=== PATIENT | male | born 1980 | race Two or more races ===

== ENCOUNTER 2025-05-08 13:40 | Inpatient (IN) | payer MEDICAID, SELFPAY ==
[2025-05-08] VITALS (14 sets, daily range): BP systolic 112–150; BP diastolic 81–96; PULSE 79–104; RESP 16–20; TEMP 36.3–37.2; O2SAT 95–100; BMI 28.1; BMI 35.5
--- NOTE | 2025-05-08 13:54 | PC.NURSE ---
PT BROUGHT IN BY AMBULANCE FOR C/O GENERALIZED WEAKNESS FOR 1 WEEK AND BLOODY STOLLS FOR 3 DAYS. STATES HISTORY OF LIVER PROBLEMS AND STILL DRINKING ALCOHOL BUT NOT TODAY.
--- NOTE | 2025-05-08 13:58 | EKG_ITS ---
[facility] Test Date: 2025-05-08 Pat Name: JOSE COON Department: Room: - Gender: Male Heel Pricker: : 1980 Requested By: ED Temporary Provider Order Number: [id number] Reading MD: ED Temporary Provider Measurements Intervals [place] Rate: 77 P: 42 OK: 152 QRS: 41 QRSD: 94 T: 85 QT: 428 QTc: 485 Interpretive Statements SINUS RHYTHM WITH MARKED SINUS ARRHYTHMIA LOW QRS VOLTAGE [QRS DEFLECTION < 0.5/1.0 mV IN LIMB/CHEST LEADS] Compared to ECG 03/25/2024 19:12:36 Low QRS voltage now present Sinus tachycardia no longer present /store/S0/[id number].pdf
--- NOTE | 2025-05-08 14:02 | PC.NURSE ---
DR. HOLDER INFORMED ABOUT LOW BLOOD SUGAR AND OKAYED ORDER FOR D50
[2025-05-08] MEDS: DEXTROSE 50%-WATER INJ 50 ML SYRINGE IVP (14:05)
--- NOTE | 2025-05-08 14:20 | PD.EDADULT ---
ED General RME/HPI General Chief complaint: Weakness Stated complaint: FEELING ILL Time Seen by Provider: 05/08/25 14:21 Arrival date/time: 05/08/25 13:40 Limitations: no limitations RME / HPI RME / HPI narrative: DR. PRESCOTT MAIN ED EVALUATION: 45 year old male with past medical history significant for liver cirrhosis from alcoholism, hypertension, kidney disease from liver disease presents to the Emergency Department [facility] with complaints generalized weakness, abdominal distention, skin rash and skin lesions from scratching. No diabetes history. Related Data Previous Rx's ?Medication ?Instructions ?Recorded pantoprazole 40 mg tablet,delayed 40 mg PO BID GI bleed 30 days #60 03/28/24 release tabs amoxicillin 875 mg-potassium 1 tab PO BID #14 tabs 06/04/24 clavulanate 125 mg tablet apixaban 5 mg tablet 5 mg PO BID #60 tabs 06/04/24 Allergies Allergy/AdvReac Type Severity Reaction Status Date / Time No Known Allergies Allergy Verified 05/04/24 17:15 Review of Systems Review of Systems Systems Reviewed: All systems reviewed, normal except as documented Past Medical History Past Medical History CARDIAC: Positive Hypercholesterolemia, Congestive Heart Failure and Hypertension RESPIRATORY: Positive Chronic Obstructive Pulmonary Disease (COPD), Asthma and Tobacco Use GASTROINTESTINAL: Positive Gastrointestinal Disorders, Cirrhosis, Gastrointestinal Bleed and Obesity ENDOCRINE: Positive Endocrine Disorders and Diabetes Mellitus Type 2 HEMATOLOGIC: Positive Anemia PSYCHO/SOCIAL: Positive Psychiatric Problems, Schizophrenia, Recreational Drug Use, Bipolar Disorder and Depression OTHER HISTORY: Positive Blood Transfusions Family History FAMILY HISTORY: Positive Family Psychiatric Problems, Family Cardiac Disorders and Family Cancer Social History SMOKING STATUS: Current some day smoker SECOND HAND EXPOSURE: Yes SUBSTANCE USE: does not use ALCOHOL: Never ED Exam General Limitations: Present no limitations General appearance: Present alert Head Head exam: Present atraumatic, normocephalic and normal inspection Eye Eye exam: Present normal appearance, PERRL and EOMI ENT ENT exam: Present normal exam, normal oropharynx and mucous membranes moist Neck Neck exam: Present normal inspection, full ROM and trachea midline Chest Chest inspection: Present normal inspection and symmetric chest wall rise Respiratory Respiratory exam: Present other (diminished breath sounds) Cardiovascular Cardiovascular exam: Present regular rate, normal rhythm and normal heart sounds Abdominal Exam Abdominal exam: Present normal bowel sounds and other (ascites) Extremities Exam Extremities exam: Present normal inspection and full ROM Back Exam Back exam: Present normal inspection and full ROM Neurological Exam Neurological exam: Present alert, oriented X3 and CN II-XII intact Psychiatric Psychiatric exam: Present normal affect and normal mood Skin Skin exam: Present warm, dry and rash (skin rash and skin lesions from scratching) Course Quality Measures none Orders Category Date Time Status Bedside Blood Glucose NOW Care 05/08/25 14:04 Completed Ball[employer] Expert Forensic Q4H START 00 Care 05/08/25 14:07 Completed EKG (ED ONLY) *Do not use* NOW Care 05/08/25 13:58 Completed Insert IV NOW Care 05/08/25 14:[address] abdomen pelvis wo con Stat Exams 05/08/25 14:23 Completed CXR [XR chest 1V] Stat Exams 05/08/25 14:21 Completed EKG (ED Only) Stat Exams 05/08/25 13:58 Draft Alcohol, Blood Medical Stat Lab 05/08/25 14:20 Completed Alcohol, Urine Stat Lab 05/08/25 14:10 Ordered Antibody Identification Stat Lab 05/08/25 14:20 Results CBC Stat Lab 05/08/25 14:20 Completed CMP [Comprehensive Metabolic Panel] Stat Lab 05/08/25 14:20 Completed Drug Screen,Urine Stat Lab 05/08/25 14:10 Ordered Lactate (Lactic Acid) Stat Lab 05/08/25 14:08 Completed Procalcitonin Stat Lab 05/08/25 14:20 Completed Type and Screen Stat Lab 05/08/25 14:20 Results Urinalysis Stat Lab 05/08/25 14:09 Ordered Azithromycin Inj [Zithromax Inj] 500 mg Med 05/08/25 16:14 Active Sodium Chloride 0.9% 250 ml [Ns] 250 ml IV X1 Dextrose 50% Syr [D50w Syringe Abboject] Med 05/08/25 13:56 Discontinued 50 ml .ROUTE .STK-MED ONE Dextrose 50% Syr [D50w Syringe Abboject] Med 05/08/25 14:02 Discontinued 50 ml IVP X1 ONE cefTRIAXone/D5w 1gm IV premix [Rocephin/D5w 1gm IV Med 05/08/25 16:14 Active premix] 1 gm in 50 ml IV X1 Vital Signs Vital signs: Vital Signs Temperature 98.3 F 05/08/25 13:54 Pulse Rate 85 05/08/25 13:54 Respiratory Rate 16 05/08/25 13:54 Blood Pressure 141/83 H 05/08/25 13:54 Pulse Oximetry (%) 97 05/08/25 13:54 Oxygen Delivery Method Room Air 05/08/25 13:54 Discharge Plan Plan Patient Disposition: Admit Acute Care w/in Hospital Prescriptions/Referrals Prescriptions/Med Rec: No Action pantoprazole 40 mg tablet,delayed release (DR/EC) 40 mg PO BID 30 Days Qty: 60 2RF apixaban 5 mg tablet 5 mg PO BID Qty: 60 0RF amoxicillin-pot clavulanate 875-125 mg tablet 1 tab PO BID Qty: 14 0RF Referrals: Cj Lopez MD [Primary Care Provider] - In 1 week Problem List Clinical Impression: CKD (chronic kidney disease), ANGIE (acute kidney injury), Cirrhosis, Ascites, Right lower lobe pneumonia Patient/Caregiver Discharge Instructions Print Language: Korean Stand Alone Forms: Henrietta Award Info., Patient Portal Info Letter MDM Narrative [facility] hospital course: I, Shawnee Schmitt, am scribing for and in the presence of Dr. Prescott. Differential diagnosis: Likely ascitis, pleural effusion, and fluid overload. Plan to treat pleuritis. Needs abdominal paracentesis. Will start on diuretics. Consider for admission. Patient has CKD, ANGIE, cirrhosis, ascites, and right lower lobe pneumonia. Will treat with Rocephin and Zithromax. Patient will be admitted. Clinical Information Provided by patient and EMS Medical Records [facility] Meds/Rx Considered, not Ordered None Labs/Rad/Tests considered, not Ordered None Chronic Illness/Social Conditions Add or document further as needed: Liver cirrhosis from alcoholism, hypertension, kidney disease from liver disease. No diabetes history. EKG EKG Interpretation narrative: EKG#1: EKG at 1359 hours. Interpreted by me: sinus rhythm, rate 77, low voltage, no axis deviation, no ischemia, normal intervals Lab Interpretation Labs: see narrative above Imaging Radiology reports / interpretation(s): Procedure(s): XR chest 1V Accession Number(s): [id number] cc: Neftali Cassidy MD; Cj Lopez MD; Pola Benitez MD~ Examination: AP chest single view Technique one AP portable semiupright chest single view Date and time: May 08, 2025 1437 hours INDICATIONS: Shortness of breath today. FINDINGS: Mild to moderate vascular congestion Suspicious for early pneumonia in the right upper lobe Prominent osteopenia Normal heart size IMPRESSION: Suspicious for early pneumonia in the right upper lobe, follow-up imaging is needed to document clearing and exclude underlying pulmonary nodule Dictated By: Pola Benitez MD Procedure(s): CT abdomen pelvis wo [facility] Accession Number(s): [id number] cc: Neftali Cassidy MD; Cj Lopez MD; Pola Benitez MD~ Examination: CT abdomen and pelvis without contrast. Coronal 3-D reconstructions. Sagittal 2-D reconstructions. Date and time of exam:May 08, 2025 1457 hours Comparison March 22, 2024 INDICATIONS: Generalized abdominal pain today with nausea and vomiting CTDI: vol (mGy): 12.8 DLP: (mGycm): 895 Technique: Axial images of the abdomen have been obtained, 3 mm slice thickness Intravenous contrast material has not been administered. Low dose protocols were performed. One or more of the following dose reduction techniques were used; automated exposure control, adjustment of the mA and/or KV according to patient size, use of iterative reconstruction technique. Findings: 8 mm soft nodule in the right lower lobe image 4, consider mild pneumonia Cirrhosis, liver nodular in contour with significant ascites No gallstones Spleen is not enlarged Image 49 suspicious for esophageal varices No pancreatic or adrenal mass No bowel obstruction Atrophic kidneys with poorly defined soft tissue areas of calcification in both kidneys, no hydronephrosis or ureteral calculi Anasarca Air in the urinary bladder No prostatomegaly Fat-containing right inguinal hernia IMPRESSION: Suspicious for early pneumonia right base Cirrhosis Significant ascites Anasarca Suspicious for esophageal varices Atrophic kidneys with soft areas of calcification, no hydronephrosis or ureteral calculi Dictated By: Pola Benitez MD Medication Administration(s) Medication Administration History Ceftriaxone Sodium/Dextrose (Rocephin/D5w 1gm Iv Premix) 1 gm in 50 mls @ 100 mls/hr IV X1 ONE Stop: 05/08/25 16:43 Azithromycin 500 mg/ Sodium (Chloride) 250 mls @ 250 mls/hr IV X1 ONE Stop: 05/08/25 17:13 Discontinued Medications Dextrose (Dextrose 50%-Water Inj 50 Ml Syringe) 50 ml IVP X1 ONE Stop: 05/08/25 14:03 Last Admin: 05/08/25 14:05 Dose: 50 ml Documented By: ANANTH Dextrose (Dextrose 50%-Water Inj 50 Ml Syringe) Confirm Administered Dose 50 ml .ROUTE .STK-MED ONE Stop: 05/08/25 13:57 Last Admin: 05/08/25 14:05 Dose: Not Given Documented By: ANANTH Non-Admin Reason: Duplicate Medication on eMAR Consultations/Discussions re: Management Consult #1: Date/time: 05/08/25 4:28 pm Physician, specialty, service, details: Discussed test HPI, PMHx, lab, radiology results and/or management with resident working with the hospitalist Dr. Krause. Will admit for further evaluation and management. Accepts patient for admission. Diagnosis Differential diagnosis: ascitis, pleural effusion, and fluid overload Most likely dx, and/or detailed dx discussion: CKD, ANGIE, cirrhosis, ascites, and right lower lobe pneumonia Dispositon Disposition: Admit
--- NOTE | 2025-05-08 14:23 | XR_ITS ---
Examination: CT abdomen and pelvis without contrast. Coronal 3-D reconstructions. Sagittal 2-D reconstructions. Date and time of exam:May 08, 2025 1457 hours Comparison March 22, 2024 INDICATIONS: Generalized abdominal pain today with nausea and vomiting CTDI: vol (mGy): 12.8 DLP: (mGycm): 895 Technique: Axial images of the abdomen have been obtained, 3 mm slice thickness Intravenous contrast material has not been administered. Low dose protocols were performed. One or more of the following dose reduction techniques were used; automated exposure control, adjustment of the mA and/or KV according to patient size, use of iterative reconstruction technique. Findings: 8 mm soft nodule in the right lower lobe image 4, consider mild pneumonia Cirrhosis, liver nodular in contour with significant ascites No gallstones Spleen is not enlarged Image 49 suspicious for esophageal varices No pancreatic or adrenal mass No bowel obstruction Atrophic kidneys with poorly defined soft tissue areas of calcification in both kidneys, no hydronephrosis or ureteral calculi Anasarca Air in the urinary bladder No prostatomegaly Fat-containing right inguinal hernia IMPRESSION: Suspicious for early pneumonia right base Cirrhosis Significant ascites Anasarca Suspicious for esophageal varices Atrophic kidneys with soft areas of calcification, no hydronephrosis or ureteral calculi
[2025-05-08 14:44] LABS: Lactate (Lactic Acid) 1.2 mMol/L (0.4-2.0)
[2025-05-08 14:47] LABS: Basophils # (Auto) 0.0 Thou/mm3 (0.0-0.2); Basophils % (Auto) 1 % (0-2.5); Eosinophils # (Auto) 0.2 Thou/mm3 (0.0-0.5); Eosinophils % (Auto) 3 % (0-10); Hematocrit 22.3 % (41.0-53.0); Immature Granulocytes Auto 0.02 Thou/mm3 (0.00-0.00); Lymphocytes # (Auto) 1.9 Thou/mm3 (1.0-4.8); Lymphocytes % (Auto) 22 % (10-50); Mean Corpuscular HGB Conc 34.1 g/dl (31.0-37.0); Mean Corpuscular Hemoglobin 32.3 pg (25.0-35.0); Mean Corpuscular Volume 95 fL (80-100); Monocytes # (Auto) 0.8 Thou/mm3 (0.0-0.8); Monocytes % (Auto) 10 % (0-12); Neutrophils # (Auto) 5.6 Thou/mm3 (1.8-7.7); Neutrophils % (Auto) 65 % (37-80); Nucleated Red Blood Cell # 0.00 Thou/mm3 (0.00-0.00); Nucleated Red Blood Cell % 0 /100 WBC (0); Platelet Count 172 Thou/mm3 (140-440); RDW Standard Deviation 53.1 fL (35.1-43.9); Red Blood Count 2.35 Miln/mm3 (4.50-5.90); White Blood Count 8.5 Thou/mm3 (3.8-10.6)
[2025-05-08 14:56] LABS: Hemoglobin 7.6 g/dL (13.5-16.0)
--- NOTE | 2025-05-08 15:12 | PC.NURSE ---
pt informed about need for urine and states unable to void. GIVEN URINAL
[2025-05-08 15:16] LABS: Alanine Aminotransferase < 7 U/L (10-49); Albumin, Serum 2.5 gm/dL (3.5-5.0); Albumin/Globulin Ratio 0.7 (1.2-2.2); Alcohol, Blood Medical < 3.0 mg/dL (0-10.0); Alkaline Phosphatase 83 U/L (46-116); Aspartate Amino Transferase 20 U/L (0-34); BUN/Creatinine Ratio 9 Ratio (12-20); Bilirubin,Total 0.5 mg/dL (0.3-1.2); Blood Urea Nitrogen 36 mg/dL (9-23); Chloride 109 mMol/L (98-107); Creatinine (Component) 4.1 mg/dL (0.6-1.3); Estimated Creatinine Clearance 23.8 mL/min (>60); Globulin 3.4 gm/dL (2.3-3.5); Glucose 55 mg/dL (74-106); Osmolality,Calculated 280 (275-295); Potassium 3.3 mMol/L (3.4-5.1); Procalcitonin 0.38 ng/ml (0.0-0.49); Sodium 137 mMol/L (136-145); Total Protein 5.9 gm/dL (5.7-8.2); eGFR 18 See Note
[2025-05-08 15:31] LABS: Anion Gap 13 (7-16); Calcium 7.1 mg/dL (8.3-10.6); Calcium (Corrected) 8.3 mg/dL (8.5-10.1); Carbon Dioxide 15.1 mMol/L (20.0-31.0)
--- NOTE | 2025-05-08 17:14 | XR_ITS ---
Examination: Retroperitoneal ultrasound, complete Technique: Multiple high resolution grayscale images of the retroperitoneum obtained, including kidneys and bladder. Exam date and time:May 08, 2025, 181 hours INDICATIONS: Hepatorenal disease, diagnosis cirrhosis, diagnosis acute renal insufficiency and laboratory examination today FINDINGS: Right kidney 8.7 cm cortex 1.3 cm Left kidney 9.6 cm renal cortex 1.1 cm Moderate renal parenchymal scar formation Moderate ascites Contracted urinary bladder IMPRESSION: Small kidneys with bilateral renal cortical thinning Moderate bilateral renal parenchymal scar formation
[2025-05-08 17:31] LABS: Parathyroid Hormone Intact 130.0 pg/ml (18.5-88.0); Phosphorous 6.1 mg/dL (2.4-5.1); Uric Acid 11.4 mg/dL (3.7-9.2)
[2025-05-08 17:35] LABS: Vitamin D 25 Hydroxy Total 19.7 ng/mL (7.3-40.2)
[2025-05-08] MEDS: cefTRIAXone/D5w 1gm IV premix 1 GM/50 ML BAG IV (17:43)
[2025-05-08] MEDS: Sodium Bicarb Inj 8.4% SYR 50 ML SYRINGE IV (18:06)
[2025-05-08] MEDS: AZITHROMYCIN INJ 500 MG in SODIUM CHLORIDE 0.9% 250 ML 250 ML 250 MG IV (18:08)
--- NOTE | 2025-05-08 18:26 | PC.NURSE ---
CALLED DR. Olvin VACA ABOUT PT'S BLOOD SUGARS AND CONCERN THAT OCTREOTIDE WILL CAUSE BLOOD SUGAR TO DROP FURTHER AND ORDER TO HOLD MED OBTAINED NOW
--- NOTE | 2025-05-08 18:28 | PC.NURSE ---
CALL RECEIVED FROM HOSPITALIST DR. VACA AND WANTS OCTREOTIDE STARTED
[2025-05-08] MEDS: OCTREOTIDE ACET INJ 1,000 MCG in SODIUM CHLORIDE 0.9% 100 ML 5.1 MCG IV (18:29)
--- NOTE | 2025-05-08 18:36 | PD.RESHP ---
Documentation for date of: 05/08/25 HPI History of Present Illness Chief complaint: not feeling well History of present illness: 44-year-old male with active alcohol use disorder with subsequent end-stage liver disease, type 2 diabetes mellitus, hypertension presenting to ED 05/08/2025 due to generalized complaint of not feeling well. Endorses that he has been having multiple episodes of nausea and vomiting and noticeable blood in vomit as well. Continues to have active alcohol use history endorses drinking 1 quart of beer per day. Has been drinking for the past 20 years. While in the ED, patient had 1 episode of hematemesis. Noticeable worsening ascites and abdominal distention, has never been tapped before. Also endorses decreased urine output, SOB, last drink 2 days ago, new onset rash that started some days ago, denies any withdrawal seizures in the past. In ED, BP 141/83, with rest of vital stable. Hemoglobin 7.6, MCV 95, platelets 172, sodium 137, potassium 3.3, bicarb 15, BUN 36, creatinine 4.1, glucose 55, phosphate 6.1, elevated PTH 130. Normal ethyl alcohol level. Early signs of pneumonia on chest x-ray, CT abdomen pelvis Cirrhosis with significant ascites, possible esophageal varices, atrophic kidneys. He was given dextrose 50, 1 g ceftriaxone, sodium bicarb 50 while in the ED. Nephrology Dr Duncan consulted for ANGIE and GI Dr. Figueroa consulted for GI bleed. PMH: As noted above PSH: Denies Family Hx: History hypertension in mother Social: Unemployed, drinks 1 quart of beer a day for the past 20 years, smokes 1 pack/day for past couple years, denies illicit drug use. Meds: Denies taking any medications Allergies: NKDA Review of Systems Review of Systems Systems Reviewed: All systems reviewed, normal except as documented Exam Vital Signs Temp Pulse Resp BP Pulse Ox O2 Del Method 98.3 F 87 19 139/96 H 100 Room Air 05/08/25 13:54 05/08/25 18:00 05/08/25 18:00 05/08/25 18:00 05/08/25 18:00 05/08/25 18:00 Narrative Exam General: Young male, distressed, distended abdomen, vomitus on byers, eyes covered by hat HEENT: NCAT, No JVD noted. Mucosa dry. Pupils are equal and reactive to light bilaterally, no scleral icterus Cardiovascular: Normal S1 and S2. Regular rate and rhythm. Respiratory: Lungs are clear to auscultation bilaterally. No wheezing or crackles heard. Abdomen: Hard, distended, positive fluid wave test Skin: no spider angioma, appears like pin point rashes through out body. Possible bug bites Musculoskeletal: No gross injuries. Able to move all 4 extremities. +1 ptiting edema Neuro: Alert and oriented x3. No focal neuro deficits. Psych: apathetic Results: Labs 05/09/25 06:20 05/08/25 14:20 Labs: Short CBC 05/08/25 Range/Units 14:20 WBC 8.5 (3.8-10.6) Thou/mm3 Hgb 7.6 L (13.5-16.0) g/dL Hct 22.3 L (41.0-53.0) % Plt Count 172 (140-440) Thou/mm3 BMP 05/08/25 14:20 Sodium 137 Potassium 3.3 L Chloride 109 H Carbon Dioxide 15.1 L BUN 36 H Creatinine 4.1 H* Glucose 55 L Calcium 7.1 L Liver Function 05/08/25 Range/Units 14:20 Total Bilirubin 0.5 (0.3-1.2) mg/dL AST 20 (0-34) U/L ALT < 7 L (10-49) U/L Alkaline Phosphatase 83 (46-116) U/L Albumin 2.5 L (3.5-5.0) gm/dL Quality Measures Quality Measures none Medications Home Medications and Allergies Home Medications ?Medication ?Instructions ?Recorded ?Confirmed ?Type amlodipine 10 mg tablet 10 mg PO 1XD 05/09/25 05/09/25 History ferrous sulfate 325 mg (65 mg 325 mg PO 1XD 05/09/25 05/09/25 History iron) tablet (FeroSul) folic acid 1 mg tablet 1 mg PO 1XD 05/09/25 05/09/25 History levothyroxine 100 mcg tablet 100 mcg PO 1XD 05/09/25 05/09/25 History losartan 100 mg tablet 100 mg PO 1XD 05/09/25 05/09/25 History quetiapine 100 mg tablet 100 mg PO HS 05/09/25 05/09/25 History Allergies Allergy/AdvReac Type Severity Reaction Status Date / Time No Known Allergies Allergy Verified 05/04/24 17:15 Visit Medications Acetaminophen (Acetaminophen 325 Mg Tablet) 650 mg PO Q6H PRN PRN Reason: Fever >100.3 or pain 1-3 Stop: 06/07/25 17:36 Bumetanide (Bumetanide Inj 0.25 Mg/Ml Vial 4 Ml) 2 mg IVP BID [facility] Stop: 06/07/25 20:59 Octreotide Acetate 1,000 mcg/ (Sodium Chloride) 102 mls @ 5.1 mls/hr IV .Q20H ANNE; Protocol Stop: 05/13/25 17:22 Last Admin: 05/08/25 18:29 Dose: 50 mcg/hr, 5.1 mls/hr Ceftriaxone Sodium/Dextrose (Rocephin/D5w 1gm Iv Premix) 1 gm in 50 mls @ 100 mls/hr IV QDAY ANNE Stop: 05/15/25 17:24 Last Infusion: 05/08/25 18:08 Dose: Infused Albumin Human (Albuminar-25 Ivpb) 25 gm in 100 mls @ 100 mls/hr IV BID ANNE Stop: 05/11/25 20:59 Lactulose (Lactulose Syrup 20 Gm/30 Ml Udc) 10 gm PO QDAY PRN; Protocol PRN Reason: constipation Stop: 06/08/25 08:59 Ondansetron HCl (Ondansetron Inj 2 Mg/Ml Inj 2 Ml) 4 mg IVP Q6H PRN; Protocol PRN Reason: NAUSEA OR VOMITING Stop: 06/07/25 17:36 Ondansetron HCl (Ondansetron Inj 2 Mg/Ml Inj 2 Ml) 4 mg IVP Q6H PRN; Protocol PRN Reason: NAUSEA OR VOMITING Stop: 06/07/25 18:35 Pantoprazole Sodium (Pantoprazole Inj 40 Mg Vial) 40 mg IVP BID [facility] Stop: 06/07/25 20:59 Discontinued Medications Dextrose (Dextrose 50%-Water Inj 50 Ml Syringe) 50 ml IVP X1 ONE Stop: 05/08/25 14:03 Last Admin: 05/08/25 14:05 Dose: 50 ml Ceftriaxone Sodium/Dextrose (Rocephin/D5w 1gm Iv Premix) 1 gm in 50 mls @ 100 mls/hr IV X1 ONE Stop: 05/08/25 16:43 Last Admin: 05/08/25 17:57 Dose: Not Given Azithromycin 500 mg/ Sodium (Chloride) 250 mls @ 250 mls/hr IV X1 ONE Stop: 05/08/25 17:13 Last Admin: 05/08/25 18:08 Dose: 250 mls/hr Potassium Chloride (Potassium Chloride 20 Meq Tabcr) 40 meq PO X1 ONE Stop: 05/08/25 18:04 Sodium Bicarbonate (Sodium Bicarb Inj 8.4% Syr 50 Ml Syringe) 50 ml IV X1 ONE Stop: 05/08/25 17:32 Last Admin: 05/08/25 18:06 Dose: 50 ml Tuberculin PPD (Tuberculin Ppd Inj 5 Unit/0.1 Ml Dose) 5 unit ID X1 ONE Stop: 05/08/25 17:38 Assessment & Plan Plan 44-year-old male with active alcohol use disorder with subsequent end-stage liver disease, type 2 diabetes mellitus, hypertension presenting to ED 05/08/2025 due to generalized complaint of not feeling well. Continues to have active alcohol use history endorses drinking 1 quart of beer per day. Nephrology Dr Duncan consulted for ANGIE and GI Dr. Figueroa consulted for GI bleed. #Decompensated liver cirrhosis #Upper GI bleed Has history of liver cirrhosis, presenting with apparent ascites, no coagulopathy, bilirubin normal, AST/ALT normal, ammonia normal. Patient alert and oriented x 3. Endorses few episodes of hematemesis, hemoglobin 7.6 on admission and MCV 95. Endorses alcohol intake of 1 quart of beer per day for the past 20 years. Denies getting abdominal tap for ascites in the past. CT abdomen pelvis Cirrhosis with significant ascites, possible esophageal varices, atrophic kidneys. ?Consulted GI Dr. Figueroa, patient recommendations ?Started octreotide drip for 5 days (05/08- ?IV ceftriaxone 1 g daily (05/08- ?IV pantoprazole 40 mg BID -transfuse 1 unit PRBC if hemoglobin less than 7 ?Albumin 25 g BID x3 days (05/08- -IV Zofran ? Daily coag panel ? Clear liquid diet ?Hepatitis panel pending -daily CBC #ANGIE Prerenal versus hepatorenal. BUN 36, creatinine 4.1 (baseline appears to be around 2), GFR 18, ratio 9. Systemic vasodilation and causing prerenal ANGIE may also be in the setting of liver cirrhosis. If prerenal, anticipate improvement with volume expansion. However at this time we will diurese due to his severe ascites. Uric acid elevated 11.4, phosphate elevated 6.1 He has been endorsing decreased urine output -Consulted nephrology Dr Duncan, appreciate recommendations ?Urine electrolytes pending ? Start IV Bumex 2 mg BID ? Monitor urine output ? Renal ultrasound pending #Electrolyte abnormalities Potassium 3.3, bicarb 15 on admission ? Replete as needed ? Daily labs Health maintenance: Dispo: medsurg, GI bleed, ANGIE FEN: clear liquid DVT prophylaxis: SCDs CODE STATUS: Full code The patient's management plan was discussed with my attending physician Dr. Krause. Lexy Weldon, PGY-1 Attending Provider Attestation/Addendum I have examined the patient, reviewed labs and imaging findings, discussed the case with the resident(s), and reviewed entered orders. I agree with the plan of care as outlined in this note, with these additional summaries/recommendations: After examination of the patient and review of the clinical data, I feel that this patient needs admission to the hospital for further treatment and evaluation. Patient is a 45-year-old male with a medical history of alcohol use disorder, liver cirrhosis, primary hypertension, diabetes mellitus type 2, and psychiatric disorder presents to [facility] emergency department on 05/08/2025 with chief complaints of generalized weakness and blood in stool. Patient seen at bedside. He reports he has cirrhosis from alcohol use. He currently does not follow with a liver specialist but does occasionally follow-up with his primary care provider. Patient diagnosed with decompensated cirrhosis and GI bleed. Consult gastroenterology, recommendations appreciated. N.p.o., IV Protonix, octreotide gtt., and IV Rocephin. Hold all chemical anticoagulation. Avoid excessive Tylenol use and limit hepatotoxic agents. Low-salt diet. Counseled patient on alcohol sensation. Patient also noted to have severe ANGIE on CKD. Likely etiology prerenal azotemia versus hepatorenal syndrome. Consult nephrology, recommendations appreciated. Patient does not appear to have acute indication for dialysis at this time. Place Winters catheter and we will order [address] scan did reveal atrophic kidneys bilaterally. Patient has minimal electrolyte abnormalities and we will replace. Patient updated he will be admitted to the hospital and in agreement. All questions answered to satisfaction. Please see residents note for additional details and management. Dr. Nelida MD
[2025-05-08] MEDS: ONDANSETRON INJ 2 MG/ML INJ 2 ML 4 MG IVP (18:40)
[2025-05-08 18:44] LABS: Ammonia 32 uMol/L (11-32)
[2025-05-08 18:53] LABS: COVID-19 Antigen (In-House) Negative (Negative)
[2025-05-08 18:58] LABS: Base Excess -13 (-3-3); HCO3 13 mEq/L (20-26); Inspired Oxygen, FIO2 21 %; O2 Saturation 98 % (91-98); PCO2 29 mmHg (32.0-48.0); PO2 91 mmHg (83-108); pH, Arterial 7.27 (7.35-7.45)
--- NOTE | 2025-05-08 19:00 | PD.RESCONSUL ---
HPI Data of Consult Consult date: 05/08/25 Requesting Physician: Mark Krause MD Admitting Provider: Mark Krause MD Attending Provider: Mark Krause MD Primary Care Provider: Cj Lopez MD Consult Narrative Reason for consult: Acute renal failure, cirrhosis, anasarca History of present illness: Mr. 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 Sharath Payne), Prediabetes, history of pulmonary embolism-on Eliquis, hypertension, history of variceal bleed, history of psychiatric disorders, who presented to the emergency room from home complaining of generalized weakness, significant abdominal distention, skin rash. Patient was evaluated in the emergency room, he was a poor historian, is noncompliant with medications and unaware of most of his medical history. Limited HPI. Patient reports having nausea and vomiting, noted bilious/green vomiting with food contents in the vomiting bag, endorsed melena. Patient endorses using alcohol, states he lives at the home, has scratch campbell and rash all over his body, states he has bedbugs at home. Noted to have abdominal distention, pedal edema, complaining of shortness of breath. Patient is visibly uncomfortable though saturating 100% on room air, but feels he cannot get enough air. Nephrology was consulted for management of acute on chronic CKD and anasarca. In the emergency room initial labs show CBC pertinent for anemia hemoglobin 7.6, platelets 172 WBC 8.5, sodium 137, K 3.3, CL 109, CO2 15.1, BUN 36 creatinine 4.1, EGFR 18, glucose 55, lactic acid 1.2, uric acid 11.4, calcium 8.3 phosphorus 6.1, PTH 130. ABG showed pH 7.27 PCO2 29 PO2 91. Chest x-ray suspicious for early pneumonia in right upper lobe. Abdominal pelvis CT shows pneumonia right base, cirrhosis, significant ascites, anasarca, suspicion for esophageal varices, atrophic kidneys, renal ultrasound shows right kidney 8.7 cm, left kidney 9.6 cm, moderate renal failure, scar formation, moderate ascites and contracted urinary bladder. EKG showed sinus rhythm with sinus arrhythmia low voltage QRS complexes. No acute ischemic changes noted. In the emergency room patient was given dextrose IV pushes for hypoglycemia, was given ceftriaxone and azithromycin, 1 ampoule of sodium bicarb and started on octreotide drip and ondansetron. cc:: cc: Mark Krause MD Review of Systems Review of Systems Systems Reviewed: All systems reviewed, normal except as documented Past Medical History Past Medical History NEUROLOGIC: Negative Neurological Disorders or Seizures CARDIAC: Positive Hypercholesterolemia, Congestive Heart Failure and Hypertension; Negative Cardiac Disorders, Angina, Atherosclerotic Heart Disease or Aneurysm RESPIRATORY: Positive Chronic Obstructive Pulmonary Disease (COPD), Asthma and Tobacco Use GASTROINTESTINAL: Positive Gastrointestinal Disorders, Cirrhosis, Gastrointestinal Bleed and Obesity GENITOURINARY: Negative Genitourinary Disorders or Renal Disease MUSCULOSKELETAL: Negative Musculoskeletal Disorders ENDOCRINE: Positive Endocrine Disorders and Diabetes Mellitus Type 2; Negative Diabetes Mellitus Type 1 HEMATOLOGIC: Positive Anemia; Negative Sickle Cell Disease PSYCHO/SOCIAL: Positive Psychiatric Problems, Schizophrenia, Recreational Drug Use, Bipolar Disorder and Depression OTHER HISTORY: Positive Blood Transfusions; Negative Autoimmune Disease, Blood Transfusion Reaction, Anesthesia Reactions or Cancer Family History FAMILY HISTORY: Positive Family Psychiatric Problems, Family Cardiac Disorders and Family Cancer; Negative Family Respiratory Disorders, Family Gastrointestinal Problems, Family Surgery or Family Anesthesia Reaction Social History SMOKING STATUS: Current some day smoker SECOND HAND EXPOSURE: Yes SUBSTANCE USE: does not use Exam Vital Signs Temp Pulse Resp BP Pulse Ox O2 Del Method 98.3 F 87 19 139/96 H 100 Room Air 05/08/25 13:54 05/08/25 18:00 05/08/25 18:00 05/08/25 18:00 05/08/25 18:00 05/08/25 18:00 Narrative Exam Currently seen in the emergency department General: Young male, distressed, distended abdomen, vomitus on byers, teary eyed. HEENT: NCAT, No JVD noted. Mucosa dry. Pupils are equal and reactive to light bilaterally, no scleral icterus Cardiovascular: Normal S1 and S2. Regular rate and rhythm. Respiratory: Lungs are clear to auscultation bilaterally. No wheezing or crackles heard. Abdomen: Hard, distended, positive fluid wave test Skin: no spider angioma , scratch campbell all over his body with excoriations. Musculoskeletal: No gross injuries. Able to move all 4 extremities. +2-3 pitting edema in the lower extremities extending all the way up Neuro: Alert and oriented x3. No focal neuro deficits. Psych: apathetic Results Labs 05/08/25 18:19 05/08/25 14:20 Labs: Short CBC 05/08/25 Range/Units 14:20 WBC 8.5 (3.8-10.6) Thou/mm3 Hgb 7.6 L (13.5-16.0) g/dL Hct 22.3 L (41.0-53.0) % Plt Count 172 (140-440) Thou/mm3 BMP 05/08/25 14:20 Sodium 137 Potassium 3.3 L Chloride 109 H Carbon Dioxide 15.1 L BUN 36 H Creatinine 4.1 H* Glucose 55 L Calcium 7.1 L Liver Function 05/08/25 Range/Units 14:20 Total Bilirubin 0.5 (0.3-1.2) mg/dL AST 20 (0-34) U/L ALT < 7 L (10-49) U/L Alkaline Phosphatase 83 (46-116) U/L Albumin 2.5 L (3.5-5.0) gm/dL Quality Measures Quality Measures none Medications Home Medications and Allergies Home Medications ?Medication ?Instructions ?Recorded ?Confirmed ?Type amlodipine 10 mg tablet 10 mg PO 1XD 05/09/25 05/09/25 History ferrous sulfate 325 mg (65 mg 325 mg PO 1XD 05/09/25 05/09/25 History iron) tablet (FeroSul) folic acid 1 mg tablet 1 mg PO 1XD 05/09/25 05/09/25 History levothyroxine 100 mcg tablet 100 mcg PO 1XD 05/09/25 05/09/25 History losartan 100 mg tablet 100 mg PO 1XD 05/09/25 05/09/25 History quetiapine 100 mg tablet 100 mg PO HS 05/09/25 05/09/25 History Allergies Allergy/AdvReac Type Severity Reaction Status Date / Time No Known Allergies Allergy Verified 05/04/24 17:15 Visit Medications Acetaminophen (Acetaminophen 325 Mg Tablet) 650 mg PO Q6H PRN PRN Reason: Fever >100.3 or pain 1-3 Stop: 06/07/25 17:36 Bumetanide (Bumetanide Inj 0.25 Mg/Ml Vial 4 Ml) 2 mg IVP BID ANNE Stop: 06/07/25 20:59 Octreotide Acetate 1,000 mcg/ (Sodium Chloride) 102 mls @ 5.1 mls/hr IV .Q20H ANNE; Protocol Stop: 05/13/25 17:22 Last Admin: 05/08/25 18:29 Dose: 50 mcg/hr, 5.1 mls/hr Ceftriaxone Sodium/Dextrose (Rocephin/D5w 1gm Iv Premix) 1 gm in 50 mls @ 100 mls/hr IV QDAY ANNE Stop: 05/15/25 17:24 Last Infusion: 05/08/25 18:08 Dose: Infused Albumin Human (Albuminar-25 Ivpb) 25 gm in 100 mls @ 100 mls/hr IV BID ANNE Stop: 05/11/25 20:59 Lactulose (Lactulose Syrup 20 Gm/30 Ml Udc) 10 gm PO QDAY PRN; Protocol PRN Reason: constipation Stop: 06/08/25 08:59 Ondansetron HCl (Ondansetron Inj 2 Mg/Ml Inj 2 Ml) 4 mg IVP Q6H PRN; Protocol PRN Reason: NAUSEA OR VOMITING Stop: 06/07/25 18:35 Last Admin: 05/08/25 18:40 Dose: 4 mg Pantoprazole Sodium (Pantoprazole Inj 40 Mg Vial) 40 mg IVP BID ANNE Stop: 06/07/25 20:59 Discontinued Medications Dextrose (Dextrose 50%-Water Inj 50 Ml Syringe) 50 ml IVP X1 ONE Stop: 05/08/25 14:03 Last Admin: 05/08/25 14:05 Dose: 50 ml Ceftriaxone Sodium/Dextrose (Rocephin/D5w 1gm Iv Premix) 1 gm in 50 mls @ 100 mls/hr IV X1 ONE Stop: 05/08/25 16:43 Last Admin: 05/08/25 17:57 Dose: Not Given Azithromycin 500 mg/ Sodium (Chloride) 250 mls @ 250 mls/hr IV X1 ONE Stop: 05/08/25 17:13 Last Admin: 05/08/25 18:08 Dose: 250 mls/hr Potassium Chloride (Potassium Chloride 20 Meq Tabcr) 40 meq PO X1 ONE Stop: 05/08/25 18:04 Sodium Bicarbonate (Sodium Bicarb Inj 8.4% Syr 50 Ml Syringe) 50 ml IV X1 ONE Stop: 05/08/25 17:32 Last Admin: 05/08/25 18:06 Dose: 50 ml Tuberculin PPD (Tuberculin Ppd Inj 5 Unit/0.1 Ml Dose) 5 unit ID X1 ONE Stop: 05/08/25 17:38 Assessment & Plan Problem List (1) ANGIE (acute kidney injury): Status: Acute Assessment and plan: Acute kidney injury in the setting of cirrhosis and anasarca. Concern for underlying hepatorenal syndrome type II. Based on labs in 2023, patient seems to have CKD stage III/IV, patient was lost to follow-up since. Did not follow-up with construction accountant or primary care. Seen by Dr. Duncan in October. Currently patient has anasarca, will hold off on giving IV fluids, will add IV albumin to rule out hepatorenal syndrome as well as providing volume expansion intravascularly. ? IV albumin 25 g twice daily for 3 days. ? IV Bumex 2 mg twice daily ? Continue to trend renal function, if no response to albumin and diuretic challenge, can consider hemodialysis. Patient was offered hemodialysis, states he will need some time to consider, was concerned about coming to outpatient dialysis center multiple times a week. ? Ordered viral hepatitis panel and PPD ? Strict intake and output monitoring ? Renal ultrasound ordered (2) Ascites: Status: Acute Assessment and plan: IV diuresis with Bumex 2 mg IV twice daily for volume overload. Offered patient hemodialysis with ultrafiltration for anasarca, but he was hesitant to go ahead with dialysis at this moment. Will reassess patient's condition tomorrow and evaluate response to diuretics. (3) Cirrhosis: Status: Acute Assessment and plan: Decompensated cirrhosis with anasarca, ascites and varices. Patient was started on IV octreotide due to concern for GI bleed. Cirrhosis also likely contributing to renal impairment, possible hepatorenal syndrome type II. ? Continue IV octreotide ? Management per primary team (4) GI bleed: Status: Acute Assessment and plan: On IV octreotide and Protonix. Management per primary team (5) Symptomatic anemia: Status: Acute Assessment and plan: Acute anemia, patient has pallor on physical exam, on IV octreotide, transfuse if hemoglobin less than 7. ?Management per primary team Plan Plan of care discussed with attending Dr. Perla Polk pgy 2 Attending Provider Attestation/Addendum Patient seen and examined with resident physician Dr. Polk. Note reviewed, agree with findings and recommendations with the few changes made. Well-known to me from my CKD clinic however lost for follow-up. Patient with significant anasarca. Currently seen in the emergency department. Suspect underlying CKD stage III/IV from a hepatorenal syndrome Agree with diuretics-for anasarca. Did discuss with patient regarding dialysis-he seems to be skeptical to come 3 times weekly. Never seen a transplant specialist-although not a candidate at this point due to active alcohol intake. Thank you Mark for allowing me to participate in the care of Mr. Prado
[2025-05-08 19:01] LABS: Allen Test Performed/OK; Puncture Site Left Radial
[2025-05-08 19:22] LABS: Hematocrit 18.4 % (41.0-53.0); Hemoglobin 6.4 g/dL (13.5-16.0)
[2025-05-08] MEDS: DEXTROSE 50%-WATER INJ 50 ML SYRINGE 25 ML IV (19:37)
[2025-05-08 20:15] LABS: Hepatitis A Antibody IgM Non Reactive (Non React); Hepatitis B Core Antibody IgM Non Reactive (Non React); Hepatitis B Surface Antigen Non Reactive (Non React); Hepatitis C Antibody Non Reactive (Non React)
[2025-05-08] MEDS: BUMETANIDE INJ 0.25 MG/ML VIAL 4 ML 2 MG IVP (21:04)
--- NOTE | 2025-05-08 21:48 | PD.IMCONS ---
HPI Data of Consult Requesting Physician: Mark Krause MD Primary Care Provider: Cj Lopez MD Consult Narrative Reason for consult: Hematemesis H&H 6.4/18.4 History of present illness: 45 years old male with a known history of end-stage liver disease due to continued use of alcohol at least 1 quart of beer a day presented the hospital with weakness which was generalized worsening ascites and episodes of nausea vomiting with hematemesis Which she had at home he also had 1 episode of hematemesis in the hospital in the emergency room Presenting hemoglobin hematocrit 7.6 and 22.3 which is gone down to 6.4 and 18.4 with a platelet count of 172,000 INR is 1.0 BUN/creatinine 36 and 4.1 which is acute And CT scan of the abdomen pelvis without contrast shows cirrhosis of the liver ascites pneumonia right base and possible esophageal varices cc:: cc: Mark Krause MD Review of Systems Review of Systems Systems Reviewed: All systems reviewed, normal except as documented Past Medical History Surgical History OTHER SURGICAL HX: As in the history of present illness Meds Home Medications and Allergies Allergies Allergy/AdvReac Type Severity Reaction Status Date / Time No Known Allergies Allergy Verified 05/04/24 17:15 Exam Vital Signs Temp Pulse Resp BP Pulse Ox O2 Del Method 97.3 F 96 19 123/88 H 100 Room Air 05/08/25 21:47 05/08/25 21:47 05/08/25 21:47 05/08/25 21:47 05/08/25 21:47 05/08/25 19:14 Constitutional Comments: Chronically ill-appearing Routine Respiratory Exam Comments: Normal to auscultation Routine Abdominal Exam Comments: Positive for ascites Results Labs 05/08/25 18:19 05/08/25 14:20 Labs: Short CBC 05/08/25 05/08/25 Range/Units 14:20 18:19 WBC 8.5 (3.8-10.6) Thou/mm3 Hgb 7.6 L 6.4 L* (13.5-16.0) g/dL Hct 22.3 L 18.4 L* (41.0-53.0) % Plt Count 172 (140-440) Thou/mm3 BMP 05/08/25 14:20 Sodium 137 Potassium 3.3 L Chloride 109 H Carbon Dioxide 15.1 L BUN 36 H Creatinine 4.1 H* Glucose 55 L Calcium 7.1 L Liver Function 05/08/25 Range/Units 14:20 Total Bilirubin 0.5 (0.3-1.2) mg/dL AST 20 (0-34) U/L ALT < 7 L (10-49) U/L Alkaline Phosphatase 83 (46-116) U/L Albumin 2.5 L (3.5-5.0) gm/dL ABG Interpretation ABG results: 05/08/25 18:50 ABG pH 7.27 L ABG pCO2 29 L ABG pO2 91 ABG HCO3 13 L ABG O2 Saturation 98 ABG Base Excess -13 L Assessment and Plan Additional Assessment & Plan Additional Plan: # Hematemesis in setting of cirrhotic liver disease due to alcohol Plan Octreotide infusion at 50 mcg/h after 50 mcg IV push loading dose IV Protonix serial CBC Consent obtained for fiberoptic esophagogastroduodenoscopy with possible therapeutic intervention under intravenous moderate sedation Patient should receive at least 2 units of PRBC N.p.o. Other medical problems include End-stage liver disease secondary to alcohol ANGIE Chronic alcoholic dependency Advanced portal hypertension Thank you very much for the opportunity to participate in the care of this patient
[2025-05-08 22:27] LABS: COVID-19 Antigen (In-House) Negative (Negative)
--- NOTE | 2025-05-08 22:55 | PC.LAC ---
PER ORDER OF SALAS CATH, THIS RN WAS UNSUCCESSFUL TO ENTER SALAS CATH. THIS RN ASKED FOR HELP FROM ANOTHER RN ROLANDO, WHO WAS ALSO UNSUCCESSFUL IN ENTERING CATH. THIS RN ASKES ANOTHER RN ENRIQUE, BUT STILL NO SUCCESS. RN CALLED PROVIDERS TO EXPLAIN SITAUTION. PROVIDERS REQUESTED A BLADDER SCAN. BLADDER SCAN DEMOSTARTED 999ML. THIS RN ASSESSED PT FOR ANY PAIN AND TENDERNESS. PT DENIES PAIN AND STATES ITS MY BELLY THAT IS UNCOMFORTABLE NOT MY BLADDER . THIS RN CONTACTED PROVIDERS OF BLADDER SCAN AMOUNT AND ASSESSMENT. PROVIDERS REQUESTED A BARDEX SALAS CATH TO BE INSTERED. PROVIDERS ATTEMPTED TO INSERT BARDEX CATH BUT UNSUCCESSFUL. RN REASSESSED PTS BLADDER. PT STATES THAT HE CAN GO RESTROOM BUT NOT A LOT . PT REFUSED ANY OTHER INTERVENTIONS OF REMOVE URINE. PT STATES I CAN PEE BY MYSELF
--- NOTE | 2025-05-08 23:40 | PC.NURSE ---
Addendum entered by Lillie Siddiqui RN 05/08/25 23:48: CORRECTION 367ML Original Note: BLADDER SCAN WAS REDONE. BLADDER SCAN DEMONSTRATES 376ML
--- NOTE | 2025-05-08 23:40 | PC.NURSE ---
BLADDER SCAN WAS REDONE. BLADDER SCAN DEMONSTRATES 376ML
--- NOTE | 2025-05-08 23:41 | PC.NURSE ---
Addendum entered by Lillie Siddiqui RN 05/08/25 23:48: THIS OCCURED AROUND 2100 Original Note: PER ORDER OF SALAS CATH, THIS RN WAS UNSUCCESSFUL TO ENTER SALAS CATH. THIS RN ASKED FOR HELP FROM ANOTHER RN ROLANDO, WHO WAS ALSO UNSUCCESSFUL IN ENTERING CATH. THIS RN ASKES ANOTHER RN ENRIQUE, BUT STILL NO SUCCESS. RN CALLED PROVIDERS TO EXPLAIN SITAUTION. PROVIDERS REQUESTED A BLADDER SCAN. BLADDER SCAN DEMOSTARTED 999ML. THIS RN ASSESSED PT FOR ANY PAIN AND TENDERNESS. PT DENIES PAIN AND STATES ITS MY BELLY THAT IS UNCOMFORTABLE NOT MY BLADDER . THIS RN CONTACTED PROVIDERS OF BLADDER SCAN AMOUNT AND ASSESSMENT. PROVIDERS REQUESTED A BARDEX SALAS CATH TO BE INSTERED. PROVIDERS ATTEMPTED TO INSERT BARDEX CATH BUT UNSUCCESSFUL. RN REASSESSED PTS BLADDER. PT STATES THAT HE CAN GO RESTROOM BUT NOT A LOT . PT REFUSED ANY OTHER INTERVENTIONS OF REMOVE URINE. PT STATES I CAN PEE BY MYSELF
[2025-05-09] VITALS (23 sets, daily range): BP systolic 107–150; BP diastolic 74–103; PULSE 61–104; RESP 14–98; TEMP 36.1–36.8; O2SAT 95–100; BMI 32.7
--- NOTE | 2025-05-09 | XR_ITS ---
Ultrasound-guided needle placement right internal jugular vein Permanent tunneled dialysis catheter insertion, percutaneous Fluoroscopy AP chest, portable, single view. Date and time of procedure: hours INDICATIONS: Renal failure, need for stat and long-term dialysis Informed consent provided Technique: A timeout was completed verifying correct patient, procedure, site, positioning, and special equipment if applicable. The patient was placed in a dependent position appropriate for dialysis catheter placement based on the vein to be cannulated. The patient'sright neck was prepped and draped in sterile fashion. Maximum Sterile Barrier Technique used including cap, mask, sterile gown, sterile gloves, and sterile full body drape. If ultrasound technique used: sterile gel and sterile probe covers. Hand Hygiene performed using proper scrub, soap and water, or alcohol-based hand rub. 1% lidocaine was used to anesthetize the surrounding skin area The [employer] portable ultrasound apparatus to confirm patency of the right internal jugular vein Utilizing ultrasonographic guidance successful 21-gauge needle puncture into the right internal jugular vein Ultrasound images were recorded and stored. Vessel micropuncture was performed with 21-gauge needle. 0.18 wire guide is introduced into the vein. 0.18 wire is introduced into the vena cava under fluoroscopy. Subcutaneous tunnel formed in the upper chest. Permanent tunneled dialysis catheter placed in the subcutaneous tunnel. Dilators were introduced over the J-wire guide. Tunneled dialysis catheter is introduced through a dilator with venous sheath into the superior vena cava under fluoroscopic guidance. The catheter is sutured in place to the skin and a sterile dressing applied. Perfusion to the extremity distal to the point of catheter insertion is checked and found to be adequate Attending radiologist was present for the entire procedure Estimated blood loss2 cc. The patient tolerated the procedure well and there were no complications Impression: Successful ultrasound-guided needle placement right internal jugular vein Successful permanent tunneled dialysis catheter insertion, percutaneous Fluoroscopy 0.1 minute radiation dose 1.12 milligray 1 spot fluoroscopic chest film. AP chest performed at completion procedure demonstrates satisfactory position dialysis catheter. May use dialysis catheter.
[2025-05-09] MEDS: ALBUMIN HUMAN 25% IVPB 25 GM/100 ML BTL IV ×3 (00:41→20:45)
[2025-05-09] MEDS: THIAMINE 100 MG TABLET PO ×2 (01:55→20:44)
[2025-05-09] MEDS: FOLIC ACID 1 MG TABLET PO ×2 (01:55→20:44)
--- NOTE | 2025-05-09 02:08 | PC.NURSE ---
unable to collect urine specimen at this time. ED attempted [address] hawkins catheter and was unsuccessful. Pt refusing to urinate in urinal/cup and only urinating in the brief. Educated pt about imporance of obtaining urine sample and states he will use urinal next time. Also unable to complete TB test placement as pharmacy is closed and must bring syringe.
--- NOTE | 2025-05-09 05:32 | PC.NURSE ---
lab made several attempts to obtain blood sample for morning labs with no success, pt began getting upset and aggressive with lab. Lab states they will send another phlebotomest to attempt the blood draw.
[2025-05-09 05:57] LABS: Collection Type, Urine Clean Catch
[2025-05-09 06:17] LABS: Bacteria,Urine 1+; Bilirubin,Urine Negative (Negative); Blood,Urine 3+ (Negative); Clarity,Urine Turbid (Clear/Hazy); Color,Urine Lt-Yellow (Lt Yel-Yel); Glucose, Urine Negative (Negative); Hyaline Casts,Urine 1 /hpf (0-1); Ketones,Urine Negative (Negative); Leukocyte Esterase,Urine Positive (Negative); Nitrite,Urine Negative (Negative); PH,Urine 6.5 (5.0-7.0); Protein,Urine Trace (Neg - Trace); RBC,Urine 27 /hpf (0-3); Specific Gravity,Urine 1.011 (1.001-1.035); Squamous Epithelial Cell,Urine 5 /hpf (0-5); Urobilinogen,Urine Negative mg/dL (0.0-1.0); WBC,Urine 59 /hpf (0-5)
[2025-05-09 06:28] LABS: Alcohol, Urine Negative (Negative); Amphetamine/Methamp Scrn,U Negative (Negative); Barbiturate Screen,Urine Negative (Negative); Benzodiazepines Screen,Urine Negative (Negative); Benzoylecgonine Screen, Ur Negative (Negative); Fentanyl Screen,Urine Negative (Negative); Opiate Screen,Urine Negative (Negative); THC Screen,Urine Negative (Negative)
[2025-05-09 06:37] LABS: Chloride,Urine Random 52.4 mMol/L (55.0-125.0); Potassium,Urine Random 28 mMol/L (12-62); Protein Total, Random Urine 50 mg/dL (1-14); Sodium,Urine Random 32.3 mMol/L (20.0-110.0)
[2025-05-09 07:14] LABS: Basophils # (Auto) 0.0 Thou/mm3 (0.0-0.2); Basophils % (Auto) 0 % (0-2.5); Eosinophils # (Auto) 0.1 Thou/mm3 (0.0-0.5); Eosinophils % (Auto) 2 % (0-10); Hematocrit 22.9 % (41.0-53.0); Immature Granulocytes Auto 0.03 Thou/mm3 (0.00-0.00); Lymphocytes # (Auto) 1.0 Thou/mm3 (1.0-4.8); Lymphocytes % (Auto) 14 % (10-50); Mean Corpuscular HGB Conc 33.6 g/dl (31.0-37.0); Mean Corpuscular Hemoglobin 31.6 pg (25.0-35.0); Mean Corpuscular Volume 94 fL (80-100); Monocytes # (Auto) 0.1 Thou/mm3 (0.0-0.8); Monocytes % (Auto) 2 % (0-12); Neutrophils # (Auto) 5.5 Thou/mm3 (1.8-7.7); Neutrophils % (Auto) 82 % (37-80); Nucleated Red Blood Cell # 0.00 Thou/mm3 (0.00-0.00); Nucleated Red Blood Cell % 0 /100 WBC (0); Platelet Count 133 Thou/mm3 (140-440); RDW Standard Deviation 51.5 fL (35.1-43.9); Red Blood Count 2.44 Miln/mm3 (4.50-5.90); White Blood Count 6.8 Thou/mm3 (3.8-10.6)
[2025-05-09 07:23] LABS: Hemoglobin 7.7 g/dL (13.5-16.0)
[2025-05-09 07:30] LABS: INR 1.2 (0.9-1.3); Partial Thromboplastin Time 31.7 Seconds (22.0-36.0); Prothrombin Time 13.3 Seconds (9.0-12.2)
[2025-05-09 07:46] LABS: Albumin, Serum 2.5 gm/dL (3.5-5.0); Albumin/Globulin Ratio 0.8 (1.2-2.2); Alkaline Phosphatase 71 U/L (46-116); Anion Gap 15 (7-16); Aspartate Amino Transferase 16 U/L (0-34); BUN/Creatinine Ratio 8 Ratio (12-20); Blood Urea Nitrogen 33 mg/dL (9-23); Calcium (Corrected) 7.7 mg/dL (8.5-10.1); Cardiac Risk Estimate 3.0 RATIO (4.0-6.7); Chloride 109 mMol/L (98-107); Cholesterol 70 mg/dL (132-200); Creatinine (Component) 4.0 mg/dL (0.6-1.3); Estimated Creatinine Clearance 26.1 mL/min (>60); Globulin 3.0 gm/dL (2.3-3.5); Glucose 101 mg/dL (74-106); HDL Cholesterol 23 mg/dL (40-60); LDL Cholesterol,Calculated 31 mg/dL (0-130); Osmolality,Calculated 282 (275-295); Phosphorous 5.8 mg/dL (2.4-5.1); Potassium 3.7 mMol/L (3.4-5.1); Sodium 138 mMol/L (136-145); Total Protein 5.5 gm/dL (5.7-8.2); Triglycerides 80 mg/dL (30-150); eGFR 18 See Note
[2025-05-09 07:53] LABS: Alanine Aminotransferase < 7 U/L (10-49); Bilirubin,Total 1.3 mg/dL (0.3-1.2)
[2025-05-09 07:55] LABS: Calcium 6.5 mg/dL (8.3-10.6); Carbon Dioxide 13.6 mMol/L (20.0-31.0); Magnesium 0.9 mg/dL (1.6-2.6)
--- NOTE | 2025-05-09 07:58 | PC.NURSE ---
DR. SCHMITT AT BEDSIDE AWARE OF PTS CRITICAL LABS, PT WAS UPDATED OF POC. PT ALERT AND ORIENTED X3.
[2025-05-09] MEDS: Sodium Bicarb Inj 8.4% SYR 50 ML SYRINGE IV (08:22)
[2025-05-09] MEDS: Magnesium Sulfate 4 GM Ivpb 4 GM/50 ML BAG IV (08:30)
[2025-05-09] MEDS: BUMETANIDE INJ 0.25 MG/ML VIAL 4 ML 2 MG IVP ×2 (08:33→20:47)
--- NOTE | 2025-05-09 08:35 | PD.RESPRO ---
Documentation for date of: 05/09/25 Subjective Subjective Interval history: Mr. 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 Sharath Payne), Prediabetes, history of pulmonary embolism-on Eliquis, hypertension, history of variceal bleed, history of psychiatric disorders, who presented to the emergency room from home complaining of generalized weakness, significant abdominal distention, skin rash. Patient was evaluated in the emergency room, he was a poor historian, is noncompliant with medications and unaware of most of his medical history. Limited HPI. Patient reports having nausea and vomiting, noted bilious/green vomiting with food contents in the vomiting bag, endorsed melena. Patient endorses using alcohol, states he lives at the home, has scratch campbell and rash all over his body, states he has bedbugs at home. Noted to have abdominal distention, pedal edema, complaining of shortness of breath. Patient is visibly uncomfortable though saturating 100% on room air, but feels he cannot get enough air. Nephrology was consulted for management of acute on chronic CKD and anasarca. In the emergency room initial labs show CBC pertinent for anemia hemoglobin 7.6, platelets 172 WBC 8.5, sodium 137, K 3.3, CL 109, CO2 15.1, BUN 36 creatinine 4.1, EGFR 18, glucose 55, lactic acid 1.2, uric acid 11.4, calcium 8.3 phosphorus 6.1, PTH 130. ABG showed pH 7.27 PCO2 29 PO2 91. Chest x-ray suspicious for early pneumonia in right upper lobe. Abdominal pelvis CT shows pneumonia right base, cirrhosis, significant ascites, anasarca, suspicion for esophageal varices, atrophic kidneys, renal ultrasound shows right kidney 8.7 cm, left kidney 9.6 cm, moderate renal failure, scar formation, moderate ascites and contracted urinary bladder. EKG showed sinus rhythm with sinus arrhythmia low voltage QRS complexes. No acute ischemic changes noted. In the emergency room patient was given dextrose IV pushes for hypoglycemia, was given ceftriaxone and azithromycin, 1 ampoule of sodium bicarb and started on octreotide drip and ondansetron. 05/09/2025: Patient evaluated bedside, isolation precautions in place for scabies/bedbugs, patient only made urine 350 mL overnight despite IV Bumex and albumin. Spoke to primary team, patient does have phimosis, and were unable to get a Winters's catheter in place due to stricture. Unable to get a reliable reading on bladder scan due to concomitant ascites. Will consult urologist Dr. Bone to help with urine tract obstruction. Based off of patient's chemistry panel severely acidotic, worsening renal function and oliguria. Spoke to patient regarding need for hemodialysis, he agreed. Will order dialysis cath by IR, and hemodialysis with 2 L UF. Patient is also scheduled for an EGD later today. Also noted crusting on his eyelids, patient had pus discharge yesterday, added ofloxacin for conjunctivitis. Sodium 138 potassium 3.7 BUN 33 creatinine 4.0, bicarb 13.6, calcium 7.7, magnesium 0.9. Exam Vital Signs Temp Pulse Resp BP Pulse Ox O2 Del Method 98.1 F 97 18 123/78 97 Room Air 05/09/25 04:00 05/09/25 08:33 05/09/25 04:00 05/09/25 08:33 05/09/25 04:00 05/09/25 04:00 Narrative Exam Currently seen in the emergency department General: Young male, distressed, distended abdomen, vomitus on byers, teary eyed. HEENT: NCAT, No JVD noted. Mucosa dry. Pupils are equal and reactive to light bilaterally, no scleral icterus Cardiovascular: Normal S1 and S2. Regular rate and rhythm. Respiratory: Lungs are clear to auscultation bilaterally. No wheezing or crackles heard. Abdomen: Hard, distended, positive fluid wave test Skin: no spider angioma , scratch campbell all over his body with excoriations. Musculoskeletal: No gross injuries. Able to move all 4 extremities. +2-3 pitting edema in the lower extremities extending all the way up Neuro: Alert and oriented x3. No focal neuro deficits. Psych: apathetic Objective Labs 05/09/25 06:20 05/09/25 16:45 Labs: Laboratory Results - last 24 hr 05/08/25 05/08/25 05/08/25 14:08 14:20 17:40 WBC 8.5 RBC 2.35 L Hgb 7.6 L Hct 22.3 L MCV 95 MCH 32.3 MCHC 34.1 RDW Std Deviation 53.1 H Plt Count 172 Neut % (Auto) 65 Lymph % (Auto) 22 [place] % (Auto) 10 Eos % (Auto) 3 Baso % (Auto) 1 Neut # (Auto) 5.6 Lymph # (Auto) 1.9 [place] # (Auto) 0.8 Eos # (Auto) 0.2 Baso # (Auto) 0.0 Immature Gran # (Auto) 0.02 H Absolute Nucleated RBC 0.00 Immature Gran % 0 Nucleated RBC % 0 PT INR APTT Puncture Site ABG pH ABG pCO2 ABG pO2 ABG HCO3 ABG O2 Saturation ABG Base Excess FiO2 Sodium 137 Potassium 3.3 L Chloride 109 H Carbon Dioxide 15.1 L Anion Gap 13 BUN 36 H Creatinine 4.1 H* Estim Creat Clear Calc 23.8 L eGFR 18 L BUN/Creatinine Ratio 9 L Glucose 55 L Calculated Osmolality 280 Lactic Acid 1.2 Uric Acid 11.4 H Calcium 7.1 L Corrected Calcium 8.3 L Phosphorus 6.1 H Magnesium Total Bilirubin 0.5 AST 20 ALT < 7 L Alkaline Phosphatase 83 Ammonia Total Protein 5.9 Albumin 2.5 L Globulin 3.4 Albumin/Globulin Ratio 0.7 L Triglycerides Cholesterol LDL Cholesterol, Calc HDL Cholesterol Cholesterol/HDL Ratio 25-OH Vitamin D Total 19.7 Procalcitonin 0.38 PTH Intact 130.0 H Ur Collection Type Urine Color Urine Clarity Urine pH Ur Specific [place] Urine Protein Urine Glucose (UA) Urine Ketones Urine Blood Urine Nitrite Urine Bilirubin Urine Urobilinogen (Auto) Ur Leukocyte Esterase Urine RBC Urine WBC Ur Squamous Epith Cells Urine Bacteria Hyaline Casts U Random Total Protein Ur Random Sodium Ur Random Potassium Ur Random Chloride Urine Opiates Screen Urine Fentanyl Screen Ur Barbiturates Screen U Amphetamin/Meth Scrn U Benzodiazepines Scrn U Cocaine Metab Screen U Marijuana (THC) Screen Urine Alcohol Ethyl Alcohol < 3.0 Hepatitis A IgM Ab Non Reactive Hep Bs Antigen Non Reactive Hep B Core IgM Ab Non Reactive Hepatitis C Antibody Non Reactive SARS-CoV-2 Ag (Rapid) Negative Blood Type O Negative Antibody Screen NEGATIVE Antibody Identification Cancelled Crossmatch See Detail Blood Bank Wristband ID Yes 05/08/25 05/08/25 05/08/25 18:19 18:50 21:49 WBC RBC Hgb 6.4 L* Hct 18.4 L* MCV MCH MCHC RDW Std Deviation Plt Count Neut % (Auto) Lymph % (Auto) [place] % (Auto) Eos % (Auto) Baso % (Auto) Neut # (Auto) Lymph # (Auto) [place] # (Auto) Eos # (Auto) Baso # (Auto) Immature Gran # (Auto) Absolute Nucleated RBC Immature Gran % Nucleated RBC % PT INR APTT Puncture Site Left Radial ABG pH 7.27 L ABG pCO2 29 L ABG pO2 91 ABG HCO3 13 L ABG O2 Saturation 98 ABG Base Excess -13 L FiO2 21 Sodium Potassium Chloride Carbon Dioxide Anion Gap BUN Creatinine Estim Creat Clear Calc eGFR BUN/Creatinine Ratio Glucose Calculated Osmolality Lactic Acid Uric Acid Calcium Corrected Calcium Phosphorus Magnesium Total Bilirubin AST ALT Alkaline Phosphatase Ammonia 32 Total Protein Albumin Globulin Albumin/Globulin Ratio Triglycerides Cholesterol LDL Cholesterol, Calc HDL Cholesterol Cholesterol/HDL Ratio 25-OH Vitamin D Total Procalcitonin PTH Intact Ur Collection Type Urine Color Urine Clarity Urine pH Ur Specific [place] Urine Protein Urine Glucose (UA) Urine Ketones Urine Blood Urine Nitrite Urine Bilirubin Urine Urobilinogen (Auto) Ur Leukocyte Esterase Urine RBC Urine WBC Ur Squamous Epith Cells Urine Bacteria Hyaline Casts U Random Total Protein Ur Random Sodium Ur Random Potassium Ur Random Chloride Urine Opiates Screen Urine Fentanyl Screen Ur Barbiturates Screen U Amphetamin/Meth Scrn U Benzodiazepines Scrn U Cocaine Metab Screen U Marijuana (THC) Screen Urine Alcohol Ethyl Alcohol Hepatitis A IgM Ab Hep Bs Antigen Hep B Core IgM Ab Hepatitis C Antibody SARS-CoV-2 Ag (Rapid) Negative Blood Type Antibody Screen Antibody Identification Crossmatch Blood Bank Wristband ID 05/09/25 05/09/25 04:40 06:20 WBC 6.8 RBC 2.44 L Hgb 7.7 L D Hct 22.9 L MCV 94 MCH 31.6 MCHC 33.6 RDW Std Deviation 51.5 H Plt Count 133 L D Neut % (Auto) 82 H Lymph % (Auto) 14 [place] % (Auto) 2 Eos % (Auto) 2 Baso % (Auto) 0 Neut # (Auto) 5.5 Lymph # (Auto) 1.0 [place] # (Auto) 0.1 Eos # (Auto) 0.1 Baso # (Auto) 0.0 Immature Gran # (Auto) 0.03 H Absolute Nucleated RBC 0.00 Immature Gran % 0 Nucleated RBC % 0 PT 13.3 H INR 1.2 APTT 31.7 Puncture Site ABG pH ABG pCO2 ABG pO2 ABG HCO3 ABG O2 Saturation ABG Base Excess FiO2 Sodium 138 Potassium 3.7 Chloride 109 H Carbon Dioxide 13.6 L* Anion Gap 15 BUN 33 H Creatinine 4.0 H Estim Creat Clear Calc 26.1 L eGFR 18 L BUN/Creatinine Ratio 8 L Glucose 101 D Calculated Osmolality 282 Lactic Acid Uric Acid Calcium 6.5 L* Corrected Calcium 7.7 L Phosphorus 5.8 H Magnesium 0.9 L* Total Bilirubin 1.3 H D AST 16 ALT < 7 L Alkaline Phosphatase 71 Ammonia Total Protein 5.5 L Albumin 2.5 L Globulin 3.0 Albumin/Globulin Ratio 0.8 L Triglycerides 80 Cholesterol 70 L LDL Cholesterol, Calc 31 HDL Cholesterol 23 L Cholesterol/HDL Ratio 3.0 L 25-OH Vitamin D Total Procalcitonin PTH Intact Ur Collection Type Clean Catch Urine Color Lt-Yellow Urine Clarity Turbid A Urine pH 6.5 Ur Specific [place] 1.011 Urine Protein Trace Urine Glucose (UA) Negative Urine Ketones Negative Urine Blood 3+ A Urine Nitrite Negative Urine Bilirubin Negative Urine Urobilinogen (Auto) Negative Ur Leukocyte Esterase Positive Urine RBC 27 H Urine WBC 59 H Ur Squamous Epith Cells 5 Urine Bacteria 1+ A Hyaline Casts 1 U Random Total Protein 50 H Ur Random Sodium 32.3 Ur Random Potassium 28 Ur Random Chloride 52.4 L Urine Opiates Screen Negative Urine Fentanyl Screen Negative Ur Barbiturates Screen Negative U Amphetamin/Meth Scrn Negative U Benzodiazepines Scrn Negative U Cocaine Metab Screen Negative U Marijuana (THC) Screen Negative Urine Alcohol Negative Ethyl Alcohol Hepatitis A IgM Ab Hep Bs Antigen Hep B Core IgM Ab Hepatitis C Antibody SARS-CoV-2 Ag (Rapid) Blood Type Antibody Screen Antibody Identification Crossmatch Blood Bank Wristband ID ABG Interpretation ABG results: 05/08/25 18:50 ABG pH 7.27 L ABG pCO2 29 L ABG pO2 91 ABG HCO3 13 L ABG O2 Saturation 98 ABG Base Excess -13 L Quality Measures Quality Measures none Assessment & Plan Assessment Current Active Medications: Generic Name Dose Route Start Last Admin Trade Name Freq PRN Reason Stop Dose Admin Acetaminophen 650 mg 05/08/25 17:37 Acetaminophen 325 Mg Tablet PO 06/07/25 17:36 Q6H PRN Fever >100.3 or pain 1-3 Bumetanide 2 mg 05/08/25 21:00 05/09/25 08:33 Bumetanide Inj 0.25 Mg/Ml Vial 4 Ml IVP 06/07/25 20:59 2 mg BID ANNE Administration Clobetasol Propionate 0 gm 05/09/25 09:00 Clobetasol Propionate Cr 15 Gm Tube TOP 05/16/25 08:59 BID ANNE Dextrose 25 ml 05/08/25 19:30 05/08/25 19:37 Dextrose 50%-Water Inj 50 Ml Syringe IV 06/07/25 19:29 25 ml Q15MIN PRN Administration BG 50-70 responsive npo pt Dextrose 50 ml 05/08/25 19:30 Dextrose 50%-Water Inj 50 Ml Syringe IV 06/07/25 19:29 Q15MIN PRN BG <50 OR BG <70 & pt unresponsive Folic Acid 1 mg 05/09/25 01:00 05/09/25 01:55 Folic Acid 1 Mg Tablet PO 05/14/25 00:59 1 mg BID ANNE Administration Glucagon 1 mg 05/08/25 19:30 Glucagon Inj 1 Mg Vial IM Q15MIN PRN BG <70, and no IV access Octreotide Acetate 1,000 mcg/ 102 mls @ 5.1 mls/hr 05/08/25 17:22 05/08/25 20:54 Sodium Chloride IV 05/13/25 17:22 50 mcg/hr .Q20H ANNE 5.1 mls/hr Infusion Protocol 50 MCG/HR Ceftriaxone Sodium/Dextrose 1 gm in 50 mls @ 100 mls/hr 05/08/25 17:25 05/08/25 18:08 Rocephin/D5w 1gm Iv Premix IV 05/15/25 17:24 Infused QDAY ANNE Infusion Albumin Human 25 gm in 100 mls @ 100 mls/hr 05/08/25 21:00 05/09/25 00:41 Albuminar-25 Ivpb IV 05/11/25 20:59 100 mls/hr BID ANNE Administration Magnesium Sulfate 4 gm in 50 mls @ 12.5 mls/hr 05/09/25 07:58 05/09/25 08:30 Magnesium Sulfate Ivpb IV 05/09/25 11:57 12.5 mls/hr X1 ONE Administration Lactulose 10 gm 05/08/25 17:37 Lactulose Syrup 20 Gm/30 Ml Udc PO 06/08/25 08:59 QDAY PRN constipation Protocol Lorazepam 0.5 mg 05/09/25 00:58 Lorazepam 0.5 Mg Tablet PO 05/14/25 00:57 Q4HR PRN CIWA Score 2-6 Lorazepam 0.5 mg 05/09/25 00:58 Lorazepam 2 Mg/Ml Vial IV 05/14/25 00:57 Q2HR PRN CIWA SCORE 7-13 Lorazepam 1 mg 05/09/25 00:58 Lorazepam 2 Mg/Ml Vial IV 05/14/25 00:57 Q2HR PRN CIWA SCORE 14-19 Lorazepam 2 mg 05/09/25 00:58 Lorazepam 2 Mg/Ml Vial IV 05/14/25 00:57 Q2HR PRN CIWA SCORE 20-25 Mupirocin 0 gm 05/09/25 07:15 Mupirocin Oint 2% 15 Gm Tube TOP 05/16/25 07:14 TID ANNE Ofloxacin 2 drop 05/09/25 08:00 Ofloxacin Op Farheen 0.3% 5 Ml Btl BOTH EYES 06/08/25 07:59 QID ANNE Ondansetron HCl 4 mg 05/08/25 18:36 05/08/25 18:40 Ondansetron Inj 2 Mg/Ml Inj 2 Ml IVP 06/07/25 18:35 4 mg Q6H PRN Administration NAUSEA OR VOMITING Protocol Pantoprazole Sodium 40 mg 05/08/25 21:00 05/09/25 08:34 Pantoprazole Inj 40 Mg Vial IVP 06/07/25 20:59 40 mg BID ANNE Administration Permethrin 0 gm 05/09/25 08:30 Permethrin Cr 5% 60 Gm Tube TOP 06/08/25 08:29 UD ANNE Thiamine HCl 100 mg 05/09/25 01:00 05/09/25 01:55 Thiamine 100 Mg Tablet PO 05/14/25 00:59 100 mg BID ANNE Administration Plan (1) ANGIE (acute kidney injury): Status: Acute Assessment and plan: Acute kidney injury in the setting of cirrhosis and anasarca. Concern for underlying hepatorenal syndrome type II. Based on labs in 2023, patient seems to have CKD stage III/IV, patient was lost to follow-up since. Did not follow-up with tank erector or primary care. Seen by Dr. Duncan in October. Currently patient has anasarca, will hold off on giving IV fluids, will add IV albumin to rule out hepatorenal syndrome as well as providing volume expansion intravascularly. ? IV albumin 25 g twice daily for 3 days. ? IV Bumex 2 mg twice daily ? Ordered viral hepatitis panel and PPD ? Strict intake and output monitoring ? Renal ultrasound showed bilateral shrunken kidneys ? Spoke to patient regarding progressively worsening renal function and minimal urine output, agreed to hemodialysis, will order hemodialysis catheter by IR and initiate hemodialysis. (2) Ascites: Status: Acute Assessment and plan: IV diuresis with Bumex 2 mg IV twice daily for volume overload. Offered patient hemodialysis with ultrafiltration for anasarca, but he was hesitant to go ahead with dialysis at this moment.?Patient has persistent anasarca, poor response to IV Bumex and albumin. Will order hemodialysis with 2 L UF (3) Cirrhosis: Status: Acute Assessment and plan: Decompensated cirrhosis with anasarca, ascites and varices. Patient was started on IV octreotide due to concern for GI bleed. Cirrhosis also likely contributing to renal impairment, possible hepatorenal syndrome type II. Patient remains a poor candidate for transplant due to active alcohol drinking. ? Continue IV octreotide ? Management per primary team (4) GI bleed: Status: Acute Assessment and plan: On IV octreotide and Protonix. Management per primary team (5) Symptomatic anemia: Status: Acute Assessment and plan: Acute anemia, patient has pallor on physical exam, on IV octreotide, transfuse if hemoglobin less than 7. ?Management per primary team Plan of care discussed with attending Dr. Perla Polk pgy 2 Attending Provider Attestation/Addendum Patient seen and examined with resident physician Dr. Polk. Note reviewed, agree with findings and recommendations with the few changes made. Well-known to me from my CKD clinic however lost for follow-up. Patient with significant anasarca. Currently seen in medical floor. Suspect underlying CKD stage III/IV from a hepatorenal syndrome patient was started on diuretics-for anasarca. However he continues to have significant anasarca with minimal urinary output. Unable to pass Winters. Discussed with Dr. Penaloza-will come and see the patient for Winters catheter insertion. Patient has severe phimosis. Due to anasarca, electrolyte imbalance decided to proceed with a renal replacement therapy. Patient agreed for dialysis. Dialysis catheter will be placed by Dr. Clements. Hemodialysis for 2 hours, 3K, ultrafiltration 1-2 L, Epogen 6000, no heparin ordered. Plan of care discussed with the dialysis nurse. Never seen a transplant specialist-although not a candidate at this point due to active alcohol intake. Spoke to primary team.
[2025-05-09] MEDS: OFLOXACIN OP SOL 0.3% 5 ML BTL 2 DROP BOTH EYES ×3 (08:48→21:05)
--- NOTE | 2025-05-09 09:45 | PC.SS ---
Patient Malcom Prado is a 45Year old male admitted for Liver Cirrhosis,ANGIE. SS met with patient at bedside to discuss discharge plan. Patient reports he lives at home with his mother, Radha Prado who he reports is his surrogate decision maker, [phone]. Patient reports prior to admission he did not utilize any source of DME to assist with ambulation, patient is able to complete all ADL's independently. Choice of pharmacy is [facility]. At time of discharge patient would like to return back home. Mother will provide transportation. Discharge plan: Home Next of kin: Mother, Radha Prado PCP: Cj Lopez
[2025-05-09] MEDS: cefTRIAXone/D5w 1gm IV premix 1 GM/50 ML BAG IV (10:26)
--- NOTE | 2025-05-09 10:35 | PC.NURSE ---
DR. TRUONG VERBAL ORDER FOR BLADDER ULTRASOUND, RESULTS GIVEN AT THIS TIME 597ML. NO NEW ORDERS. PT ALERT AND ORIENTED X3 NO COMPLAINS.
[2025-05-09] MEDS: PERMETHRIN CR 5% 60 GM TUBE TOP (11:07)
[2025-05-09] MEDS: CLOBETASOL PROPIONATE CR 15 GM TUBE TOP ×2 (11:07→21:08)
[2025-05-09] MEDS: TUBERCULIN PPD INJ 5 UNIT/0.1 ML DOSE ID (11:43)
[2025-05-09] MEDS: HYDROmorphone INJ 2 MG/ML VIAL 0.25 MG IVP (11:57)
[2025-05-09] MEDS: CALCIUM GLUC/NS 1000MG IVPB 1,000 MG/50 ML BAG 50 MG IV (12:03)
--- NOTE | 2025-05-09 12:59 | PC.NURSE ---
PATIENT TRANSFER VIA GURNEY TO [facility], ACCOMPANIED BY NINI STEPHENSON. PT ALERT AND ORIENTED X3.
[2025-05-09] MEDS: fentaNYL CIT INJ 50 mCg/ML AMP 2ML 75 MCG IVP (14:04)
[2025-05-09] MEDS: HEPARIN SOD LOCK SYR 100 UNIT/ML 500 UNIT STFIELD (14:06)
[2025-05-09] MEDS: LIDOCAINE INJ PF 1% 30 ML VIAL 12 ML INFL (14:06)
[2025-05-09] MEDS: HEPARIN SOD INJ 1000 UNIT/ML VIAL 3500 UNIT INDWELLCAT (14:32)
[2025-05-09] MEDS: MUPIROCIN OINT 2% 15 GM TUBE TOP ×2 (14:50→23:23)
--- NOTE | 2025-05-09 14:53 | PC.NURSE ---
PT CAME BACK FROM [facility], ALERT AND ORIENTED X3, CATH SITE IS CLEAN DRY AND INTACT. SANDOSTATIN NOT AVAILABLE, PHARMACY MADE AWARE WILL BRING UP.
--- NOTE | 2025-05-09 15:03 | PC.NURSE ---
PER DOCTOR UTO HOLD BLOOD TRANSFUSION NOW HGB 7.7, POST H & H TO BE DRAW AFTER BLOOD TRANSFUSION, IF TRANSFUSION IS NEEDED TOMORROW.
[2025-05-09] MEDS: OCTREOTIDE ACET INJ 1,000 MCG in SODIUM CHLORIDE 0.9% 100 ML 5.1 MCG IV (15:09)
--- NOTE | 2025-05-09 15:14 | ESPR_ITS ---
Documentation for date of: 05/09/25 Subjective Subjective Interval history: Patient examined at bedside, overnight there was difficulty in placing a Hawkins. Tried multiple times unsuccessful. They team consulted urology Dr. Bone who was able to place the catheter. During catheter insertion, there was apparent phimosis with difficulty in initially locating the meatus. Evidence of kidney failure with metabolic acidosis, hyperphosphatemia, hypocalcemia, elevated creatinine at 4.0, minimal urine output, parenchymal scar formation of the atrophic kidneys on renal ultrasound. Nephrology on board and starting patient for emergent hemodialysis session. Patient has agreed and family was updated at bedside. Hb 7.7 improved after 1 unit prbc. Pending EGD Continue IV albumin, Bumex, octrotide, ceftriaxone, and pantoprazole in setting of liver cirrhosis, GI bleed, and UTI. Ascites appears to be improving. CIWA 4 this mornning due to nausea/vomiting. Exam Vital Signs Temp Pulse Resp BP Pulse Ox O2 Del Method O2 Flow Rate 97.8 F 94 16 119/76 99 Nasal Cannula 3 05/09/25 13:06 05/09/25 14:20 05/09/25 14:20 05/09/25 14:20 05/09/25 14:20 05/09/25 14:20 05/09/25 14:20 Narrative Exam General: Young male, distressed, distended abdomen, one episode of vomiting at bedside, teary eyed. HEENT: NCAT, No JVD noted. Mucosa dry. Pupils are equal and reactive to light bilaterally, no scleral icterus Cardiovascular: Normal S1 and S2. Regular rate and rhythm. Respiratory: Lungs are clear to auscultation bilaterally. No wheezing or crackles heard. Abdomen: distension improved from yesterday, non tender, normal bowel sounds : phimosis, no dishcarge, hawkins cath Skin: no spider angioma , scratch campbell all over his body with excoriations. Musculoskeletal: No gross injuries. Able to move all 4 extremities. +2-3 pitting edema in the lower extremities extending all the way up Neuro: Alert and oriented x3. No focal neuro deficits. Psych: apathetic Objective Labs 05/10/25 05:17 05/10/25 05:17 Labs: Laboratory Results - last 24 hr 06/25/25 06/25/25 06/25/25 14:20 17:40 18:19 WBC RBC Hgb 6.4 L* Hct 18.4 L* MCV MCH MCHC RDW Std Deviation Plt Count Neut % (Auto) Lymph % (Auto) [place] % (Auto) Eos % (Auto) Baso % (Auto) Neut # (Auto) Lymph # (Auto) [place] # (Auto) Eos # (Auto) Baso # (Auto) Immature Gran # (Auto) Absolute Nucleated RBC Immature Gran % Nucleated RBC % PT INR APTT Puncture Site ABG pH ABG pCO2 ABG pO2 ABG HCO3 ABG O2 Saturation ABG Base Excess FiO2 Sodium 137 Potassium 3.3 L Chloride 109 H Carbon Dioxide 15.1 L Anion Gap 13 BUN 36 H Creatinine 4.1 H* Estim Creat Clear Calc 23.8 L eGFR 18 L BUN/Creatinine Ratio 9 L Glucose 55 L Calculated Osmolality 280 Uric Acid 11.4 H Calcium 7.1 L Corrected Calcium 8.3 L Phosphorus 6.1 H Magnesium Total Bilirubin 0.5 AST 20 ALT < 7 L Alkaline Phosphatase 83 Ammonia 32 Total Protein 5.9 Albumin 2.5 L Globulin 3.4 Albumin/Globulin Ratio 0.7 L Triglycerides Cholesterol LDL Cholesterol, Calc HDL Cholesterol Cholesterol/HDL Ratio 25-OH Vitamin D Total 19.7 Procalcitonin 0.38 PTH Intact 130.0 H Ur Collection Type Urine Color Urine Clarity Urine pH Ur Specific [place] Urine Protein Urine Glucose (UA) Urine Ketones Urine Blood Urine Nitrite Urine Bilirubin Urine Urobilinogen (Auto) Ur Leukocyte Esterase Urine RBC Urine WBC Ur Squamous Epith Cells Urine Bacteria Hyaline Casts U Random Total Protein Ur Random Sodium Ur Random Potassium Ur Random Chloride Urine Opiates Screen Urine Fentanyl Screen Ur Barbiturates Screen U Amphetamin/Meth Scrn U Benzodiazepines Scrn U Cocaine Metab Screen U Marijuana (THC) Screen Urine Alcohol Ethyl Alcohol < 3.0 Hepatitis A IgM Ab Non Reactive Hep Bs Antigen Non Reactive Hep B Core IgM Ab Non Reactive Hepatitis C Antibody Non Reactive SARS-CoV-2 Ag (Rapid) Negative Blood Type O Negative Antibody Screen POSITIVE Antibody Identification Anti-D Crossmatch See Detail Blood Bank Wristband ID Yes 05/08/25 05/08/25 05/09/25 18:50 21:49 04:40 WBC RBC Hgb Hct MCV MCH MCHC RDW Std Deviation Plt Count Neut % (Auto) Lymph % (Auto) Austin % (Auto) Eos % (Auto) Baso % (Auto) Neut # (Auto) Lymph # (Auto) [place] # (Auto) Eos # (Auto) Baso # (Auto) Immature Gran # (Auto) Absolute Nucleated RBC Immature Gran % Nucleated RBC % PT INR APTT Puncture Site Left Radial ABG pH 7.27 L ABG pCO2 29 L ABG pO2 91 ABG HCO3 13 L ABG O2 Saturation 98 ABG Base Excess -13 L FiO2 21 Sodium Potassium Chloride Carbon Dioxide Anion Gap BUN Creatinine Estim Creat Clear Calc eGFR BUN/Creatinine Ratio Glucose Calculated Osmolality Uric Acid Calcium Corrected Calcium Phosphorus Magnesium Total Bilirubin AST ALT Alkaline Phosphatase Ammonia Total Protein Albumin Globulin Albumin/Globulin Ratio Triglycerides Cholesterol LDL Cholesterol, Calc HDL Cholesterol Cholesterol/HDL Ratio 25-OH Vitamin D Total Procalcitonin PTH Intact Ur Collection Type Clean Catch Urine Color Lt-Yellow Urine Clarity Turbid A Urine pH 6.5 Ur Specific [place] 1.011 Urine Protein Trace Urine Glucose (UA) Negative Urine Ketones Negative Urine Blood 3+ A Urine Nitrite Negative Urine Bilirubin Negative Urine Urobilinogen (Auto) Negative Ur Leukocyte Esterase Positive Urine RBC 27 H Urine WBC 59 H Ur Squamous Epith Cells 5 Urine Bacteria 1+ A Hyaline Casts 1 U Random Total Protein 50 H Ur Random Sodium 32.3 Ur Random Potassium 28 Ur Random Chloride 52.4 L Urine Opiates Screen Negative Urine Fentanyl Screen Negative Ur Barbiturates Screen Negative U Amphetamin/Meth Scrn Negative U Benzodiazepines Scrn Negative U Cocaine Metab Screen Negative U Marijuana (THC) Screen Negative Urine Alcohol Negative Ethyl Alcohol Hepatitis A IgM Ab Hep Bs Antigen Hep B Core IgM Ab Hepatitis C Antibody SARS-CoV-2 Ag (Rapid) Negative Blood Type Antibody Screen Antibody Identification Crossmatch Blood Bank Wristband ID 05/09/25 06:20 WBC 6.8 RBC 2.44 L Hgb 7.7 L D Hct 22.9 L MCV 94 MCH 31.6 MCHC 33.6 RDW Std Deviation 51.5 H Plt Count 133 L D Neut % (Auto) 82 H Lymph % (Auto) 14 [place] % (Auto) 2 Eos % (Auto) 2 Baso % (Auto) 0 Neut # (Auto) 5.5 Lymph # (Auto) 1.0 [place] # (Auto) 0.1 Eos # (Auto) 0.1 Baso # (Auto) 0.0 Immature Gran # (Auto) 0.03 H Absolute Nucleated RBC 0.00 Immature Gran % 0 Nucleated RBC % 0 PT 13.3 H INR 1.2 APTT 31.7 Puncture Site ABG pH ABG pCO2 ABG pO2 ABG HCO3 ABG O2 Saturation ABG Base Excess FiO2 Sodium 138 Potassium 3.7 Chloride 109 H Carbon Dioxide 13.6 L* Anion Gap 15 BUN 33 H Creatinine 4.0 H Estim Creat Clear Calc 26.1 L eGFR 18 L BUN/Creatinine Ratio 8 L Glucose 101 D Calculated Osmolality 282 Uric Acid Calcium 6.5 L* Corrected Calcium 7.7 L Phosphorus 5.8 H Magnesium 0.9 L* Total Bilirubin 1.3 H D AST 16 ALT < 7 L Alkaline Phosphatase 71 Ammonia Total Protein 5.5 L Albumin 2.5 L Globulin 3.0 Albumin/Globulin Ratio 0.8 L Triglycerides 80 Cholesterol 70 L LDL Cholesterol, Calc 31 HDL Cholesterol 23 L Cholesterol/HDL Ratio 3.0 L 25-OH Vitamin D Total Procalcitonin PTH Intact Ur Collection Type Urine Color Urine Clarity Urine pH Ur Specific [place] Urine Protein Urine Glucose (UA) Urine Ketones Urine Blood Urine Nitrite Urine Bilirubin Urine Urobilinogen (Auto) Ur Leukocyte Esterase Urine RBC Urine WBC Ur Squamous Epith Cells Urine Bacteria Hyaline Casts U Random Total Protein Ur Random Sodium Ur Random Potassium Ur Random Chloride Urine Opiates Screen Urine Fentanyl Screen Ur Barbiturates Screen U Amphetamin/Meth Scrn U Benzodiazepines Scrn U Cocaine Metab Screen U Marijuana (THC) Screen Urine Alcohol Ethyl Alcohol Hepatitis A IgM Ab Hep Bs Antigen Hep B Core IgM Ab Hepatitis C Antibody SARS-CoV-2 Ag (Rapid) Blood Type Antibody Screen Antibody Identification Crossmatch Blood Bank Wristband ID ABG Interpretation ABG results: 05/08/25 18:50 ABG pH 7.27 L ABG pCO2 29 L ABG pO2 91 ABG HCO3 13 L ABG O2 Saturation 98 ABG Base Excess -13 L Quality Measures Quality Measures none Assessment & Plan Assessment Current Active Medications: Generic Name Dose Route Start Last Admin Trade Name Freq PRN Reason Stop Dose Admin Acetaminophen 650 mg 05/08/25 17:37 Acetaminophen 325 Mg Tablet PO 06/07/25 17:36 Q6H PRN Fever >100.3 or pain 1-3 Bumetanide 2 mg 05/08/25 21:00 05/09/25 08:33 Bumetanide Inj 0.25 Mg/Ml Vial 4 Ml IVP 06/07/25 20:59 2 mg BID ANNE Administration Clobetasol Propionate 0 gm 05/09/25 09:00 05/09/25 11:07 Clobetasol Propionate Cr 15 Gm Tube TOP 05/16/25 08:59 1 gram BID ANNE Administration Dextrose 25 ml 05/08/25 19:30 05/08/25 19:37 Dextrose 50%-Water Inj 50 Ml Syringe IV 06/07/25 19:29 25 ml Q15MIN PRN Administration BG 50-70 responsive npo pt Dextrose 50 ml 05/08/25 19:30 Dextrose 50%-Water Inj 50 Ml Syringe IV 06/07/25 19:29 Q15MIN PRN BG <50 OR BG <70 & pt unresponsive Folic Acid 1 mg 05/09/25 01:00 05/09/25 08:53 Folic Acid 1 Mg Tablet PO 05/14/25 00:59 Not Given BID ANNE Glucagon 1 mg 05/08/25 19:30 Glucagon Inj 1 Mg Vial IM Q15MIN PRN BG <70, and no IV access Ceftriaxone Sodium/Dextrose 1 gm in 50 mls @ 100 mls/hr 05/08/25 17:25 05/09/25 10:26 Rocephin/D5w 1gm Iv Premix IV 05/15/25 17:24 100 mls/hr QDAY ANNE Administration Albumin Human 25 gm in 100 mls @ 100 mls/hr 05/08/25 21:00 05/09/25 10:26 Albuminar-25 Ivpb IV 05/11/25 20:59 100 mls/hr BID ANNE Administration Octreotide Acetate 1,000 mcg/ 102 mls @ 5.1 mls/hr 05/09/25 15:00 05/09/25 15:09 Sodium Chloride IV 05/13/25 17:22 50 mcg/hr .Q20H ANNE 5.1 mls/hr Administration Protocol 50 MCG/HR Lactulose 10 gm 05/08/25 17:37 Lactulose Syrup 20 Gm/30 Ml Udc PO 06/08/25 08:59 QDAY PRN constipation Protocol Lorazepam 0.5 mg 05/09/25 00:58 Lorazepam 0.5 Mg Tablet PO 05/14/25 00:57 Q4HR PRN CIWA Score 2-6 Lorazepam 0.5 mg 05/09/25 00:58 Lorazepam 2 Mg/Ml Vial IV 05/14/25 00:57 Q2HR PRN CIWA SCORE 7-13 Lorazepam 1 mg 05/09/25 00:58 Lorazepam 2 Mg/Ml Vial IV 05/14/25 00:57 Q2HR PRN CIWA SCORE 14-19 Mupirocin 0 gm 05/09/25 07:15 05/09/25 14:50 Mupirocin Oint 2% 15 Gm Tube TOP 05/16/25 07:14 1 gram TID ANNE Administration Ofloxacin 2 drop 05/09/25 08:00 05/09/25 13:01 Ofloxacin Op Farheen 0.3% 5 Ml Btl BOTH EYES 06/08/25 07:59 Not Given QID ANNE Ondansetron HCl 4 mg 05/08/25 18:36 05/08/25 18:40 Ondansetron Inj 2 Mg/Ml Inj 2 Ml IVP 06/07/25 18:35 4 mg Q6H PRN Administration NAUSEA OR VOMITING Protocol Pantoprazole Sodium 40 mg 05/08/25 21:00 05/09/25 08:34 Pantoprazole Inj 40 Mg Vial IVP 06/07/25 20:59 40 mg BID ANNE Administration Permethrin 0 gm 05/09/25 08:30 05/09/25 11:07 Permethrin Cr 5% 60 Gm Tube TOP 06/08/25 08:29 1 % UD ANNE Administration Thiamine HCl 100 mg 05/09/25 01:00 05/09/25 08:53 Thiamine 100 Mg Tablet PO 05/14/25 00:59 Not Given BID ANNE Plan 44-year-old male with active alcohol use disorder with subsequent end-stage liver disease, type 2 diabetes mellitus, hypertension presenting to ED 05/08/2025 due to generalized complaint of not feeling well. Continues to have active alcohol use history endorses drinking 1 quart of beer per day. Nephrology Dr Duncan consulted for ANGIE and GI Dr. Figueroa consulted for GI bleed. #Decompensated liver cirrhosis #Upper GI bleed #Normocytic anemia Has history of liver cirrhosis, presenting with apparent ascites, no coagulopathy, bilirubin normal, AST/ALT normal, ammonia normal. Patient alert and oriented x 3. Endorses few episodes of hematemesis, hemoglobin 7.6 on admission and MCV 95. Endorses alcohol intake of 1 quart of beer per day for the past 20 years. Denies getting abdominal tap for ascites in the past. CT abdomen pelvis Cirrhosis with significant ascites, possible esophageal varices, atrophic kidneys. MELD 24 (15% of mortality in next 90 days) MADDREY score 12--no indication for steroids Child alejandro class B--indicating transplant Heptatitis panel negative ?Consulted GI Dr. Figueroa, patient recommendations--EGD pending ?Started octreotide drip for 5 days (05/08- ?IV ceftriaxone 1 g daily (05/08- ?IV pantoprazole 40 mg BID -transfuse 1 unit PRBC if hemoglobin less than 7 ?Albumin 25 g BID x3 days (05/08- -IV Zofran ? Daily coag panel -daily CBC #ANGIE on CKD stage IV Prerenal versus hepatorenal. BUN 36, creatinine 4.1 (baseline appears to be around 2), GFR 18, ratio 9. Systemic vasodilation and causing prerenal ANGIE may also be in the setting of liver cirrhosis. If prerenal, anticipate improvement with volume expansion. However at this time we will diurese due to his severe ascites. Uric acid elevated 11.4, phosphate elevated 6.1 He has been endorsing decreased urine output Per nephrology: Based on labs in 2023, patient seems to have CKD stage III/IV, patient was lost to follow-up since. Renal ultrasound showed scar formation, atrophic kidneys -Consulted nephrology Dr Duncan, appreciate recommendations--going to temporary dialysis catheter. Patient will need urgent hemodialysis inpatient. ? IV Bumex 2 mg BID -avoid nephrotoxic agents -renally dose meds -daily CMP #Electrolyte abnormalities Potassium 3.3, bicarb 15 on admission ? Replete as needed ? Daily labs #Phimosis -topical cream with steroid Health maintenance: Dispo: medsurg, GI bleed, ANGIE needing HD FEN: NPO DVT prophylaxis: SCDs CODE STATUS: Full code The patient's management plan was discussed with my attending physician Dr. Krause. Lexy Weldon, PGY-1 Attending Provider Attestation/Addendum I have examined the patient, reviewed labs and imaging findings, discussed the case with the resident(s), and reviewed entered orders. I agree with the plan of care as outlined in this note, with these additional summaries/recommendations: After examination of the patient and review of the clinical data, I feel that this patient needs admission to the hospital for further treatment and evaluation. Patient is a 45-year-old male with a medical history of alcohol use disorder, liver cirrhosis, primary hypertension, diabetes mellitus type 2, and psychiatric disorder presents to [facility] emergency department on 05/08/2025 with chief complaints of generalized weakness and blood in stool. Patient seen at bedside. No acute overnight events. Continue IV Protonix, octreotide gtt., and IV Rocephin for upper GI bleed most likely secondary to esophageal varices. Continue to hold chemical anticoagulation. Patient received 1 unit PRBCs yesterday for hemoglobin 6.4 and hemoglobin 7.7 today. Gastroenterology following with plans for endoscopic intervention today. Patient has cirrhosis from alcohol use and diagnosed with decompensated cirrhosis. He denies receiving a liver biopsy in the past or following a liver specialist. He reports he continues to drink. Avoid excessive Tylenol use and limit hepatotoxic agents. Low-salt diet and diuresis. Counseled on alcohol cessation. Patient also found to have severe ANGIE on CKD. Etiology likely multifactorial with biggest contributor being hepatorenal syndrome. Patient has had minimal urinary output and worsening metabolic acidosis. Nephrology consulted and patient started on bicarb. We will proceed with temporary dialysis catheter and patient will go for hemodialysis. Patient and patient's mom in agreement. Unclear if dialysis will be permanent or temporary at this time. Hawkins catheter was unable to be placed and urology consulted for Hawkins catheter placement. Patient also noted to have multiple severe electrolyte abnormalities including hypocalcemia and hypomagnesia. Replacement given and repeat level in AM. Urinalysis indicative of UTI although unclear if patient is having urinary symptoms. Continue IV Rocephin and follow-up urine culture. Continue CIWA for alcohol withdrawal. No evidence of hallucinations or DTs at this time. Continue isolation precautions for likely bedbugs versus scabies. Continue permethrin. Patient was started on bacterial eyedrops for possible contact bacterial conjunctivitis. Patient updated on the plan and in agreement. All questions answered to satisfaction. Please see residents note for additional details and management. Dr. Nelida MD
--- NOTE | 2025-05-09 17:17 | ESCONSULT_ITS ---
RE: JOSE COON : 1980 DATE OF CONSULTATION: 05/08/2025 CHIEF COMPLAINT: Patient is seen chart is reviewed from emergency room Urology consultation is regarding 1. Urinary retention. 2. Attempt was made to insert Winters catheter x4 in the emergency room and it was not successful. 3. Severe phimosis COMORBID CONDITIONS: 1. End-stage renal disease. 2. Diabetes mellitus. 3. Hypertension. 4. Acute kidney disease. HISTORY OF PRESENT ILLNESS: This is a 45-year-old gentleman. He has actively alcohol use disorder with subsequent end-stage renal disease, diabetes mellitus type 2, hypertension, came to the emergency room on 05/08/2025. His main complaint was not feeling well. The patient has a history of nausea and vomiting and noticeable blood in the vomitus. The patient continues to have active alcohol use history and endorse drinking one quart of a beer per day. This he has been drinking for 20 years. In the emergency room, his blood pressure was 141/83 and the rest of the vital signs were stable. He was in urinary retention. Attempt was made to insert Winters catheter x4. They were unsuccessful. In the emergency room, hemoglobin is 7.6, MCH is 95, platelets 172, serum sodium is 137, potassium is 3.3, bicarb 15, BUN is 36, creatinine is 4 .1. He had CAT scan of the abdomen and pelvis done. Revealed bilateral atrophic kidneys this revealed early changes of pneumonia on x-ray chest and significant ascites, possible esophageal varices and atrophic kidney. PAST MEDICAL HISTORY: As above. PAST SURGICAL HISTORY: Denied. FAMILY HISTORY: History of hypertension in mother. SOCIAL HISTORY: Unemployed. Drinks one quart of beer a day for the last 20 years, smokes one pack of cigarettes daily. REVIEW OF SYSTEMS: All systems reviewed and normal except as documented. NARRATIVE EXAMINATION: General: On examination, this is a 45-year-old gentleman. He is not in acute distress. HEENT: Normocephalic and atraumatic. Eyes: No anemia or jaundice. Extremities: Reveal no edema, cyanosis or clubbing. Vital Signs: Stable. They are in HPI in EMR. Chest: Symmetrical. Heart: Regular rate and rhythm. Abdomen: Obese. He has ascites. Genitalia: He has a severe phimosis. Testicles are without any mass Under sterile condition, I passed a #16 coude catheter and there was good drainage of the urine draining from the bladder. About 500 cc it was attached to a leg bag. PLAN: The patient is going to need either dorsal slit or circumcision when patient is cleared by the cable ferryboat operator and mechanical facilities technician I will see him in my office for followup visit. DT: 13:36:11 TT: 17:15:00 Ref: [id number] - TID: [id number] [facility]
[2025-05-09 17:29] LABS: Alanine Aminotransferase < 7 U/L (10-49); Albumin, Serum 2.5 gm/dL (3.5-5.0); Albumin/Globulin Ratio 0.9 (1.2-2.2); Alkaline Phosphatase 61 U/L (46-116); Anion Gap 13 (7-16); Aspartate Amino Transferase 13 U/L (0-34); BUN/Creatinine Ratio 8 Ratio (12-20); Bilirubin,Total 0.5 mg/dL (0.3-1.2); Blood Urea Nitrogen 33 mg/dL (9-23); Calcium (Corrected) 7.9 mg/dL (8.5-10.1); Carbon Dioxide 15.9 mMol/L (20.0-31.0); Chloride 110 mMol/L (98-107); Creatinine (Component) 4.1 mg/dL (0.6-1.3); Estimated Creatinine Clearance 25.5 mL/min (>60); Globulin 2.8 gm/dL (2.3-3.5); Glucose 93 mg/dL (74-106); Magnesium 1.2 mg/dL (1.6-2.6); Osmolality,Calculated 284 (275-295); Potassium 3.6 mMol/L (3.4-5.1); Sodium 139 mMol/L (136-145); Total Protein 5.3 gm/dL (5.7-8.2); eGFR 18 See Note
[2025-05-09 17:33] LABS: Calcium 6.7 mg/dL (8.3-10.6)
--- NOTE | 2025-05-09 17:43 | PC.NURSE ---
DR. DANIEL MADE AWARE OF LOW CALCIUM 6.7, NO NEW ORDERS CONTINUE TO MONITOR FOR PVC AND REACH OUT TO MD.
--- NOTE | 2025-05-09 17:50 | PC.NURSE ---
DR. JULIANA CORBETT AT BEDSIDE WAS MADE AWARE PTS BLOOD SUGAR WAS 86, MD CROWE TO GIVE PT DEXTROSE 50% SYR 25ML IV PER JAN ORDER, ORDER READ BACK AND CARRIED OUT.
[2025-05-09] MEDS: DEXTROSE 50%-WATER INJ 50 ML SYRINGE IVP (18:20)
--- NOTE | 2025-05-09 18:53 | PC.NURSE ---
to jah per piedad, accompanied by endo staff x3. Mother at bedside.
--- NOTE | 2025-05-09 18:53 | PC.NURSE ---
PATIENT TRANSFER VIA GURNEY WITH SURGICAL TEAM TO ENDO. PT IS ALERT AND ORIENTED X3.
--- NOTE | 2025-05-09 19:17 | PC.NURSE ---
DR. SCHMITT UPDATED, PT IN ENDO, PER DOCTOR PT WILL GET FIRST DIALYSIS TOMORROW.
[2025-05-09] MEDS: NYSTATIN SUSP 5 ML UDC PO (22:07)
[2025-05-10] VITALS (19 sets, daily range): BP systolic 106–139; BP diastolic 56–98; PULSE 78–110; RESP 15–100; TEMP 36.2–36.6; O2SAT 95–100
[2025-05-10] MEDS: NYSTATIN SUSP 5 ML UDC PO ×3 (05:20→21:31)
[2025-05-10] MEDS: OFLOXACIN OP SOL 0.3% 5 ML BTL 2 DROP BOTH EYES ×3 (05:20→21:31)
[2025-05-10] MEDS: MUPIROCIN OINT 2% 15 GM TUBE TOP ×3 (05:20→21:33)
[2025-05-10 05:53] LABS: Basophils # (Auto) 0.0 Thou/mm3 (0.0-0.2); Basophils % (Auto) 1 % (0-2.5); Eosinophils # (Auto) 0.3 Thou/mm3 (0.0-0.5); Eosinophils % (Auto) 4 % (0-10); Hematocrit 22.5 % (41.0-53.0); Immature Granulocytes Auto 0.02 Thou/mm3 (0.00-0.00); Lymphocytes # (Auto) 1.2 Thou/mm3 (1.0-4.8); Lymphocytes % (Auto) 20 % (10-50); Mean Corpuscular HGB Conc 33.8 g/dl (31.0-37.0); Mean Corpuscular Hemoglobin 31.5 pg (25.0-35.0); Mean Corpuscular Volume 93 fL (80-100); Monocytes # (Auto) 0.8 Thou/mm3 (0.0-0.8); Monocytes % (Auto) 14 % (0-12); Neutrophils # (Auto) 3.8 Thou/mm3 (1.8-7.7); Neutrophils % (Auto) 61 % (37-80); Nucleated Red Blood Cell # 0.00 Thou/mm3 (0.00-0.00); Nucleated Red Blood Cell % 0 /100 WBC (0); Platelet Count 119 Thou/mm3 (140-440); RDW Standard Deviation 51.5 fL (35.1-43.9); Red Blood Count 2.41 Miln/mm3 (4.50-5.90); White Blood Count 6.2 Thou/mm3 (3.8-10.6)
[2025-05-10 05:58] LABS: Hemoglobin 7.6 g/dL (13.5-16.0)
[2025-05-10 06:03] LABS: INR 1.4 (0.9-1.3); Partial Thromboplastin Time 44.3 Seconds (22.0-36.0); Prothrombin Time 14.9 Seconds (9.0-12.2)
[2025-05-10 06:13] LABS: Alanine Aminotransferase < 7 U/L (10-49); Albumin, Serum 2.8 gm/dL (3.5-5.0); Albumin/Globulin Ratio 1.2 (1.2-2.2); Alkaline Phosphatase 54 U/L (46-116); Anion Gap 16 (7-16); Aspartate Amino Transferase 12 U/L (0-34); BUN/Creatinine Ratio 8 Ratio (12-20); Bilirubin,Total 0.5 mg/dL (0.3-1.2); Blood Urea Nitrogen 33 mg/dL (9-23); Calcium 7.4 mg/dL (8.3-10.6); Calcium (Corrected) 8.4 mg/dL (8.5-10.1); Carbon Dioxide 15.1 mMol/L (20.0-31.0); Chloride 107 mMol/L (98-107); Creatinine (Component) 4.2 mg/dL (0.6-1.3); Estimated Creatinine Clearance 24.9 mL/min (>60); Globulin 2.3 gm/dL (2.3-3.5); Glucose 112 mg/dL (74-106); Osmolality,Calculated 283 (275-295); Potassium 3.6 mMol/L (3.4-5.1); Sodium 138 mMol/L (136-145); Total Protein 5.1 gm/dL (5.7-8.2); eGFR 17 See Note
--- NOTE | 2025-05-10 07:51 | PD.RESPRO ---
Documentation for date of: 05/10/25 Subjective Subjective Interval history: Mr. 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 Sharath Payne), Prediabetes, history of pulmonary embolism-on Eliquis, hypertension, history of variceal bleed, history of psychiatric disorders, who presented to the emergency room from home complaining of generalized weakness, significant abdominal distention, skin rash. Patient was evaluated in the emergency room, he was a poor historian, is noncompliant with medications and unaware of most of his medical history. Limited HPI. Patient reports having nausea and vomiting, noted bilious/green vomiting with food contents in the vomiting bag, endorsed melena. Patient endorses using alcohol, states he lives at the home, has scratch campbell and rash all over his body, states he has bedbugs at home. Noted to have abdominal distention, pedal edema, complaining of shortness of breath. Patient is visibly uncomfortable though saturating 100% on room air, but feels he cannot get enough air. Nephrology was consulted for management of acute on chronic CKD and anasarca. In the emergency room initial labs show CBC pertinent for anemia hemoglobin 7.6, platelets 172 WBC 8.5, sodium 137, K 3.3, CL 109, CO2 15.1, BUN 36 creatinine 4.1, EGFR 18, glucose 55, lactic acid 1.2, uric acid 11.4, calcium 8.3 phosphorus 6.1, PTH 130. ABG showed pH 7.27 PCO2 29 PO2 91. Chest x-ray suspicious for early pneumonia in right upper lobe. Abdominal pelvis CT shows pneumonia right base, cirrhosis, significant ascites, anasarca, suspicion for esophageal varices, atrophic kidneys, renal ultrasound shows right kidney 8.7 cm, left kidney 9.6 cm, moderate renal failure, scar formation, moderate ascites and contracted urinary bladder. EKG showed sinus rhythm with sinus arrhythmia low voltage QRS complexes. No acute ischemic changes noted. In the emergency room patient was given dextrose IV pushes for hypoglycemia, was given ceftriaxone and azithromycin, 1 ampoule of sodium bicarb and started on octreotide drip and ondansetron. 05/09/2025: Patient evaluated bedside, isolation precautions in place for scabies/bedbugs, patient only made urine 350 mL overnight despite IV Bumex and albumin. Spoke to primary team, patient does have phimosis, and were unable to get a Winters's catheter in place due to stricture. Unable to get a reliable reading on bladder scan due to concomitant ascites. Will consult urologist Dr. Bone to help with urine tract obstruction. Based off of patient's chemistry panel severely acidotic, worsening renal function and oliguria. Spoke to patient regarding need for hemodialysis, he agreed. Will order dialysis cath by IR, and hemodialysis with 2 L UF. Patient is also scheduled for an EGD later today. Also noted crusting on his eyelids, patient had pus discharge yesterday, added ofloxacin for conjunctivitis. Sodium 138 potassium 3.7 BUN 33 creatinine 4.0, bicarb 13.6, calcium 7.7, magnesium 0.9. 05/10/2025, patient evaluated at bedside, coud? catheter was passed yesterday by urology, urine output 1350 mL, but no improvement in BUN or creatinine noted. Continues to have anasarca, patient will require hemodialysis and ultrafiltration. Dialysis cath was placed yesterday, for session of hemodialysis today, will repeat hemodialysis tomorrow. Next hemodialysis on Tuesday. Labs show sodium 138 potassium 3.6 chloride 107 bicarb 15.1 BUN 33 creatinine 4.2 glucose 283. Exam Vital Signs Temp Pulse Resp BP Pulse Ox O2 Del Method O2 Flow Rate 97.1 F 80 17 132/95 H 100 Nasal Cannula 3 05/10/25 04:00 05/10/25 04:00 05/10/25 04:00 05/10/25 04:00 05/10/25 04:00 05/10/25 04:00 05/10/25 04:00 Narrative Exam General: Unkempt young male, distended abdomen, HEENT: NCAT, No JVD noted. Mucosa dry. Pupils are equal and reactive to light bilaterally, no scleral icterus,noted crustacean and discharge on both eyes Cardiovascular: Normal S1 and S2. Regular rate and rhythm. Respiratory: Lungs are clear to auscultation bilaterally. No wheezing or crackles heard. Abdomen: Hard, distended, positive fluid wave test Skin: no spider angioma , scratch campbell all over his body with excoriations. Musculoskeletal: No gross injuries. Able to move all 4 extremities. +2-3 pitting edema in the lower extremities extending all the way up Neuro: Alert and oriented x3. No focal neuro deficits. Psych: apathetic Objective Labs 05/19/25 04:57 05/19/25 04:57 Labs: Laboratory Results - last 24 hr 05/08/25 05/09/25 05/09/25 14:20 06:20 16:45 WBC RBC Hgb Hct MCV MCH MCHC RDW Std Deviation Plt Count Neut % (Auto) Lymph % (Auto) Brown % (Auto) Eos % (Auto) Baso % (Auto) Neut # (Auto) Lymph # (Auto) Brown # (Auto) Eos # (Auto) Baso # (Auto) Immature Gran # (Auto) Absolute Nucleated RBC Immature Gran % Nucleated RBC % PT INR APTT Sodium 138 139 Potassium 3.7 3.6 Chloride 109 H 110 H Carbon Dioxide 13.6 L* 15.9 L Anion Gap 15 13 BUN 33 H 33 H Creatinine 4.0 H 4.1 H* Estim Creat Clear Calc 26.1 L 25.5 L eGFR 18 L 18 L BUN/Creatinine Ratio 8 L 8 L Glucose 101 D 93 Calculated Osmolality 282 284 Calcium 6.5 L* 6.7 L* Corrected Calcium 7.7 L 7.9 L Phosphorus 5.8 H Magnesium 0.9 L* 1.2 L Total Bilirubin 1.3 H D 0.5 D AST 16 13 ALT < 7 L < 7 L Alkaline Phosphatase 71 61 Total Protein 5.5 L 5.3 L Albumin 2.5 L 2.5 L Globulin 3.0 2.8 Albumin/Globulin Ratio 0.8 L 0.9 L Triglycerides 80 Cholesterol 70 L LDL Cholesterol, Calc 31 HDL Cholesterol 23 L Cholesterol/HDL Ratio 3.0 L Blood Type O Negative Antibody Screen POSITIVE Antibody Identification Anti-D Crossmatch See Detail Blood Bank Wristband ID Yes 05/10/25 05:17 WBC 6.2 RBC 2.41 L Hgb 7.6 L Hct 22.5 L MCV 93 MCH 31.5 MCHC 33.8 RDW Std Deviation 51.5 H Plt Count 119 L Neut % (Auto) 61 Lymph % (Auto) 20 Brown % (Auto) 14 H Eos % (Auto) 4 Baso % (Auto) 1 Neut # (Auto) 3.8 Lymph # (Auto) 1.2 Brown # (Auto) 0.8 Eos # (Auto) 0.3 Baso # (Auto) 0.0 Immature Gran # (Auto) 0.02 H Absolute Nucleated RBC 0.00 Immature Gran % 0 Nucleated RBC % 0 PT 14.9 H INR 1.4 H APTT 44.3 H D Sodium 138 Potassium 3.6 Chloride 107 Carbon Dioxide 15.1 L Anion Gap 16 BUN 33 H Creatinine 4.2 H* Estim Creat Clear Calc 24.9 L eGFR 17 L BUN/Creatinine Ratio 8 L Glucose 112 H Calculated Osmolality 283 Calcium 7.4 L Corrected Calcium 8.4 L Phosphorus Magnesium Total Bilirubin 0.5 AST 12 ALT < 7 L Alkaline Phosphatase 54 Total Protein 5.1 L Albumin 2.8 L Globulin 2.3 Albumin/Globulin Ratio 1.2 Triglycerides Cholesterol LDL Cholesterol, Calc HDL Cholesterol Cholesterol/HDL Ratio Blood Type Antibody Screen Antibody Identification Crossmatch Blood Bank Wristband ID ABG Interpretation ABG results: 05/08/25 18:50 ABG pH 7.27 L ABG pCO2 29 L ABG pO2 91 ABG HCO3 13 L ABG O2 Saturation 98 ABG Base Excess -13 L Quality Measures Quality Measures none Assessment & Plan Assessment Current Active Medications: Generic Name Dose Route Start Last Admin Trade Name Freq PRN Reason Stop Dose Admin Acetaminophen 650 mg 05/08/25 17:37 Acetaminophen 325 Mg Tablet PO 06/07/25 17:36 Q6H PRN Fever >100.3 or pain 1-3 Bumetanide 2 mg 05/08/25 21:00 05/09/25 20:47 Bumetanide Inj 0.25 Mg/Ml Vial 4 Ml IVP 06/07/25 20:59 2 mg BID ANNE Administration Citric Acid/Sodium Citrate 30 ml 05/10/25 09:00 Citric Acid/Sodium Citr 15 Ml Udc (Bicitra) PO 06/09/25 08:59 BID ANNE Clobetasol Propionate 0 gm 05/09/25 09:00 05/09/25 21:08 Clobetasol Propionate Cr 15 Gm Tube TOP 05/16/25 08:59 1 gram BID ANNE Administration Dextrose 25 ml 05/08/25 19:30 05/08/25 19:37 Dextrose 50%-Water Inj 50 Ml Syringe IV 06/07/25 19:29 25 ml Q15MIN PRN Administration BG 50-70 responsive npo pt Dextrose 50 ml 05/08/25 19:30 Dextrose 50%-Water Inj 50 Ml Syringe IV 06/07/25 19:29 Q15MIN PRN BG <50 OR BG <70 & pt unresponsive Epoetin Melchor 10,000 unit 05/10/25 09:30 Epoetin Melchor-Epbx Inj 10,000 Unit/Ml Vial (Esrd) SC 05/10/25 09:31 X1 ONE Fluconazole 200 mg 05/10/25 09:00 Fluconazole 100 Mg Tablet PO 05/17/25 08:59 QDAY ANNE Folic Acid 1 mg 05/09/25 01:00 05/09/25 20:44 Folic Acid 1 Mg Tablet PO 05/14/25 00:59 1 mg BID ANNE Administration Glucagon 1 mg 05/08/25 19:30 Glucagon Inj 1 Mg Vial IM Q15MIN PRN BG <70, and no IV access Ceftriaxone Sodium/Dextrose 1 gm in 50 mls @ 100 mls/hr 05/08/25 17:25 05/09/25 10:26 Rocephin/D5w 1gm Iv Premix IV 05/15/25 17:24 100 mls/hr QDAY ANNE Administration Albumin Human 25 gm in 100 mls @ 100 mls/hr 05/08/25 21:00 05/09/25 20:45 Albuminar-25 Ivpb IV 05/11/25 20:59 100 mls/hr BID ANNE Administration Lactulose 10 gm 05/08/25 17:37 Lactulose Syrup 20 Gm/30 Ml Udc PO 06/08/25 08:59 QDAY PRN constipation Protocol Lorazepam 0.5 mg 05/09/25 00:58 Lorazepam 0.5 Mg Tablet PO 05/14/25 00:57 Q4HR PRN CIWA Score 2-6 Lorazepam 0.5 mg 05/09/25 00:58 Lorazepam 2 Mg/Ml Vial IV 05/14/25 00:57 Q2HR PRN CIWA SCORE 7-13 Lorazepam 1 mg 05/09/25 00:58 Lorazepam 2 Mg/Ml Vial IV 05/14/25 00:57 Q2HR PRN CIWA SCORE 14-19 Mupirocin 0 gm 05/09/25 07:15 05/10/25 05:20 Mupirocin Oint 2% 15 Gm Tube TOP 05/16/25 07:14 1 gram TID ANNE Administration Nystatin 5 ml 06/26/25 22:00 05/10/25 05:20 Nystatin Susp 5 Ml Udc PO 05/16/25 21:59 5 ml TID ANNE Administration Ofloxacin 2 drop 05/09/25 08:00 05/10/25 05:20 Ofloxacin Op Farheen 0.3% 5 Ml Btl BOTH EYES 06/08/25 07:59 2 drop QID ANNE Administration Ondansetron HCl 4 mg 05/08/25 18:36 05/08/25 18:40 Ondansetron Inj 2 Mg/Ml Inj 2 Ml IVP 06/07/25 18:35 4 mg Q6H PRN Administration NAUSEA OR VOMITING Protocol Pantoprazole Sodium 40 mg 05/08/25 21:00 05/09/25 20:46 Pantoprazole Inj 40 Mg Vial IVP 06/07/25 20:59 40 mg BID ANNE Administration Permethrin 0 gm 05/09/25 08:30 05/09/25 11:07 Permethrin Cr 5% 60 Gm Tube TOP 06/08/25 08:29 1 % UD ANNE Administration Thiamine HCl 100 mg 05/09/25 01:00 05/09/25 20:44 Thiamine 100 Mg Tablet PO 05/14/25 00:59 100 mg BID ANNE Administration Plan (1) ANGIE (acute kidney injury): Status: Acute Assessment and plan: Acute kidney injury in the setting of cirrhosis and anasarca. Concern for underlying hepatorenal syndrome type II. Based on labs in 2023, patient seems to have CKD stage III/IV, patient was lost to follow-up since. Did not follow-up with institutional research coordinator or primary care. Seen by Dr. Duncan in October. Currently patient has anasarca, will hold off on giving IV fluids, will add IV albumin to rule out hepatorenal syndrome as well as providing volume expansion intravascularly. ? IV albumin 25 g twice daily for 3 days. ? IV Bumex 2 mg twice daily ? Ordered viral hepatitis panel and PPD ? Strict intake and output monitoring ? Renal ultrasound showed bilateral shrunken kidneys ? Spoke to patient regarding progressively worsening renal function and minimal urine output, agreed to hemodialysis, will order hemodialysis catheter by IR and initiate hemodialysis. ? No response to IV Bumex or albumin, urine output did improve following coud? catheter, likely retained urine due to obstruction, ? Initiate hemodialysis today, see dialysis orders sheet for details. Will repeat hemodialysis tomorrow and neck session on Tuesday. ? Covering institutional research coordinator Dr. Hogan will be following the patient. (2) Ascites: Status: Acute Assessment and plan: IV diuresis with Bumex 2 mg IV twice daily for volume overload. Offered patient hemodialysis with ultrafiltration for anasarca, but he was hesitant to go ahead with dialysis at this moment.?Patient has persistent anasarca, poor response to IV Bumex and albumin. Will order hemodialysis with 2 L UF (3) Cirrhosis: Status: Acute Assessment and plan: Decompensated cirrhosis with anasarca, ascites and varices. Patient was started on IV octreotide due to concern for GI bleed. Cirrhosis also likely contributing to renal impairment, possible hepatorenal syndrome type II. Patient remains a poor candidate for transplant due to active alcohol drinking. ? Management per primary team (4) GI bleed: Status: Acute Assessment and plan: Management per primary team and gastroenterology (5) Symptomatic anemia: Status: Acute Assessment and plan: Acute anemia, patient has pallor on physical exam, on IV octreotide, transfuse if hemoglobin less than 7. ?Management per primary team Plan of care discussed with attending Dr. Perla Polk pgy 2 Attending Provider Attestation/Addendum Patient seen and examined with resident physician Dr. Polk. Note reviewed, agree with findings and recommendations with the few changes made. Well-known to me from my CKD clinic however lost for follow-up. Patient with significant anasarca. Currently seen in medical floor. Suspect underlying CKD stage III/IV from a hepatorenal syndrome patient was started on diuretics-for anasarca. However he continues to have significant anasarca with minimal urinary output. Unable to pass Winters. Discussed with Dr. Penaloza-will come and see the patient for Winters catheter insertion. Patient has severe phimosis. Due to anasarca, electrolyte imbalance decided to proceed with a renal replacement therapy. Patient agreed for dialysis. Dialysis catheter placed by Dr. Clements. Hemodialysis for 2.5 hours, 3K, ultrafiltration 1-2 L, Epogen 6000, no heparin ordered. Plan of care discussed with the dialysis nurse. Never seen a transplant specialist-although not a candidate at this point due to active alcohol intake. Spoke to primary team. Patient might need a temporary dialysis arrangements to be done. Dr. Hogan will be covering for me.
--- NOTE | 2025-05-10 08:09 | PC.NURSE ---
DIALYSIS WILL BE DONE IN PTS ROOM, PT IS ALERT AND ORIENTED X3.
--- NOTE | 2025-05-10 08:22 | PC.SS ---
Addendum entered by Justyna Flower 05/10/25 09:37: SS follow up note; SS was contacted by Vicky from [facility], she informed SS that she will submit auth to Insurance. SS will stand by for further needs. Addendum entered by Justyna Flower 05/10/25 08:32: SS follow up note; SS faxed clinicals to [facility] and spoke to Kala, she informed SS she would let Vicky know that SS faxed Clinicals. Original Note: SS follow up note; SS was informed by Dr. Zamora that patient was going to be a new Dialysis patient and Dr. Cancino will be following patient at [facility].
--- NOTE | 2025-05-10 09:19 | ESPR_ITS ---
Documentation for date of: 05/10/25 Subjective Subjective Interval history: Patient was seen and examined at bedside. No acute overnight events. Patient had 1300 of urine output over 24 hours, still on Bumex 1 mg twice daily, yesterday patient had EGD which did not reveal any varices, negative for bleeding, also revealed esophageal candidiasis, per GI patient started on Diflucan 200 daily along with nystatin swish and swallow, nephrology close monitoring the patient, plan is to have a hemodialysis today, tomorrow and most likely on Tuesday. For now we will continue close monitor, replace electrolytes as needed. Exam Vital Signs Temp Pulse Resp BP Pulse Ox O2 Del Method O2 Flow Rate 97.5 F 96 16 136/76 H 95 Nasal Cannula 3 05/10/25 08:49 05/10/25 08:49 05/10/25 08:00 05/10/25 08:49 05/10/25 08:00 05/10/25 04:00 05/10/25 04:00 Narrative Exam GENERAL: no acute distress, AAO x3, apatetic , closing eyes with a hat on physical exam HEENT: Head AT/ NC. Mucous membranes moist. mild discharge noted on BL eyes, not purulent NECK: Supple, no lymphadenopathy, no carotid bruits. CARDIOVASCULAR: RRR. Normal S1/S2, No m/r/g. 2+ pitting edema in bilateral lower extremities RESPIRATORY: CTAB. No wheezing, rhonchi, crackles. GASTROINTESTINAL: Abdomen distended, not tender, positive fluid shift NEUROLOGICAL: CN II-XII grossly intact. No focal deficits. Sensation intact, symmetric. PSYCHIATRIC: Awake and alert, not agitated, normal mood and affect. INTEGUMENTARY: Scratch campbell on upper body Objective Labs 05/11/25 06:24 05/10/25 13:30 Labs: Laboratory Results - last 24 hr 05/08/25 05/09/25 05/10/25 14:20 16:45 05:17 WBC 6.2 RBC 2.41 L Hgb 7.6 L Hct 22.5 L MCV 93 MCH 31.5 MCHC 33.8 RDW Std Deviation 51.5 H Plt Count 119 L Neut % (Auto) 61 Lymph % (Auto) 20 [place] % (Auto) 14 H Eos % (Auto) 4 Baso % (Auto) 1 Neut # (Auto) 3.8 Lymph # (Auto) 1.2 [place] # (Auto) 0.8 Eos # (Auto) 0.3 Baso # (Auto) 0.0 Immature Gran # (Auto) 0.02 H Absolute Nucleated RBC 0.00 Immature Gran % 0 Nucleated RBC % 0 PT 14.9 H INR 1.4 H APTT 44.3 H D Sodium 139 138 Potassium 3.6 3.6 Chloride 110 H 107 Carbon Dioxide 15.9 L 15.1 L Anion Gap 13 16 BUN 33 H 33 H Creatinine 4.1 H* 4.2 H* Estim Creat Clear Calc 25.5 L 24.9 L eGFR 18 L 17 L BUN/Creatinine Ratio 8 L 8 L Glucose 93 112 H Calculated Osmolality 284 283 Calcium 6.7 L* 7.4 L Corrected Calcium 7.9 L 8.4 L Magnesium 1.2 L Total Bilirubin 0.5 D 0.5 AST 13 12 ALT < 7 L < 7 L Alkaline Phosphatase 61 54 Total Protein 5.3 L 5.1 L Albumin 2.5 L 2.8 L Globulin 2.8 2.3 Albumin/Globulin Ratio 0.9 L 1.2 Blood Type O Negative Antibody Screen POSITIVE Antibody Identification Anti-D Crossmatch See Detail Blood Bank Wristband ID Yes ABG Interpretation ABG results: 05/08/25 18:50 ABG pH 7.27 L ABG pCO2 29 L ABG pO2 91 ABG HCO3 13 L ABG O2 Saturation 98 ABG Base Excess -13 L Quality Measures Quality Measures none Assessment & Plan Assessment Current Active Medications: Generic Name Dose Route Start Last Admin Trade Name Freq PRN Reason Stop Dose Admin Acetaminophen 650 mg 05/08/25 17:37 Acetaminophen 325 Mg Tablet PO 06/07/25 17:36 Q6H PRN Fever >100.3 or pain 1-3 Bumetanide 2 mg 05/08/25 21:00 05/09/25 20:47 Bumetanide Inj 0.25 Mg/Ml Vial 4 Ml IVP 06/07/25 20:59 2 mg BID ANNE Administration Citric Acid/Sodium Citrate 30 ml 05/10/25 09:00 Citric Acid/Sodium Citr 15 Ml Udc (Bicitra) PO 06/09/25 08:59 BID ANNE Clobetasol Propionate 0 gm 05/09/25 09:00 05/09/25 21:08 Clobetasol Propionate Cr 15 Gm Tube TOP 05/16/25 08:59 1 gram BID ANNE Administration Dextrose 25 ml 05/08/25 19:30 05/08/25 19:37 Dextrose 50%-Water Inj 50 Ml Syringe IV 06/07/25 19:29 25 ml Q15MIN PRN Administration BG 50-70 responsive npo pt Dextrose 50 ml 05/08/25 19:30 Dextrose 50%-Water Inj 50 Ml Syringe IV 06/07/25 19:29 Q15MIN PRN BG <50 OR BG <70 & pt unresponsive Epoetin Melchor 10,000 unit 05/10/25 09:30 Epoetin Melchor-Epbx Inj 10,000 Unit/Ml Vial (Esrd) SC 05/10/25 09:31 X1 ONE Fluconazole 200 mg 05/10/25 09:00 Fluconazole 100 Mg Tablet PO 05/17/25 08:59 QDAY ANNE Folic Acid 1 mg 05/09/25 01:00 05/09/25 20:44 Folic Acid 1 Mg Tablet PO 05/14/25 00:59 1 mg BID ANNE Administration Glucagon 1 mg 05/08/25 19:30 Glucagon Inj 1 Mg Vial IM Q15MIN PRN BG <70, and no IV access Ceftriaxone Sodium/Dextrose 1 gm in 50 mls @ 100 mls/hr 05/08/25 17:25 05/09/25 10:26 Rocephin/D5w 1gm Iv Premix IV 05/15/25 17:24 100 mls/hr QDAY ANNE Administration Albumin Human 25 gm in 100 mls @ 100 mls/hr 05/08/25 21:00 05/09/25 20:45 Albuminar-25 Ivpb IV 05/11/25 20:59 100 mls/hr BID ANNE Administration Magnesium Sulfate 2 gm in 50 mls @ 25 mls/hr 05/10/25 08:12 Magnesium Sulfate Ivpb IV 05/10/25 10:11 X1 ONE Lactulose 10 gm 05/08/25 17:37 Lactulose Syrup 20 Gm/30 Ml Udc PO 06/08/25 08:59 QDAY PRN constipation Protocol Lorazepam 0.5 mg 05/09/25 00:58 Lorazepam 0.5 Mg Tablet PO 05/14/25 00:57 Q4HR PRN CIWA Score 2-6 Lorazepam 0.5 mg 05/09/25 00:58 Lorazepam 2 Mg/Ml Vial IV 05/14/25 00:57 Q2HR PRN CIWA SCORE 7-13 Lorazepam 1 mg 05/09/25 00:58 Lorazepam 2 Mg/Ml Vial IV 05/14/25 00:57 Q2HR PRN CIWA SCORE 14-19 Mupirocin 0 gm 05/09/25 07:15 05/10/25 05:20 Mupirocin Oint 2% 15 Gm Tube TOP 05/16/25 07:14 1 gram TID ANNE Administration Nystatin 5 ml 05/09/25 22:00 05/10/25 05:20 Nystatin Susp 5 Ml Udc PO 05/16/25 21:59 5 ml TID ANNE Administration Ofloxacin 2 drop 05/09/25 08:00 05/10/25 05:20 Ofloxacin Op Farheen 0.3% 5 Ml Btl BOTH EYES 06/08/25 07:59 2 drop QID ANNE Administration Ondansetron HCl 4 mg 05/08/25 18:36 05/08/25 18:40 Ondansetron Inj 2 Mg/Ml Inj 2 Ml IVP 06/07/25 18:35 4 mg Q6H PRN Administration NAUSEA OR VOMITING Protocol Pantoprazole Sodium 40 mg 05/08/25 21:00 05/09/25 20:46 Pantoprazole Inj 40 Mg Vial IVP 06/07/25 20:59 40 mg BID ANNE Administration Permethrin 0 gm 05/09/25 08:30 05/09/25 11:07 Permethrin Cr 5% 60 Gm Tube TOP 06/08/25 08:29 1 % UD ANNE Administration Thiamine HCl 100 mg 05/09/25 01:00 05/09/25 20:44 Thiamine 100 Mg Tablet PO 05/14/25 00:59 100 mg BID ANNE Administration Plan 44-year-old male with active alcohol use disorder with subsequent end-stage liver disease, type 2 diabetes mellitus, hypertension presenting to ED 05/08/2025 due to generalized complaint of not feeling well. Continues to have active alcohol use history endorses drinking 1 quart of beer per day. Nephrology Dr Duncan consulted for ANGIE and GI Dr. Figueroa consulted for GI bleed. #ANGIE on CKD vs Hepatorenal Syndrome (HRS): #CKD Labs:BUN 36, creatinine 4.1 (elevated from baseline), GFR 18, and a ratio of 9 suggest acute kidney injury, with the possibility of hepatorenal syndrome given the context of cirrhosis. Systemic Vasodilation: The underlying cirrhosis and ascites likely lead to splanchnic vasodilation, causing prerenal ANGIE. Renal Ultrasound: Shows scarring and atrophic kidneys, indicating long-standing kidney damage. -Nephrology Consultation: Nephrology is involved and recommended temporary dialysis catheter placement for hemodialysis due to worsening kidney function. -Dialysis today, tomorrow and plan to do on Tuesday -Close monitor renal panel -Replace electrolytes as needed -Will monitor for renal function, monitor urine output -Renally dose medication -Avoid nephrotoxic agents #Decompensated Liver Cirrhosis: #Ascitis Patient has a history of cirrhosis with significant ascites, no coagulopathy, normal bilirubin, normal AST/ALT, and normal ammonia levels. This is consistent with cirrhosis in a relatively stable phase, but with acute decompensation. Chronic alcohol intake (1 quart of beer/day for 20 years) is likely a contributing factor to the cirrhosis. abdomen pelvis Cirrhosis with significant ascites, possible esophageal varices, atrophic kidneys. MELD 24 (15% of mortality in next 90 days) MADDREY score 12--no indication for steroids Child alejandro class B--indicating transplant Heptatitis panel negative -Continue IV Bumex 2 mg twice daily -Continue IV albumin -Overall patient had 1300 mL urine output being on Bumex 1 mg twice daily, will continue close monitor responsiveness to diuretics, most likely patient leaning towards hepatorenal syndrome -Continue close monitor liver function #Ary esophagitis Found on EGD - Started Diflucan p.o. - Nystatin swish and swallow - Will follow-up with GI commendations #Upper GI bleed ruled out #Normocytic anemia most likely secondary due to chronic kidney disease EGD was done yesterday, negative for esophageal varices or any bleeding DC octreotide, will monitore the if patient remains afebrile, no lukocytosis will DC ABX - Will continue close monitor any signs of bleeding - Transfuse if hemoglobin less than 7 #Electrolyte abnormalities ? Replete as needed ? Daily labs #Phimosis -topical cream with steroid Disposition: Med telemetry DVT prophylaxis: SCDs GI prophylaxis: PPI Diet: 2g low sodium Lines: PIV CODE STATUS:Full code Patient care was discussed with attending physician Dr. Nelida Delcid MD PGY-2 I have carefully reviewed this document. Due to imperfections in the voice software, there could be grammatical errors including phonetic/typographic errors. This in no way compromises the medical care the patient is receiving Attending Provider Attestation/Addendum I have examined the patient, reviewed labs and imaging findings, discussed the case with the resident(s), and reviewed entered orders. I agree with the plan of care as outlined in this note, with these additional summaries/recommendations: Patient is a 45-year-old male with a medical history of alcohol use disorder, liver cirrhosis, primary hypertension, diabetes mellitus type 2, and psychiatric disorder presents to [facility] emergency department on 05/08/2025 with chief complaints of generalized weakness and blood in stool. Patient seen at bedside. No acute overnight events. Patient is s/p EGD yesterday which revealed Ary esophagitis, ulceration at distal esophagus, and hypertensive portal gastropathy with moderate gastritis and no evidence of esophageal varices. Discontinue octreotide drip. Continue Protonix. Start Diflucan and nystatin swish and swallow. Hemoglobin improved to 7.9 from 7.6 yesterday. Status post 1 unit PRBCs. Continue to hold chemical anticoagulation. Patient has cirrhosis from alcohol use and diagnosed with decompensated cirrhosis. He denies receiving a liver biopsy in the past or following a liver specialist. He reports he continues to drink. Avoid excessive Tylenol use and limit hepatotoxic agents. Low-salt diet and diuresis. Patient also found to have severe ANGIE on CKD. Etiology likely multifactorial with biggest contributor being hepatorenal syndrome. Patient had approximately 1300 cc urine output in the last 24 hours but despite this renal function actually worsened. Nephrology consulted and patient started on bicarb. We will proceed with temporary dialysis catheter and patient will go for hemodialysis today. Unclear if dialysis will be permanent or temporary at this time. Winters catheter was unable to be placed and urology consulted for Winters catheter placement. Winters catheter successfully placed and patient will need to follow- up with urology outpatient for circumcision or slit. Patient also noted to have multiple severe electrolyte abnormalities including hypocalcemia and hypomagnesia. Replacement given and repeat level in AM. Urinalysis indicative of UTI although unclear if patient is having urinary symptoms. Continue IV Rocephin and follow-up urine culture. Continue CIWA for alcohol withdrawal. No evidence of hallucinations or DTs at this time. Continue isolation precautions for likely bedbugs versus scabies. Continue permethrin. Patient was started on bacterial eyedrops for possible contact bacterial conjunctivitis. Patient updated on the plan and in agreement. All questions answered to satisfaction. Please see residents note for additional details and management. Dr. Nelida MD
[2025-05-10 09:39] LABS: Magnesium 1.2 mg/dL (1.6-2.6)
[2025-05-10] MEDS: ALBUMIN HUMAN 25% IVPB 25 GM/100 ML BTL IV ×2 (09:50→21:30)
--- NOTE | 2025-05-10 09:56 | PC.NURSE ---
POC DISCUSSED WITH DR. CORBETT, DR SCHMITT WILL REPLETE ALL ELECTROLYTES WHILE IN DIALYSIS.
--- NOTE | 2025-05-10 10:04 | PC.NURSE ---
Given Albumin 100 ml 25%, 25g @0950
--- NOTE | 2025-05-10 10:34 | CHAP ---
Patient was visited by the Spiritual Care Volunteer. Patient was sleeping so silent prayer was offered. (Volunteer was in the hospital from 09:30-10:34).
[2025-05-10] MEDS: BUMETANIDE INJ 0.25 MG/ML VIAL 4 ML 2 MG IVP ×2 (13:05→22:38)
[2025-05-10] MEDS: FLUCONAZOLE 100 MG TABLET 200 MG PO (13:06)
[2025-05-10] MEDS: cefTRIAXone/D5w 1gm IV premix 1 GM/50 ML BAG IV (13:06)
[2025-05-10] MEDS: EPOETIN ALFA-EPBX INJ 10,000 UNIT/ML VIAL (ESRD) 10000 UNIT SC (13:06)
[2025-05-10 14:05] LABS: Albumin, Serum 3.0 gm/dL (3.5-5.0); Anion Gap 11 (7-16); BUN/Creatinine Ratio 7 Ratio (12-20); Blood Urea Nitrogen 22 mg/dL (9-23); Calcium 7.9 mg/dL (8.3-10.6); Calcium (Corrected) 8.7 mg/dL (8.5-10.1); Carbon Dioxide 20.4 mMol/L (20.0-31.0); Chloride 107 mMol/L (98-107); Creatinine (Component) 3.2 mg/dL (0.6-1.3); Estimated Creatinine Clearance 32.7 mL/min (>60); Glucose 133 mg/dL (74-106); Osmolality,Calculated 280 (275-295); Phosphorous 4.4 mg/dL (2.4-5.1); Potassium 3.7 mMol/L (3.4-5.1); Sodium 138 mMol/L (136-145); eGFR 24 See Note
[2025-05-10 15:36] LABS: Basophils # (Auto) 0.0 Thou/mm3 (0.0-0.2); Basophils % (Auto) 0 % (0-2.5); Eosinophils # (Auto) 0.2 Thou/mm3 (0.0-0.5); Eosinophils % (Auto) 3 % (0-10); Hematocrit 22.4 % (41.0-53.0); Immature Granulocytes Auto 0.02 Thou/mm3 (0.00-0.00); Lymphocytes # (Auto) 1.3 Thou/mm3 (1.0-4.8); Lymphocytes % (Auto) 16 % (10-50); Mean Corpuscular HGB Conc 35.3 g/dl (31.0-37.0); Mean Corpuscular Hemoglobin 31.5 pg (25.0-35.0); Mean Corpuscular Volume 89 fL (80-100); Monocytes # (Auto) 1.0 Thou/mm3 (0.0-0.8); Monocytes % (Auto) 13 % (0-12); Neutrophils # (Auto) 5.3 Thou/mm3 (1.8-7.7); Neutrophils % (Auto) 67 % (37-80); Nucleated Red Blood Cell # 0.00 Thou/mm3 (0.00-0.00); Nucleated Red Blood Cell % 0 /100 WBC (0); Platelet Count 111 Thou/mm3 (140-440); RDW Standard Deviation 47.5 fL (35.1-43.9); Red Blood Count 2.51 Miln/mm3 (4.50-5.90); White Blood Count 7.9 Thou/mm3 (3.8-10.6)
[2025-05-10 15:37] LABS: Hemoglobin 7.9 g/dL (13.5-16.0)
[2025-05-10] MEDS: Magnesium Sulfate 2 GM Ivpb 2 GM/50 ML BAG IV (16:02)
[2025-05-10] MEDS: ONDANSETRON INJ 2 MG/ML INJ 2 ML 4 MG IVP (16:03)
[2025-05-10] MEDS: LACTULOSE SYRUP 20 GM/30 ML UDC 10 GM PO (16:03)
--- NOTE | 2025-05-10 16:16 | PC.NURSE ---
DR. JULIANA CORBETT MADE AWARE PT HAD X1 EPISODE OF EMESIS GREEN OF 200CC WITH HICCUPS. ORDERS RECEIVED, READ BACK AND CARRIED OUT PER JAN.
--- NOTE | 2025-05-10 18:42 | ESPR_ITS ---
Documentation for date of: 05/10/25 Subjective Subjective Interval history: Hemoglobin hematocrit 7.9 and 22.4 Upper endoscopy showed 1+ varices GE junction ulceration and gastritis Exam Vital Signs Temp Pulse Resp BP Pulse Ox O2 Del Method O2 Flow Rate 97.5 F 93 15 123/78 97 Nasal Cannula 3 05/10/25 16:00 05/10/25 16:00 05/10/25 16:00 05/10/25 16:00 05/10/25 16:00 05/10/25 04:00 05/10/25 04:00 Objective Labs 05/10/25 15:21 05/10/25 13:30 Labs: Laboratory Results - last 24 hr 05/10/25 05/10/25 05/10/25 05:17 13:30 15:21 WBC 6.2 7.9 RBC 2.41 L 2.51 L Hgb 7.6 L 7.9 L Hct 22.5 L 22.4 L MCV 93 89 MCH 31.5 31.5 MCHC 33.8 35.3 RDW Std Deviation 51.5 H 47.5 H Plt Count 119 L 111 L Neut % (Auto) 61 67 Lymph % (Auto) 20 16 [place] % (Auto) 14 H 13 H Eos % (Auto) 4 3 Baso % (Auto) 1 0 Neut # (Auto) 3.8 5.3 Lymph # (Auto) 1.2 1.3 [place] # (Auto) 0.8 1.0 H Eos # (Auto) 0.3 0.2 Baso # (Auto) 0.0 0.0 Immature Gran # (Auto) 0.02 H 0.02 H Absolute Nucleated RBC 0.00 0.00 Immature Gran % 0 0 Nucleated RBC % 0 0 PT 14.9 H INR 1.4 H APTT 44.3 H D Sodium 138 138 Potassium 3.6 3.7 Chloride 107 107 Carbon Dioxide 15.1 L 20.4 Anion Gap 16 11 BUN 33 H 22 Creatinine 4.2 H* 3.2 H D Estim Creat Clear Calc 24.9 L 32.7 L eGFR 17 L 24 L BUN/Creatinine Ratio 8 L 7 L Glucose 112 H 133 H Calculated Osmolality 283 280 Calcium 7.4 L 7.9 L Corrected Calcium 8.4 L 8.7 Phosphorus 4.4 Magnesium 1.2 L Total Bilirubin 0.5 AST 12 ALT < 7 L Alkaline Phosphatase 54 Total Protein 5.1 L Albumin 2.8 L 3.0 L Globulin 2.3 Albumin/Globulin Ratio 1.2 Impressions Impression: GE junction ulceration Gastritis 1+ esophageal varices Continue to follow CBC ABG Interpretation ABG results: 05/08/25 18:50 ABG pH 7.27 L ABG pCO2 29 L ABG pO2 91 ABG HCO3 13 L ABG O2 Saturation 98 ABG Base Excess -13 L Assessment & Plan A&P Narrative # Hematemesis in setting of cirrhotic liver disease due to alcohol Plan Octreotide infusion at 50 mcg/h after 50 mcg IV push loading dose IV Protonix serial CBC Consent obtained for fiberoptic esophagogastroduodenoscopy with possible therapeutic intervention under intravenous moderate sedation Patient should receive at least 2 units of PRBC N.p.o. Other medical problems include End-stage liver disease secondary to alcohol ANGIE Chronic alcoholic dependency Advanced portal hypertension Thank you very much for the opportunity to participate in the care of this patient Time Spent With Patient Time: Total time spent is greater than 50% in coordination of care (as documented) at patient's floor/unit and/or counseling patient:
[2025-05-10] MEDS: CITRIC ACID/SODIUM CITR 15 ML UDC (BICITRA) 30 ML PO (21:30)
[2025-05-10] MEDS: FOLIC ACID 1 MG TABLET PO (21:31)
[2025-05-10] MEDS: THIAMINE 100 MG TABLET PO (21:31)
[2025-05-10] MEDS: CLOBETASOL PROPIONATE CR 15 GM TUBE TOP (21:32)
[2025-05-10] MEDS: GLYCERIN, ADULT 1 EA SUPP 1 EACH PR (21:32)
[2025-05-10] MEDS: POLYETHYLENE GLYCOL 17 GM PACKET PO (21:33)
[2025-05-11] VITALS (28 sets, daily range): BP systolic 82–143; BP diastolic 65–100; PULSE 52–123; RESP 18–99; TEMP 36–36.8; O2SAT 95–100; BMI 32.8
[2025-05-11] MEDS: NYSTATIN SUSP 5 ML UDC PO ×3 (05:36→22:01)
[2025-05-11] MEDS: MUPIROCIN OINT 2% 15 GM TUBE TOP ×3 (05:37→22:02)
[2025-05-11] MEDS: OFLOXACIN OP SOL 0.3% 5 ML BTL 2 DROP BOTH EYES ×4 (05:37→22:00)
[2025-05-11 06:53] LABS: Basophils # (Auto) 0.0 Thou/mm3 (0.0-0.2); Basophils % (Auto) 1 % (0-2.5); Eosinophils # (Auto) 0.4 Thou/mm3 (0.0-0.5); Eosinophils % (Auto) 5 % (0-10); Hematocrit 23.1 % (41.0-53.0); Hemoglobin 8.1 g/dL (13.5-16.0); Immature Granulocytes Auto 0.03 Thou/mm3 (0.00-0.00); Lymphocytes # (Auto) 1.5 Thou/mm3 (1.0-4.8); Lymphocytes % (Auto) 19 % (10-50); Mean Corpuscular HGB Conc 35.1 g/dl (31.0-37.0); Mean Corpuscular Hemoglobin 31.9 pg (25.0-35.0); Mean Corpuscular Volume 91 fL (80-100); Monocytes # (Auto) 1.2 Thou/mm3 (0.0-0.8); Monocytes % (Auto) 15 % (0-12); Neutrophils # (Auto) 5.0 Thou/mm3 (1.8-7.7); Neutrophils % (Auto) 61 % (37-80); Nucleated Red Blood Cell # 0.00 Thou/mm3 (0.00-0.00); Nucleated Red Blood Cell % 0 /100 WBC (0); Platelet Count 100 Thou/mm3 (140-440); RDW Standard Deviation 48.7 fL (35.1-43.9); Red Blood Count 2.54 Miln/mm3 (4.50-5.90); White Blood Count 8.2 Thou/mm3 (3.8-10.6)
[2025-05-11 07:38] LABS: INR 1.4 (0.9-1.3); Partial Thromboplastin Time 42.7 Seconds (22.0-36.0); Prothrombin Time 14.7 Seconds (9.0-12.2)
[2025-05-11 07:58] LABS: Alanine Aminotransferase < 7 U/L (10-49); Albumin, Serum 2.8 gm/dL (3.5-5.0); Albumin/Globulin Ratio 1.3 (1.2-2.2); Alkaline Phosphatase 47 U/L (46-116); Anion Gap 13 (7-16); Aspartate Amino Transferase < 10 U/L (0-34); BUN/Creatinine Ratio 6 Ratio (12-20); Bilirubin,Total 0.5 mg/dL (0.3-1.2); Blood Urea Nitrogen 23 mg/dL (9-23); Calcium 8.0 mg/dL (8.3-10.6); Calcium (Corrected) 9.0 mg/dL (8.5-10.1); Carbon Dioxide 19.5 mMol/L (20.0-31.0); Chloride 104 mMol/L (98-107); Creatinine (Component) 3.6 mg/dL (0.6-1.3); Estimated Creatinine Clearance 29.1 mL/min (>60); Globulin 2.1 gm/dL (2.3-3.5); Glucose 127 mg/dL (74-106); Magnesium 1.3 mg/dL (1.6-2.6); Osmolality,Calculated 277 (275-295); Phosphorous 5.0 mg/dL (2.4-5.1); Potassium 3.2 mMol/L (3.4-5.1); Sodium 136 mMol/L (136-145); Total Protein 4.9 gm/dL (5.7-8.2); eGFR 21 See Note
--- NOTE | 2025-05-11 09:31 | PC.NURSE ---
Addendum entered by Joon Avila RN 05/11/25 09:43: UF GOAL LOWERED TO 2L TOLERATED, WILL CONT. TO MONITOR Original Note: BP LOW PT DENIES ALL S/S OF HYPOTENSION, UF GOAL LOWERED TO 2.5L WILL ADMIN PRN ALBUMIN 25/100ML. PT HR ELEVATED PT DENIES ALL C/O CHEST PAIN, SOB, US OR DISCOMFORT AND CONT. TO MONITOR
[2025-05-11] MEDS: ALBUMIN HUMAN 25% IVPB 25 GM/100 ML BTL IV ×2 (09:34→10:02)
--- NOTE | 2025-05-11 09:59 | PC.NURSE ---
Dr. Weldon at bedside talking with patient. Mindy, RN also bedside with dialysis going on pt. Per Dr. Weldon, hold meds until after HD to make sure they're not filtered out of the blood. Okay to give Albumin now during HD.
[2025-05-11] MEDS: HEPARIN SOD INJ 1000 UNIT/ML VIAL 10 ML 3500 UNIT INDWELLCAT (13:21)
[2025-05-11] MEDS: Magnesium Sulfate 4 GM Ivpb 4 GM/50 ML BAG IV (13:40)
--- NOTE | 2025-05-11 16:25 | ESPR_ITS ---
Documentation for date of: 05/11/25 Subjective Subjective Interval history: Hemoglobin 8.1 Exam Vital Signs Temp Pulse Resp BP Pulse Ox O2 Del Method O2 Flow Rate 97.7 F 87 18 143/70 H 95 Room Air 3 05/11/25 12:58 05/11/25 12:58 05/11/25 12:58 05/11/25 12:58 05/11/25 12:58 05/11/25 12:00 05/10/25 04:00 Objective Labs 05/11/25 06:24 05/11/25 06:24 Labs: Laboratory Results - last 24 hr 05/08/25 05/11/25 14:20 06:24 WBC 8.2 RBC 2.54 L Hgb 8.1 L Hct 23.1 L MCV 91 MCH 31.9 MCHC 35.1 RDW Std Deviation 48.7 H Plt Count 100 L Neut % (Auto) 61 Lymph % (Auto) 19 [place] % (Auto) 15 H Eos % (Auto) 5 Baso % (Auto) 1 Neut # (Auto) 5.0 Lymph # (Auto) 1.5 [place] # (Auto) 1.2 H Eos # (Auto) 0.4 Baso # (Auto) 0.0 Immature Gran # (Auto) 0.03 H Absolute Nucleated RBC 0.00 Immature Gran % 0 Nucleated RBC % 0 PT 14.7 H INR 1.4 H APTT 42.7 H Sodium 136 Potassium 3.2 L D Chloride 104 Carbon Dioxide 19.5 L Anion Gap 13 BUN 23 Creatinine 3.6 H Estim Creat Clear Calc 29.1 L eGFR 21 L BUN/Creatinine Ratio 6 L Glucose 127 H Calculated Osmolality 277 Calcium 8.0 L Corrected Calcium 9.0 Phosphorus 5.0 Magnesium 1.3 L Total Bilirubin 0.5 AST < 10 ALT < 7 L Alkaline Phosphatase 47 Total Protein 4.9 L Albumin 2.8 L Globulin 2.1 L Albumin/Globulin Ratio 1.3 Crossmatch See Detail Impressions Impression: Distal esophageal ulceration Gastritis Relatively stable hemoglobin hematocrit Continue current management ABG Interpretation ABG results: 05/08/25 18:50 ABG pH 7.27 L ABG pCO2 29 L ABG pO2 91 ABG HCO3 13 L ABG O2 Saturation 98 ABG Base Excess -13 L Assessment & Plan A&P Narrative # Hematemesis in setting of cirrhotic liver disease due to alcohol Plan Octreotide infusion at 50 mcg/h after 50 mcg IV push loading dose IV Protonix serial CBC Consent obtained for fiberoptic esophagogastroduodenoscopy with possible therapeutic intervention under intravenous moderate sedation Patient should receive at least 2 units of PRBC N.p.o. Other medical problems include End-stage liver disease secondary to alcohol ANGIE Chronic alcoholic dependency Advanced portal hypertension Thank you very much for the opportunity to participate in the care of this patient Time Spent With Patient Time: Total time spent is greater than 50% in coordination of care (as documented) at patient's floor/unit and/or counseling patient:
--- NOTE | 2025-05-11 17:09 | PD.RESPRO ---
Documentation for date of: 05/11/25 Subjective Subjective Interval history: Patient examined at bedside. No events overnight. States that he is feeling better but abdominal is still very distended. Was receiving hemodialysis at bedside. Per nephrology he will undergo 1 more inpatient session and continue outpatient dialysis. Electrolyte abnormalities noted on labs, repleted as needed. UO 820cc in past 24hr while on Bumex and albumin. Continuing Diflucan and nystatin in setting of Ary esophagitis. Urine cultures are pending. Exam Vital Signs Temp Pulse Resp BP Pulse Ox O2 Del Method O2 Flow Rate 97.0 F 88 18 108/81 98 Room Air 3 05/11/25 16:00 05/11/25 16:00 05/11/25 16:00 05/11/25 16:00 05/11/25 16:05/11/25 16:05/10/25 04:00 Narrative Exam General: Young male, distended abdomen, getting dialysis HEENT: NCAT, No JVD noted. Mucosa dry. Pupils are equal and reactive to light bilaterally, no scleral icterus Cardiovascular: Normal S1 and S2. Regular rate and rhythm. Respiratory: Lungs are clear to auscultation bilaterally. No wheezing or crackles heard. Abdomen: abdominal distension, positive fluid wave, non tender, unable to appreciate bowel sounds : phimosis, no dishcarge, hawkins cath Skin: no spider angioma , scratch campbell all over his body with excoriations. Musculoskeletal: No gross injuries. Able to move all 4 extremities. +2-3 pitting edema in the lower extremities extending all the way up Neuro: Alert and oriented x3. No focal neuro deficits. Psych: no affect Objective Labs 05/12/25 04:40 05/12/25 04:40 Labs: Laboratory Results - last 24 hr 05/08/25 05/11/25 14:20 06:24 WBC 8.2 RBC 2.54 L Hgb 8.1 L Hct 23.1 L MCV 91 MCH 31.9 MCHC 35.1 RDW Std Deviation 48.7 H Plt Count 100 L Neut % (Auto) 61 Lymph % (Auto) 19 [place] % (Auto) 15 H Eos % (Auto) 5 Baso % (Auto) 1 Neut # (Auto) 5.0 Lymph # (Auto) 1.5 [place] # (Auto) 1.2 H Eos # (Auto) 0.4 Baso # (Auto) 0.0 Immature Gran # (Auto) 0.03 H Absolute Nucleated RBC 0.00 Immature Gran % 0 Nucleated RBC % 0 PT 14.7 H INR 1.4 H APTT 42.7 H Sodium 136 Potassium 3.2 L D Chloride 104 Carbon Dioxide 19.5 L Anion Gap 13 BUN 23 Creatinine 3.6 H Estim Creat Clear Calc 29.1 L eGFR 21 L BUN/Creatinine Ratio 6 L Glucose 127 H Calculated Osmolality 277 Calcium 8.0 L Corrected Calcium 9.0 Phosphorus 5.0 Magnesium 1.3 L Total Bilirubin 0.5 AST < 10 ALT < 7 L Alkaline Phosphatase 47 Total Protein 4.9 L Albumin 2.8 L Globulin 2.1 L Albumin/Globulin Ratio 1.3 Crossmatch See Detail ABG Interpretation ABG results: 05/08/25 18:50 ABG pH 7.27 L ABG pCO2 29 L ABG pO2 91 ABG HCO3 13 L ABG O2 Saturation 98 ABG Base Excess -13 L Quality Measures Quality Measures none Assessment & Plan Assessment Current Active Medications: Generic Name Dose Route Start Last Admin Trade Name Freq PRN Reason Stop Dose Admin Acetaminophen 650 mg 05/08/25 17:37 Acetaminophen 325 Mg Tablet PO 06/07/25 17:36 Q6H PRN Fever >100.3 or pain 1-3 Bumetanide 2 mg 05/08/25 21:00 05/11/25 09:00 Bumetanide Inj 0.25 Mg/Ml Vial 4 Ml IVP 06/07/25 20:59 Not Given BID ANNE Citric Acid/Sodium Citrate 30 ml 05/10/25 09:00 05/11/25 09:00 Citric Acid/Sodium Citr 15 Ml Udc (Bicitra) PO 06/09/25 08:59 Not Given BID ANNE Clobetasol Propionate 0 gm 05/09/25 09:00 05/11/25 09:00 Clobetasol Propionate Cr 15 Gm Tube TOP 05/16/25 08:59 Not Given BID ANNE Dextrose 25 ml 05/08/25 19:30 05/08/25 19:37 Dextrose 50%-Water Inj 50 Ml Syringe IV 06/07/25 19:29 25 ml Q15MIN PRN Administration BG 50-70 responsive npo pt Dextrose 50 ml 05/08/25 19:30 Dextrose 50%-Water Inj 50 Ml Syringe IV 06/07/25 19:29 Q15MIN PRN BG <50 OR BG <70 & pt unresponsive Fluconazole 200 mg 05/10/25 09:00 05/11/25 09:00 Fluconazole 100 Mg Tablet PO 05/17/25 08:59 Not Given QDAY ANNE Folic Acid 1 mg 05/09/25 01:00 05/11/25 09:00 Folic Acid 1 Mg Tablet PO 05/14/25 00:59 Not Given BID ANNE Glucagon 1 mg 05/08/25 19:30 Glucagon Inj 1 Mg Vial IM Q15MIN PRN BG <70, and no IV access Heparin Sodium (Porcine) 3,500 unit 05/11/25 13:02 05/11/25 13:21 Heparin Sod Inj 1000 Unit/Ml Vial 10 Ml INDWELLCAT 05/25/25 13:01 3,500 unit PRN PRN Administration DIALYSIS Ceftriaxone Sodium/Dextrose 1 gm in 50 mls @ 100 mls/hr 05/08/25 17:25 05/11/25 09:00 Rocephin/D5w 1gm Iv Premix IV 05/15/25 17:24 Not Given QDAY ANNE Albumin Human 25 gm in 100 mls @ 100 mls/hr 05/08/25 21:00 05/11/25 10:02 Albuminar-25 Ivpb IV 05/11/25 20:59 100 mls/hr BID ANNE Administration Albumin Human 25 gm in 100 mls @ 100 mls/min 05/11/25 08:01 05/11/25 09:34 Albuminar-25 Ivpb IV 100 mls/min Q1H PRN Administration DIALYSIS Lactulose 10 gm 05/08/25 17:37 05/10/25 16:03 Lactulose Syrup 20 Gm/30 Ml Udc PO 06/08/25 08:59 10 gm QDAY PRN Administration constipation Protocol Lorazepam 0.5 mg 05/09/25 00:58 Lorazepam 0.5 Mg Tablet PO 05/14/25 00:57 Q4HR PRN CIWA Score 2-6 Lorazepam 0.5 mg 05/09/25 00:58 Lorazepam 2 Mg/Ml Vial IV 05/14/25 00:57 Q2HR PRN CIWA SCORE 7-13 Lorazepam 1 mg 05/09/25 00:58 Lorazepam 2 Mg/Ml Vial IV 05/14/25 00:57 Q2HR PRN CIWA SCORE 14-19 Mupirocin 0 gm 05/09/25 07:15 05/11/25 13:41 Mupirocin Oint 2% 15 Gm Tube TOP 05/16/25 07:14 1 applicatio TID ANNE Administration Nystatin 5 ml 05/09/25 22:00 05/11/25 13:40 Nystatin Susp 5 Ml Udc PO 05/16/25 21:59 5 ml TID ANNE Administration Ofloxacin 2 drop 05/09/25 08:00 05/11/25 13:41 Ofloxacin Op Farheen 0.3% 5 Ml Btl BOTH EYES 06/08/25 07:59 2 drop QID ANNE Administration Ondansetron HCl 4 mg 05/08/25 18:36 05/10/25 16:03 Ondansetron Inj 2 Mg/Ml Inj 2 Ml IVP 06/07/25 18:35 4 mg Q6H PRN Administration NAUSEA OR VOMITING Protocol Pantoprazole Sodium 40 mg 05/08/25 21:00 05/11/25 09:00 Pantoprazole Inj 40 Mg Vial IVP 06/07/25 20:59 Not Given BID ANNE Permethrin 0 gm 05/09/25 08:30 05/11/25 09:00 Permethrin Cr 5% 60 Gm Tube TOP 06/08/25 08:29 Not Given UD ANNE Thiamine HCl 100 mg 05/09/25 01:00 05/11/25 09:00 Thiamine 100 Mg Tablet PO 05/14/25 00:59 Not Given BID ANNE Plan 44-year-old male with active alcohol use disorder with subsequent end-stage liver disease, type 2 diabetes mellitus, hypertension presenting to ED 05/08/2025 due to generalized complaint of not feeling well. Continues to have active alcohol use history endorses drinking 1 quart of beer per day. Nephrology Dr Duncan consulted for ANGIE and GI Dr. Figueroa consulted for GI bleed. #Decompensated liver cirrhosis Has history of liver cirrhosis, presenting with apparent ascites, no coagulopathy, bilirubin normal, AST/ALT normal, ammonia normal. Patient alert and oriented x 3. Endorses few episodes of hematemesis, hemoglobin 7.6 on admission and MCV 95. Endorses alcohol intake of 1 quart of beer per day for the past 20 years. Denies getting abdominal tap for ascites in the past. CT abdomen pelvis Cirrhosis with significant ascites, possible esophageal varices, atrophic kidneys. MELD 24 (15% of mortality in next 90 days) MADDREY score 12--no indication for steroids Child alejandro class B--indicating transplant Heptatitis panel negative ?Consulted GI Dr. Figueroa, patient recommendations ?IV ceftriaxone 1 g daily (05/08- ?IV pantoprazole 40 mg BID ?Albumin 25 g BID x3 days (05/08- -IV Zofran ? Daily coag panel -daily CBC #Ary esophagitis EGD 05/10/25: negative for variceal bleeding, findings of Ary esophagitis ?Continue Diflucan 200 mg daily ? Nystatin swish and swallow #ANGIE on CKD stage IV Prerenal versus hepatorenal. BUN 36, creatinine 4.1 (baseline appears to be around 2), GFR 18, ratio 9. Systemic vasodilation and causing prerenal ANGIE may also be in the setting of liver cirrhosis. If prerenal, anticipate improvement with volume expansion. However at this time we will diurese due to his severe ascites. Uric acid elevated 11.4, phosphate elevated 6.1 He has been endorsing decreased urine output Per nephrology: Based on labs in 2023, patient seems to have CKD stage III/IV, patient was lost to follow-up since. Renal ultrasound showed scar formation, atrophic kidneys -Consulted nephrology Dr Duncan, appreciate recommendations--going to temporary dialysis catheter. Patient will need urgent hemodialysis inpatient. -Has completed 2/3 inpatient dialysis sessions ? Care coordination updated for arranging outpatient dialysis chair. ? IV Bumex 2 mg BID -avoid nephrotoxic agents -renally dose meds -daily CMP #Electrolyte abnormalities Potassium 3.3, bicarb 15 on admission ? Replete as needed ? Daily labs #Upper GI bleed ruled out #Normocytic anemia Most likely secondary due to chronic kidney disease. EGD negative for esophageal varices or any bleeding. DC octreotide drip. - Will continue close monitor any signs of bleeding - Transfuse if hemoglobin less than 7 #Skin rash Noticeable excoriations throughout upper extremities. Possible scabies versus bedbugs. Patient endorses pruritus. ? Start permethrin - Steroid cream -isolation precautions #Phimosis -topical cream with steroid Health maintenance: Dispo: medsurg, ANGIE needing HD FEN: renal DVT prophylaxis: SCDs CODE STATUS: Full code The patient's management plan was discussed with my attending physician Dr. Krause. Lexy Weldon, PGY-1 Attending Provider Attestation/Addendum I have examined the patient, reviewed labs and imaging findings, discussed the case with the resident(s), and reviewed entered orders. I agree with the plan of care as outlined in this note, with these additional summaries/recommendations: Patient is a 45-year-old male with a medical history of alcohol use disorder, liver cirrhosis, primary hypertension, diabetes mellitus type 2, and psychiatric disorder presents to [facility] emergency department on 05/08/2025 with chief complaints of generalized weakness and blood in stool. Patient seen at bedside. No acute overnight events. Patient reports improvement in his rash and is less itchy. He is seen receiving his second session of hemodialysis. Patient is s/p EGD yesterday which revealed Ary esophagitis, ulceration at distal esophagus, and hypertensive portal gastropathy with moderate gastritis and no evidence of esophageal varices. Continue Diflucan and nystatin swish and swallow. Hemoglobin improved to 8.1 from 7.9 yesterday. Status post 1 unit PRBCs. Continue to hold chemical anticoagulation for now. Patient has cirrhosis from alcohol use and diagnosed with decompensated cirrhosis. Avoid excessive Tylenol use and limit hepatotoxic agents. Low-salt diet and diuresis. Patient also found to have severe ANGIE on CKD. Etiology likely multifactorial with biggest contributor being hepatorenal syndrome. Nephrology consulted and patient started on bicarb. Continue hemodialysis and case management working on arranging outpatient chair time. Unclear if dialysis will be permanent or temporary at this time. Hawkins catheter was unable to be placed and urology consulted for Hawkins catheter placement. Hawkins catheter successfully placed and patient will need to follow-up with urology outpatient for circumcision or slit. Patient also noted to have multiple severe electrolyte abnormalities including hypocalcemia and hypomagnesia. Replacement given and repeat level in AM. Continue CIWA for alcohol withdrawal although no evidence of alcohol withdrawal at this time. No evidence of hallucinations or DTs. Continue isolation precautions for likely bedbugs versus scabies. Continue permethrin. Patient was started on bacterial eyedrops for possible contact bacterial conjunctivitis. Patient updated on the plan and in agreement. All questions answered to satisfaction. Please see residents note for additional details and management. Dr. Nelida MD
--- NOTE | 2025-05-11 18:22 | XR_ITS ---
Examination: AP chest single view TECHNIQUE: Portable AP sitting chest single view Date and time: May 11, 2025 at 1844 hours Comparison May 08, 2025 INDICATIONS: Bleeding from the dialysis catheter site today FINDINGS: Right internal jugular dialysis catheter tips satisfactory position Mild atelectasis in the right and left lung bases No pulmonary edema or pneumonia Impression : Right internal jugular dialysis catheter satisfactory position
[2025-05-11 19:59] LABS: Hematocrit 22.8 % (41.0-53.0)
[2025-05-11 20:09] LABS: Hemoglobin 7.9 g/dL (13.5-16.0)
[2025-05-11] MEDS: BUMETANIDE INJ 0.25 MG/ML VIAL 4 ML 2 MG IVP (21:59)
[2025-05-11] MEDS: THIAMINE 100 MG TABLET PO (22:00)
[2025-05-11] MEDS: CLOBETASOL PROPIONATE CR 15 GM TUBE TOP (22:01)
[2025-05-11] MEDS: CITRIC ACID/SODIUM CITR 15 ML UDC (BICITRA) 30 ML PO (22:01)
[2025-05-11] MEDS: FOLIC ACID 1 MG TABLET PO (22:01)
[2025-05-12] VITALS (27 sets, daily range): BP systolic 97–140; BP diastolic 52–103; PULSE 70–132; RESP 16–97; TEMP 36.2–36.9; O2SAT 96–99
[2025-05-12] MEDS: NYSTATIN SUSP 5 ML UDC PO (05:22)
[2025-05-12] MEDS: OFLOXACIN OP SOL 0.3% 5 ML BTL 2 DROP BOTH EYES ×3 (05:22→17:20)
[2025-05-12 05:58] LABS: Basophils # (Auto) 0.0 Thou/mm3 (0.0-0.2); Basophils % (Auto) 0 % (0-2.5); Eosinophils # (Auto) 0.4 Thou/mm3 (0.0-0.5); Eosinophils % (Auto) 4 % (0-10); Hematocrit 22.3 % (41.0-53.0); Immature Granulocytes Auto 0.02 Thou/mm3 (0.00-0.00); Lymphocytes # (Auto) 1.4 Thou/mm3 (1.0-4.8); Lymphocytes % (Auto) 15 % (10-50); Mean Corpuscular HGB Conc 33.6 g/dl (31.0-37.0); Mean Corpuscular Hemoglobin 31.6 pg (25.0-35.0); Mean Corpuscular Volume 94 fL (80-100); Monocytes # (Auto) 1.1 Thou/mm3 (0.0-0.8); Monocytes % (Auto) 12 % (0-12); Neutrophils # (Auto) 6.3 Thou/mm3 (1.8-7.7); Neutrophils % (Auto) 69 % (37-80); Nucleated Red Blood Cell # 0.00 Thou/mm3 (0.00-0.00); Nucleated Red Blood Cell % 0 /100 WBC (0); Platelet Count 84 Thou/mm3 (140-440); RDW Standard Deviation 51.8 fL (35.1-43.9); Red Blood Count 2.37 Miln/mm3 (4.50-5.90); White Blood Count 9.2 Thou/mm3 (3.8-10.6)
[2025-05-12 06:11] LABS: Hemoglobin 7.5 g/dL (13.5-16.0)
[2025-05-12 06:55] LABS: Alanine Aminotransferase < 7 U/L (10-49); Albumin, Serum 3.0 gm/dL (3.5-5.0); Albumin/Globulin Ratio 1.3 (1.2-2.2); Alkaline Phosphatase 45 U/L (46-116); Anion Gap 14 (7-16); Aspartate Amino Transferase < 10 U/L (0-34); BUN/Creatinine Ratio 5 Ratio (12-20); Bilirubin,Total 0.5 mg/dL (0.3-1.2); Blood Urea Nitrogen 23 mg/dL (9-23); Calcium 8.0 mg/dL (8.3-10.6); Calcium (Corrected) 8.8 mg/dL (8.5-10.1); Carbon Dioxide 17.4 mMol/L (20.0-31.0); Chloride 108 mMol/L (98-107); Creatinine (Component) 4.2 mg/dL (0.6-1.3); Estimated Creatinine Clearance 24.5 mL/min (>60); Globulin 2.3 gm/dL (2.3-3.5); Glucose 94 mg/dL (74-106); Magnesium 1.8 mg/dL (1.6-2.6); Osmolality,Calculated 281 (275-295); Phosphorous 4.7 mg/dL (2.4-5.1); Potassium 3.6 mMol/L (3.4-5.1); Sodium 139 mMol/L (136-145); Total Protein 5.3 gm/dL (5.7-8.2); eGFR 17 See Note
[2025-05-12] MEDS: CITRIC ACID/SODIUM CITR 15 ML UDC (BICITRA) 30 ML PO (08:18)
[2025-05-12] MEDS: CLOBETASOL PROPIONATE CR 15 GM TUBE TOP (08:18)
[2025-05-12] MEDS: FOLIC ACID 1 MG TABLET PO (08:18)
[2025-05-12] MEDS: THIAMINE 100 MG TABLET PO ×2 (08:18→21:33)
[2025-05-12] MEDS: cefTRIAXone/D5w 1gm IV premix 1 GM/50 ML BAG IV (08:18)
[2025-05-12] MEDS: FLUCONAZOLE 100 MG TABLET 200 MG PO (08:18)
[2025-05-12] MEDS: BUMETANIDE INJ 0.25 MG/ML VIAL 4 ML 2 MG IVP (08:19)
--- NOTE | 2025-05-12 12:28 | PC.NURSE ---
Pt refusing to turn
[2025-05-12] MEDS: BUMETANIDE INJ 0.25 MG/ML VIAL 4 ML 1 MG IVP ×2 (12:29→17:20)
--- NOTE | 2025-05-12 14:42 | PD.NEPHPROG ---
Documentation for date of: 05/12/25 Subjective Subjective Interval history: Pt is having 3rd HD in her room Exam Vital Signs Temp Pulse Resp BP Pulse Ox O2 Del Method O2 Flow Rate 97.7 F 116 H 18 119/95 H 98 Room Air 3 05/12/25 13:07 05/12/25 14:30 05/12/25 13:07 05/12/25 14:30 05/12/25 13:07 05/12/25 07:59 05/10/25 04:00 Narrative Exam Heart s1, s2 chest karlene bsasal craclkes ext plus 1 edema Objective Labs 05/12/25 04:40 05/12/25 04:40 Labs: Laboratory Results - last 24 hr 05/11/25 05/12/25 19:46 04:40 WBC 9.2 RBC 2.37 L Hgb 7.9 L 7.5 L Hct 22.8 L 22.3 L MCV 94 MCH 31.6 MCHC 33.6 RDW Std Deviation 51.8 H Plt Count 84 L Neut % (Auto) 69 Lymph % (Auto) 15 [place] % (Auto) 12 Eos % (Auto) 4 Baso % (Auto) 0 Neut # (Auto) 6.3 Lymph # (Auto) 1.4 [place] # (Auto) 1.1 H Eos # (Auto) 0.4 Baso # (Auto) 0.0 Immature Gran # (Auto) 0.02 H Absolute Nucleated RBC 0.00 Immature Gran % 0 Nucleated RBC % 0 Sodium 139 Potassium 3.6 Chloride 108 H Carbon Dioxide 17.4 L Anion Gap 14 BUN 23 Creatinine 4.2 H* D Estim Creat Clear Calc 24.5 L eGFR 17 L BUN/Creatinine Ratio 5 L Glucose 94 Calculated Osmolality 281 Calcium 8.0 L Corrected Calcium 8.8 Phosphorus 4.7 Magnesium 1.8 Total Bilirubin 0.5 AST < 10 ALT < 7 L Alkaline Phosphatase 45 L Total Protein 5.3 L Albumin 3.0 L Globulin 2.3 Albumin/Globulin Ratio 1.3 ABG Interpretation ABG results: 05/08/25 18:50 ABG pH 7.27 L ABG pCO2 29 L ABG pO2 91 ABG HCO3 13 L ABG O2 Saturation 98 ABG Base Excess -13 L Assessment & Plan Assessment and plan (1) ANGIE (acute kidney injury): Status: Acute Assessment and plan: Pt is started on HD for ANGIE pt having 3rd HD today Pt had tachycardia Dialysis terminated early (2) Ascites: Status: Acute (3) Cirrhosis: Status: Acute (4) GI bleed: Status: Acute (5) Symptomatic anemia: Status: Acute
--- NOTE | 2025-05-12 14:46 | PC.NURSE ---
PT HR ELEVATED PT DENIES ALL C/O CHEST PAIN, SOB, US OR DISCOMFORT AND AT TIME OF VS CHECK PT HAD A BOUGHT OF COUGHING, WILL CONT. TO MONITOR.
--- NOTE | 2025-05-12 15:00 | PC.NURSE ---
PT HR CONT. TO TREND UP, PT CONT TO DENY COMPLAINTS, UF GOAL LOWERED TO 0.5L TOLERATED, WILL CONT. TO MONITOR
[2025-05-12] MEDS: ALBUMIN HUMAN 25% IVPB 25 GM/100 ML BTL IV (15:09)
--- NOTE | 2025-05-12 15:11 | PC.NURSE ---
BP TRENDING DOWN, HR STABLE, PT DENIES ALL COMPLAINTS WILL ADMIN PRN ALBUMIN 25/100ML PER MD ORDERS AND CONT. TO MONITOR
--- NOTE | 2025-05-12 15:18 | PC.NURSE ---
PT HR TRENDING UP AGAIN, PT REMAINS ASYMPTOMATIC, MD CONROY NOTIFIED W/ ORDER TO END TX AT THIS TIME. WILL DARIEL OUT ORDERS AND CONT. TO MONITOR
[2025-05-12] MEDS: HEPARIN SOD INJ 1000 UNIT/ML VIAL 10 ML 3500 UNIT INDWELLCAT (15:44)
[2025-05-12] MEDS: ONDANSETRON INJ 2 MG/ML INJ 2 ML 4 MG IVP (16:29)
--- NOTE | 2025-05-12 16:55 | PD.RESPRO ---
Documentation for date of: 05/12/25 Subjective Subjective Interval history: Patient examined at bedside. No events overnight. States that he is feeling better but abdominal is still very distended. Bleeding for cath site controlled with packing. Hb downtrended to 7.5 today. Platelets downtrended 85. Cr 4.2. Planning for HD session today. Patient will most likely need to continue dialysis outpatient. Electrolyte abnormalities noted on labs, repleted as needed. UO 350cc in past 24hr while on Bumex and albumin. Decrease Bumex dose to 1mg BID. Continuing Diflucan and nystatin in setting of Ary esophagitis. Urine cultures and physical therapy are pending. No symptoms of alcohol withdrawl today. Exam Vital Signs Temp Pulse Resp BP Pulse Ox O2 Del Method O2 Flow Rate 97.9 F 106 H 16 114/88 H 97 Room Air 3 05/12/25 16:00 05/12/25 16:00 05/12/25 16:00 05/12/25 16:00 05/12/25 16:00 05/12/25 07:59 05/10/25 04:00 Narrative Exam General: Young male, distended abdomen, getting dialysis HEENT: NCAT, No JVD noted. Mucosa dry. Pupils are equal and reactive to light bilaterally, no scleral icterus Cardiovascular: Normal S1 and S2. Regular rate and rhythm. Respiratory: Lungs are clear to auscultation bilaterally. No wheezing or crackles heard. Abdomen: abdominal distension, positive fluid wave, non tender, unable to appreciate bowel sounds : phimosis, no dishcarge, hawkins cath Skin: no spider angioma , scratch campbell all over his body with excoriations. Musculoskeletal: No gross injuries. Able to move all 4 extremities. +2-3 pitting edema in the lower extremities extending all the way up Neuro: Alert and oriented x3. No focal neuro deficits. Psych: no affect Objective Labs 05/12/25 04:40 05/13/25 05:03 Labs: Laboratory Results - last 24 hr 05/11/25 05/12/25 19:46 04:40 WBC 9.2 RBC 2.37 L Hgb 7.9 L 7.5 L Hct 22.8 L 22.3 L MCV 94 MCH 31.6 MCHC 33.6 RDW Std Deviation 51.8 H Plt Count 84 L Neut % (Auto) 69 Lymph % (Auto) 15 [place] % (Auto) 12 Eos % (Auto) 4 Baso % (Auto) 0 Neut # (Auto) 6.3 Lymph # (Auto) 1.4 [place] # (Auto) 1.1 H Eos # (Auto) 0.4 Baso # (Auto) 0.0 Immature Gran # (Auto) 0.02 H Absolute Nucleated RBC 0.00 Immature Gran % 0 Nucleated RBC % 0 Sodium 139 Potassium 3.6 Chloride 108 H Carbon Dioxide 17.4 L Anion Gap 14 BUN 23 Creatinine 4.2 H* D Estim Creat Clear Calc 24.5 L eGFR 17 L BUN/Creatinine Ratio 5 L Glucose 94 Calculated Osmolality 281 Calcium 8.0 L Corrected Calcium 8.8 Phosphorus 4.7 Magnesium 1.8 Total Bilirubin 0.5 AST < 10 ALT < 7 L Alkaline Phosphatase 45 L Total Protein 5.3 L Albumin 3.0 L Globulin 2.3 Albumin/Globulin Ratio 1.3 ABG Interpretation ABG results: 05/08/25 18:50 ABG pH 7.27 L ABG pCO2 29 L ABG pO2 91 ABG HCO3 13 L ABG O2 Saturation 98 ABG Base Excess -13 L Quality Measures Quality Measures none Assessment & Plan Assessment Current Active Medications: Generic Name Dose Route Start Last Admin Trade Name Freq PRN Reason Stop Dose Admin Acetaminophen 650 mg 05/08/25 17:37 Acetaminophen 325 Mg Tablet PO 06/07/25 17:36 Q6H PRN Fever >100.3 or pain 1-3 Bumetanide 1 mg 05/12/25 11:30 05/12/25 12:29 Bumetanide Inj 0.25 Mg/Ml Vial 4 Ml IVP 06/11/25 11:29 1 mg BIDD ANNE Administration Citric Acid/Sodium Citrate 30 ml 05/10/25 09:00 05/12/25 08:18 Citric Acid/Sodium Citr 15 Ml Udc (Bicitra) PO 06/09/25 08:59 30 ml BID ANNE Administration Clobetasol Propionate 0 gm 05/09/25 09:00 05/12/25 08:18 Clobetasol Propionate Cr 15 Gm Tube TOP 05/16/25 08:59 1 applicatio BID ANNE Administration Dextrose 25 ml 05/08/25 19:30 05/08/25 19:37 Dextrose 50%-Water Inj 50 Ml Syringe IV 06/07/25 19:29 25 ml Q15MIN PRN Administration BG 50-70 responsive npo pt Dextrose 50 ml 05/08/25 19:30 Dextrose 50%-Water Inj 50 Ml Syringe IV 06/07/25 19:29 Q15MIN PRN BG <50 OR BG <70 & pt unresponsive Fluconazole 200 mg 05/10/25 09:00 05/12/25 08:18 Fluconazole 100 Mg Tablet PO 05/17/25 08:59 200 mg QDAY ANNE Administration Folic Acid 1 mg 05/09/25 01:00 05/12/25 08:18 Folic Acid 1 Mg Tablet PO 05/14/25 00:59 1 mg BID ANNE Administration Glucagon 1 mg 05/08/25 19:30 Glucagon Inj 1 Mg Vial IM Q15MIN PRN BG <70, and no IV access Heparin Sodium (Porcine) 3,500 unit 05/11/25 13:02 05/12/25 15:44 Heparin Sod Inj 1000 Unit/Ml Vial 10 Ml INDWELLCAT 05/25/25 13:01 3,500 unit PRN PRN Administration DIALYSIS Ceftriaxone Sodium/Dextrose 1 gm in 50 mls @ 100 mls/hr 05/08/25 17:25 05/12/25 08:48 Rocephin/D5w 1gm Iv Premix IV 05/15/25 17:24 Infused QDAY ANNE Infusion Albumin Human 25 gm in 100 mls @ 100 mls/min 05/11/25 08:01 05/12/25 15:10 Albuminar-25 Ivpb IV Infused Q1H PRN Infusion DIALYSIS Lactulose 10 gm 05/08/25 17:37 05/10/25 16:03 Lactulose Syrup 20 Gm/30 Ml Udc PO 06/08/25 08:59 10 gm QDAY PRN Administration constipation Protocol Lorazepam 0.5 mg 05/09/25 00:58 Lorazepam 0.5 Mg Tablet PO 05/14/25 00:57 Q4HR PRN CIWA Score 2-6 Lorazepam 0.5 mg 05/09/25 00:58 Lorazepam 2 Mg/Ml Vial IV 05/14/25 00:57 Q2HR PRN CIWA SCORE 7-13 Lorazepam 1 mg 05/09/25 00:58 Lorazepam 2 Mg/Ml Vial IV 05/14/25 00:57 Q2HR PRN CIWA SCORE 14-19 Mupirocin 0 gm 05/09/25 07:15 05/12/25 14:00 Mupirocin Oint 2% 15 Gm Tube TOP 05/16/25 07:14 Not Given TID ANNE Nystatin 5 ml 05/09/25 22:00 05/12/25 14:00 Nystatin Susp 5 Ml Udc PO 05/16/25 21:59 Not Given TID ANNE Ofloxacin 2 drop 05/09/25 08:00 05/12/25 12:29 Ofloxacin Op Farheen 0.3% 5 Ml Btl BOTH EYES 06/08/25 07:59 2 drop QID ANNE Administration Ondansetron HCl 4 mg 05/08/25 18:36 05/12/25 16:29 Ondansetron Inj 2 Mg/Ml Inj 2 Ml IVP 06/07/25 18:35 4 mg Q6H PRN Administration NAUSEA OR VOMITING Protocol Pantoprazole Sodium 40 mg 05/08/25 21:00 05/12/25 08:19 Pantoprazole Inj 40 Mg Vial IVP 06/07/25 20:59 40 mg BID ANNE Administration Permethrin 0 gm 05/09/25 08:30 05/12/25 08:20 Permethrin Cr 5% 60 Gm Tube TOP 06/08/25 08:29 Not Given UD ANNE Thiamine HCl 100 mg 05/09/25 01:00 05/12/25 08:18 Thiamine 100 Mg Tablet PO 05/14/25 00:59 100 mg BID ANNE Administration Plan 44-year-old male with active alcohol use disorder with subsequent end-stage liver disease, type 2 diabetes mellitus, hypertension presenting to ED 05/08/2025 due to generalized complaint of not feeling well. Continues to have active alcohol use history endorses drinking 1 quart of beer per day. Nephrology Dr Duncan consulted for ANGIE and GI Dr. Figueroa consulted for GI bleed. #Decompensated liver cirrhosis Has history of liver cirrhosis, presenting with apparent ascites, no coagulopathy, bilirubin normal, AST/ALT normal, ammonia normal. Patient alert and oriented x 3. Endorses few episodes of hematemesis, hemoglobin 7.6 on admission and MCV 95. Endorses alcohol intake of 1 quart of beer per day for the past 20 years. Denies getting abdominal tap for ascites in the past. CT abdomen pelvis Cirrhosis with significant ascites, possible esophageal varices, atrophic kidneys. MELD 24 (15% of mortality in next 90 days) MADDREY score 12--no indication for steroids Child alejandro class B--indicating transplant Heptatitis panel negative ?Consulted GI Dr. Figueroa, patient recommendations ?IV ceftriaxone 1 g daily (05/08- ?IV pantoprazole 40 mg BID ?Albumin 25 g BID x3 days (05/08- -IV Zofran ? Daily coag panel -daily CBC #Ary esophagitis EGD 05/10/25: negative for variceal bleeding, findings of Ary esophagitis ?Continue Diflucan 200 mg daily ? Nystatin swish and swallow #ANGIE on CKD stage IV Prerenal versus hepatorenal. BUN 36, creatinine 4.1 (baseline appears to be around 2), GFR 18, ratio 9. Systemic vasodilation and causing prerenal ANGIE may also be in the setting of liver cirrhosis. If prerenal, anticipate improvement with volume expansion. However at this time we will diurese due to his severe ascites. Uric acid elevated 11.4, phosphate elevated 6.1 He has been endorsing decreased urine output Per nephrology: Based on labs in 2023, patient seems to have CKD stage III/IV, patient was lost to follow-up since. Renal ultrasound showed scar formation, atrophic kidneys -Consulted nephrology Dr Duncan, appreciate recommendations--going to temporary dialysis catheter. Patient will need urgent hemodialysis inpatient. -Has completed 2/3 inpatient dialysis sessions ? Care coordination updated for arranging outpatient dialysis chair. ? IV Bumex 1 mg BID -avoid nephrotoxic agents -renally dose meds -daily CMP #Electrolyte abnormalities Potassium 3.3, bicarb 15 on admission ? Replete as needed ? Daily labs #Upper GI bleed ruled out #Normocytic anemia Most likely secondary due to chronic kidney disease. EGD negative for esophageal varices or any bleeding. DC octreotide drip. - Will continue close monitor any signs of bleeding - Transfuse if hemoglobin less than 7 #Skin rash Noticeable excoriations throughout upper extremities. Possible scabies versus bedbugs. Patient endorses pruritus. ? Start permethrin - Steroid cream -isolation precautions #Phimosis -topical cream with steroid Health maintenance: Dispo: medsurg, ANGIE needing HD FEN: renal DVT prophylaxis: SCDs CODE STATUS: Full code The patient's management plan was discussed with my attending physician Dr. Krause. Lexy Weldon, PGY-1 Attending Provider Attestation/Addendum I have examined the patient, reviewed labs and imaging findings, discussed the case with the resident(s), and reviewed entered orders. I agree with the plan of care as outlined in this note, with these additional summaries/recommendations: Patient is a 45-year-old male with a medical history of alcohol use disorder, liver cirrhosis, primary hypertension, diabetes mellitus type 2, and psychiatric disorder presents to [facility] emergency department on 05/08/2025 with chief complaints of generalized weakness and blood in stool. Patient seen at bedside. No acute overnight events. Overnight patient was noted to be bleeding from dialysis catheter. Pressure bags were applied. Today at bedside during my examination there does not appear to be any active bleeding at this time. Chest x-ray taken yesterday shows right internal jugular dialysis catheter in satisfactory position. Most likely bleeding is secondary to patient's underlying coagulopathy/thrombocytopenia. Patient is s/p EGD which revealed Ary esophagitis, ulceration at distal esophagus, and hypertensive portal gastropathy with moderate gastritis and no evidence of esophageal varices. Continue Diflucan and nystatin swish and swallow. Hemoglobin currently downtrending and 7.5 today from 7.9 yesterday. Status post 1 unit PRBCs and transfuse for hemoglobin less than 7. Continue to hold chemical anticoagulation for now. Patient has cirrhosis from alcohol use and diagnosed with decompensated cirrhosis. Avoid excessive Tylenol use and limit hepatotoxic agents. Low-salt diet and diuresis. Patient also found to have severe ANGIE on CKD. Etiology likely multifactorial with biggest contributor being hepatorenal syndrome. Patient started on hemodialysis in May become permanent given his decreasing urinary output. Continue hemodialysis and case management working on arranging outpatient chair time. Hawkins catheter was unable to be placed and urology consulted for Hawkins catheter placement. Hawkins catheter successfully placed and patient will need to follow-up with urology outpatient for circumcision or slit. Continue CIWA for alcohol withdrawal although no evidence of alcohol withdrawal at this time. No evidence of hallucinations or DTs. Continue isolation precautions for likely bedbugs versus scabies. Continue permethrin. On bacterial eyedrops for possible contact bacterial conjunctivitis. Patient updated on the plan and in agreement. All questions answered to satisfaction. Please see residents note for additional details and management. Dr. Nelida MD
--- NOTE | 2025-05-12 16:59 | PD.IMPROG ---
Documentation for date of: 05/12/25 Subjective Subjective Interval history: Hemoglobin hematocrit 7.5 and 22.3 Upper endoscopy showed whitish plaque formation of the esophagus suggestive of Ary esophagitis Hypertensive portal gastropathy with mucosal oozing of blood Exam Vital Signs Temp Pulse Resp BP Pulse Ox O2 Del Method O2 Flow Rate 97.9 F 106 H 16 114/88 H 97 Room Air 3 05/12/25 16:00 05/12/25 16:00 05/12/25 16:00 05/12/25 16:00 05/12/25 16:00 05/12/25 07:59 05/10/25 04:00 Objective Labs 05/12/25 04:40 05/12/25 04:40 Labs: Laboratory Results - last 24 hr 05/11/25 05/12/25 19:46 04:40 WBC 9.2 RBC 2.37 L Hgb 7.9 L 7.5 L Hct 22.8 L 22.3 L MCV 94 MCH 31.6 MCHC 33.6 RDW Std Deviation 51.8 H Plt Count 84 L Neut % (Auto) 69 Lymph % (Auto) 15 [place] % (Auto) 12 Eos % (Auto) 4 Baso % (Auto) 0 Neut # (Auto) 6.3 Lymph # (Auto) 1.4 [place] # (Auto) 1.1 H Eos # (Auto) 0.4 Baso # (Auto) 0.0 Immature Gran # (Auto) 0.02 H Absolute Nucleated RBC 0.00 Immature Gran % 0 Nucleated RBC % 0 Sodium 139 Potassium 3.6 Chloride 108 H Carbon Dioxide 17.4 L Anion Gap 14 BUN 23 Creatinine 4.2 H* D Estim Creat Clear Calc 24.5 L eGFR 17 L BUN/Creatinine Ratio 5 L Glucose 94 Calculated Osmolality 281 Calcium 8.0 L Corrected Calcium 8.8 Phosphorus 4.7 Magnesium 1.8 Total Bilirubin 0.5 AST < 10 ALT < 7 L Alkaline Phosphatase 45 L Total Protein 5.3 L Albumin 3.0 L Globulin 2.3 Albumin/Globulin Ratio 1.3 Impressions Impression: Ary esophagitis Diffuse gastritis Continue to monitor CBC ABG Interpretation ABG results: 05/08/25 18:50 ABG pH 7.27 L ABG pCO2 29 L ABG pO2 91 ABG HCO3 13 L ABG O2 Saturation 98 ABG Base Excess -13 L Assessment & Plan A&P Narrative # Hematemesis in setting of cirrhotic liver disease due to alcohol Plan Octreotide infusion at 50 mcg/h after 50 mcg IV push loading dose IV Protonix serial CBC Consent obtained for fiberoptic esophagogastroduodenoscopy with possible therapeutic intervention under intravenous moderate sedation Patient should receive at least 2 units of PRBC N.p.o. Other medical problems include End-stage liver disease secondary to alcohol ANGIE Chronic alcoholic dependency Advanced portal hypertension Thank you very much for the opportunity to participate in the care of this patient Time Spent With Patient Time: Total time spent is greater than 50% in coordination of care (as documented) at patient's floor/unit and/or counseling patient:
--- NOTE | 2025-05-12 21:55 | PC.NURSE ---
Patient refusing medications at this time. Wishes to only receive protonix and zofran IVP. Dr. Nava notified and patient education provided.
[2025-05-13] VITALS (10 sets, daily range): BP systolic 111–127; BP diastolic 77–90; PULSE 70–106; RESP 16–92; TEMP 36.1–36.6; O2SAT 95–99; BMI 13.0
[2025-05-13] MEDS: BUMETANIDE INJ 0.25 MG/ML VIAL 4 ML 1 MG IVP (05:25)
[2025-05-13] MEDS: OFLOXACIN OP SOL 0.3% 5 ML BTL 2 DROP BOTH EYES ×2 (05:25→17:48)
[2025-05-13] MEDS: MUPIROCIN OINT 2% 15 GM TUBE TOP (05:25)
[2025-05-13 06:13] LABS: Basophils # (Auto) 0.0 Thou/mm3 (0.0-0.2); Basophils % (Auto) 0 % (0-2.5); Mean Corpuscular Hemoglobin 31.4 pg (25.0-35.0); Nucleated Red Blood Cell # 0.00 Thou/mm3 (0.00-0.00); Nucleated Red Blood Cell % 0 /100 WBC (0)
[2025-05-13 06:38] LABS: Alanine Aminotransferase 14 U/L (10-49); Albumin, Serum 3.3 gm/dL (3.5-5.0); Albumin/Globulin Ratio 0.8 (1.2-2.2); Alkaline Phosphatase 79 U/L (46-116); Anion Gap 7 (7-16); Aspartate Amino Transferase 21 U/L (0-34); BUN/Creatinine Ratio 15 Ratio (12-20); Bilirubin,Total 1.1 mg/dL (0.3-1.2); Blood Urea Nitrogen 19 mg/dL (9-23); Calcium 8.2 mg/dL (8.3-10.6); Calcium (Corrected) 8.8 mg/dL (8.5-10.1); Carbon Dioxide 21.1 mMol/L (20.0-31.0); Chloride 111 mMol/L (98-107); Creatinine (Component) 1.3 mg/dL (0.6-1.3); Estimated Creatinine Clearance 79.5 mL/min (>60); Globulin 4.1 gm/dL (2.3-3.5); Glucose 108 mg/dL (74-106); Magnesium 1.5 mg/dL (1.6-2.6); Osmolality,Calculated 280 (275-295); Phosphorous 2.4 mg/dL (2.4-5.1); Potassium 4.3 mMol/L (3.4-5.1); Sodium 139 mMol/L (136-145); Total Protein 7.4 gm/dL (5.7-8.2); eGFR > 60 See Note
[2025-05-13 08:23] LABS: Eosinophils # (Auto) 0.4 Thou/mm3 (0.0-0.5); Eosinophils % (Auto) 5 % (0-10); Hematocrit 20.9 % (41.0-53.0); Immature Granulocytes Auto 0.02 Thou/mm3 (0.00-0.00); Lymphocytes # (Auto) 1.3 Thou/mm3 (1.0-4.8); Lymphocytes % (Auto) 18 % (10-50); Mean Corpuscular HGB Conc 34.0 g/dl (31.0-37.0); Mean Corpuscular Volume 93 fL (80-100); Monocytes # (Auto) 0.9 Thou/mm3 (0.0-0.8); Monocytes % (Auto) 12 % (0-12); Neutrophils # (Auto) 4.6 Thou/mm3 (1.8-7.7); Neutrophils % (Auto) 64 % (37-80); Platelet Count 83 Thou/mm3 (140-440); RDW Standard Deviation 49.9 fL (35.1-43.9); Red Blood Count 2.26 Miln/mm3 (4.50-5.90)
--- NOTE | 2025-05-13 08:51 | PC.SS ---
Addendum entered by Justyna Flower 05/13/25 09:45: SS follow up note; SS contacted Jazmine from [facility] to check status on Insurance verification, she informed SS that at the time Insurance auth was pending. Original Note: SS follow up note; SS sent TB results and dialysis sessions to [facility], pending Insurance verification.
--- NOTE | 2025-05-13 09:02 | XR_ITS ---
Examination: Ultrasound-guided paracentesis Abdominal sonogram limited Date and time of exam: May 13, 2025 1216 hours INDICATIONS: Cirrhosis, increasing ascites and abdominal distention this week Informed consent provided. A timeout was completed verifying correct patient, procedure, site, positioning, and special adequate movement if applicable. Technique: Multiple sonographic images of the abdomen have been obtained. Appropriate area for paracentesis was marked. Local anesthesia is obtained with 1% lidocaine. Yueh catheter is successfully introduced. Findings: Abdominal sonographic images demonstrate sufficient ascitic fluid for paracentesis. After placing the Yueh catheter, 7450 cc of fluid were successfully removed. During and after completion of the procedure the patient appear in satisfactory and stable condition with no complications observed. Estimated blood loss 0 cc Impression: Abdominal ascites Successful ultrasound-guided paracentesis as described above
[2025-05-13 09:22] LABS: Hemoglobin 7.1 g/dL (13.5-16.0); White Blood Count 7.2 Thou/mm3 (3.8-10.6)
[2025-05-13] MEDS: ONDANSETRON INJ 2 MG/ML INJ 2 ML 4 MG IVP (09:38)
[2025-05-13] MEDS: cefTRIAXone/D5w 1gm IV premix 1 GM/50 ML BAG IV (09:38)
[2025-05-13] MEDS: FLUCONAZOLE 100 MG TABLET 200 MG PO (09:40)
[2025-05-13] MEDS: THIAMINE 100 MG TABLET PO (09:40)
[2025-05-13] MEDS: MAGNESIUM OXIDE 400 MG TABLET PO (09:40)
[2025-05-13] MEDS: FOLIC ACID 1 MG TABLET PO (09:41)
[2025-05-13] MEDS: CLOBETASOL PROPIONATE CR 15 GM TUBE TOP (09:42)
[2025-05-13] MEDS: CITRIC ACID/SODIUM CITR 15 ML UDC (BICITRA) 30 ML PO (09:43)
--- NOTE | 2025-05-13 10:00 | PC.NURSE ---
DR. DESAI VERBAL ORDER TO REMOVE CONTACT PRECAUTIONS. COORDINATED CARE WITH INFECTION DISEASE NURSE.
--- NOTE | 2025-05-13 12:20 | PC.NURSE ---
PATIENT ALERT AND ORIENTED TRANSFER TO ULTRASOUND FOR PROCEDURE. ACCOMPANIED BY STAFF.
--- NOTE | 2025-05-13 13:26 | PC.NURSE ---
PATIENT BACK IN HIS ROOM ALERT AND ORIENTED X3 DENIES PAIN.
--- NOTE | 2025-05-13 13:31 | PC.NURSE ---
PER DR. RAMSEY NO MICRO ON FLUID SPECIMEN FROM PARACENTESIS. LAB MADE AWARE.
[2025-05-13 13:52] LABS: Albumin, Peritoneal Fluid 1.2 gm/dL; Amylase,Peritoneal Fluid < 20 IU/L; Glucose,Peritoneal Fluid 119 mg/dL; LDH,Peritoneal Fluid 126 IU/L; Protein Total,Peritoneal Fluid 2 g/dL
[2025-05-13 13:55] LABS: Peritoneal Fluid WBC 62 /cmm
[2025-05-13] MEDS: NYSTATIN SUSP 5 ML UDC PO (14:22)
[2025-05-13 14:40] LABS: Peritoneal Fluid Appearance Hazy; Peritoneal Fluid Color Yellow; Peritoneal Fluid Mononuclear 69 %; Peritoneal Fluid Polynuclear 31 %; RBC,Peritoneal Fluid 20 /cmm
--- NOTE | 2025-05-13 16:21 | ESPR_ITS ---
Documentation for date of: 05/13/25 Subjective Subjective Interval history: Patient examined at bedside, no events overnight. Catheter site bleeding under control. Completed ultrasound-guided paracentesis this morning by IR. Approximately 7L were removed and sample sent for analysis. Albumin was repleted for total of 50 g. Outpatient dialysis coordination is still pending. Patient is denying placement into nursing facility however mother has persistent stating that she is unable to take care of her son at home. Continue inpatient dialysis if needed. Replete electrolytes as needed. Physical therapy evaluation completed today. They are also recommending patient go to nursing facility for more therapy. He was educated on benefits of strength strengthening. Possible home health physical therapy if he denies placement of facility. Continuing Diflucan and nystatin in setting of Ary esophagitis. Exam Vital Signs Temp Pulse Resp BP Pulse Ox O2 Del Method O2 Flow Rate 97 F 81 18 119/90 H 97 Room Air 3 05/13/25 12:05/13/25 12:05/13/25 12:05/13/25 12:05/13/25 12:05/13/25 12:05/10/25 04:00 Narrative Exam General: Young male, distended abdomen, getting dialysis HEENT: NCAT, No JVD noted. Mucosa dry. Pupils are equal and reactive to light bilaterally, no scleral icterus Cardiovascular: Normal S1 and S2. Regular rate and rhythm. Respiratory: Lungs are clear to auscultation bilaterally. No wheezing or crackles heard. Abdomen: abdominal distension, positive fluid wave, non tender, unable to appreciate bowel sounds : phimosis, no dishcarge, hawkins cath Skin: no spider angioma , scratch campbell all over his body with excoriations. Temp dialysis cath in place. Musculoskeletal: No gross injuries. Able to move all 4 extremities. +2-3 pitting edema in the lower extremities extending all the way up Neuro: Alert and oriented x3. No focal neuro deficits. Psych: no affect Objective Labs 05/19/25 04:57 05/19/25 04:57 Labs: Laboratory Results - last 24 hr 05/13/25 05/13/25 05/13/25 05:03 08:01 12:33 WBC 7.2 RBC 2.26 L Hgb 7.1 L Hct 20.9 L* MCV 93 MCH 31.4 MCHC 34.0 RDW Std Deviation 49.9 H Plt Count 83 L Neut % (Auto) 64 Lymph % (Auto) 18 [place] % (Auto) 12 Eos % (Auto) 5 Baso % (Auto) 0 Neut # (Auto) 4.6 Lymph # (Auto) 1.3 [place] # (Auto) 0.9 H Eos # (Auto) 0.4 Baso # (Auto) 0.0 Immature Gran # (Auto) 0.02 H Absolute Nucleated RBC 0.00 Immature Gran % 0 Nucleated RBC % 0 Sodium 139 Potassium 4.3 D Chloride 111 H Carbon Dioxide 21.1 Anion Gap 7 BUN 19 Creatinine 1.3 D Estim Creat Clear Calc 79.5 eGFR > 60 BUN/Creatinine Ratio 15 Glucose 108 H Calculated Osmolality 280 Calcium 8.2 L Corrected Calcium 8.8 Phosphorus 2.4 Magnesium 1.5 L Total Bilirubin 1.1 D AST 21 ALT 14 Alkaline Phosphatase 79 D Total Protein 7.4 Albumin 3.3 L Globulin 4.1 H Albumin/Globulin Ratio 0.8 L Peritoneal Color Yellow Peritoneal Appearance Hazy Peritoneal WBC 62 Peritoneal RBC 20 Periton Polynucl WBCs 31 Periton Mononucl WBCs 69 Peritoneal Tot Protein 2 Peritoneal Albumin 1.2 Peritoneal LDH 126 Peritoneal Glucose 119 Peritoneal Amylase < 20 ABG Interpretation ABG results: 05/08/25 18:50 ABG pH 7.27 L ABG pCO2 29 L ABG pO2 91 ABG HCO3 13 L ABG O2 Saturation 98 ABG Base Excess -13 L Quality Measures Quality Measures none Assessment & Plan Assessment Current Active Medications: Generic Name Dose Route Start Last Admin Trade Name Freq PRN Reason Stop Dose Admin Acetaminophen 650 mg 05/08/25 17:37 Acetaminophen 325 Mg Tablet PO 06/07/25 17:36 Q6H PRN Fever >100.3 or pain 1-3 Citric Acid/Sodium Citrate 30 ml 05/10/25 09:00 05/13/25 09:43 Citric Acid/Sodium Citr 15 Ml Udc (Bicitra) PO 06/09/25 08:59 30 ml BID ANNE Administration Clobetasol Propionate 0 gm 05/09/25 09:00 05/13/25 09:42 Clobetasol Propionate Cr 15 Gm Tube TOP 05/16/25 08:59 1 applicatio BID ANNE Administration Dextrose 25 ml 05/08/25 19:30 05/08/25 19:37 Dextrose 50%-Water Inj 50 Ml Syringe IV 06/07/25 19:29 25 ml Q15MIN PRN Administration BG 50-70 responsive npo pt Dextrose 50 ml 05/08/25 19:30 Dextrose 50%-Water Inj 50 Ml Syringe IV 06/07/25 19:29 Q15MIN PRN BG <50 OR BG <70 & pt unresponsive Fluconazole 200 mg 05/10/25 09:00 05/13/25 09:40 Fluconazole 100 Mg Tablet PO 05/17/25 08:59 200 mg QDAY ANNE Administration Folic Acid 1 mg 05/09/25 01:00 05/13/25 09:41 Folic Acid 1 Mg Tablet PO 05/14/25 00:59 1 mg BID ANNE Administration Glucagon 1 mg 05/08/25 19:30 Glucagon Inj 1 Mg Vial IM Q15MIN PRN BG <70, and no IV access Heparin Sodium (Porcine) 3,500 unit 05/11/25 13:02 05/12/25 15:44 Heparin Sod Inj 1000 Unit/Ml Vial 10 Ml INDWELLCAT 05/25/25 13:01 3,500 unit PRN PRN Administration DIALYSIS Ceftriaxone Sodium/Dextrose 1 gm in 50 mls @ 100 mls/hr 05/08/25 17:25 05/13/25 09:38 Rocephin/D5w 1gm Iv Premix IV 05/15/25 17:24 100 mls/hr QDAY ANNE Administration Albumin Human 25 gm in 100 mls @ 100 mls/min 05/11/25 08:01 05/12/25 15:10 Albuminar-25 Ivpb IV Infused Q1H PRN Infusion DIALYSIS Albumin Human 25 gm in 100 mls @ 100 mls/hr 05/13/25 16:00 Albuminar-25 Ivpb IV 05/13/25 17:59 Q1H ANNE Lactulose 10 gm 05/08/25 17:37 05/10/25 16:03 Lactulose Syrup 20 Gm/30 Ml Udc PO 06/08/25 08:59 10 gm QDAY PRN Administration constipation Protocol Lorazepam 0.5 mg 05/09/25 00:58 Lorazepam 0.5 Mg Tablet PO 05/14/25 00:57 Q4HR PRN CIWA Score 2-6 Lorazepam 0.5 mg 05/09/25 00:58 Lorazepam 2 Mg/Ml Vial IV 05/14/25 00:57 Q2HR PRN CIWA SCORE 7-13 Lorazepam 1 mg 05/09/25 00:58 Lorazepam 2 Mg/Ml Vial IV 05/14/25 00:57 Q2HR PRN CIWA SCORE 14-19 Magnesium Oxide 400 mg 05/13/25 09:15 05/13/25 09:40 Magnesium Oxide 400 Mg Tablet PO 06/12/25 09:14 400 mg QDAY ANNE Administration Mupirocin 0 gm 05/09/25 07:15 05/13/25 14:23 Mupirocin Oint 2% 15 Gm Tube TOP 05/16/25 07:14 Not Given TID ANNE Nystatin 5 ml 05/09/25 22:00 05/13/25 14:22 Nystatin Susp 5 Ml Udc PO 05/16/25 21:59 5 ml TID ANNE Administration Ofloxacin 2 drop 05/09/25 08:00 05/13/25 12:41 Ofloxacin Op Farheen 0.3% 5 Ml Btl BOTH EYES 06/08/25 07:59 Not Given QID ANNE Ondansetron HCl 4 mg 05/08/25 18:36 05/13/25 09:38 Ondansetron Inj 2 Mg/Ml Inj 2 Ml IVP 06/07/25 18:35 4 mg Q6H PRN Administration NAUSEA OR VOMITING Protocol Pantoprazole Sodium 40 mg 05/08/25 21:00 05/13/25 09:40 Pantoprazole Inj 40 Mg Vial IVP 06/07/25 20:59 40 mg BID ANNE Administration Permethrin 0 gm 05/09/25 08:30 05/13/25 09:30 Permethrin Cr 5% 60 Gm Tube TOP 06/08/25 08:29 Not Given UD ANNE Thiamine HCl 100 mg 05/09/25 01:00 05/13/25 09:40 Thiamine 100 Mg Tablet PO 05/14/25 00:59 100 mg BID ANNE Administration Plan 44-year-old male with active alcohol use disorder with subsequent end-stage liver disease, type 2 diabetes mellitus, hypertension presenting to ED 05/08/2025 due to generalized complaint of not feeling well. Continues to have active alcohol use history endorses drinking 1 quart of beer per day. Nephrology Dr Duncan consulted for ANGIE and GI Dr. Figueroa consulted for GI bleed. #Decompensated liver cirrhosis #Paracentesis Has history of liver cirrhosis, presenting with apparent ascites, no coagulopathy, bilirubin normal, AST/ALT normal, ammonia normal. Patient alert and oriented x 3. Endorses few episodes of hematemesis, hemoglobin 7.6 on admission and MCV 95. Endorses alcohol intake of 1 quart of beer per day for the past 20 years. Denies getting abdominal tap for ascites in the past. CT abdomen pelvis Cirrhosis with significant ascites, possible esophageal varices, atrophic kidneys. MELD 24 (15% of mortality in next 90 days) MADDREY score 12--no indication for steroids Child alejandro class B--indicating transplant Heptatitis panel negative U/s paracentesis 05/13 by IR: Approximately 7L were removed and sample sent for analysis. Albumin was repleted for total of 50 g. ?Consulted GI Dr. Figueroa, patient recommendations ?IV ceftriaxone 1 g daily (05/08- ?IV pantoprazole 40 mg BID ?Albumin 25 g BID (05/08- -IV Zofran ? Daily coag panel -daily CBC #Ary esophagitis EGD 05/10/25: negative for variceal bleeding, findings of Ary esophagitis ?Continue Diflucan 200 mg daily ? Nystatin swish and swallow #ANGIE on CKD stage IV Prerenal versus hepatorenal. BUN 36, creatinine 4.1 (baseline appears to be around 2), GFR 18, ratio 9. Systemic vasodilation and causing prerenal ANGIE may also be in the setting of liver cirrhosis. If prerenal, anticipate improvement with volume expansion. However at this time we will diurese due to his severe ascites. Uric acid elevated 11.4, phosphate elevated 6.1 He has been endorsing decreased urine output Per nephrology: Based on labs in 2023, patient seems to have CKD stage III/IV, patient was lost to follow-up since. Renal ultrasound showed scar formation, atrophic kidneys -Consulted nephrology Dr Duncan, appreciate recommendations--going to temporary dialysis catheter. Patient will need urgent hemodialysis inpatient. -Has completed 3 inpatient dialysis sessions ? Care coordination updated for arranging outpatient dialysis chair. ? IV Bumex 1 mg BID -avoid nephrotoxic agents -renally dose meds -daily CMP #Electrolyte abnormalities Potassium 3.3, bicarb 15 on admission ? Replete as needed ? Daily labs #Upper GI bleed ruled out #Normocytic anemia Most likely secondary due to chronic kidney disease. EGD negative for esophageal varices or any bleeding. DC octreotide drip. - Will continue close monitor any signs of bleeding - Transfuse if hemoglobin less than 7 #Skin rash Noticeable excoriations throughout upper extremities. Possible scabies versus bedbugs. Patient endorses pruritus. ? Start permethrin - Steroid cream -isolation precautions #Phimosis -topical cream with steroid Health maintenance: Dispo: medsurg, ANGIE needing HD , pending SNF if amenable FEN: renal DVT prophylaxis: SCDs CODE STATUS: Full code The patient's management plan was discussed with my attending physician Dr. Krause. Lexy Weldon, PGY-1 Attending Provider Attestation/Addendum I have examined the patient, reviewed labs and imaging findings, discussed the case with the resident(s), and reviewed entered orders. I agree with the plan of care as outlined in this note, with these additional summaries/recommendations: Patient is a 45-year-old male with a medical history of alcohol use disorder, liver cirrhosis, primary hypertension, diabetes mellitus type 2, and psychiatric disorder presents to [facility] emergency department on 05/08/2025 with chief complaints of generalized weakness and blood in stool. Patient seen at bedside. No acute overnight events. Patient worked with physical therapy who recommends snf facility placement. Patient refuses to go to SNF although patient's mother reports she is unable to care for him at home and would not be able to take him to dialysis sessions. We will continue counseling patient to come up with a solution. Patient is s/p EGD which revealed Ary esophagitis, ulceration at distal esophagus, and hypertensive portal gastropathy with moderate gastritis and no evidence of esophageal varices. Continue Diflucan and nystatin swish and swallow. Hemoglobin currently downtrending and 7.1 today from 7.5 yesterday. Status post 1 unit PRBCs and transfuse for hemoglobin less than 7. Continue to hold chemical anticoagulation for now. Patient has cirrhosis from alcohol use and diagnosed with decompensated cirrhosis. Avoid excessive Tylenol use and limit hepatotoxic agents. Low-salt diet and diuresis. Patient also found to have severe ANGIE on CKD which now has progressed to likely ESRD. Etiology likely multifactorial with biggest contributor being hepatorenal syndrome. Patient has received 3 sessions of hemodialysis inpatient and case management working on outpatient chair time. Urology consulted for Hawkins catheter placement. Hawkins catheter successfully placed and patient will need to follow-up with urology outpatient for circumcision or slit. Continue isolation precautions for likely bedbugs versus scabies. Continue permethrin. On bacterial eyedrops for possible contact bacterial conjunctivitis. Patient updated on the plan and in agreement. All questions answered to satisfaction. Please see residents note for additional details and management. Dr. Nelida MD
--- NOTE | 2025-05-13 16:51 | ESPR_ITS ---
Documentation for date of: 05/13/25 Subjective Subjective Interval history: Agree with discharge planning patient can be followed by the PCP Exam Vital Signs Temp Pulse Resp BP Pulse Ox O2 Del Method O2 Flow Rate 97 F 81 18 119/90 H 97 Room Air 3 05/13/25 12:00 05/13/25 12:00 05/13/25 12:00 05/13/25 12:00 05/13/25 12:00 05/13/25 12:00 05/10/25 04:00 Objective Labs 05/13/25 08:01 05/13/25 05:03 Labs: Laboratory Results - last 24 hr 05/13/25 05/13/25 05/13/25 05:03 08:01 12:33 WBC 7.2 RBC 2.26 L Hgb 7.1 L Hct 20.9 L* MCV 93 MCH 31.4 MCHC 34.0 RDW Std Deviation 49.9 H Plt Count 83 L Neut % (Auto) 64 Lymph % (Auto) 18 [place] % (Auto) 12 Eos % (Auto) 5 Baso % (Auto) 0 Neut # (Auto) 4.6 Lymph # (Auto) 1.3 [place] # (Auto) 0.9 H Eos # (Auto) 0.4 Baso # (Auto) 0.0 Immature Gran # (Auto) 0.02 H Absolute Nucleated RBC 0.00 Immature Gran % 0 Nucleated RBC % 0 Sodium 139 Potassium 4.3 D Chloride 111 H Carbon Dioxide 21.1 Anion Gap 7 BUN 19 Creatinine 1.3 D Estim Creat Clear Calc 79.5 eGFR > 60 BUN/Creatinine Ratio 15 Glucose 108 H Calculated Osmolality 280 Calcium 8.2 L Corrected Calcium 8.8 Phosphorus 2.4 Magnesium 1.5 L Total Bilirubin 1.1 D AST 21 ALT 14 Alkaline Phosphatase 79 D Total Protein 7.4 Albumin 3.3 L Globulin 4.1 H Albumin/Globulin Ratio 0.8 L Peritoneal Color Yellow Peritoneal Appearance Hazy Peritoneal WBC 62 Peritoneal RBC 20 Periton Polynucl WBCs 31 Periton Mononucl WBCs 69 Peritoneal Tot Protein 2 Peritoneal Albumin 1.2 Peritoneal LDH 126 Peritoneal Glucose 119 Peritoneal Amylase < 20 Impressions Impression: Whitish plaque formation of the esophagus suggestive of Ary esophagitis Gastritis Continue current management ABG Interpretation ABG results: 05/08/25 18:50 ABG pH 7.27 L ABG pCO2 29 L ABG pO2 91 ABG HCO3 13 L ABG O2 Saturation 98 ABG Base Excess -13 L Assessment & Plan A&P Narrative # Hematemesis in setting of cirrhotic liver disease due to alcohol Plan Octreotide infusion at 50 mcg/h after 50 mcg IV push loading dose IV Protonix serial CBC Consent obtained for fiberoptic esophagogastroduodenoscopy with possible therapeutic intervention under intravenous moderate sedation Patient should receive at least 2 units of PRBC N.p.o. Other medical problems include End-stage liver disease secondary to alcohol ANGIE Chronic alcoholic dependency Advanced portal hypertension Thank you very much for the opportunity to participate in the care of this patient Time Spent With Patient Time: Total time spent is greater than 50% in coordination of care (as documented) at patient's floor/unit and/or counseling patient:
[2025-05-13] MEDS: ALBUMIN HUMAN 25% IVPB 25 GM/100 ML BTL IV ×2 (16:59→17:46)
--- NOTE | 2025-05-13 17:54 | PC.NURSE ---
DR. CUELLO MADE AWARE PT HAS WORSENING COUGH, HE WILL COME UP TO ASSESS PT AT BEDSIDE, WILL PUT IN ORDERS. ALSO MADE AWARE PT HAD URINE OUTPUT OF 50CC.
--- NOTE | 2025-05-13 17:55 | XR_ITS ---
Examination: AP chest single view Technique one AP portable semiupright chest single view Date and time: May 13, 2025, 1807 hours Comparison May 11, 2025 INDICATIONS: Acute coughing today. FINDINGS: Mild enlargement cardiac contour Mild vascular congestion. No lobar pneumonia or pulmonary edema. Stable position of right internal jugular dialysis catheter tips right each IMPRESSION: No interval pneumonia or pulmonary edema
[2025-05-13] MEDS: ALBUTEROL/IPRATROPIUM (Duoneb) RT SOL 3 ML NEBU INH (19:30)
[2025-05-14] VITALS (28 sets, daily range): BP systolic 100–135; BP diastolic 51–93; PULSE 58–120; RESP 16–20; TEMP 36–37.1; O2SAT 94–97
--- NOTE | 2025-05-14 06:28 | PC.NURSE ---
pt refused all his meds for this shift stating that he's leaving today. Casting Room Operator told pt that he needed to take his meds while he was still here but still refused. Pt stated you can call the doctors and tell them i am revealing.
[2025-05-14 07:28] LABS: Basophils # (Auto) 0.0 Thou/mm3 (0.0-0.2); Basophils % (Auto) 0 % (0-2.5); Eosinophils # (Auto) 0.4 Thou/mm3 (0.0-0.5); Eosinophils % (Auto) 5 % (0-10); Immature Granulocytes Auto 0.03 Thou/mm3 (0.00-0.00); Lymphocytes # (Auto) 1.2 Thou/mm3 (1.0-4.8); Lymphocytes % (Auto) 19 % (10-50); Mean Corpuscular HGB Conc 34.0 g/dl (31.0-37.0); Mean Corpuscular Hemoglobin 31.6 pg (25.0-35.0); Mean Corpuscular Volume 93 fL (80-100); Monocytes # (Auto) 0.8 Thou/mm3 (0.0-0.8); Monocytes % (Auto) 13 % (0-12); Neutrophils # (Auto) 4.1 Thou/mm3 (1.8-7.7); Neutrophils % (Auto) 62 % (37-80); Nucleated Red Blood Cell # 0.00 Thou/mm3 (0.00-0.00); Nucleated Red Blood Cell % 0 /100 WBC (0); Platelet Count 82 Thou/mm3 (140-440); RDW Standard Deviation 49.2 fL (35.1-43.9); Red Blood Count 2.12 Miln/mm3 (4.50-5.90); White Blood Count 6.5 Thou/mm3 (3.8-10.6)
[2025-05-14 07:39] LABS: Hematocrit 19.7 % (41.0-53.0)
[2025-05-14 07:40] LABS: Hemoglobin 6.7 g/dL (13.5-16.0)
[2025-05-14 08:04] LABS: Alanine Aminotransferase < 7 U/L (10-49); Albumin, Serum 2.8 gm/dL (3.5-5.0); Albumin/Globulin Ratio 1.4 (1.2-2.2); Alkaline Phosphatase 34 U/L (46-116); Anion Gap 6 (7-16); Aspartate Amino Transferase < 8 U/L (0-34); BUN/Creatinine Ratio 5 Ratio (12-20); Bilirubin,Total 0.4 mg/dL (0.3-1.2); Blood Urea Nitrogen 20 mg/dL (9-23); Calcium 8.2 mg/dL (8.3-10.6); Calcium (Corrected) 9.2 mg/dL (8.5-10.1); Carbon Dioxide 24.0 mMol/L (20.0-31.0); Chloride 107 mMol/L (98-107); Creatinine (Component) 4.0 mg/dL (0.6-1.3); Estimated Creatinine Clearance 25.8 mL/min (>60); Globulin 2.0 gm/dL (2.3-3.5); Glucose 132 mg/dL (74-106); Magnesium 1.5 mg/dL (1.6-2.6); Osmolality,Calculated 278 (275-295); Phosphorous 4.0 mg/dL (2.4-5.1); Potassium 3.8 mMol/L (3.4-5.1); Sodium 137 mMol/L (136-145); Total Protein 4.8 gm/dL (5.7-8.2); eGFR 18 See Note
[2025-05-14] MEDS: cefTRIAXone/D5w 1gm IV premix 1 GM/50 ML BAG IV (09:53)
[2025-05-14] MEDS: CITRIC ACID/SODIUM CITR 15 ML UDC (BICITRA) 30 ML PO ×2 (09:54→21:54)
[2025-05-14] MEDS: MAGNESIUM OXIDE 400 MG TABLET PO (09:54)
[2025-05-14] MEDS: THIAMINE 100 MG TABLET PO ×2 (09:54→21:54)
[2025-05-14] MEDS: FLUCONAZOLE 100 MG TABLET 200 MG PO (09:54)
[2025-05-14] MEDS: FOLIC ACID 1 MG TABLET PO ×2 (09:54→21:54)
[2025-05-14] MEDS: CLOBETASOL PROPIONATE CR 15 GM TUBE TOP ×2 (09:55→21:56)
[2025-05-14] MEDS: PERMETHRIN CR 5% 60 GM TUBE TOP (09:55)
--- NOTE | 2025-05-14 10:47 | CHAP ---
Patient was visited by a Spiritual Care Volunteer on 05/14/2025 between 0900 and 0930 and received comfort, encouragement and/or prayer.
--- NOTE | 2025-05-14 10:48 | PC.SS ---
SS follow up note; SS met with patient at bedside to discuss discharge plan. Patient is refusing SNF. SS contacted patient's mother and she informed SS that she would like patient to discharge to SNF, SS informed her that patient has been refusing, she informed SS that if patient is not able to ambulate on his own she will not allow him back home. SS met with patient and informed him that if he is unable to complete ADL's his mother reported will not allow him to return back home. The patient reported that at the time PT evaluated him he was tired and weak, and would like for PT to re evaluate him. SS Contacted Hunter and he informed SS that he would evaluate patient tomorrow when his HMG is stable.
[2025-05-14] MEDS: Magnesium Sulfate 2 GM Ivpb 2 GM/50 ML BAG IV (11:27)
--- NOTE | 2025-05-14 12:56 | PC.NURSE ---
TRANSFUSION OF 1 UNIT PRBC'S INITIATED W/ TX, WILL CONT. TO MONITOR
[2025-05-14] MEDS: ALBUMIN HUMAN 25% IVPB 25 GM/100 ML BTL IV (13:46)
--- NOTE | 2025-05-14 13:53 | PC.NURSE ---
BP LOW PT DENIES ALL S/S OF HYPOTENSION, ALBUMIN 25/100ML ADMINISTERED PER MD ORDERS, UF GOAL LOWERED TO 1.2L TOLERATED WILL CONT. TO MONITOR
[2025-05-14] MEDS: MUPIROCIN OINT 2% 15 GM TUBE TOP ×2 (13:56→21:55)
--- NOTE | 2025-05-14 14:35 | PC.SS ---
Addendum entered by Justyna Flower 05/14/25 16:06: SS follow up note; SS follow up note; SS, Team A and Patient's mother met with patient at bedside to discuss discharge plan to SNF. Patient is adamant and upset refusing to go to SNF. Patient's mother informed him that he cannot return home if he does not go to SNF, however patient remained adamant. Patient is not able to ambulate at the time. The goal will be for PT to work with patient daily to help patient gain his mobility back. SS will start working on ordering patient a FWW. Patient's mother agreeable with discharge plan. SS contacted Hunter from PT and he informed SS he will work with patient daily, however was not able to work with patient until patient's HMG is stable. SS will also contact [facility] and inform them if they are able to change patient's chair time, patient's mother expressed she is not able to provide transportation for patient at that time. Addendum entered by Justyna Flower 05/14/25 15:49: SS follow up note; SS follow up note; SS Team A and patient's mother met with patient at bedside. Addendum entered by Justyna Flower 05/14/25 14:43: SS follow up note; SS was contacted by Jazmine from [facility] and provided chair time for , and Saturdays for 5:30AM. Original Note: SS follow up note: SS contacted patient's mother, Radha in regards to meeting with patient to attempt to convince him to discharge to SNF. Patient's mother agreeable to come in, SS updated Team A. SS will stand by for further needs.
--- NOTE | 2025-05-14 15:02 | PC.NURSE ---
PT HR TRENDING UP, PT DENIES ALL C/O CHEST PAIN, PRESSURE, US, SOB OR DISCOMFORT WILL CONT. TO MONITOR
--- NOTE | 2025-05-14 15:09 | PC.NURSE ---
PT DENIES ALL COMPLAINTS, WILL CONT. TO MONITOR
--- NOTE | 2025-05-14 15:34 | ESPR_ITS ---
<Statement entered by Heron Bernard MD - 05/16/25 14:00> I have discussed and was present for the essential components of the history, physical examination, diagnosis, and treatment plan with the resident. I agree with the patient's care as documented by the resident and amended herein by me. Heron Bernard MD FACP. <Statement entered by Steven Castillo MD - 05/14/25 20:06> Overnight, patient had a drop in hemoglobin therefore 1 unit PRBC was transfused and post H&H at 9.1. Patient denied going to SNF for PT and patient's family mother cannot manage the patient alone at home as he is unable to ambulate. If he is able to ambulate with PT will likely discharge to assisted. Also awaiting outpatient dialysis chair. I discussed and supervised with the internal controls manager physician who took care of this patient. I personally saw and examined the patient. I agree with assessment and plan. Disclaimer: Despite multiple revisions, due to the dictation software being used, the document bellow may not be free of grammatical errors including phonetic/typographic errors. However, this does not deter from our commitment to providing health care in the patient's best interest in mind. Plan of care discussed with attending physician Dr. Joana Castillo MD, PGY 3 Documentation for date of: 05/14/25 Subjective Subjective Interval history: pt reports feeling n/v with medications. Hgb 6.7 down from 7.1, transfused 2 units PRBC, pending post transfusion H/H Overnight pt did not recieve ordered PO medications due to n/v Dispo planning conversation with mother, and social work at bedside Exam Vital Signs Temp Pulse Resp BP Pulse Ox O2 Del Method O2 Flow Rate 97.3 F 120 H 16 120/73 95 Room Air 3 05/14/25 13:07 05/14/25 15:30 05/14/25 13:05/14/25 15:30 05/14/25 13:05/14/25 12:30 05/14/25 00:00 Narrative Exam General: no acute distress, getting dialysis HEENT: NC/AT, pt intermittently having nonbloody emesis Cardiovascular: Normal S1 and S2. Regular rate and rhythm. Respiratory: Lungs are clear to auscultation bilaterally. normal work of breathing Abdomen: abdominal distension, positive fluid wave, non tender Skin: scratch campbell all over his body with excoriations. Temp dialysis cath in place on the Right chest Musculoskeletal: No gross injuries. Able to move all 4 extremities. +2 pitting edema in the lower extremities Neuro: Alert and oriented x3. No focal neuro deficits. Objective Labs 05/14/25 17:00 05/14/25 07:06 Labs: Laboratory Results - last 24 hr 05/14/25 05/14/25 07:06 08:30 WBC 6.5 RBC 2.12 L Hgb 6.7 L* Hct 19.7 L* MCV 93 MCH 31.6 MCHC 34.0 RDW Std Deviation 49.2 H Plt Count 82 L Neut % (Auto) 62 Lymph % (Auto) 19 [place] % (Auto) 13 H Eos % (Auto) 5 Baso % (Auto) 0 Neut # (Auto) 4.1 Lymph # (Auto) 1.2 [place] # (Auto) 0.8 Eos # (Auto) 0.4 Baso # (Auto) 0.0 Immature Gran # (Auto) 0.03 H Absolute Nucleated RBC 0.00 Immature Gran % 1 H Nucleated RBC % 0 Sodium 137 Potassium 3.8 D Chloride 107 Carbon Dioxide 24.0 Anion Gap 6 L BUN 20 Creatinine 4.0 H D Estim Creat Clear Calc 25.8 L eGFR 18 L BUN/Creatinine Ratio 5 L Glucose 132 H Calculated Osmolality 278 Calcium 8.2 L Corrected Calcium 9.2 Phosphorus 4.0 Magnesium 1.5 L Total Bilirubin 0.4 D AST < 8 ALT < 7 L Alkaline Phosphatase 34 L D Total Protein 4.8 L Albumin 2.8 L D Globulin 2.0 L Albumin/Globulin Ratio 1.4 Blood Type O Negative Antibody Screen POSITIVE Antibody Identification Anti-P1 Crossmatch See Detail Blood Bank Wristband ID Yes ABG Interpretation ABG results: 05/08/25 18:50 ABG pH 7.27 L ABG pCO2 29 L ABG pO2 91 ABG HCO3 13 L ABG O2 Saturation 98 ABG Base Excess -13 L Quality Measures Quality Measures none Assessment & Plan Assessment Current Active Medications: Generic Name Dose Route Start Last Admin Trade Name Freq PRN Reason Stop Dose Admin Acetaminophen 650 mg 05/08/25 17:37 Acetaminophen 325 Mg Tablet PO 06/07/25 17:36 Q6H PRN Fever >100.3 or pain 1-3 Citric Acid/Sodium Citrate 30 ml 05/10/25 09:00 05/14/25 09:54 Citric Acid/Sodium Citr 15 Ml Udc (Bicitra) PO 06/09/25 08:59 30 ml BID ANNE Administration Clobetasol Propionate 0 gm 05/09/25 09:00 05/14/25 09:55 Clobetasol Propionate Cr 15 Gm Tube TOP 05/16/25 08:59 1 applicatio BID ANNE Administration Dextrose 25 ml 05/08/25 19:30 05/08/25 19:37 Dextrose 50%-Water Inj 50 Ml Syringe IV 06/07/25 19:29 25 ml Q15MIN PRN Administration BG 50-70 responsive npo pt Dextrose 50 ml 05/08/25 19:30 Dextrose 50%-Water Inj 50 Ml Syringe IV 06/07/25 19:29 Q15MIN PRN BG <50 OR BG <70 & pt unresponsive Fluconazole 200 mg 05/10/25 09:00 05/14/25 09:54 Fluconazole 100 Mg Tablet PO 05/17/25 08:59 200 mg QDAY ANNE Administration Folic Acid 1 mg 05/14/25 09:00 05/14/25 09:54 Folic Acid 1 Mg Tablet PO 05/19/25 08:59 1 mg BID ANNE Administration Glucagon 1 mg 05/08/25 19:30 Glucagon Inj 1 Mg Vial IM Q15MIN PRN BG <70, and no IV access Guaifenesin 100 mg 05/13/25 17:53 Guaifenesin Syrup 200 Mg/10 Ml Udc PO 06/12/25 17:52 QID PRN COUGH Protocol Heparin Sodium (Porcine) 3,500 unit 05/11/25 13:02 05/12/25 15:44 Heparin Sod Inj 1000 Unit/Ml Vial 10 Ml INDWELLCAT 05/25/25 13:01 3,500 unit PRN PRN Administration DIALYSIS Ceftriaxone Sodium/Dextrose 1 gm in 50 mls @ 100 mls/hr 05/08/25 17:25 05/14/25 09:53 Rocephin/D5w 1gm Iv Premix IV 05/15/25 17:24 100 mls/hr QDAY ANNE Administration Lactulose 10 gm 05/08/25 17:37 05/10/25 16:03 Lactulose Syrup 20 Gm/30 Ml Udc PO 06/08/25 08:59 10 gm QDAY PRN Administration constipation Protocol Lorazepam 0.5 mg 05/14/25 05:12 Lorazepam 0.5 Mg Tablet PO 05/19/25 05:11 Q4HR PRN CIWA Score 2-6 Lorazepam 0.5 mg 05/14/25 05:12 Lorazepam 2 Mg/Ml Vial IV 05/19/25 05:11 Q2HR PRN CIWA SCORE 7-13 Lorazepam 1 mg 05/14/25 05:12 Lorazepam 2 Mg/Ml Vial IV 05/19/25 05:11 Q2HR PRN CIWA SCORE 14-19 Lorazepam 2 mg 05/14/25 05:12 Lorazepam 2 Mg/Ml Vial IV 05/19/25 05:11 Q2HR PRN CIWA SCORE 20-25 Magnesium Oxide 400 mg 05/13/25 09:15 05/14/25 09:54 Magnesium Oxide 400 Mg Tablet PO 06/12/25 09:14 400 mg QDAY ANNE Administration Mupirocin 0 gm 05/09/25 07:15 05/14/25 13:56 Mupirocin Oint 2% 15 Gm Tube TOP 05/16/25 07:14 1 applicatio TID ANNE Administration Nystatin 5 ml 05/09/25 22:00 05/14/25 05:38 Nystatin Susp 5 Ml Udc PO 05/16/25 21:59 Not Given TID ANNE Ofloxacin 2 drop 05/09/25 08:00 05/14/25 12:54 Ofloxacin Op Farheen 0.3% 5 Ml Btl BOTH EYES 06/08/25 07:59 Not Given QID ANNE Ondansetron HCl 4 mg 05/08/25 18:36 05/13/25 09:38 Ondansetron Inj 2 Mg/Ml Inj 2 Ml IVP 06/07/25 18:35 4 mg Q6H PRN Administration NAUSEA OR VOMITING Protocol Pantoprazole Sodium 40 mg 05/08/25 21:00 05/14/25 09:54 Pantoprazole Inj 40 Mg Vial IVP 06/07/25 20:59 40 mg BID ANNE Administration Permethrin 0 gm 05/09/25 08:30 05/14/25 09:55 Permethrin Cr 5% 60 Gm Tube TOP 06/08/25 08:29 5 % UD ANNE Administration Thiamine HCl 100 mg 05/14/25 09:00 05/14/25 09:54 Thiamine 100 Mg Tablet PO 05/19/25 08:59 100 mg BID ANNE Administration Plan 44-year-old male with active alcohol use disorder with subsequent end-stage liver disease, type 2 diabetes mellitus, hypertension who presented to ED 05/08/2025 due to generalized complaint of malaise. Pt endorses active alcohol use history endorses drinking 1 quart of beer per day. Nephrology Dr Duncan consulted for ANGIE and GI Dr. Figueroa consulted for GI bleed. Ongoing discussion with family and social work regarding plan for dispo, SNF vs home vs assisted #Decompensated liver cirrhosis #Paracentesis Has history of liver cirrhosis, presenting with apparent ascites, no coagulopathy, bilirubin normal, AST/ALT normal, ammonia normal. Patient alert and oriented x 3. Endorses few episodes of hematemesis, hemoglobin 7.6 on admission and MCV 95. Endorses alcohol intake of 1 quart of beer per day for the past 20 years. Denies getting abdominal tap for ascites in the past. 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 - Heptatitis panel negative - U/s paracentesis 05/13 by IR: Approximately 7L were removed and sample sent for analysis. Albumin was repleted for total of 50 g. - Consulted GI Dr. Figueroa, appreciate recommendations - Daily coag panel - Daily CBC Tx ?IV ceftriaxone 1 g daily (05/08- ?IV pantoprazole 40 mg BID ?Albumin 25 g BID (05/08- -IV Zofran 4mg IV q6h PRN #ANGIE on CKD stage IV Prerenal versus hepatorenal. BUN 36, creatinine 4.1 (baseline appears to be around 2), GFR 18, ratio 9. Systemic vasodilation and causing prerenal ANGIE may also be in the setting of liver cirrhosis. If prerenal, anticipate improvement with volume expansion. However at this time we will diurese due to his severe ascites. 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 Renal ultrasound showed scar formation, atrophic kidneys Dx - daily CMP (CTM BUN, CR, and eGFR) Tx - consulted nephrology Dr Duncan, appreciate recommendations--going to temporary dialysis catheter. - continue inpatient Hemodialysis (Tuesday, , Tuesday) ? Care coordination updated for arranging outpatient dialysis chair (per Social work, change time to later than 0530) ? IV Bumex 1 mg BID - avoid nephrotoxic agents - renally dose meds #Upper GI bleed ruled out #Normocytic anemia Most likely secondary due to chronic kidney disease. EGD negative for esophageal varices or any bleeding. pt with nonbloody emesis throughout the day - 05/14 pt transfused with 2 units PRBC for Hgb 6.7 from 7.1. - f/u post transfusion H/H - Will continue close monitor any signs of bleeding - Transfuse if hemoglobin less than 7 - ondansetron PRN #Ary esophagitis EGD 05/10/25: negative for variceal bleeding, findings of Ary esophagitis ?Continue Diflucan 200 mg daily ? Nystatin swish and swallow #Electrolyte abnormalities Potassium 3.3, bicarb 15 on admission ? Replete PRN ? Daily CMP #Skin rash Noticeable excoriations throughout upper extremities. Possible scabies versus bedbugs. Patient endorses pruritus. - continue permethrin daily - Clobetasol topical BID ANNE -isolation precautions #Phimosis -topical cream with steroid Health maintenance: Dispo: medsurg, ANGIE needing HD , pending SNF if amenable (per dispo discussion with pt, mother, and social work: pt unwilling to attend discharge to SNF for PT, pt mother notes concerns with taking patient home and helping with ADL and IADLs, pt is amenable to assisted, however pt is unable to ambulate. per pt, willing to engage with PT while inpatient (requests working with PT around 1100). if pt can ambulate with PT and medically cleared, then OK to discharge to assisted. Per social work, need to change hemodialysis scheduled time to later in the day (currently scheduled for 5:30). Diet: renal VTE prophylaxis: SCDs Bowel reg: lactulose prn CODE STATUS: Full code Case discussed with my attending Dr. Joana Cruz MD PGY-1
--- NOTE | 2025-05-14 15:43 | PD.RESPRO ---
Documentation for date of: 05/14/25 Subjective Subjective Interval history: Overnight events: Patient refused PM meds and some of today's AM meds. No acute events overnight. Patient was seen and examined at bedside. AM vitals and labs reviewed. Patient complained of a diffuse pain in abdomen that was not tender to palpation. No other complaints expressed during visit. AM Cr 4, up from Cr of 1.3 yesterday AM. eGFR decreased to 18 from >60 yesterday. Input/Output 1958/1050. Patient did not have hemodialysis yesterday. Hemodialysis started today at 1250. Blood transfusion due to AM hemoglobin 6.7. Review of systems otherwise negative except for what is mentioned above. Exam Vital Signs Temp Pulse Resp BP Pulse Ox O2 Del Method O2 Flow Rate 97.3 F 120 H 16 120/73 95 Room Air 3 05/14/25 13:07 05/14/25 15:30 05/14/25 13:05/14/25 15:30 05/14/25 13:05/14/25 12:30 05/14/25 00:00 Narrative Exam Physical Exam: General: Alert, no acute distress. Head: Normocephalic, atraumatic. Cardiovascular: Regular rate and rhythm, no murmur, +S1/S2. Respiratory: Lungs are clear to auscultation, respirations unlabored, no crackles, no wheezing. Gastrointestinal: Soft, nontender, non-distended. No guarding or rebound tenderness. Extremities: No edema, no cyanosis, no clubbing. 2+ radial pulse bilaterally, 1+ posterior tibial pulse bilaterally. Neuro: No focal deficits observed. Conversant, moving all extremities. No overt cerebellar signs/incoordination. Psychiatric: Cooperative, appropriate affect. Objective Labs 05/16/25 05:27 05/16/25 05:27 Labs: Laboratory Results - last 24 hr 05/14/25 05/14/25 07:06 08:30 WBC 6.5 RBC 2.12 L Hgb 6.7 L* Hct 19.7 L* MCV 93 MCH 31.6 MCHC 34.0 RDW Std Deviation 49.2 H Plt Count 82 L Neut % (Auto) 62 Lymph % (Auto) 19 [place] % (Auto) 13 H Eos % (Auto) 5 Baso % (Auto) 0 Neut # (Auto) 4.1 Lymph # (Auto) 1.2 [place] # (Auto) 0.8 Eos # (Auto) 0.4 Baso # (Auto) 0.0 Immature Gran # (Auto) 0.03 H Absolute Nucleated RBC 0.00 Immature Gran % 1 H Nucleated RBC % 0 Sodium 137 Potassium 3.8 D Chloride 107 Carbon Dioxide 24.0 Anion Gap 6 L BUN 20 Creatinine 4.0 H D Estim Creat Clear Calc 25.8 L eGFR 18 L BUN/Creatinine Ratio 5 L Glucose 132 H Calculated Osmolality 278 Calcium 8.2 L Corrected Calcium 9.2 Phosphorus 4.0 Magnesium 1.5 L Total Bilirubin 0.4 D AST < 8 ALT < 7 L Alkaline Phosphatase 34 L D Total Protein 4.8 L Albumin 2.8 L D Globulin 2.0 L Albumin/Globulin Ratio 1.4 Blood Type O Negative Antibody Screen POSITIVE Antibody Identification Anti-P1 Crossmatch See Detail Blood Bank Wristband ID Yes ABG Interpretation ABG results: 05/08/25 18:50 ABG pH 7.27 L ABG pCO2 29 L ABG pO2 91 ABG HCO3 13 L ABG O2 Saturation 98 ABG Base Excess -13 L Quality Measures Quality Measures none Assessment & Plan Assessment Current Active Medications: Generic Name Dose Route Start Last Admin Trade Name Freq PRN Reason Stop Dose Admin Acetaminophen 650 mg 05/08/25 17:37 Acetaminophen 325 Mg Tablet PO 06/07/25 17:36 Q6H PRN Fever >100.3 or pain 1-3 Citric Acid/Sodium Citrate 30 ml 05/10/25 09:00 05/14/25 09:54 Citric Acid/Sodium Citr 15 Ml Udc (Bicitra) PO 06/09/25 08:59 30 ml BID ANNE Administration Clobetasol Propionate 0 gm 05/09/25 09:00 05/14/25 09:55 Clobetasol Propionate Cr 15 Gm Tube TOP 05/16/25 08:59 1 applicatio BID ANNE Administration Dextrose 25 ml 05/08/25 19:30 05/08/25 19:37 Dextrose 50%-Water Inj 50 Ml Syringe IV 06/07/25 19:29 25 ml Q15MIN PRN Administration BG 50-70 responsive npo pt Dextrose 50 ml 05/08/25 19:30 Dextrose 50%-Water Inj 50 Ml Syringe IV 06/07/25 19:29 Q15MIN PRN BG <50 OR BG <70 & pt unresponsive Fluconazole 200 mg 05/10/25 09:00 05/14/25 09:54 Fluconazole 100 Mg Tablet PO 05/17/25 08:59 200 mg QDAY ANNE Administration Folic Acid 1 mg 05/14/25 09:00 05/14/25 09:54 Folic Acid 1 Mg Tablet PO 05/19/25 08:59 1 mg BID ANNE Administration Glucagon 1 mg 05/08/25 19:30 Glucagon Inj 1 Mg Vial IM Q15MIN PRN BG <70, and no IV access Guaifenesin 100 mg 05/13/25 17:53 Guaifenesin Syrup 200 Mg/10 Ml Udc PO 06/12/25 17:52 QID PRN COUGH Protocol Heparin Sodium (Porcine) 3,500 unit 05/11/25 13:02 05/12/25 15:44 Heparin Sod Inj 1000 Unit/Ml Vial 10 Ml INDWELLCAT 05/25/25 13:01 3,500 unit PRN PRN Administration DIALYSIS Ceftriaxone Sodium/Dextrose 1 gm in 50 mls @ 100 mls/hr 05/08/25 17:25 05/14/25 09:53 Rocephin/D5w 1gm Iv Premix IV 05/15/25 17:24 100 mls/hr QDAY ANNE Administration Lactulose 10 gm 05/08/25 17:37 05/10/25 16:03 Lactulose Syrup 20 Gm/30 Ml Udc PO 06/08/25 08:59 10 gm QDAY PRN Administration constipation Protocol Lorazepam 0.5 mg 05/14/25 05:12 Lorazepam 0.5 Mg Tablet PO 05/19/25 05:11 Q4HR PRN CIWA Score 2-6 Lorazepam 0.5 mg 05/14/25 05:12 Lorazepam 2 Mg/Ml Vial IV 05/19/25 05:11 Q2HR PRN CIWA SCORE 7-13 Lorazepam 1 mg 05/14/25 05:12 Lorazepam 2 Mg/Ml Vial IV 05/19/25 05:11 Q2HR PRN CIWA SCORE 14-19 Lorazepam 2 mg 05/14/25 05:12 Lorazepam 2 Mg/Ml Vial IV 05/19/25 05:11 Q2HR PRN CIWA SCORE 20-25 Magnesium Oxide 400 mg 05/13/25 09:15 05/14/25 09:54 Magnesium Oxide 400 Mg Tablet PO 06/12/25 09:14 400 mg QDAY ANNE Administration Mupirocin 0 gm 05/09/25 07:15 05/14/25 13:56 Mupirocin Oint 2% 15 Gm Tube TOP 05/16/25 07:14 1 applicatio TID ANNE Administration Nystatin 5 ml 05/09/25 22:00 05/14/25 05:38 Nystatin Susp 5 Ml Udc PO 05/16/25 21:59 Not Given TID ANNE Ofloxacin 2 drop 05/09/25 08:00 05/14/25 12:54 Ofloxacin Op Farheen 0.3% 5 Ml Btl BOTH EYES 06/08/25 07:59 Not Given QID ANNE Ondansetron HCl 4 mg 05/08/25 18:36 05/13/25 09:38 Ondansetron Inj 2 Mg/Ml Inj 2 Ml IVP 06/07/25 18:35 4 mg Q6H PRN Administration NAUSEA OR VOMITING Protocol Pantoprazole Sodium 40 mg 05/08/25 21:00 05/14/25 09:54 Pantoprazole Inj 40 Mg Vial IVP 06/07/25 20:59 40 mg BID ANNE Administration Permethrin 0 gm 05/09/25 08:30 05/14/25 09:55 Permethrin Cr 5% 60 Gm Tube TOP 06/08/25 08:29 5 % UD ANNE Administration Thiamine HCl 100 mg 05/14/25 09:00 05/14/25 09:54 Thiamine 100 Mg Tablet PO 05/19/25 08:59 100 mg BID ANEN Administration Plan Mr. Prado is a 45 year old gentleman with a relevant medical history of liver cirrhosis, alcohol abuse, T2DM, and HTN, who presented to [facility] with a sense of malaise, N/V, and blood in vomit. Nephrology was consulted for concerns of ANGIE. #ANGIE on CKD stage IV, prerenal cause 2/2 liver cirrhosis Patient has a strong history of liver injury and alcohol abuse that resulted in Cr of 4.1, BUN of 36, and eGFR of 18 on admission. After 3 successive days of hemodialysis (05/10-05/12), the patient's Cr, BUN, and eGFR returned to baseline values on 05/13. Notably, after not having a hemodialysis session on 05/13, those noted lab values returned to their abnormal ranges. - hemodialysis for 05/14/25 - Will continue to monitor Cr, BUN, and eGFR - Nephrology will continue to follow Patient was discussed with the Nephrology attending, Dr. Hogan. Thank you for allowing us to participate in the care of this patient. Felipe Harris, PGY-1 Attending Provider Attestation/Addendum Pt is seen and examined. labs reviewed. notes reviewed. agree with assessment and plan and findings of resident. Enrique Hogan MD
[2025-05-14] MEDS: HEPARIN SOD INJ 1000 UNIT/ML VIAL 10 ML 3500 UNIT INDWELLCAT (16:17)
[2025-05-14 17:47] LABS: Hematocrit 26.1 % (41.0-53.0); Hemoglobin 9.1 g/dL (13.5-16.0)
--- NOTE | 2025-05-14 20:13 | PD.IMPROG ---
Documentation for date of: 05/14/25 Subjective Subjective Interval history: Patient evaluated Exam Vital Signs Temp Pulse Resp BP Pulse Ox O2 Del Method O2 Flow Rate 98.2 F 112 H 18 115/70 95 Room Air 3 05/14/25 16:00 05/14/25 18:34 05/14/25 16:00 05/14/25 16:00 05/14/25 16:00 05/14/25 16:00 05/14/25 00:00 Objective Labs 05/14/25 17:00 05/14/25 07:06 Labs: Laboratory Results - last 24 hr 05/14/25 05/14/25 05/14/25 07:06 08:30 17:00 WBC 6.5 RBC 2.12 L Hgb 6.7 L* 9.1 L D Hct 19.7 L* 26.1 L MCV 93 MCH 31.6 MCHC 34.0 RDW Std Deviation 49.2 H Plt Count 82 L Neut % (Auto) 62 Lymph % (Auto) 19 [place] % (Auto) 13 H Eos % (Auto) 5 Baso % (Auto) 0 Neut # (Auto) 4.1 Lymph # (Auto) 1.2 [place] # (Auto) 0.8 Eos # (Auto) 0.4 Baso # (Auto) 0.0 Immature Gran # (Auto) 0.03 H Absolute Nucleated RBC 0.00 Immature Gran % 1 H Nucleated RBC % 0 Sodium 137 Potassium 3.8 D Chloride 107 Carbon Dioxide 24.0 Anion Gap 6 L BUN 20 Creatinine 4.0 H D Estim Creat Clear Calc 25.8 L eGFR 18 L BUN/Creatinine Ratio 5 L Glucose 132 H Calculated Osmolality 278 Calcium 8.2 L Corrected Calcium 9.2 Phosphorus 4.0 Magnesium 1.5 L Total Bilirubin 0.4 D AST < 8 ALT < 7 L Alkaline Phosphatase 34 L D Total Protein 4.8 L Albumin 2.8 L D Globulin 2.0 L Albumin/Globulin Ratio 1.4 Blood Type O Negative Antibody Screen POSITIVE Antibody Identification Anti-P1 Crossmatch See Detail Blood Bank Wristband ID Yes Impressions Impression: Distal esophageal ulcers Continue PPIs Follow CBC ABG Interpretation ABG results: 05/08/25 18:50 ABG pH 7.27 L ABG pCO2 29 L ABG pO2 91 ABG HCO3 13 L ABG O2 Saturation 98 ABG Base Excess -13 L Assessment & Plan A&P Narrative # Hematemesis in setting of cirrhotic liver disease due to alcohol Plan Octreotide infusion at 50 mcg/h after 50 mcg IV push loading dose IV Protonix serial CBC Consent obtained for fiberoptic esophagogastroduodenoscopy with possible therapeutic intervention under intravenous moderate sedation Patient should receive at least 2 units of PRBC N.p.o. Other medical problems include End-stage liver disease secondary to alcohol ANGIE Chronic alcoholic dependency Advanced portal hypertension Thank you very much for the opportunity to participate in the care of this patient Time Spent With Patient Time: Total time spent is greater than 50% in coordination of care (as documented) at patient's floor/unit and/or counseling patient:
[2025-05-15] VITALS: BP 111/72; PULSE 77; PULSE 86; RESP 22; TEMP 37.2; O2SAT 93
[2025-05-15 04:00] VITALS: BP 119/73; PULSE 83; PULSE 84; RESP 20; TEMP 36; O2SAT 92
--- NOTE | 2025-05-15 06:00 | PC.NURSE ---
Called Dr. Avina to notify him that pt had 25 ccs of urine output during his shift. Md will put an order for bladder scan.
[2025-05-15 06:13] LABS: Basophils # (Auto) 0.0 Thou/mm3 (0.0-0.2); Basophils % (Auto) 0 % (0-2.5); Eosinophils # (Auto) 0.3 Thou/mm3 (0.0-0.5); Eosinophils % (Auto) 4 % (0-10); Hematocrit 22.4 % (41.0-53.0); Immature Granulocytes Auto 0.02 Thou/mm3 (0.00-0.00); Lymphocytes # (Auto) 1.8 Thou/mm3 (1.0-4.8); Lymphocytes % (Auto) 24 % (10-50); Mean Corpuscular HGB Conc 34.8 g/dl (31.0-37.0); Mean Corpuscular Hemoglobin 31.5 pg (25.0-35.0); Mean Corpuscular Volume 90 fL (80-100); Monocytes # (Auto) 0.8 Thou/mm3 (0.0-0.8); Monocytes % (Auto) 11 % (0-12); Neutrophils # (Auto) 4.4 Thou/mm3 (1.8-7.7); Neutrophils % (Auto) 60 % (37-80); Nucleated Red Blood Cell # 0.00 Thou/mm3 (0.00-0.00); Nucleated Red Blood Cell % 0 /100 WBC (0); RDW Standard Deviation 49.4 fL (35.1-43.9); Red Blood Count 2.48 Miln/mm3 (4.50-5.90); White Blood Count 7.3 Thou/mm3 (3.8-10.6)
[2025-05-15 06:31] LABS: Hemoglobin 7.8 g/dL (13.5-16.0); Platelet Count 64 Thou/mm3 (140-440)
--- NOTE | 2025-05-15 06:46 | PC.NURSE ---
bladder scan done pt holding 378 ccs of urine, noted 200 mls in hawkins bag, attempted to call md, no answer. Will update oncoming RN.
[2025-05-15 07:20] LABS: Alanine Aminotransferase < 7 U/L (10-49); Albumin, Serum 2.6 gm/dL (3.5-5.0); Albumin/Globulin Ratio 1.3 (1.2-2.2); Alkaline Phosphatase 34 U/L (46-116); Anion Gap 7 (7-16); Aspartate Amino Transferase 13 U/L (0-34); BUN/Creatinine Ratio 3 Ratio (12-20); Bilirubin,Total 0.6 mg/dL (0.3-1.2); Blood Urea Nitrogen 10 mg/dL (9-23); Calcium 7.8 mg/dL (8.3-10.6); Calcium (Corrected) 8.9 mg/dL (8.5-10.1); Carbon Dioxide 26.2 mMol/L (20.0-31.0); Chloride 105 mMol/L (98-107); Creatinine (Component) 3.1 mg/dL (0.6-1.3); Estimated Creatinine Clearance 33.3 mL/min (>60); Globulin 2.0 gm/dL (2.3-3.5); Glucose 116 mg/dL (74-106); Magnesium 1.6 mg/dL (1.6-2.6); Osmolality,Calculated 275 (275-295); Phosphorous 2.8 mg/dL (2.4-5.1); Potassium 3.7 mMol/L (3.4-5.1); Sodium 138 mMol/L (136-145); Total Protein 4.6 gm/dL (5.7-8.2); eGFR 25 See Note
[2025-05-15 07:59] LABS: Slide Review Platelets confirmed
[2025-05-15 08:00] VITALS: BP 117/79; PULSE 85; PULSE 86; RESP 18; TEMP 36.3; O2SAT 94
[2025-05-15] MEDS: FLUCONAZOLE 100 MG TABLET 200 MG PO (08:41)
[2025-05-15] MEDS: THIAMINE 100 MG TABLET PO ×2 (08:41→20:18)
[2025-05-15] MEDS: MAGNESIUM OXIDE 400 MG TABLET PO (08:41)
[2025-05-15] MEDS: FOLIC ACID 1 MG TABLET PO ×2 (08:41→20:18)
[2025-05-15] MEDS: cefTRIAXone/D5w 1gm IV premix 1 GM/50 ML BAG IV (08:42)
[2025-05-15] MEDS: CLOBETASOL PROPIONATE CR 15 GM TUBE TOP ×2 (09:26→20:19)
--- NOTE | 2025-05-15 09:29 | PC.SS ---
SS follow up note; SS sent DME referral through [employer] for a FWW.
[2025-05-15] MEDS: Magnesium Sulfate 2 GM Ivpb 2 GM/50 ML BAG IV (11:22)
--- NOTE | 2025-05-15 11:55 | PD.RESPRO ---
Documentation for date of: 05/15/25 Subjective Subjective Interval history: No acute events overnight Exam Vital Signs Temp Pulse Resp BP Pulse Ox O2 Del Method O2 Flow Rate 97.4 F 85 18 117/79 94 L Room Air 3 05/15/25 08:00 05/15/25 08:00 05/15/25 08:00 05/15/25 08:00 05/15/25 08:00 05/15/25 08:00 05/14/25 00:00 Vitals over the past 24hours were reviewed: Temp: Afebrile HR: wnl BP: wnl RR: satting well on RA Objective Labs 05/15/25 05:27 05/15/25 05:27 Labs: Laboratory Results - last 24 hr 05/14/25 05/14/25 05/15/25 08:30 17:00 05:27 WBC 7.3 RBC 2.48 L Hgb 9.1 L D 7.8 L Hct 26.1 L 22.4 L MCV 90 MCH 31.5 MCHC 34.8 RDW Std Deviation 49.4 H Plt Count 64 L D Neut % (Auto) 60 Lymph % (Auto) 24 [place] % (Auto) 11 Eos % (Auto) 4 Baso % (Auto) 0 Neut # (Auto) 4.4 Lymph # (Auto) 1.8 Iron # (Auto) 0.8 Eos # (Auto) 0.3 Baso # (Auto) 0.0 Immature Gran # (Auto) 0.02 H Absolute Nucleated RBC 0.00 Immature Gran % 0 Nucleated RBC % 0 Sodium 138 Potassium 3.7 Chloride 105 Carbon Dioxide 26.2 Anion Gap 7 BUN 10 Creatinine 3.1 H D Estim Creat Clear Calc 33.3 L eGFR 25 L BUN/Creatinine Ratio 3 L Glucose 116 H Calculated Osmolality 275 Calcium 7.8 L Corrected Calcium 8.9 Phosphorus 2.8 Magnesium 1.6 Total Bilirubin 0.6 AST 13 ALT < 7 L Alkaline Phosphatase 34 L Total Protein 4.6 L Albumin 2.6 L Globulin 2.0 L Albumin/Globulin Ratio 1.3 Misc Test Result Platelets confirmed Blood Type O Negative Antibody Screen POSITIVE Antibody Identification Anti-P1 Crossmatch See Detail Blood Bank Wristband ID Yes ABG Interpretation ABG results: 05/08/25 18:50 ABG pH 7.27 L ABG pCO2 29 L ABG pO2 91 ABG HCO3 13 L ABG O2 Saturation 98 ABG Base Excess -13 L Quality Measures Quality Measures none Assessment & Plan Assessment Current Active Medications: Generic Name Dose Route Start Last Admin Trade Name Swetha PRN Reason Stop Dose Admin Acetaminophen 650 mg 05/08/25 17:37 Acetaminophen 325 Mg Tablet PO 06/07/25 17:36 Q6H PRN Fever >100.3 or pain 1-3 Citric Acid/Sodium Citrate 30 ml 05/10/25 09:00 05/15/25 08:56 Citric Acid/Sodium Citr 15 Ml Udc (Bicitra) PO 06/09/25 08:59 Not Given BID ANNE Clobetasol Propionate 0 gm 05/09/25 09:00 05/15/25 09:26 Clobetasol Propionate Cr 15 Gm Tube TOP 05/16/25 08:59 1 applicatio BID ANNE Administration Dextrose 25 ml 05/08/25 19:30 05/08/25 19:37 Dextrose 50%-Water Inj 50 Ml Syringe IV 06/07/25 19:29 25 ml Q15MIN PRN Administration BG 50-70 responsive npo pt Dextrose 50 ml 05/08/25 19:30 Dextrose 50%-Water Inj 50 Ml Syringe IV 06/07/25 19:29 Q15MIN PRN BG <50 OR BG <70 & pt unresponsive Fluconazole 200 mg 05/10/25 09:00 05/15/25 08:41 Fluconazole 100 Mg Tablet PO 05/17/25 08:59 200 mg QDAY ANNE Administration Folic Acid 1 mg 05/14/25 09:00 05/15/25 08:41 Folic Acid 1 Mg Tablet PO 05/19/25 08:59 1 mg BID ANNE Administration Glucagon 1 mg 05/08/25 19:30 Glucagon Inj 1 Mg Vial IM Q15MIN PRN BG <70, and no IV access Guaifenesin 100 mg 05/13/25 17:53 Guaifenesin Syrup 200 Mg/10 Ml Udc PO 06/12/25 17:52 QID PRN COUGH Protocol Heparin Sodium (Porcine) 3,500 unit 05/11/25 13:02 05/14/25 16:17 Heparin Sod Inj 1000 Unit/Ml Vial 10 Ml INDWELLCAT 05/25/25 13:01 3,500 unit PRN PRN Administration DIALYSIS Ceftriaxone Sodium/Dextrose 1 gm in 50 mls @ 100 mls/hr 05/08/25 17:25 05/15/25 08:42 Rocephin/D5w 1gm Iv Premix IV 05/15/25 17:24 100 mls/hr QDAY ANNE Administration Magnesium Sulfate 2 gm in 50 mls @ 25 mls/hr 05/15/25 10:11 05/15/25 11:22 Magnesium Sulfate Ivpb IV 05/15/25 12:10 25 mls/hr X1 ONE Administration Lactulose 10 gm 05/08/25 17:37 05/10/25 16:03 Lactulose Syrup 20 Gm/30 Ml Udc PO 06/08/25 08:59 10 gm QDAY PRN Administration constipation Protocol Lorazepam 0.5 mg 05/14/25 05:12 Lorazepam 0.5 Mg Tablet PO 05/19/25 05:11 Q4HR PRN CIWA Score 2-6 Lorazepam 1 mg 05/14/25 05:12 Lorazepam 2 Mg/Ml Vial IV 05/19/25 05:11 Q2HR PRN CIWA SCORE 14-19 Lorazepam 2 mg 05/14/25 05:12 Lorazepam 2 Mg/Ml Vial IV 05/19/25 05:11 Q2HR PRN CIWA SCORE 20-25 Lorazepam 0.5 mg 05/15/25 09:42 Lorazepam 2 Mg/Ml Vial IV 05/19/25 05:11 Q2HR PRN CIWA SCORE 7-13 Magnesium Oxide 400 mg 05/13/25 09:15 05/15/25 08:41 Magnesium Oxide 400 Mg Tablet PO 06/12/25 09:14 400 mg QDAY ANNE Administration Mupirocin 0 gm 05/09/25 07:15 05/15/25 05:59 Mupirocin Oint 2% 15 Gm Tube TOP 05/16/25 07:14 Not Given TID ANNE Nystatin 5 ml 05/09/25 22:00 05/15/25 05:58 Nystatin Susp 5 Ml Udc PO 05/16/25 21:59 Not Given TID ANNE Ofloxacin 2 drop 05/09/25 08:00 05/15/25 11:28 Ofloxacin Op Farheen 0.3% 5 Ml Btl BOTH EYES 06/08/25 07:59 Not Given QID ANNE Ondansetron HCl 4 mg 05/14/25 17:29 Ondansetron Inj 2 Mg/Ml Inj 2 Ml IVP 06/07/25 18:35 Q6H PRN administer if vomiting/nauseus Protocol Pantoprazole Sodium 40 mg 05/08/25 21:00 05/15/25 08:41 Pantoprazole Inj 40 Mg Vial IVP 06/07/25 20:59 40 mg BID ANNE Administration Permethrin 0 gm 05/09/25 08:30 05/15/25 09:04 Permethrin Cr 5% 60 Gm Tube TOP 06/08/25 08:29 Not Given UD ANNE Thiamine HCl 100 mg 05/14/25 09:00 05/15/25 08:41 Thiamine 100 Mg Tablet PO 05/19/25 08:59 100 mg BID ANNE Administration
[2025-05-15 12:00] VITALS: BP 116/75; PULSE 78; PULSE 87; RESP 18; TEMP 36.5; O2SAT 91
--- NOTE | 2025-05-15 12:31 | PC.SS ---
SS follow up note; SS met with patient at bedside to discuss discharge plan. Patient is agreeable to do discharge to [facility]. SS contacted Rafaela from [facility] and she requested updated PT note and updated clinicals. SS informed her SS will send PT note once available. SS will stand by for further needs.
--- NOTE | 2025-05-15 12:43 | ESPR_ITS ---
Documentation for date of: 05/15/25 Subjective Subjective Interval history: Downtrending hemoglobin hematocrit to 7.8 and 22.4 Previous endoscopy has shown esophageal ulcers Exam Vital Signs Temp Pulse Resp BP Pulse Ox O2 Del Method O2 Flow Rate 97.7 F 78 18 116/75 91 L Room Air 3 05/15/25 12:00 05/15/25 12:00 05/15/25 12:00 05/15/25 12:00 05/15/25 12:00 05/15/25 08:00 05/14/25 00:00 Objective Labs 05/15/25 05:27 05/15/25 05:27 Labs: Laboratory Results - last 24 hr 05/14/25 05/14/25 05/15/25 08:30 17:00 05:27 WBC 7.3 RBC 2.48 L Hgb 9.1 L D 7.8 L Hct 26.1 L 22.4 L MCV 90 MCH 31.5 MCHC 34.8 RDW Std Deviation 49.4 H Plt Count 64 L D Neut % (Auto) 60 Lymph % (Auto) 24 [place] % (Auto) 11 Eos % (Auto) 4 Baso % (Auto) 0 Neut # (Auto) 4.4 Lymph # (Auto) 1.8 [place] # (Auto) 0.8 Eos # (Auto) 0.3 Baso # (Auto) 0.0 Immature Gran # (Auto) 0.02 H Absolute Nucleated RBC 0.00 Immature Gran % 0 Nucleated RBC % 0 Sodium 138 Potassium 3.7 Chloride 105 Carbon Dioxide 26.2 Anion Gap 7 BUN 10 Creatinine 3.1 H D Estim Creat Clear Calc 33.3 L eGFR 25 L BUN/Creatinine Ratio 3 L Glucose 116 H Calculated Osmolality 275 Calcium 7.8 L Corrected Calcium 8.9 Phosphorus 2.8 Magnesium 1.6 Total Bilirubin 0.6 AST 13 ALT < 7 L Alkaline Phosphatase 34 L Total Protein 4.6 L Albumin 2.6 L Globulin 2.0 L Albumin/Globulin Ratio 1.3 Misc Test Result Platelets confirmed Blood Type O Negative Antibody Screen POSITIVE Antibody Identification Anti-P1 Crossmatch See Detail Blood Bank Wristband ID Yes Impressions Impression: Esophageal ulcers Acute posthemorrhagic anemia Continue to monitor CBC ABG Interpretation ABG results: 05/08/25 18:50 ABG pH 7.27 L ABG pCO2 29 L ABG pO2 91 ABG HCO3 13 L ABG O2 Saturation 98 ABG Base Excess -13 L Assessment & Plan A&P Narrative # Hematemesis in setting of cirrhotic liver disease due to alcohol Plan Octreotide infusion at 50 mcg/h after 50 mcg IV push loading dose IV Protonix serial CBC Consent obtained for fiberoptic esophagogastroduodenoscopy with possible therapeutic intervention under intravenous moderate sedation Patient should receive at least 2 units of PRBC N.p.o. Other medical problems include End-stage liver disease secondary to alcohol ANGIE Chronic alcoholic dependency Advanced portal hypertension Thank you very much for the opportunity to participate in the care of this patient Time Spent With Patient Time: Total time spent is greater than 50% in coordination of care (as documented) at patient's floor/unit and/or counseling patient:
--- NOTE | 2025-05-15 13:38 | PD.RESPRO ---
Documentation for date of: 05/15/25 Subjective Subjective Interval history: Overnight events: No acute events overnight Patient was seen and examined at bedside earlier this morning. AM vitals and labs reviewed. Renal function improving as Cr decreased from 4.0 to 3.1, BUN decreased from 20 to 10, and eGFR increased from 18 to 25. Given that this patient received hemodialysis yesterday, the renal marker improvements are likely a result of that treatment. The patient still complains of a diffuse soreness on his abdomen. No other complaints during the morning visit. Ins/Outs AM to AM was 1320/400. Review of systems otherwise negative except for what is mentioned above. Exam Vital Signs Temp Pulse Resp BP Pulse Ox O2 Del Method O2 Flow Rate 97.6 F 91 18 109/88 H 92 L Room Air 3 05/15/25 16:00 05/15/25 16:00 05/15/25 16:00 05/15/25 16:00 05/15/25 16:05/15/25 16:05/14/25 00:00 Narrative Exam Physical Exam: General: Alert, no acute distress. Skin: Warm, dry, intact, no obvious rash. RLE darker tone compared to LLE. Head: Normocephalic, atraumatic. Eye: Normal conjunctiva, PERRL. Cardiovascular: Regular rate and rhythm, no murmur, +S1/S2. Respiratory: Respirations slightly labored, low volume diffuse crackles on auscultation, no wheezing. Gastrointestinal: Soft, nontender, non-distended. No guarding or rebound tenderness. Extremities: No edema, no cyanosis, no clubbing. 2+ radial pulse bilaterally, 1+ posterior tibial pulse bilaterally. Neuro: No focal deficits observed. Conversant, moving all extremities. No overt cerebellar signs/incoordination. Psychiatric: Cooperative, appropriate affect. Objective Labs 05/16/25 05:27 05/16/25 05:27 Labs: Laboratory Results - last 24 hr 05/15/25 05:27 WBC 7.3 RBC 2.48 L Hgb 7.8 L Hct 22.4 L MCV 90 MCH 31.5 MCHC 34.8 RDW Std Deviation 49.4 H Plt Count 64 L D Neut % (Auto) 60 Lymph % (Auto) 24 [place] % (Auto) 11 Eos % (Auto) 4 Baso % (Auto) 0 Neut # (Auto) 4.4 Lymph # (Auto) 1.8 [place] # (Auto) 0.8 Eos # (Auto) 0.3 Baso # (Auto) 0.0 Immature Gran # (Auto) 0.02 H Absolute Nucleated RBC 0.00 Immature Gran % 0 Nucleated RBC % 0 Sodium 138 Potassium 3.7 Chloride 105 Carbon Dioxide 26.2 Anion Gap 7 BUN 10 Creatinine 3.1 H D Estim Creat Clear Calc 33.3 L eGFR 25 L BUN/Creatinine Ratio 3 L Glucose 116 H Calculated Osmolality 275 Calcium 7.8 L Corrected Calcium 8.9 Phosphorus 2.8 Magnesium 1.6 Total Bilirubin 0.6 AST 13 ALT < 7 L Alkaline Phosphatase 34 L Total Protein 4.6 L Albumin 2.6 L Globulin 2.0 L Albumin/Globulin Ratio 1.3 Misc Test Result Platelets confirmed ABG Interpretation ABG results: 05/08/25 18:50 ABG pH 7.27 L ABG pCO2 29 L ABG pO2 91 ABG HCO3 13 L ABG O2 Saturation 98 ABG Base Excess -13 L Quality Measures Quality Measures VTE prophylaxis Assessment & Plan Assessment Current Active Medications: Generic Name Dose Route Start Last Admin Trade Name Freq PRN Reason Stop Dose Admin Acetaminophen 650 mg 05/08/25 17:37 Acetaminophen 325 Mg Tablet PO 06/07/25 17:36 Q6H PRN Fever >100.3 or pain 1-3 Citric Acid/Sodium Citrate 30 ml 05/10/25 09:00 05/15/25 08:56 Citric Acid/Sodium Citr 15 Ml Udc (Bicitra) PO 06/09/25 08:59 Not Given BID ANNE Clobetasol Propionate 0 gm 05/09/25 09:00 05/15/25 09:26 Clobetasol Propionate Cr 15 Gm Tube TOP 05/16/25 08:59 1 applicatio BID ANNE Administration Dextrose 25 ml 05/08/25 19:30 05/08/25 19:37 Dextrose 50%-Water Inj 50 Ml Syringe IV 06/07/25 19:29 25 ml Q15MIN PRN Administration BG 50-70 responsive npo pt Dextrose 50 ml 05/08/25 19:30 Dextrose 50%-Water Inj 50 Ml Syringe IV 06/07/25 19:29 Q15MIN PRN BG <50 OR BG <70 & pt unresponsive Fluconazole 200 mg 05/10/25 09:00 05/15/25 08:41 Fluconazole 100 Mg Tablet PO 05/17/25 08:59 200 mg QDAY ANNE Administration Folic Acid 1 mg 05/14/25 09:00 05/15/25 08:41 Folic Acid 1 Mg Tablet PO 05/19/25 08:59 1 mg BID ANNE Administration Glucagon 1 mg 05/08/25 19:30 Glucagon Inj 1 Mg Vial IM Q15MIN PRN BG <70, and no IV access Guaifenesin 100 mg 05/13/25 17:53 Guaifenesin Syrup 200 Mg/10 Ml Udc PO 06/12/25 17:52 QID PRN COUGH Protocol Heparin Sodium (Porcine) 3,500 unit 05/11/25 13:02 05/14/25 16:17 Heparin Sod Inj 1000 Unit/Ml Vial 10 Ml INDWELLCAT 05/25/25 13:01 3,500 unit PRN PRN Administration DIALYSIS Lactulose 10 gm 05/08/25 17:37 05/10/25 16:03 Lactulose Syrup 20 Gm/30 Ml Udc PO 06/08/25 08:59 10 gm QDAY PRN Administration constipation Protocol Lorazepam 0.5 mg 05/14/25 05:12 Lorazepam 0.5 Mg Tablet PO 05/19/25 05:11 Q4HR PRN CIWA Score 2-6 Lorazepam 1 mg 05/14/25 05:12 Lorazepam 2 Mg/Ml Vial IV 05/19/25 05:11 Q2HR PRN CIWA SCORE 14-19 Lorazepam 2 mg 05/14/25 05:12 Lorazepam 2 Mg/Ml Vial IV 05/19/25 05:11 Q2HR PRN CIWA SCORE 20-25 Lorazepam 0.5 mg 05/15/25 09:42 Lorazepam 2 Mg/Ml Vial IV 05/19/25 05:11 Q2HR PRN CIWA SCORE 7-13 Magnesium Oxide 400 mg 05/13/25 09:15 05/15/25 08:41 Magnesium Oxide 400 Mg Tablet PO 06/12/25 09:14 400 mg QDAY ANNE Administration Mupirocin 0 gm 05/09/25 07:15 05/15/25 14:10 Mupirocin Oint 2% 15 Gm Tube TOP 05/16/25 07:14 Not Given TID ANNE Nystatin 5 ml 05/09/25 22:00 05/15/25 14:10 Nystatin Susp 5 Ml Udc PO 05/16/25 21:59 Not Given TID ANNE Ofloxacin 2 drop 05/09/25 08:00 05/15/25 17:06 Ofloxacin Op Farheen 0.3% 5 Ml Btl BOTH EYES 06/08/25 07:59 Not Given QID ANNE Ondansetron HCl 4 mg 05/14/25 17:29 Ondansetron Inj 2 Mg/Ml Inj 2 Ml IVP 06/07/25 18:35 Q6H PRN administer if vomiting/nauseus Protocol Pantoprazole Sodium 40 mg 05/08/25 21:00 05/15/25 08:41 Pantoprazole Inj 40 Mg Vial IVP 06/07/25 20:59 40 mg BID ANNE Administration Permethrin 0 gm 05/09/25 08:30 05/15/25 09:04 Permethrin Cr 5% 60 Gm Tube TOP 06/08/25 08:29 Not Given UD ANNE Thiamine HCl 100 mg 05/14/25 09:00 05/15/25 08:41 Thiamine 100 Mg Tablet PO 05/19/25 08:59 100 mg BID ANNE Administration Plan Mr. Prado is a 45 year old gentleman with a relevant medical history of liver cirrhosis, alcohol abuse, T2DM, and HTN, who presented to [facility] with a sense of malaise, N/V, and blood in vomit. Nephrology was consulted for concerns of ANGIE. #ANGIE on CKD stage IV, prerenal cause 2/2 liver cirrhosis Patient has a strong history of liver injury and alcohol abuse that resulted in Cr of 4.1, BUN of 36, and eGFR of 18 on admission. After 3 successive days of hemodialysis (05/10-05/12), the patient's Cr, BUN, and eGFR returned to baseline values on 05/13. Notably, after not having a hemodialysis session on 05/13, those noted lab values returned to their abnormal ranges. - Restarted hemodialysis for 05/14/25. - Recommend dialysis for 05/16/25 and followup outpatient dialysis. - Will continue to monitor Cr, BUN, and eGFR. - Nephrology will continue to follow. Patient was discussed with the Nephrology attending, Dr. Hogan. Thank you for allowing us to participate in the care of this patient. Felipe Harris, PGY-1 Attending Provider Attestation/Addendum Pt is seen and examined. labs reviewed. notes reviewed. agree with assessment and plan and findings of resident. Enrique Hogan MD
--- NOTE | 2025-05-15 14:31 | ESDS_ITS ---
<Statement entered by Heron Bernard MD - 05/17/25 09:35> I have discussed and was present for the essential components of the history, physical examination, diagnosis, and treatment plan with the resident. I agree with the patient's care as documented by the resident and amended herein by me. Heron Bernard MD FACP. <Statement entered by Meliza Cruz, STUDENT RE - 05/16/25 07:35> Mr. Prado was intended to discharge 05/15, however due to challenges with care coordination (pt requires an additional PT note prior to discharge) pt stayed overnight. Case discussed with my senior Dr. Ding. Meliza Cruz MD PGY-1 <Statement entered by Alvin Ding MD - 05/15/25 18:39> Patient seen and examined at bedside, no acute overnight events. I discussed and supervised with the internal medicine physician assistant physician who took care of this patient. I personally saw and examined the patient. I agree with most of the assessment and plan. Plan of care discussed with attending Dr. Bernard. Alvin Ding MD PGY-2 Planned Discharge Date Initially planned for 05/15/25, however due to care coordination issues pt will be discharged today 05/16/25 DS: Providers Provider Date of admission: 05/08/25 17:32 Primary care physician: Cj Lopez MD Admitting Provider: Mark Krause MD Attending Provider on Admission: Heron Bernard MD Consults: 05/08/25 16:52 Consult to Nephrology Routine Comment: ANGIE Consulting Provider: Darryn Duncan 05/08/25 17:21 Consult to Gastroenterology Routine Comment: upper GI bleed, decomp liver cirrhosis Consulting Provider: Ashley Figueroa 05/09/25 07:57 Referral Discharge Planning Routine Comment: [facility] 05/09/25 12:36 Consult to Urology Routine Comment: hawkins cath placement Consulting Provider: Ephraim Bone 05/11/25 09:55 Referral Physical Therapy Urgent Comment: Physician Instructions: Attending Provider on DC: Dr. Heron Bernard Discharging Provider: RESIDENT Christian DS: Diagnosis Problem List Completed Was Problem List Reviewed/Reconciled?: Yes Hospital Course Hospital Course Hospital course: Mr. Prado was admitted to the hospital for his alcohol induced Liver cirrhosis and ANGIE. While inpatient he received hemodialysis due to elevated Cr, BUN, and low eGFR (Nephrology was consulted). The pt had some hematemesis while inpatient. He received a total of 2 units PRBC for hgb< 7. EGD, revealed esophogeal elio, for which he will be discharged on fluconazole. . Paracentesis was performed for acities, 7L was removed. Pt with difficulty ambulating, however engaging with PT while inpatient. Pt scheduled for community hemodialysis and discharged to snf for PT. #Decompensated liver cirrhosis #Acites #ANGIE, on HD Discharge plan -fluconazole 200mg daily for 3 weeks The following meds have been STOPPED: -eliquis Please continue with all other medications as previously prescribed. You have been referred to Dr. Duncan, Pressroom Worker, for management of dialysis Please follow up with your primary doctor within 7-10 days Please return to ED if you develop new or worsening symptoms. Case discussed with my attending Dr. Joana Cruz MD PGY-1 Status at Discharge Cognitive/behavioral status at discharge: at baseline Time Spent with Patient Time attestation: Total time spent providing and/or coordinating discharge services: Time spent: Greater than 30 minutes Exam Vital Signs Temp Pulse Resp BP Pulse Ox O2 Del Method O2 Flow Rate 97.7 F 78 18 116/75 91 L Room Air 3 05/15/25 12:00 05/15/25 12:05/15/25 12:05/15/25 12:05/15/25 12:05/15/25 08:05/14/25 00:00 Narrative Exam Narrative Exam General: no acute distress, resting in bed. HEENT: NC/AT Cardiovascular: Normal S1 and S2. Regular rate and rhythm. Respiratory: Lungs are clear to auscultation bilaterally. normal work of breathing Abdomen: abdominal distension, positive fluid wave, non tender to palpation, : Hawkins catheter in place. Skin: scratch campbell all over his body with excoriations. dialysis cath in place on the Right chest Musculoskeletal: No gross injuries. Able to move all 4 extremities. Neuro: Alert and oriented x3. No focal neuro deficits. Discharge Plan Plan Patient Disposition: Xfer Skilled Nsg Fac (SNF) Patient condition on transfer: Stable Care Plan Goals: You have been started on the following medications: -fluconazole 200mg daily for 3 weeks The following meds have been STOPPED: -eliquis Please continue with all other medications as previously prescribed. You have been referred to Dr. Duncan, Pressroom Worker, for management of dialysis Please follow up with your primary doctor within 7-10 days Please return to ED if you develop new or worsening symptoms. Prescriptions/Referrals Prescriptions/Med Rec: New fluconazole 100 mg Tablet 200 mg PO QDAY 21 Days Qty: 42 0RF Continued pantoprazole 40 mg tablet,delayed release (DR/EC) 40 mg PO BID 30 Days Qty: 60 2RF quetiapine 100 mg tablet 100 mg PO HS levothyroxine 100 mcg tablet 100 mcg PO 1XD Patient Comments: TAKE 1 TABLET BY MOUTH DAILY IN THE MORNING ON AN EMPTY STOMACH amlodipine 10 mg tablet 10 mg PO 1XD Patient Comments: TAKE 1 TABLET BY MOUTH DAILY ferrous sulfate [FeroSul] 325 mg (65 mg iron) tablet 325 mg PO 1XD Patient Comments: TAKE 1 TABLET BY MOUTH DAILY folic acid 1 mg tablet 1 mg PO 1XD losartan 100 mg tablet 100 mg PO 1XD Patient Comments: TAKE 1 TABLET BY MOUTH DAILY Discontinued apixaban 5 mg tablet 5 mg PO BID Qty: 60 0RF Referrals: Cj Lopez MD [Primary Care Provider] - Darryn Duncan MD [Physician] - Patient/Caregiver Discharge Instructions Discharge Activity: as per physical therapy Education Materials: Paracentesis, Addiction: Getting Help, Addiction: Your Treatment Options, Addiction Recovery Counseling, Acute Kidney Failure Dc Print Language: Indonesian Stand Alone Forms: [facility] Award Info., Patient Portal Info Letter Discharge Order Discharge Orders: Discharge (Routine); Ordered 05/15/25 Ordered By: Alvin Ding Quality Discharge Quality Measures VTE prophylaxis
[2025-05-15 15:27] VITALS: BMI 13.0
[2025-05-15 16:00] VITALS: BP 109/88; PULSE 108; PULSE 91; RESP 18; TEMP 36.4; O2SAT 92
--- NOTE | 2025-05-15 16:00 | PC.SS ---
KYLEE was contacted by Rafaela from [facility] and she informed SS that they are not able to accept the patient after, she reported she reviewed the case with her DON.
[2025-05-15 20:00] VITALS: BP 124/90; PULSE 90; RESP 16; TEMP 36.5; O2SAT 97
[2025-05-16] VITALS (21 sets, daily range): BP systolic 95–123; BP diastolic 66–99; PULSE 68–123; RESP 18–21; TEMP 36.2–36.7; O2SAT 95–100; BMI 13.0
[2025-05-16 06:23] LABS: Basophils # (Auto) 0.0 Thou/mm3 (0.0-0.2); Basophils % (Auto) 0 % (0-2.5); Eosinophils # (Auto) 0.2 Thou/mm3 (0.0-0.5); Eosinophils % (Auto) 4 % (0-10); Hematocrit 24.4 % (41.0-53.0); Immature Granulocytes Auto 0.01 Thou/mm3 (0.00-0.00); Lymphocytes # (Auto) 1.4 Thou/mm3 (1.0-4.8); Lymphocytes % (Auto) 22 % (10-50); Mean Corpuscular HGB Conc 34.4 g/dl (31.0-37.0); Mean Corpuscular Hemoglobin 31.6 pg (25.0-35.0); Mean Corpuscular Volume 92 fL (80-100); Monocytes # (Auto) 0.8 Thou/mm3 (0.0-0.8); Monocytes % (Auto) 13 % (0-12); Neutrophils # (Auto) 3.9 Thou/mm3 (1.8-7.7); Neutrophils % (Auto) 61 % (37-80); Nucleated Red Blood Cell # 0.00 Thou/mm3 (0.00-0.00); Nucleated Red Blood Cell % 0 /100 WBC (0); Platelet Count 73 Thou/mm3 (140-440); RDW Standard Deviation 50.4 fL (35.1-43.9); Red Blood Count 2.66 Miln/mm3 (4.50-5.90); White Blood Count 6.3 Thou/mm3 (3.8-10.6)
[2025-05-16 06:29] LABS: Hemoglobin 8.4 g/dL (13.5-16.0)
[2025-05-16 06:30] LABS: Slide Review Platelets confirmed
[2025-05-16 07:05] LABS: Alanine Aminotransferase < 7 U/L (10-49); Albumin, Serum 2.6 gm/dL (3.5-5.0); Albumin/Globulin Ratio 1.1 (1.2-2.2); Alkaline Phosphatase 40 U/L (46-116); Anion Gap 9 (7-16); Aspartate Amino Transferase 13 U/L (0-34); BUN/Creatinine Ratio 4 Ratio (12-20); Bilirubin,Total 0.4 mg/dL (0.3-1.2); Blood Urea Nitrogen 14 mg/dL (9-23); Calcium 7.9 mg/dL (8.3-10.6); Calcium (Corrected) 9.0 mg/dL (8.5-10.1); Carbon Dioxide 25.0 mMol/L (20.0-31.0); Chloride 103 mMol/L (98-107); Creatinine (Component) 3.6 mg/dL (0.6-1.3); Estimated Creatinine Clearance 28.7 mL/min (>60); Globulin 2.3 gm/dL (2.3-3.5); Glucose 103 mg/dL (74-106); Magnesium 1.9 mg/dL (1.6-2.6); Osmolality,Calculated 274 (275-295); Phosphorous 3.6 mg/dL (2.4-5.1); Potassium 3.6 mMol/L (3.4-5.1); Sodium 137 mMol/L (136-145); Total Protein 4.9 gm/dL (5.7-8.2); eGFR 21 See Note
--- NOTE | 2025-05-16 09:02 | PC.SS ---
Addendum entered by Justyna Flower 05/16/25 13:22: SS follow up note; SS contacted patient's mother, Selina and provided patient's chair time and informed her that patient could discharge on Tuesday after dialysis. Patient's mother reported she rather have patient discharge on Tuesday, however would like SS to set up transportation with [employer]. SS updated Team A. SS will stand by for further needs. Addendum entered by Justyna Flower 05/16/25 11:24: SS follow up note; SS scheduled patient's transportation with [employer], for all next week for patient to be transported to [facility] Dialysis from home: :#[id number] [id number] Tuesday: [id number]. SS also contacted patient's mother and Jazmine from [facility] Dialysis and provide trip numbers for the wees transportation. Patient will discharge TuesdayMay 20. SS will stand by for further needs. Addendum entered by Justyna Flower 05/16/25 11:03: SS follow up note; SS contacted patient's mother, informing her of no SNF accepting patient. PT evaluation noted patient is able to ambulate 10FT. Mother informed SS that she contacted [facility] Dialysis center to attempt to change chair time for patient. SS informed patient's mother that SS could set up transportation for Tuesday for patient's first dialysis session to [facility] in [place]. Mother agreeable and verbalized understanding. Patient's mother also informed SS that she has a wheelchair and FWW for patient. Original Note: SS follow up note SS expanded the search, however patient is not getting accepted to SNF's. SS also contacted [facility] and they are not able to accept patient due to no male beds. SS contacted patient' mother and informed her that the goal is for PT to work with patient daily and for patient to be able to be able to Complete ADL's independently. At the time patient is able to ambulate and walk 10Ft. Patient's mother verbalized understanding. At the time insurance verification is pending with Erin for a FWW.
[2025-05-16] MEDS: ALBUMIN HUMAN 25% IVPB 25 GM/100 ML BTL IV (11:00)
--- NOTE | 2025-05-16 11:08 | PC.NURSE ---
BP TRENDING DOWN, PT DENIES ALL S/S OF HYPOTENSION WILL ADMIN PRN ALBUMIN 25/100ML PER MD ORDERS AND CONT. TO MONITOR
--- NOTE | 2025-05-16 12:33 | PC.NURSE ---
PT HR ELEVATED, PT NOTED AT RTHE TIME OF VS CHECK TO BE HAVING A BOUT OF COUGHING. PT DENIES ALL C/O CHEST PAIN, PRESSURE, US, SOB OR DISCOMFORT, WILL CONT. TO MONITOR
[2025-05-16] MEDS: HEPARIN SOD INJ 1000 UNIT/ML VIAL 10 ML 3500 UNIT INDWELLCAT (13:25)
--- NOTE | 2025-05-16 17:08 | PD.RESPRO ---
Documentation for date of: 05/16/25 Subjective Subjective Interval history: Overnight events: No acute events over Patient was seen and examined at entrance. Patient planning for discharge. Discussed with patient the need for outpatient dialysis. Patient is understood and was willing to pursue outpatient dialysis. Review of systems otherwise negative except for what is mentioned above. Exam Vital Signs Temp Pulse Resp BP Pulse Ox O2 Del Method O2 Flow Rate 97.4 F 84 21 H 119/80 98 Room Air 3 05/16/25 16:00 05/16/25 16:00 05/16/25 16:00 05/16/25 16:00 05/16/25 16:00 05/16/25 16:00 05/14/25 00:00 Narrative Exam Physical Exam: General: Alert, no acute distress. Head: Normocephalic, atraumatic. Respiratory: Respirations unlabored on room air. Neuro: No focal deficits observed. Conversant, moving all extremities. No overt cerebellar signs/incoordination. Psychiatric: Cooperative, appropriate affect. Objective Labs 05/18/25 04:24 05/18/25 04:24 Labs: Laboratory Results - last 24 hr 05/16/25 05:27 WBC 6.3 RBC 2.66 L Hgb 8.4 L Hct 24.4 L MCV 92 MCH 31.6 MCHC 34.4 RDW Std Deviation 50.4 H Plt Count 73 L Neut % (Auto) 61 Lymph % (Auto) 22 [place] % (Auto) 13 H Eos % (Auto) 4 Baso % (Auto) 0 Neut # (Auto) 3.9 Lymph # (Auto) 1.4 [place] # (Auto) 0.8 Eos # (Auto) 0.2 Baso # (Auto) 0.0 Immature Gran # (Auto) 0.01 H Absolute Nucleated RBC 0.00 Immature Gran % 0 Nucleated RBC % 0 Sodium 137 Potassium 3.6 Chloride 103 Carbon Dioxide 25.0 Anion Gap 9 BUN 14 Creatinine 3.6 H D Estim Creat Clear Calc 28.7 L eGFR 21 L BUN/Creatinine Ratio 4 L Glucose 103 Calculated Osmolality 274 L Calcium 7.9 L Corrected Calcium 9.0 Phosphorus 3.6 Magnesium 1.9 Total Bilirubin 0.4 AST 13 ALT < 7 L Alkaline Phosphatase 40 L Total Protein 4.9 L Albumin 2.6 L Globulin 2.3 Albumin/Globulin Ratio 1.1 L Misc Test Result Platelets confirmed ABG Interpretation ABG results: 05/08/25 18:50 ABG pH 7.27 L ABG pCO2 29 L ABG pO2 91 ABG HCO3 13 L ABG O2 Saturation 98 ABG Base Excess -13 L Quality Measures Quality Measures VTE prophylaxis Assessment & Plan Assessment Current Active Medications: Generic Name Dose Route Start Last Admin Trade Name Freq PRN Reason Stop Dose Admin Acetaminophen 650 mg 05/08/25 17:37 Acetaminophen 325 Mg Tablet PO 06/07/25 17:36 Q6H PRN Fever >100.3 or pain 1-3 Citric Acid/Sodium Citrate 30 ml 05/10/25 09:00 05/16/25 09:28 Citric Acid/Sodium Citr 15 Ml Udc (Bicitra) PO 06/09/25 08:59 Not Given BID ANNE Dextrose 25 ml 05/08/25 19:30 05/08/25 19:37 Dextrose 50%-Water Inj 50 Ml Syringe IV 06/07/25 19:29 25 ml Q15MIN PRN Administration BG 50-70 responsive npo pt Dextrose 50 ml 05/08/25 19:30 Dextrose 50%-Water Inj 50 Ml Syringe IV 06/07/25 19:29 Q15MIN PRN BG <50 OR BG <70 & pt unresponsive Fluconazole 200 mg 05/10/25 09:00 05/16/25 09:28 Fluconazole 100 Mg Tablet PO 05/17/25 08:59 Not Given QDAY ANNE Folic Acid 1 mg 05/14/25 09:00 05/16/25 09:28 Folic Acid 1 Mg Tablet PO 05/19/25 08:59 Not Given BID ANNE Glucagon 1 mg 05/08/25 19:30 Glucagon Inj 1 Mg Vial IM Q15MIN PRN BG <70, and no IV access Guaifenesin 100 mg 05/13/25 17:53 Guaifenesin Syrup 200 Mg/10 Ml Udc PO 06/12/25 17:52 QID PRN COUGH Protocol Heparin Sodium (Porcine) 3,500 unit 05/11/25 13:02 05/16/25 13:25 Heparin Sod Inj 1000 Unit/Ml Vial 10 Ml INDWELLCAT 05/25/25 13:01 3,500 unit PRN PRN Administration DIALYSIS Albumin Human 25 gm in 100 mls @ 100 mls/min 05/16/25 09:30 05/16/25 11:00 Albuminar-25 Ivpb IV 100 mls/min PRN PRN Administration DIALYSIS Lactulose 10 gm 05/08/25 17:37 05/10/25 16:03 Lactulose Syrup 20 Gm/30 Ml Udc PO 06/08/25 08:59 10 gm QDAY PRN Administration constipation Protocol Lorazepam 0.5 mg 05/14/25 05:12 Lorazepam 0.5 Mg Tablet PO 05/19/25 05:11 Q4HR PRN CIWA Score 2-6 Lorazepam 1 mg 05/14/25 05:12 Lorazepam 2 Mg/Ml Vial IV 05/19/25 05:11 Q2HR PRN CIWA SCORE 14-19 Lorazepam 2 mg 05/14/25 05:12 Lorazepam 2 Mg/Ml Vial IV 05/19/25 05:11 Q2HR PRN CIWA SCORE 20-25 Lorazepam 0.5 mg 05/15/25 09:42 Lorazepam 2 Mg/Ml Vial IV 05/19/25 05:11 Q2HR PRN CIWA SCORE 7-13 Magnesium Oxide 400 mg 05/13/25 09:15 05/16/25 09:28 Magnesium Oxide 400 Mg Tablet PO 06/12/25 09:14 Not Given QDAY ANNE Nystatin 5 ml 05/09/25 22:00 05/16/25 15:35 Nystatin Susp 5 Ml Udc PO 05/16/25 21:59 Not Given TID ANNE Ofloxacin 2 drop 05/09/25 08:00 05/16/25 16:47 Ofloxacin Op Farheen 0.3% 5 Ml Btl BOTH EYES 06/08/25 07:59 Not Given QID ANNE Ondansetron HCl 4 mg 05/14/25 17:29 Ondansetron Inj 2 Mg/Ml Inj 2 Ml IVP 06/07/25 18:35 Q6H PRN administer if vomiting/nauseus Protocol Pantoprazole Sodium 40 mg 05/08/25 21:00 05/16/25 09:38 Pantoprazole Inj 40 Mg Vial IVP 06/07/25 20:59 Not Given BID ANNE Permethrin 0 gm 05/09/25 08:30 05/16/25 09:27 Permethrin Cr 5% 60 Gm Tube TOP 06/08/25 08:29 Not Given UD ANNE Thiamine HCl 100 mg 05/14/25 09:00 05/16/25 09:28 Thiamine 100 Mg Tablet PO 05/19/25 08:59 Not Given BID ANNE Plan Mr. Prado is a 45 year old gentleman with a relevant medical history of liver cirrhosis, alcohol abuse, T2DM, and HTN, who presented to [facility] with a sense of malaise, N/V, and blood in vomit. Nephrology was consulted for concerns of ANGIE. #ANGIE on CKD stage IV, prerenal cause 2/2 liver cirrhosis Patient has a strong history of liver injury and alcohol abuse that resulted in Cr of 4.1, BUN of 36, and eGFR of 18 on admission. After 3 successive days of hemodialysis (05/10-05/12), the patient's Cr, BUN, and eGFR returned to baseline values on 05/13. Notably, after not having a hemodialysis session on 05/13, those noted lab values returned to their abnormal ranges. - Followup outpatient dialysis. Patient was discussed with the Nephrology attending, Dr. Hogan. Thank you for allowing us to participate in the care of this patient. Felipe Harris, PGY-1 Attending Provider Attestation/Addendum Pt is seen and examined. labs and investigations are reviewed. Agree with assessment and plan and findings by resident. Enrique Hogan [id number];
--- NOTE | 2025-05-16 17:47 | PC.PT ---
Patient is safe to ambulate to the bathroom with a FWW and 1 staff assist. RN made aware.
--- NOTE | 2025-05-16 18:38 | PC.NURSE ---
informed by MT that pt heart rate was in the 140's 1-2 min, notify.
--- NOTE | 2025-05-16 19:07 | ESPR_ITS ---
<Statement entered by Heron Bernard MD - 05/19/25 15:00> I have discussed and was present for the essential components of the history, physical examination, diagnosis, and treatment plan with the resident. I agree with the patient's care as documented by the resident and amended herein by me. Heron Bernard MD FACP. Documentation for date of: 05/16/25 Subjective Subjective Interval history: No acute events overnight per PT patient can ambulate to toilet Exam Vital Signs Temp Pulse Resp BP Pulse Ox O2 Del Method O2 Flow Rate 97.4 F 84 21 H 119/80 98 Room Air 3 05/16/25 16:00 05/16/25 16:00 05/16/25 16:00 05/16/25 16:00 05/16/25 16:00 05/16/25 16:00 05/14/25 00:00 Narrative Exam General: no acute distress, resting in bed. HEENT: NC/AT Cardiovascular: Normal S1 and S2. Regular rate and rhythm. Respiratory: Lungs are clear to auscultation bilaterally. normal work of breathing Abdomen: abdominal distension, positive fluid wave, non tender to palpation, : Hawkins catheter in place. Skin: scratch campbell all over his anterior body with excoriations, Posterior of patient does not have any excoriations. dialysis cath in place on the Right chest Musculoskeletal: No gross injuries. Able to move all 4 extremities. Neuro: Alert and oriented x3. No focal neuro deficits. Objective Labs 05/16/25 05:27 05/16/25 05:27 Labs: Laboratory Results - last 24 hr 05/16/25 05:27 WBC 6.3 RBC 2.66 L Hgb 8.4 L Hct 24.4 L MCV 92 MCH 31.6 MCHC 34.4 RDW Std Deviation 50.4 H Plt Count 73 L Neut % (Auto) 61 Lymph % (Auto) 22 [place] % (Auto) 13 H Eos % (Auto) 4 Baso % (Auto) 0 Neut # (Auto) 3.9 Lymph # (Auto) 1.4 [place] # (Auto) 0.8 Eos # (Auto) 0.2 Baso # (Auto) 0.0 Immature Gran # (Auto) 0.01 H Absolute Nucleated RBC 0.00 Immature Gran % 0 Nucleated RBC % 0 Sodium 137 Potassium 3.6 Chloride 103 Carbon Dioxide 25.0 Anion Gap 9 BUN 14 Creatinine 3.6 H D Estim Creat Clear Calc 28.7 L eGFR 21 L BUN/Creatinine Ratio 4 L Glucose 103 Calculated Osmolality 274 L Calcium 7.9 L Corrected Calcium 9.0 Phosphorus 3.6 Magnesium 1.9 Total Bilirubin 0.4 AST 13 ALT < 7 L Alkaline Phosphatase 40 L Total Protein 4.9 L Albumin 2.6 L Globulin 2.3 Albumin/Globulin Ratio 1.1 L Misc Test Result Platelets confirmed ABG Interpretation ABG results: 05/08/25 18:50 ABG pH 7.27 L ABG pCO2 29 L ABG pO2 91 ABG HCO3 13 L ABG O2 Saturation 98 ABG Base Excess -13 L Quality Measures Quality Measures VTE prophylaxis Assessment & Plan Assessment Current Active Medications: Generic Name Dose Route Start Last Admin Trade Name Freq PRN Reason Stop Dose Admin Acetaminophen 650 mg 05/08/25 17:37 Acetaminophen 325 Mg Tablet PO 06/07/25 17:36 Q6H PRN Fever >100.3 or pain 1-3 Citric Acid/Sodium Citrate 30 ml 05/10/25 09:00 05/16/25 09:28 Citric Acid/Sodium Citr 15 Ml Udc (Bicitra) PO 06/09/25 08:59 Not Given BID ANNE Dextrose 25 ml 05/08/25 19:30 05/08/25 19:37 Dextrose 50%-Water Inj 50 Ml Syringe IV 06/07/25 19:29 25 ml Q15MIN PRN Administration BG 50-70 responsive npo pt Dextrose 50 ml 05/08/25 19:30 Dextrose 50%-Water Inj 50 Ml Syringe IV 06/07/25 19:29 Q15MIN PRN BG <50 OR BG <70 & pt unresponsive Fluconazole 200 mg 05/10/25 09:00 05/16/25 09:28 Fluconazole 100 Mg Tablet PO 05/17/25 08:59 Not Given QDAY ANNE Folic Acid 1 mg 05/14/25 09:00 05/16/25 09:28 Folic Acid 1 Mg Tablet PO 05/19/25 08:59 Not Given BID ANNE Glucagon 1 mg 05/08/25 19:30 Glucagon Inj 1 Mg Vial IM Q15MIN PRN BG <70, and no IV access Guaifenesin 100 mg 05/13/25 17:53 Guaifenesin Syrup 200 Mg/10 Ml Udc PO 06/12/25 17:52 QID PRN COUGH Protocol Heparin Sodium (Porcine) 3,500 unit 05/11/25 13:02 05/16/25 13:25 Heparin Sod Inj 1000 Unit/Ml Vial 10 Ml INDWELLCAT 05/25/25 13:01 3,500 unit PRN PRN Administration DIALYSIS Albumin Human 25 gm in 100 mls @ 100 mls/min 05/16/25 09:30 05/16/25 11:00 Albuminar-25 Ivpb IV 100 mls/min PRN PRN Administration DIALYSIS Lactulose 10 gm 05/08/25 17:37 05/10/25 16:03 Lactulose Syrup 20 Gm/30 Ml Udc PO 06/08/25 08:59 10 gm QDAY PRN Administration constipation Protocol Lorazepam 0.5 mg 05/14/25 05:12 Lorazepam 0.5 Mg Tablet PO 05/19/25 05:11 Q4HR PRN CIWA Score 2-6 Lorazepam 1 mg 05/14/25 05:12 Lorazepam 2 Mg/Ml Vial IV 05/19/25 05:11 Q2HR PRN CIWA SCORE 14-19 Lorazepam 2 mg 05/14/25 05:12 Lorazepam 2 Mg/Ml Vial IV 05/19/25 05:11 Q2HR PRN CIWA SCORE 20-25 Lorazepam 0.5 mg 05/15/25 09:42 Lorazepam 2 Mg/Ml Vial IV 05/19/25 05:11 Q2HR PRN CIWA SCORE 7-13 Magnesium Oxide 400 mg 05/13/25 09:15 05/16/25 09:28 Magnesium Oxide 400 Mg Tablet PO 06/12/25 09:14 Not Given QDAY ANNE Nystatin 5 ml 05/09/25 22:00 05/16/25 15:35 Nystatin Susp 5 Ml Udc PO 05/16/25 21:59 Not Given TID ANNE Ofloxacin 2 drop 05/09/25 08:00 05/16/25 16:47 Ofloxacin Op Farheen 0.3% 5 Ml Btl BOTH EYES 06/08/25 07:59 Not Given QID ANNE Ondansetron HCl 4 mg 05/14/25 17:29 Ondansetron Inj 2 Mg/Ml Inj 2 Ml IVP 06/07/25 18:35 Q6H PRN administer if vomiting/nauseus Protocol Pantoprazole Sodium 40 mg 05/08/25 21:00 05/16/25 09:38 Pantoprazole Inj 40 Mg Vial IVP 06/07/25 20:59 Not Given BID [facility] Permethrin 0 gm 05/09/25 08:30 05/16/25 09:27 Permethrin Cr 5% 60 Gm Tube TOP 06/08/25 08:29 Not Given UD ANNE Thiamine HCl 100 mg 05/14/25 09:00 05/16/25 09:28 Thiamine 100 Mg Tablet PO 05/19/25 08:59 Not Given BID ANNE Plan 44-year-old male with active alcohol use disorder with subsequent end-stage liver disease, type 2 diabetes mellitus, hypertension who presented to ED 05/08/2025 due to generalized complaint of malaise. Pt endorses active alcohol use history endorses drinking 1 quart of beer per day. Nephrology Dr Duncan consulted for ANGIE and GI Dr. Figueroa consulted for GI bleed. discharge to home pending HD on tuesday. #Decompensated liver cirrhosis #Paracentesis Has history of liver cirrhosis, presenting with apparent ascites, no coagulopathy, bilirubin normal, AST/ALT normal, ammonia normal. Patient alert and oriented x 3. Endorses few episodes of hematemesis, hemoglobin 7.6 on admission and MCV 95. Endorses alcohol intake of 1 quart of beer per day for the past 20 years. Denies getting abdominal tap for ascites in the past. 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 - Heptatitis panel negative - U/s paracentesis 05/13 by IR: Approximately 7L were removed and sample sent for analysis. Albumin was repleted for total of 50 g. - Consulted GI Dr. Figueroa, appreciate recommendations - Daily coag panel - Daily CBC Tx ?IV ceftriaxone 1 g daily (05/08- ?IV pantoprazole 40 mg BID ?Albumin 25 g BID (05/08- -IV Zofran 4mg IV q6h PRN #ANGIE on CKD stage IV Prerenal versus hepatorenal. BUN 36, creatinine 4.1 (baseline appears to be around 2), GFR 18, ratio 9. Systemic vasodilation and causing prerenal ANGIE may also be in the setting of liver cirrhosis. If prerenal, anticipate improvement with volume expansion. However at this time we will diurese due to his severe ascites. 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 Renal ultrasound showed scar formation, atrophic kidneys Dx - daily CMP (CTM BUN, CR, and eGFR) Tx - consulted nephrology Dr Duncan, appreciate recommendations--going to temporary dialysis catheter. - continue inpatient Hemodialysis (Tuesday, , Tuesday) ? Care coordination updated for arranging outpatient dialysis chair (per Social work, change time to later than 05) ? IV Bumex 1 mg BID - avoid nephrotoxic agents - renally dose meds #Upper GI bleed ruled out #Normocytic anemia Most likely secondary due to chronic kidney disease. EGD negative for esophageal varices or any bleeding. pt with nonbloody emesis throughout the day - 05/14 pt transfused with 1 units PRBC for Hgb 6.7 from 7.1, H/H appropriately bumped. - Will continue close monitor any signs of bleeding - Transfuse if hemoglobin less than 7 - ondansetron PRN #Ary esophagitis EGD 05/10/25: negative for variceal bleeding, findings of Ary esophagitis ?Continue Diflucan 200 mg daily ? Nystatin swish and swallow #Electrolyte abnormalities Potassium 3.3, bicarb 15 on admission ? Replete PRN ? Daily CMP #Skin rash Noticeable excoriations throughout upper extremities, anterior chest, none on posterior body, unlikely 2/2 to bedbugs vs scabies. consider that excoriations are 2/2 liver dysfunction, cirrhosis.Patient endorses intermittent pruritus. - continue permethrin daily - Clobetasol topical BID ANNE -isolation precautions - consult ID regarding discontinuing contact precautions #Phimosis -topical cream with steroid Health maintenance: Dispo: medsurg, ANGIE needing HD, will dispo to home (mom agreed, given pt able to ambulate Diet: renal VTE prophylaxis: SCDs Bowel reg: lactulose prn Lines: d/c hawkins catheter 05/16, pt able to ambulate to toilet CODE STATUS: Full code Case discussed with my attending Dr. Joana Cruz MD PGY-1 Patient seen and examined at bedside, no acute overnight events. I discussed and supervised with the internal revenue service agent physician who took care of this patient. I personally saw and examined the patient. I agree with most of the assessment and plan. Tentative plan to discharge patient on Tuesday to home with his mother. Continuing physical therapy in the meantime. Continuing dialysis, patient has outpatient dialysis set up. Patient currently contact precautions, due to excoriations on lower and upper extremities. However there is no signs of scabies or bedbugs, will follow-up with infection control. Plan of care discussed with attending Dr. Bernard. Alvin Ding MD PGY-2
--- NOTE | 2025-05-16 20:49 | ESPR_ITS ---
Documentation for date of: 05/16/25 Subjective Subjective Interval history: Hemoglobin hematocrit 8.4 and 24.4 Downtrending Exam Vital Signs Temp Pulse Resp BP Pulse Ox O2 Del Method O2 Flow Rate 97.8 F 97 18 103/79 96 Room Air 3 05/16/25 20:00 05/16/25 20:00 05/16/25 20:00 05/16/25 20:00 05/16/25 20:00 05/16/25 20:00 05/14/25 00:00 Objective Labs 05/16/25 05:27 05/16/25 05:27 Labs: Laboratory Results - last 24 hr 05/16/25 05:27 WBC 6.3 RBC 2.66 L Hgb 8.4 L Hct 24.4 L MCV 92 MCH 31.6 MCHC 34.4 RDW Std Deviation 50.4 H Plt Count 73 L Neut % (Auto) 61 Lymph % (Auto) 22 [place] % (Auto) 13 H Eos % (Auto) 4 Baso % (Auto) 0 Neut # (Auto) 3.9 Lymph # (Auto) 1.4 [place] # (Auto) 0.8 Eos # (Auto) 0.2 Baso # (Auto) 0.0 Immature Gran # (Auto) 0.01 H Absolute Nucleated RBC 0.00 Immature Gran % 0 Nucleated RBC % 0 Sodium 137 Potassium 3.6 Chloride 103 Carbon Dioxide 25.0 Anion Gap 9 BUN 14 Creatinine 3.6 H D Estim Creat Clear Calc 28.7 L eGFR 21 L BUN/Creatinine Ratio 4 L Glucose 103 Calculated Osmolality 274 L Calcium 7.9 L Corrected Calcium 9.0 Phosphorus 3.6 Magnesium 1.9 Total Bilirubin 0.4 AST 13 ALT < 7 L Alkaline Phosphatase 40 L Total Protein 4.9 L Albumin 2.6 L Globulin 2.3 Albumin/Globulin Ratio 1.1 L Misc Test Result Platelets confirmed Impressions Impression: Esophageal ulcers Continue PPIs and monitor CBC ABG Interpretation ABG results: 05/08/25 18:50 ABG pH 7.27 L ABG pCO2 29 L ABG pO2 91 ABG HCO3 13 L ABG O2 Saturation 98 ABG Base Excess -13 L Assessment & Plan A&P Narrative # Hematemesis in setting of cirrhotic liver disease due to alcohol Plan Octreotide infusion at 50 mcg/h after 50 mcg IV push loading dose IV Protonix serial CBC Consent obtained for fiberoptic esophagogastroduodenoscopy with possible therapeutic intervention under intravenous moderate sedation Patient should receive at least 2 units of PRBC N.p.o. Other medical problems include End-stage liver disease secondary to alcohol ANGIE Chronic alcoholic dependency Advanced portal hypertension Thank you very much for the opportunity to participate in the care of this patient Time Spent With Patient Time: Total time spent is greater than 50% in coordination of care (as documented) at patient's floor/unit and/or counseling patient:
[2025-05-16] MEDS: FOLIC ACID 1 MG TABLET PO (21:08)
[2025-05-16] MEDS: THIAMINE 100 MG TABLET PO (21:08)
[2025-05-16] MEDS: CITRIC ACID/SODIUM CITR 15 ML UDC (BICITRA) 30 ML PO (21:08)
[2025-05-17] VITALS: BP 116/82; PULSE 90; RESP 16; TEMP 36.1; O2SAT 97
[2025-05-17 04:00] VITALS: BP 118/81; PULSE 89; RESP 17; TEMP 36.2; O2SAT 97
[2025-05-17 06:01] LABS: Basophils # (Auto) 0.0 Thou/mm3 (0.0-0.2); Basophils % (Auto) 0 % (0-2.5); Eosinophils # (Auto) 0.2 Thou/mm3 (0.0-0.5); Eosinophils % (Auto) 4 % (0-10); Hematocrit 22.6 % (41.0-53.0); Immature Granulocytes Auto 0.02 Thou/mm3 (0.00-0.00); Lymphocytes # (Auto) 1.6 Thou/mm3 (1.0-4.8); Lymphocytes % (Auto) 28 % (10-50); Mean Corpuscular HGB Conc 33.6 g/dl (31.0-37.0); Mean Corpuscular Hemoglobin 31.5 pg (25.0-35.0); Mean Corpuscular Volume 94 fL (80-100); Monocytes # (Auto) 0.8 Thou/mm3 (0.0-0.8); Monocytes % (Auto) 14 % (0-12); Neutrophils # (Auto) 3.1 Thou/mm3 (1.8-7.7); Neutrophils % (Auto) 54 % (37-80); Nucleated Red Blood Cell # 0.00 Thou/mm3 (0.00-0.00); Nucleated Red Blood Cell % 0 /100 WBC (0); RDW Standard Deviation 51.6 fL (35.1-43.9); Red Blood Count 2.41 Miln/mm3 (4.50-5.90); White Blood Count 5.8 Thou/mm3 (3.8-10.6)
[2025-05-17 06:13] LABS: Hemoglobin 7.6 g/dL (13.5-16.0); Platelet Count 72 Thou/mm3 (140-440)
[2025-05-17 06:27] LABS: Albumin, Serum 2.8 gm/dL (3.5-5.0); Albumin/Globulin Ratio 1.3 (1.2-2.2); Alkaline Phosphatase 38 U/L (46-116); Anion Gap 6 (7-16); Aspartate Amino Transferase 15 U/L (0-34); BUN/Creatinine Ratio 4 Ratio (12-20); Bilirubin,Total 0.4 mg/dL (0.3-1.2); Blood Urea Nitrogen 12 mg/dL (9-23); Calcium 8.1 mg/dL (8.3-10.6); Calcium (Corrected) 9.1 mg/dL (8.5-10.1); Carbon Dioxide 29.3 mMol/L (20.0-31.0); Chloride 101 mMol/L (98-107); Creatinine (Component) 3.1 mg/dL (0.6-1.3); Estimated Creatinine Clearance 33.4 mL/min (>60); Globulin 2.2 gm/dL (2.3-3.5); Glucose 155 mg/dL (74-106); Magnesium 1.7 mg/dL (1.6-2.6); Osmolality,Calculated 274 (275-295); Phosphorous 2.8 mg/dL (2.4-5.1); Potassium 3.6 mMol/L (3.4-5.1); Sodium 136 mMol/L (136-145); Total Protein 5.0 gm/dL (5.7-8.2); eGFR 25 See Note
[2025-05-17 06:30] LABS: Slide Review Platelets confirmed
[2025-05-17 06:31] LABS: Alanine Aminotransferase < 7 U/L (10-49)
[2025-05-17 08:00] VITALS: BP 120/84; PULSE 116; PULSE 85; RESP 19; TEMP 36.2; O2SAT 96
--- NOTE | 2025-05-17 09:09 | PD.RESPRO ---
Documentation for date of: 05/17/25 Subjective Subjective Interval history: Overnight events: No acute events overnight. Patient was seen and examined at doorway. AM vitals and labs reviewed. Patient was asleep during visit. Dialysis performed yesterday for 3 hours, net removal of 0.9L, with no complications reported during dialysis session. AM labs show BUN 12, Cr 3.1, and eGFR 25. Other chemistries and phosphorus within normal limits. Plan for dialysis treatment tomorrow if patient is still in hospital, otherwise plan for //Tue dialysis schedule outpatient. Review of systems otherwise negative except for what is mentioned above. Exam Vital Signs Temp Pulse Resp BP Pulse Ox O2 Del Method O2 Flow Rate 97.8 F 87 18 129/85 H 97 Room Air 3 05/17/25 16:00 05/17/25 16:00 05/17/25 16:00 05/17/25 16:00 05/17/25 16:00 05/17/25 16:00 05/14/25 00:00 Narrative Exam Physical Exam: General: Asleep, no acute distress. Head: Normocephalic, atraumatic. Respiratory: Respirations unlabored on room air. Objective Labs 05/18/25 04:24 05/18/25 04:24 Labs: Laboratory Results - last 24 hr 05/17/25 05:30 WBC 5.8 RBC 2.41 L Hgb 7.6 L Hct 22.6 L MCV 94 MCH 31.5 MCHC 33.6 RDW Std Deviation 51.6 H Plt Count 72 L Neut % (Auto) 54 Lymph % (Auto) 28 [place] % (Auto) 14 H Eos % (Auto) 4 Baso % (Auto) 0 Neut # (Auto) 3.1 Lymph # (Auto) 1.6 [place] # (Auto) 0.8 Eos # (Auto) 0.2 Baso # (Auto) 0.0 Immature Gran # (Auto) 0.02 H Absolute Nucleated RBC 0.00 Immature Gran % 0 Nucleated RBC % 0 Sodium 136 Potassium 3.6 Chloride 101 Carbon Dioxide 29.3 Anion Gap 6 L BUN 12 Creatinine 3.1 H D Estim Creat Clear Calc 33.4 L eGFR 25 L BUN/Creatinine Ratio 4 L Glucose 155 H D Calculated Osmolality 274 L Calcium 8.1 L Corrected Calcium 9.1 Phosphorus 2.8 Magnesium 1.7 Total Bilirubin 0.4 AST 15 ALT < 7 L Alkaline Phosphatase 38 L Total Protein 5.0 L Albumin 2.8 L Globulin 2.2 L Albumin/Globulin Ratio 1.3 Misc Test Result Platelets confirmed ABG Interpretation ABG results: 05/08/25 18:50 ABG pH 7.27 L ABG pCO2 29 L ABG pO2 91 ABG HCO3 13 L ABG O2 Saturation 98 ABG Base Excess -13 L Quality Measures Quality Measures VTE prophylaxis Assessment & Plan Assessment Current Active Medications: Generic Name Dose Route Start Last Admin Trade Name Swetha PRN Reason Stop Dose Admin Acetaminophen 650 mg 05/08/25 17:37 Acetaminophen 325 Mg Tablet PO 06/07/25 17:36 Q6H PRN Fever >100.3 or pain 1-3 Citric Acid/Sodium Citrate 30 ml 05/10/25 09:00 05/17/25 09:22 Citric Acid/Sodium Citr 15 Ml Udc (Bicitra) PO 06/09/25 08:59 30 ml BID ANNE Administration Dextrose 25 ml 05/08/25 19:30 05/08/25 19:37 Dextrose 50%-Water Inj 50 Ml Syringe IV 06/07/25 19:29 25 ml Q15MIN PRN Administration BG 50-70 responsive npo pt Dextrose 50 ml 05/08/25 19:30 Dextrose 50%-Water Inj 50 Ml Syringe IV 06/07/25 19:29 Q15MIN PRN BG <50 OR BG <70 & pt unresponsive Folic Acid 1 mg 05/14/25 09:00 05/17/25 09:22 Folic Acid 1 Mg Tablet PO 05/19/25 08:59 1 mg BID ANNE Administration Glucagon 1 mg 05/08/25 19:30 Glucagon Inj 1 Mg Vial IM Q15MIN PRN BG <70, and no IV access Guaifenesin 100 mg 05/13/25 17:53 Guaifenesin Syrup 200 Mg/10 Ml Udc PO 06/12/25 17:52 QID PRN COUGH Protocol Heparin Sodium (Porcine) 3,500 unit 05/11/25 13:02 05/16/25 13:25 Heparin Sod Inj 1000 Unit/Ml Vial 10 Ml INDWELLCAT 05/25/25 13:01 3,500 unit PRN PRN Administration DIALYSIS Albumin Human 25 gm in 100 mls @ 100 mls/min 05/16/25 09:30 05/16/25 11:00 Albuminar-25 Ivpb IV 100 mls/min PRN PRN Administration DIALYSIS Lactulose 10 gm 05/08/25 17:37 05/10/25 16:03 Lactulose Syrup 20 Gm/30 Ml Udc PO 06/08/25 08:59 10 gm QDAY PRN Administration constipation Protocol Lorazepam 0.5 mg 05/14/25 05:12 Lorazepam 0.5 Mg Tablet PO 05/19/25 05:11 Q4HR PRN CIWA Score 2-6 Lorazepam 1 mg 05/14/25 05:12 Lorazepam 2 Mg/Ml Vial IV 05/19/25 05:11 Q2HR PRN CIWA SCORE 14-19 Lorazepam 2 mg 05/14/25 05:12 Lorazepam 2 Mg/Ml Vial IV 05/19/25 05:11 Q2HR PRN CIWA SCORE 20-25 Lorazepam 0.5 mg 05/15/25 09:42 Lorazepam 2 Mg/Ml Vial IV 05/19/25 05:11 Q2HR PRN CIWA SCORE 7-13 Magnesium Oxide 400 mg 05/13/25 09:15 05/17/25 09:22 Magnesium Oxide 400 Mg Tablet PO 06/12/25 09:14 400 mg QDAY ANNE Administration Ofloxacin 2 drop 05/09/25 08:00 05/17/25 12:05 Ofloxacin Op Farheen 0.3% 5 Ml Btl BOTH EYES 06/08/25 07:59 Not Given QID ANNE Ondansetron HCl 4 mg 05/14/25 17:29 Ondansetron Inj 2 Mg/Ml Inj 2 Ml IVP 06/07/25 18:35 Q6H PRN administer if vomiting/nauseus Protocol Pantoprazole Sodium 40 mg 05/08/25 21:00 05/17/25 09:22 Pantoprazole Inj 40 Mg Vial IVP 06/07/25 20:59 40 mg BID ANNE Administration Permethrin 0 gm 05/09/25 08:30 05/17/25 09:17 Permethrin Cr 5% 60 Gm Tube TOP 06/08/25 08:29 Not Given UD ANNE Thiamine HCl 100 mg 05/14/25 09:00 05/17/25 09:22 Thiamine 100 Mg Tablet PO 05/19/25 08:59 100 mg BID ANNE Administration Plan Mr. Prado is a 45 year old gentleman with a relevant medical history of liver cirrhosis, alcohol abuse, T2DM, and HTN, who presented to [facility] with a sense of malaise, N/V, and blood in vomit. Nephrology was consulted for concerns of ANGIE. #ANGIE on CKD stage IV, prerenal cause 2/2 liver cirrhosis - Hemodialysis T//Tue & arrange outpatient dialysis. Next dialysis session planned for 05/18/2025. - Continue diuresis with Bumex 1mg IV BID. - Continue to trend renal lab values. - Avoid nephrotoxic drugs & renally adjust medication. Patient was discussed with the Nephrology attending, Dr. Hogna. Thank you for allowing us to participate in the care of this patient. Felipe Harris, PGY-1 Attending Provider Attestation/Addendum Pt is seen and examined. labs and investigations are reviewed. Agree with assessment and plan and findings by resident. Enrique Hogan MD
[2025-05-17] MEDS: THIAMINE 100 MG TABLET PO ×2 (09:22→20:23)
[2025-05-17] MEDS: MAGNESIUM OXIDE 400 MG TABLET PO (09:22)
[2025-05-17] MEDS: FOLIC ACID 1 MG TABLET PO ×2 (09:22→20:22)
[2025-05-17] MEDS: CITRIC ACID/SODIUM CITR 15 ML UDC (BICITRA) 30 ML PO ×2 (09:22→20:23)
[2025-05-17 09:49] VITALS: BMI 32.8
--- NOTE | 2025-05-17 11:41 | PC.SS ---
Rounding: Plan for pt to receive HD in house tomorrow 05/18 and DC home after.
[2025-05-17 12:00] VITALS: BP 121/85; PULSE 85; PULSE 93; RESP 19; TEMP 36.6; O2SAT 97
--- NOTE | 2025-05-17 12:48 | PC.NURSE ---
DR. LYMAN WAS MADE AWARE DR. TRUONG INSERTED PATIENT SALAS CATHETER DUE TO COMPLEX DIFFICULT INSERTION. DR. LYMAN WILL COORDINATE WITH DR. TRUONG BEFORE REMOVING SALAS CATHETER.
--- NOTE | 2025-05-17 14:23 | PD.IMPROG ---
Documentation for date of: 05/17/25 Subjective Subjective Interval history: patient evaluated downtrending hemoglobin hematocrit If patient continues to drop hemoglobin hematocrit might consider doing a colonoscopy Exam Vital Signs Temp Pulse Resp BP Pulse Ox O2 Del Method O2 Flow Rate 97.1 F 85 19 120/84 96 Room Air 3 05/17/25 08:00 05/17/25 12:00 05/17/25 08:00 05/17/25 08:00 05/17/25 08:00 05/17/25 08:00 05/14/25 00:00 Objective Labs 05/17/25 05:30 05/17/25 05:30 Labs: Laboratory Results - last 24 hr 05/17/25 05:30 WBC 5.8 RBC 2.41 L Hgb 7.6 L Hct 22.6 L MCV 94 MCH 31.5 MCHC 33.6 RDW Std Deviation 51.6 H Plt Count 72 L Neut % (Auto) 54 Lymph % (Auto) 28 [place] % (Auto) 14 H Eos % (Auto) 4 Baso % (Auto) 0 Neut # (Auto) 3.1 Lymph # (Auto) 1.6 [place] # (Auto) 0.8 Eos # (Auto) 0.2 Baso # (Auto) 0.0 Immature Gran # (Auto) 0.02 H Absolute Nucleated RBC 0.00 Immature Gran % 0 Nucleated RBC % 0 Sodium 136 Potassium 3.6 Chloride 101 Carbon Dioxide 29.3 Anion Gap 6 L BUN 12 Creatinine 3.1 H D Estim Creat Clear Calc 33.4 L eGFR 25 L BUN/Creatinine Ratio 4 L Glucose 155 H D Calculated Osmolality 274 L Calcium 8.1 L Corrected Calcium 9.1 Phosphorus 2.8 Magnesium 1.7 Total Bilirubin 0.4 AST 15 ALT < 7 L Alkaline Phosphatase 38 L Total Protein 5.0 L Albumin 2.8 L Globulin 2.2 L Albumin/Globulin Ratio 1.3 Misc Test Result Platelets confirmed Impressions Impression: Mid esophageal ulcers distal esophageal ulcers Posthemorrhagic anemia continue current management ABG Interpretation ABG results: 05/08/25 18:50 ABG pH 7.27 L ABG pCO2 29 L ABG pO2 91 ABG HCO3 13 L ABG O2 Saturation 98 ABG Base Excess -13 L Assessment & Plan A&P Narrative # Hematemesis in setting of cirrhotic liver disease due to alcohol Plan Octreotide infusion at 50 mcg/h after 50 mcg IV push loading dose IV Protonix serial CBC Consent obtained for fiberoptic esophagogastroduodenoscopy with possible therapeutic intervention under intravenous moderate sedation Patient should receive at least 2 units of PRBC N.p.o. Other medical problems include End-stage liver disease secondary to alcohol ANGIE Chronic alcoholic dependency Advanced portal hypertension Thank you very much for the opportunity to participate in the care of this patient Time Spent With Patient Time: Total time spent is greater than 50% in coordination of care (as documented) at patient's floor/unit and/or counseling patient:
[2025-05-17 16:00] VITALS: BP 129/85; PULSE 64; PULSE 87; RESP 18; TEMP 36.6; O2SAT 97
--- NOTE | 2025-05-17 19:45 | ESPR_ITS ---
Documentation for date of: 05/17/25 Subjective Subjective Interval history: Patient was seen and examined at bedside. No acute overnight events were reported. Patient was stable and reported that he wants that Hawkins should be removed. Dr. Bone, urologist was consulted and he recommended the patient has difficulty in urination and Hawkins catheter was placed after 4 attempts. He recommended to keep Hawkins catheter and let the patient follow him in his outpatient clinic. Patient would need dorsal slit or circumcision due to severe phimosis. Exam Vital Signs Temp Pulse Resp BP Pulse Ox O2 Del Method O2 Flow Rate 97.8 F 87 18 129/85 H 97 Room Air 3 05/17/25 16:00 05/17/25 16:00 05/17/25 16:00 05/17/25 16:00 05/17/25 16:05/17/25 16:05/14/25 00:00 Narrative Exam General: no acute distress, resting in bed. HEENT: NC/AT Cardiovascular: Normal S1 and S2. Regular rate and rhythm. Respiratory: Lungs are clear to auscultation bilaterally. normal work of breathing Abdomen: abdominal distension, positive fluid wave, non tender to palpation, : Hawkins catheter in place. Skin: scratch campbell all over his anterior body with excoriations, Posterior of patient does not have any excoriations. dialysis cath in place on the Right chest Musculoskeletal: No gross injuries. Able to move all 4 extremities. Neuro: Alert and oriented x3. No focal neuro deficits. Objective Labs 05/18/25 04:24 05/18/25 04:24 Labs: Laboratory Results - last 24 hr 05/17/25 05:30 WBC 5.8 RBC 2.41 L Hgb 7.6 L Hct 22.6 L MCV 94 MCH 31.5 MCHC 33.6 RDW Std Deviation 51.6 H Plt Count 72 L Neut % (Auto) 54 Lymph % (Auto) 28 [place] % (Auto) 14 H Eos % (Auto) 4 Baso % (Auto) 0 Neut # (Auto) 3.1 Lymph # (Auto) 1.6 [place] # (Auto) 0.8 Eos # (Auto) 0.2 Baso # (Auto) 0.0 Immature Gran # (Auto) 0.02 H Absolute Nucleated RBC 0.00 Immature Gran % 0 Nucleated RBC % 0 Sodium 136 Potassium 3.6 Chloride 101 Carbon Dioxide 29.3 Anion Gap 6 L BUN 12 Creatinine 3.1 H D Estim Creat Clear Calc 33.4 L eGFR 25 L BUN/Creatinine Ratio 4 L Glucose 155 H D Calculated Osmolality 274 L Calcium 8.1 L Corrected Calcium 9.1 Phosphorus 2.8 Magnesium 1.7 Total Bilirubin 0.4 AST 15 ALT < 7 L Alkaline Phosphatase 38 L Total Protein 5.0 L Albumin 2.8 L Globulin 2.2 L Albumin/Globulin Ratio 1.3 Misc Test Result Platelets confirmed ABG Interpretation ABG results: 05/08/25 18:50 ABG pH 7.27 L ABG pCO2 29 L ABG pO2 91 ABG HCO3 13 L ABG O2 Saturation 98 ABG Base Excess -13 L Quality Measures Quality Measures VTE prophylaxis (SCDs) Assessment & Plan Assessment Current Active Medications: Generic Name Dose Route Start Last Admin Trade Name Freq PRN Reason Stop Dose Admin Acetaminophen 650 mg 05/08/25 17:37 Acetaminophen 325 Mg Tablet PO 06/07/25 17:36 Q6H PRN Fever >100.3 or pain 1-3 Citric Acid/Sodium Citrate 30 ml 05/10/25 09:00 05/17/25 09:22 Citric Acid/Sodium Citr 15 Ml Udc (Bicitra) PO 06/09/25 08:59 30 ml BID ANNE Administration Dextrose 25 ml 05/08/25 19:30 05/08/25 19:37 Dextrose 50%-Water Inj 50 Ml Syringe IV 06/07/25 19:29 25 ml Q15MIN PRN Administration BG 50-70 responsive npo pt Dextrose 50 ml 05/08/25 19:30 Dextrose 50%-Water Inj 50 Ml Syringe IV 06/07/25 19:29 Q15MIN PRN BG <50 OR BG <70 & pt unresponsive Folic Acid 1 mg 05/14/25 09:00 05/17/25 09:22 Folic Acid 1 Mg Tablet PO 05/19/25 08:59 1 mg BID ANNE Administration Glucagon 1 mg 05/08/25 19:30 Glucagon Inj 1 Mg Vial IM Q15MIN PRN BG <70, and no IV access Guaifenesin 100 mg 05/13/25 17:53 Guaifenesin Syrup 200 Mg/10 Ml Udc PO 06/12/25 17:52 QID PRN COUGH Protocol Heparin Sodium (Porcine) 3,500 unit 05/11/25 13:02 05/16/25 13:25 Heparin Sod Inj 1000 Unit/Ml Vial 10 Ml INDWELLCAT 05/25/25 13:01 3,500 unit PRN PRN Administration DIALYSIS Albumin Human 25 gm in 100 mls @ 100 mls/min 05/16/25 09:30 05/16/25 11:00 Albuminar-25 Ivpb IV 100 mls/min PRN PRN Administration DIALYSIS Lactulose 10 gm 05/08/25 17:37 05/10/25 16:03 Lactulose Syrup 20 Gm/30 Ml Udc PO 06/08/25 08:59 10 gm QDAY PRN Administration constipation Protocol Lorazepam 0.5 mg 05/14/25 05:12 Lorazepam 0.5 Mg Tablet PO 05/19/25 05:11 Q4HR PRN CIWA Score 2-6 Lorazepam 1 mg 05/14/25 05:12 Lorazepam 2 Mg/Ml Vial IV 05/19/25 05:11 Q2HR PRN CIWA SCORE 14-19 Lorazepam 2 mg 05/14/25 05:12 Lorazepam 2 Mg/Ml Vial IV 05/19/25 05:11 Q2HR PRN CIWA SCORE 20-25 Lorazepam 0.5 mg 05/15/25 09:42 Lorazepam 2 Mg/Ml Vial IV 05/19/25 05:11 Q2HR PRN CIWA SCORE 7-13 Magnesium Oxide 400 mg 05/13/25 09:15 05/17/25 09:22 Magnesium Oxide 400 Mg Tablet PO 06/12/25 09:14 400 mg QDAY ANNE Administration Ofloxacin 2 drop 05/09/25 08:00 05/17/25 17:25 Ofloxacin Op Farheen 0.3% 5 Ml Btl BOTH EYES 06/08/25 07:59 Not Given QID ANNE Ondansetron HCl 4 mg 05/14/25 17:29 Ondansetron Inj 2 Mg/Ml Inj 2 Ml IVP 06/07/25 18:35 Q6H PRN administer if vomiting/nauseus Protocol Pantoprazole Sodium 40 mg 05/08/25 21:00 05/17/25 09:22 Pantoprazole Inj 40 Mg Vial IVP 06/07/25 20:59 40 mg BID ANNE Administration Permethrin 0 gm 05/09/25 08:30 05/17/25 09:17 Permethrin Cr 5% 60 Gm Tube TOP 06/08/25 08:29 Not Given UD [facility] Thiamine HCl 100 mg 05/14/25 09:00 05/17/25 09:22 Thiamine 100 Mg Tablet PO 05/19/25 08:59 100 mg BID ANNE Administration Plan 44-year-old male with active alcohol use disorder with subsequent end-stage liver disease, type 2 diabetes mellitus, hypertension who presented to ED 05/08/2025 due to generalized complaint of malaise. Pt endorses active alcohol use history endorses drinking 1 quart of beer per day. Nephrology Dr Duncan consulted for ANGIE and GI Dr. Figueroa consulted for GI bleed. discharge to home pending HD on tuesday. #Decompensated liver cirrhosis #Paracentesis Has history of liver cirrhosis, presenting with apparent ascites, no coagulopathy, bilirubin normal, AST/ALT normal, ammonia normal. Patient alert and oriented x 3. Endorses few episodes of hematemesis, hemoglobin 7.6 on admission and MCV 95. Endorses alcohol intake of 1 quart of beer per day for the past 20 years. Denies getting abdominal tap for ascites in the past. 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 - Heptatitis panel negative - U/s paracentesis 05/13 by IR: Approximately 7L were removed and sample sent for analysis. Albumin was repleted for total of 50 g. - Consulted GI Dr. Figueroa, appreciate recommendations - Daily coag panel - Daily CBC Tx ?IV pantoprazole 40 mg BID ?Albumin 25 g BID (05/08- -IV Zofran 4mg IV q6h PRN #ESRD with new onset hemodialysis [Tuesdays?/Tuesday] Prerenal versus hepatorenal. BUN 36, creatinine 4.1 (baseline appears to be around 2), GFR 18, ratio 9. Systemic vasodilation and causing prerenal ANGIE may also be in the setting of liver cirrhosis. If prerenal, anticipate improvement with volume expansion. However at this time we will diurese due to his severe ascites. 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 Renal ultrasound showed scar formation, atrophic kidneys Dx - daily CMP (CTM BUN, CR, and eGFR) Tx - HD tomorrow per schedule - consulted nephrology Dr Duncan, appreciate recommendations--going to temporary dialysis catheter. - continue inpatient Hemodialysis (Tuesday, , Tuesday) ? Care coordination updated for arranging outpatient dialysis chair (per Social work, change time to later than 05) - avoid nephrotoxic agents - renally dose meds #Upper GI bleed ruled out #Normocytic anemia Most likely secondary due to chronic kidney disease. EGD negative for esophageal varices or any bleeding. pt with nonbloody emesis throughout the day - 05/14 pt transfused with 1 units PRBC for Hgb 6.7 from 7.1, H/H appropriately bumped. - Will continue close monitor any signs of bleeding - Transfuse if hemoglobin less than 7 - ondansetron PRN #Ary esophagitis EGD 05/10/25: negative for variceal bleeding, findings of Ary esophagitis ?Continue Diflucan 200 mg daily ? Nystatin swish and swallow #Electrolyte abnormalities ? Replete PRN ? Daily CMP #Skin rash Noticeable excoriations throughout upper extremities, anterior chest, none on posterior body, unlikely 2/2 to bedbugs vs scabies. consider that excoriations are 2/2 liver dysfunction, cirrhosis.Patient endorses intermittent pruritus. - continue permethrin daily - Clobetasol topical BID ANNE -isolation precautions - consult ID regarding discontinuing contact precautions #Phimosis -topical cream with steroid -Urologist stated that keep the Hawkins catheter as patient will need outpatient circumcision for severe phimosis Health maintenance: Dispo: medsurg, end-stage renal disease needing HD, will dispo to home (mom agreed, given pt able to ambulate. Anticipating discharge tomorrow. Diet: renal VTE prophylaxis: SCDs Bowel reg: lactulose prn Lines: We will keep the Hawkins per urology recs CODE STATUS: Full code Patient was seen and discussed with attending physician, Dr. Ceasar Castillo MD, PGY 3 Attending Provider Attestation/Addendum Antonio, Sivan Mcdonough, DO, attest that I was physically present for the felipe portions of the service and evaluated the patient with the resident and I reviewed and discussed the case with the resident and agree with the resident's findings and plans of care as documented above Patient seen and evaluated this AM. Patient states he is feeling well. No acute events overnight. He is requesting to have hawkins catheter removed, but case discussed with urology and advises patient to f/u outpatient with urology for his severe phimosis and keep hawkins in place due to difficulty of placement of hawkins. Patient is scheduled for HD tomorrow and can be discharged after his dialysis. Continue with current management otherwise.
[2025-05-17 20:00] VITALS: BP 129/98; PULSE 75; PULSE 90; RESP 16; TEMP 36.3; O2SAT 100
[2025-05-17] MEDS: OFLOXACIN OP SOL 0.3% 5 ML BTL 2 DROP BOTH EYES (20:23)
[2025-05-18] VITALS (19 sets, daily range): BP systolic 91–133; BP diastolic 68–94; PULSE 68–119; RESP 15–21; TEMP 36–36.8; O2SAT 92–97
[2025-05-18 05:31] LABS: Basophils # (Auto) 0.0 Thou/mm3 (0.0-0.2); Basophils % (Auto) 1 % (0-2.5); Eosinophils # (Auto) 0.2 Thou/mm3 (0.0-0.5); Eosinophils % (Auto) 4 % (0-10); Hematocrit 23.4 % (41.0-53.0); Immature Granulocytes Auto 0.02 Thou/mm3 (0.00-0.00); Lymphocytes # (Auto) 1.4 Thou/mm3 (1.0-4.8); Lymphocytes % (Auto) 24 % (10-50); Mean Corpuscular HGB Conc 32.1 g/dl (31.0-37.0); Mean Corpuscular Hemoglobin 31.0 pg (25.0-35.0); Mean Corpuscular Volume 97 fL (80-100); Monocytes # (Auto) 1.0 Thou/mm3 (0.0-0.8); Monocytes % (Auto) 18 % (0-12); Neutrophils # (Auto) 3.1 Thou/mm3 (1.8-7.7); Neutrophils % (Auto) 53 % (37-80); Nucleated Red Blood Cell # 0.00 Thou/mm3 (0.00-0.00); Nucleated Red Blood Cell % 0 /100 WBC (0); Platelet Count 88 Thou/mm3 (140-440); RDW Standard Deviation 53.2 fL (35.1-43.9); Red Blood Count 2.42 Miln/mm3 (4.50-5.90); White Blood Count 5.8 Thou/mm3 (3.8-10.6)
[2025-05-18 05:33] LABS: Hemoglobin 7.5 g/dL (13.5-16.0)
[2025-05-18 06:19] LABS: Alanine Aminotransferase < 7 U/L (10-49); Albumin, Serum 2.7 gm/dL (3.5-5.0); Albumin/Globulin Ratio 1.1 (1.2-2.2); Alkaline Phosphatase 46 U/L (46-116); Anion Gap 8 (7-16); Aspartate Amino Transferase 32 U/L (0-34); BUN/Creatinine Ratio 5 Ratio (12-20); Bilirubin,Total 0.4 mg/dL (0.3-1.2); Blood Urea Nitrogen 19 mg/dL (9-23); Calcium 8.1 mg/dL (8.3-10.6); Calcium (Corrected) 9.1 mg/dL (8.5-10.1); Carbon Dioxide 29.8 mMol/L (20.0-31.0); Chloride 100 mMol/L (98-107); Creatinine (Component) 3.7 mg/dL (0.6-1.3); Estimated Creatinine Clearance 27.8 mL/min (>60); Globulin 2.4 gm/dL (2.3-3.5); Glucose 121 mg/dL (74-106); Magnesium 1.6 mg/dL (1.6-2.6); Osmolality,Calculated 278 (275-295); Phosphorous 3.6 mg/dL (2.4-5.1); Potassium 3.8 mMol/L (3.4-5.1); Sodium 138 mMol/L (136-145); Total Protein 5.1 gm/dL (5.7-8.2); eGFR 20 See Note
--- NOTE | 2025-05-18 08:10 | PD.RESDS ---
Planned Discharge Date 05/18/25 DS: Providers Provider Date of admission: 05/08/25 17:32 Primary care physician: Cj Lopez MD Admitting Provider: Mark Krause MD Attending Provider on Admission: Heron Bernard MD Consults: 05/08/25 16:52 Consult to Nephrology Routine Comment: ANGIE Consulting Provider: Darryn Duncan 05/08/25 17:21 Consult to Gastroenterology Routine Comment: upper GI bleed, decomp liver cirrhosis Consulting Provider: Ashley Figueroa 05/09/25 07:57 Referral Discharge Planning Routine Comment: [facility] 05/09/25 12:36 Consult to Urology Routine Comment: hawkins cath placement Consulting Provider: Ephraim Bone 05/11/25 09:55 Referral Physical Therapy Urgent Comment: Physician Instructions: Attending Provider on DC: Dr. Mcdonough Discharging Provider: Meliza Cruz, RESIDENT Hospital Course Hospital Course Hospital course: Patient was seen and examined at bedside. No acute overnight events were reported. Patient was stable and reported that he wants that Hawkins should be removed. Dr. Bone, urologist was consulted and he recommended the patient has difficulty in urination and Hawkins catheter was placed after 4 attempts. He recommended to keep Hawkins catheter and let the patient follow him in his outpatient clinic. Patient would need dorsal slit or circumcision due to severe phimosis. Time Spent with Patient Time attestation: Total time spent providing and/or coordinating discharge services: Exam Vital Signs Temp Pulse Resp BP Pulse Ox O2 Del Method O2 Flow Rate 98.3 F 68 15 129/84 97 Room Air 3 05/18/25 00:00 05/18/25 04:00 05/18/25 00:00 05/18/25 00:00 05/18/25 00:00 05/18/25 00:00 05/14/25 00:00 Discharge Plan Plan Patient Disposition: Xfer Skilled Nsg Fac (SNF) Patient condition on transfer: Stable Care Plan Goals: You have been started on the following medications: -fluconazole 200mg daily for 3 weeks The following meds have been STOPPED: -eliquis Please continue with all other medications as previously prescribed. You have been referred to Dr. Duncan, Anesthesiology Medical Doctor, for management of dialysis Please follow up with your primary doctor within 7-10 days Please return to ED if you develop new or worsening symptoms. Prescriptions/Referrals Prescriptions/Med Rec: New fluconazole 100 mg Tablet 200 mg PO QDAY 21 Days Qty: 42 0RF Continued pantoprazole 40 mg tablet,delayed release (DR/EC) 40 mg PO BID 30 Days Qty: 60 2RF quetiapine 100 mg tablet 100 mg PO HS levothyroxine 100 mcg tablet 100 mcg PO 1XD Patient Comments: TAKE 1 TABLET BY MOUTH DAILY IN THE MORNING ON AN EMPTY STOMACH amlodipine 10 mg tablet 10 mg PO 1XD Patient Comments: TAKE 1 TABLET BY MOUTH DAILY ferrous sulfate [FeroSul] 325 mg (65 mg iron) tablet 325 mg PO 1XD Patient Comments: TAKE 1 TABLET BY MOUTH DAILY folic acid 1 mg tablet 1 mg PO 1XD losartan 100 mg tablet 100 mg PO 1XD Patient Comments: TAKE 1 TABLET BY MOUTH DAILY Discontinued apixaban 5 mg tablet 5 mg PO BID Qty: 60 0RF Referrals: Cj Lopez MD [Primary Care Provider] - Darryn Duncan MD [Physician] - Patient/Caregiver Discharge Instructions Discharge Activity: as per physical therapy Education Materials: Paracentesis, Addiction: Getting Help, Addiction: Your Treatment Options, Addiction Recovery Counseling, Acute Kidney Failure Dc Print Language: Somali Stand Alone Forms: [facility] Award Info., Patient Portal Info Letter Discharge Order Discharge Orders: Discharge (Routine); Ordered 05/15/25 Ordered By: Alvin Ding
[2025-05-18] MEDS: CITRIC ACID/SODIUM CITR 15 ML UDC (BICITRA) 30 ML PO ×2 (09:38→20:07)
[2025-05-18] MEDS: MAGNESIUM OXIDE 400 MG TABLET PO (09:39)
[2025-05-18] MEDS: FOLIC ACID 1 MG TABLET PO ×2 (09:39→20:07)
[2025-05-18] MEDS: THIAMINE 100 MG TABLET PO ×2 (09:39→20:07)
--- NOTE | 2025-05-18 11:42 | PC.SS ---
ZAIDA Hodges received a call from the pts mother Tracey [phone] who reported that she heard from the staff psychiatrist that the pt is giving them a hard time. She continued to report that the pt is telling the staff he is leaving today when he is not, per the pts mother. ZAIDA informed Tracey that singer songwriter is not the assigned social media content specialist but I will hand the message to the assigned social media content specialist. Tracey can be reached at [phone].
[2025-05-18] MEDS: OFLOXACIN OP SOL 0.3% 5 ML BTL 2 DROP BOTH EYES ×3 (12:07→20:08)
--- NOTE | 2025-05-18 12:33 | PC.CC ---
Case opened on [facility]
--- NOTE | 2025-05-18 14:21 | PC.NURSE ---
PATIENT DIALYSIS AT BEDSIDE BY DIALYSIS NURSE.
--- NOTE | 2025-05-18 14:23 | ESPR_ITS ---
<Statement entered by Steven Castillo MD - 05/18/25 19:21> I discussed and supervised with the regulatory internship physician who took care of this patient. I personally saw and examined the patient. I agree with most of the assessment and plan. Disclaimer: Despite multiple revisions, due to the dictation software being used, the document bellow may not be free of grammatical errors including phonetic/typographic errors. However, this does not deter from our commitment to providing health care in the patient's best interest in mind. Plan of care discussed with attending Physician Dr. Ceasar Castillo MD PGY-3 Documentation for date of: 05/18/25 Subjective Subjective Interval history: No acute events overnight pt expresses desire to have hawkins catheter removed. pt scheduled for HD this afternoon with plan for discharge 05/19 Exam Vital Signs Temp Pulse Resp BP Pulse Ox O2 Del Method O2 Flow Rate 97.4 F 103 H 18 111/74 94 L Room Air 3 05/18/25 13:45 05/18/25 14:15 05/18/25 13:45 05/18/25 14:15 05/18/25 13:45 05/18/25 08:00 05/14/25 00:00 Narrative Exam General: no acute distress, resting in bed. HEENT: NC/AT Cardiovascular: Normal S1 and S2. Regular rate and rhythm. Respiratory: normal work of breathing Abdomen: abdominal distension, positive fluid wave, non tender to palpation, : Hawkins catheter in place. Skin: scratch campbell all over his anterior body with excoriations, Posterior of patient does not have any excoriations. dialysis cath in place on the Right chest Musculoskeletal: No gross injuries. Able to move all 4 extremities. Neuro: Alert and oriented x3. No focal neuro deficits Objective Labs 05/19/25 04:57 05/19/25 04:57 Labs: Laboratory Results - last 24 hr 05/18/25 04:24 WBC 5.8 RBC 2.42 L Hgb 7.5 L Hct 23.4 L MCV 97 MCH 31.0 MCHC 32.1 RDW Std Deviation 53.2 H Plt Count 88 L D Neut % (Auto) 53 Lymph % (Auto) 24 [place] % (Auto) 18 H Eos % (Auto) 4 Baso % (Auto) 1 Neut # (Auto) 3.1 Lymph # (Auto) 1.4 [place] # (Auto) 1.0 H Eos # (Auto) 0.2 Baso # (Auto) 0.0 Immature Gran # (Auto) 0.02 H Absolute Nucleated RBC 0.00 Immature Gran % 0 Nucleated RBC % 0 Sodium 138 Potassium 3.8 Chloride 100 Carbon Dioxide 29.8 Anion Gap 8 BUN 19 Creatinine 3.7 H D Estim Creat Clear Calc 27.8 L eGFR 20 L BUN/Creatinine Ratio 5 L Glucose 121 H Calculated Osmolality 278 Calcium 8.1 L Corrected Calcium 9.1 Phosphorus 3.6 Magnesium 1.6 Total Bilirubin 0.4 AST 32 ALT < 7 L Alkaline Phosphatase 46 D Total Protein 5.1 L Albumin 2.7 L Globulin 2.4 Albumin/Globulin Ratio 1.1 L ABG Interpretation ABG results: 05/08/25 18:50 ABG pH 7.27 L ABG pCO2 29 L ABG pO2 91 ABG HCO3 13 L ABG O2 Saturation 98 ABG Base Excess -13 L Quality Measures Quality Measures VTE prophylaxis (SCDs) Assessment & Plan Assessment Current Active Medications: Generic Name Dose Route Start Last Admin Trade Name Freq PRN Reason Stop Dose Admin Acetaminophen 650 mg 05/08/25 17:37 Acetaminophen 325 Mg Tablet PO 06/07/25 17:36 Q6H PRN Fever >100.3 or pain 1-3 Citric Acid/Sodium Citrate 30 ml 05/10/25 09:00 05/18/25 09:38 Citric Acid/Sodium Citr 15 Ml Udc (Bicitra) PO 06/09/25 08:59 30 ml BID ANNE Administration Dextrose 25 ml 05/08/25 19:30 05/08/25 19:37 Dextrose 50%-Water Inj 50 Ml Syringe IV 06/07/25 19:29 25 ml Q15MIN PRN Administration BG 50-70 responsive npo pt Dextrose 50 ml 05/08/25 19:30 Dextrose 50%-Water Inj 50 Ml Syringe IV 06/07/25 19:29 Q15MIN PRN BG <50 OR BG <70 & pt unresponsive Folic Acid 1 mg 05/14/25 09:00 05/18/25 09:39 Folic Acid 1 Mg Tablet PO 05/19/25 08:59 1 mg BID ANNE Administration Glucagon 1 mg 05/08/25 19:30 Glucagon Inj 1 Mg Vial IM Q15MIN PRN BG <70, and no IV access Guaifenesin 100 mg 05/13/25 17:53 Guaifenesin Syrup 200 Mg/10 Ml Udc PO 06/12/25 17:52 QID PRN COUGH Protocol Heparin Sodium (Porcine) 3,500 unit 05/11/25 13:02 05/16/25 13:25 Heparin Sod Inj 1000 Unit/Ml Vial 10 Ml INDWELLCAT 05/25/25 13:01 3,500 unit PRN PRN Administration DIALYSIS Albumin Human 25 gm in 100 mls @ 100 mls/min 05/16/25 09:30 05/16/25 11:00 Albuminar-25 Ivpb IV 100 mls/min PRN PRN Administration DIALYSIS Lactulose 10 gm 05/08/25 17:37 05/10/25 16:03 Lactulose Syrup 20 Gm/30 Ml Udc PO 06/08/25 08:59 10 gm QDAY PRN Administration constipation Protocol Lorazepam 0.5 mg 05/14/25 05:12 Lorazepam 0.5 Mg Tablet PO 05/19/25 05:11 Q4HR PRN CIWA Score 2-6 Lorazepam 1 mg 05/14/25 05:12 Lorazepam 2 Mg/Ml Vial IV 05/19/25 05:11 Q2HR PRN CIWA SCORE 14-19 Lorazepam 2 mg 05/14/25 05:12 Lorazepam 2 Mg/Ml Vial IV 05/19/25 05:11 Q2HR PRN CIWA SCORE 20-25 Lorazepam 0.5 mg 05/15/25 09:42 Lorazepam 2 Mg/Ml Vial IV 05/19/25 05:11 Q2HR PRN CIWA SCORE 7-13 Magnesium Oxide 400 mg 05/13/25 09:15 05/18/25 09:39 Magnesium Oxide 400 Mg Tablet PO 06/12/25 09:14 400 mg QDAY ANNE Administration Ofloxacin 2 drop 05/09/25 08:00 05/18/25 12:07 Ofloxacin Op Afrheen 0.3% 5 Ml Btl BOTH EYES 06/08/25 07:59 2 drop QID ANNE Administration Ondansetron HCl 4 mg 05/14/25 17:29 Ondansetron Inj 2 Mg/Ml Inj 2 Ml IVP 06/07/25 18:35 Q6H PRN administer if vomiting/nauseus Protocol Pantoprazole Sodium 40 mg 05/08/25 21:00 05/18/25 09:38 Pantoprazole Inj 40 Mg Vial IVP 06/07/25 20:59 40 mg BID ANNE Administration Permethrin 0 gm 05/09/25 08:30 05/18/25 09:02 Permethrin Cr 5% 60 Gm Tube TOP 06/08/25 08:29 Not Given UD ANNE Thiamine HCl 100 mg 05/14/25 09:00 05/18/25 09:39 Thiamine 100 Mg Tablet PO 05/19/25 08:59 100 mg BID ANNE Administration Plan 44-year-old male with active alcohol use disorder with subsequent end-stage liver disease, type 2 diabetes mellitus, hypertension who presented to ED 05/08/2025 due to generalized complaint of malaise. Pt endorses active alcohol use history endorses drinking 1 quart of beer per day. Nephrology Dr Duncan consulted for ANGIE and GI Dr. Figueroa consulted for GI bleed. pt recieving HD today, plan for discharge to home tomorrow. #ESRD with new onset hemodialysis [Tuesdays?-Tuesday] Prerenal versus hepatorenal. BUN 36, creatinine 4.1 (baseline appears to be around 2), GFR 18, ratio 9. Systemic vasodilation and causing prerenal ANGIE may also be in the setting of liver cirrhosis. If prerenal, anticipate improvement with volume expansion. However at this time we will diurese due to his severe ascites. 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 Renal ultrasound showed scar formation, atrophic kidneys Dx - daily CMP (CTM BUN, CR, and eGFR) Tx - HD tomorrow per schedule - consulted nephrology Dr Duncan, appreciate recommendations--going to temporary dialysis catheter. - continue inpatient Hemodialysis (Tuesday, , Tuesday) ? Care coordination updated for arranging outpatient dialysis chair - avoid nephrotoxic agents - renally dose meds #Decompensated liver cirrhosis #Paracentesis Has history of liver cirrhosis, presenting with apparent ascites, no coagulopathy, bilirubin normal, AST/ALT normal, ammonia normal. Patient alert and oriented x 3. Endorses few episodes of hematemesis, hemoglobin 7.6 on admission and MCV 95. Endorses alcohol intake of 1 quart of beer per day for the past 20 years. Denies getting abdominal tap for ascites in the past. 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 - Heptatitis panel negative - U/s paracentesis 05/13 by IR: Approximately 7L were removed and sample sent for analysis. Albumin was repleted for total of 50 g. - Consulted GI Dr. Figueroa, appreciate recommendations - Daily coag panel - Daily CBC Tx ?IV pantoprazole 40 mg BID ?Albumin 25 g BID (05/08- -IV Zofran 4mg IV q6h PRN #Upper GI bleed ruled out #Normocytic anemia Most likely secondary due to chronic kidney disease. EGD negative for esophageal varices or any bleeding. pt with nonbloody emesis throughout the day - 05/14 pt transfused with 1 units PRBC for Hgb 6.7 from 7.1, H/H appropriately bumped. - Will continue close monitor any signs of bleeding - Transfuse if hemoglobin less than 7 - ondansetron PRN #Skin rash Noticeable excoriations throughout upper extremities, anterior chest, none on posterior body, unlikely 2/2 to bedbugs vs scabies. consider that excoriations are 2/2 liver dysfunction, cirrhosis.Patient endorses intermittent pruritus. - continue permethrin daily - Clobetasol topical BID ANNE -isolation precautions - consult ID regarding discontinuing contact precautions #Phimosis -topical cream with steroid -Urologist stated that keep the Hawkins catheter as patient will need outpatient circumcision for severe phimosis -follow up with urology outpatient for exchanging hawkins and outpatient circumcision #Ary esophagitis EGD 05/10/25: negative for variceal bleeding, findings of Ary esophagitis ?Continue Diflucan 200 mg daily ? Nystatin swish and swallow #Electrolyte abnormalities ? Replete PRN ? Daily CMP Health maintenance: Dispo: medsurg, end-stage renal disease needing HD, will dispo to home (mom agreed, given pt able to ambulate) Anticipating discharge tomorrow 05/19 Diet: renal VTE prophylaxis: SCDs Bowel reg: lactulose prn Lines: We will keep the Hawkins per urology recs: discussed with pt and mom about importance of keeping hawkins upon discharge and following up with urology outpatient CODE STATUS: Full code Case discussed with my attending Dr. Ceasar Cruz MD PGY-1 Attending Provider Attestation/Addendum ISivan DO, attest that I was physically present for the felipe portions of the service and evaluated the patient with the resident and I reviewed and discussed the case with the resident and agree with the resident's findings and plans of care as documented above Patient seen and evaluated this a.m. Patient is resting comfortably in no overnight events. Explained to patient that he will need to keep the Hawkins catheter in place due to his urinary retention and severe phimosis. Patient is advised to follow-up with a urologist outpatient to have this issue resolved as recommended by our urologist. Explained to patient that if Hawkins catheter were removed he may end up retaining urine and we are unable to replace a Hawkins catheter since urology is not available over the weekend. Patient began to get very agitated and began to curse saying that he does not need the catheter, nor does he need to follow-up with a specialist. He states that his primary care doctor can take care of everything. Explained to patient that multiple attempts were made by the nursing staff to place a Hawkins catheter, but ultimately needed urology due to difficulty of placement. Patient continued to curse and states that he can make his own decisions. He states that he does not have transportation to go see a bunch of doctors. Per nurse at bedside, patient has been agitated at times and frustrated about the Hawkins catheter despite explanation. Patient is pending dialysis right now and will keep the Hawkins catheter in at this time until he is discharged. Patient states he takes care of himself at home. He lives with his mother. Discussed plan with mother who is in agreement with Hawkins catheter. Will order home health for PT and management of Hawkins catheter. Will allow for patient to calm down at this time and have his mother convince him to continue with current treatment plan. Plan is to have patient discharge home tomorrow with home health.
[2025-05-18] MEDS: HEPARIN SOD INJ 1000 UNIT/ML VIAL 10 ML 3500 UNIT INDWELLCAT (17:02)
--- NOTE | 2025-05-18 17:37 | PD.IMPROG ---
Documentation for date of: 05/18/25 Subjective Subjective Interval history: Patient evaluated Hemoglobin hematocrit 7.5 and 23.4 Upper endoscopy has shown distal esophageal ulceration Exam Vital Signs Temp Pulse Resp BP Pulse Ox O2 Del Method O2 Flow Rate 96.8 F 107 H 18 98/79 92 L Room Air 3 05/18/25 16:48 05/18/25 17:00 05/18/25 16:48 05/18/25 17:00 05/18/25 16:48 05/18/25 08:00 05/14/25 00:00 Objective Labs 05/18/25 04:24 05/18/25 04:24 Labs: Laboratory Results - last 24 hr 05/18/25 04:24 WBC 5.8 RBC 2.42 L Hgb 7.5 L Hct 23.4 L MCV 97 MCH 31.0 MCHC 32.1 RDW Std Deviation 53.2 H Plt Count 88 L D Neut % (Auto) 53 Lymph % (Auto) 24 [place] % (Auto) 18 H Eos % (Auto) 4 Baso % (Auto) 1 Neut # (Auto) 3.1 Lymph # (Auto) 1.4 [place] # (Auto) 1.0 H Eos # (Auto) 0.2 Baso # (Auto) 0.0 Immature Gran # (Auto) 0.02 H Absolute Nucleated RBC 0.00 Immature Gran % 0 Nucleated RBC % 0 Sodium 138 Potassium 3.8 Chloride 100 Carbon Dioxide 29.8 Anion Gap 8 BUN 19 Creatinine 3.7 H D Estim Creat Clear Calc 27.8 L eGFR 20 L BUN/Creatinine Ratio 5 L Glucose 121 H Calculated Osmolality 278 Calcium 8.1 L Corrected Calcium 9.1 Phosphorus 3.6 Magnesium 1.6 Total Bilirubin 0.4 AST 32 ALT < 7 L Alkaline Phosphatase 46 D Total Protein 5.1 L Albumin 2.7 L Globulin 2.4 Albumin/Globulin Ratio 1.1 L Impressions Impression: GE junction ulceration Distal esophageal ulceration Continue current management ABG Interpretation ABG results: 05/08/25 18:50 ABG pH 7.27 L ABG pCO2 29 L ABG pO2 91 ABG HCO3 13 L ABG O2 Saturation 98 ABG Base Excess -13 L Assessment & Plan A&P Narrative # Hematemesis in setting of cirrhotic liver disease due to alcohol Plan Octreotide infusion at 50 mcg/h after 50 mcg IV push loading dose IV Protonix serial CBC Consent obtained for fiberoptic esophagogastroduodenoscopy with possible therapeutic intervention under intravenous moderate sedation Patient should receive at least 2 units of PRBC N.p.o. Other medical problems include End-stage liver disease secondary to alcohol ANGIE Chronic alcoholic dependency Advanced portal hypertension Thank you very much for the opportunity to participate in the care of this patient Time Spent With Patient Time: Total time spent is greater than 50% in coordination of care (as documented) at patient's floor/unit and/or counseling patient:
[2025-05-19] VITALS (7 sets, daily range): BP systolic 104–128; BP diastolic 71–91; PULSE 75–107; RESP 15–18; TEMP 36.3–36.8; O2SAT 95–100
[2025-05-19] MEDS: OFLOXACIN OP SOL 0.3% 5 ML BTL 2 DROP BOTH EYES ×2 (05:25→11:57)
[2025-05-19 05:49] LABS: Basophils # (Auto) 0.0 Thou/mm3 (0.0-0.2); Basophils % (Auto) 1 % (0-2.5); Eosinophils # (Auto) 0.4 Thou/mm3 (0.0-0.5); Eosinophils % (Auto) 6 % (0-10); Hematocrit 23.5 % (41.0-53.0); Immature Granulocytes Auto 0.01 Thou/mm3 (0.00-0.00); Lymphocytes # (Auto) 1.4 Thou/mm3 (1.0-4.8); Lymphocytes % (Auto) 23 % (10-50); Mean Corpuscular HGB Conc 32.8 g/dl (31.0-37.0); Mean Corpuscular Hemoglobin 30.8 pg (25.0-35.0); Mean Corpuscular Volume 94 fL (80-100); Monocytes # (Auto) 1.1 Thou/mm3 (0.0-0.8); Monocytes % (Auto) 18 % (0-12); Neutrophils # (Auto) 3.0 Thou/mm3 (1.8-7.7); Neutrophils % (Auto) 52 % (37-80); Nucleated Red Blood Cell # 0.00 Thou/mm3 (0.00-0.00); Nucleated Red Blood Cell % 0 /100 WBC (0); RDW Standard Deviation 52.8 fL (35.1-43.9); Red Blood Count 2.50 Miln/mm3 (4.50-5.90); White Blood Count 5.9 Thou/mm3 (3.8-10.6)
[2025-05-19 05:50] LABS: Hemoglobin 7.7 g/dL (13.5-16.0); Platelet Count 70 Thou/mm3 (140-440)
[2025-05-19 06:38] LABS: Slide Review Platelets confirmed
[2025-05-19 06:54] LABS: Alanine Aminotransferase 9 U/L (10-49); Albumin, Serum 2.8 gm/dL (3.5-5.0); Albumin/Globulin Ratio 1.1 (1.2-2.2); Alkaline Phosphatase 54 U/L (46-116); Anion Gap 8 (7-16); Aspartate Amino Transferase 39 U/L (0-34); BUN/Creatinine Ratio 5 Ratio (12-20); Bilirubin,Total 0.5 mg/dL (0.3-1.2); Blood Urea Nitrogen 16 mg/dL (9-23); Calcium 8.1 mg/dL (8.3-10.6); Calcium (Corrected) 9.1 mg/dL (8.5-10.1); Carbon Dioxide 30.9 mMol/L (20.0-31.0); Chloride 98 mMol/L (98-107); Creatinine (Component) 3.1 mg/dL (0.6-1.3); Estimated Creatinine Clearance 32.8 mL/min (>60); Globulin 2.5 gm/dL (2.3-3.5); Glucose 116 mg/dL (74-106); Magnesium 1.6 mg/dL (1.6-2.6); Osmolality,Calculated 276 (275-295); Phosphorous 3.9 mg/dL (2.4-5.1); Potassium 3.8 mMol/L (3.4-5.1); Sodium 137 mMol/L (136-145); Total Protein 5.3 gm/dL (5.7-8.2); eGFR 25 See Note
[2025-05-19] MEDS: MAGNESIUM OXIDE 400 MG TABLET PO (09:45)
[2025-05-19] MEDS: CITRIC ACID/SODIUM CITR 15 ML UDC (BICITRA) 30 ML PO (09:45)
[2025-05-19] MEDS: PERMETHRIN CR 5% 60 GM TUBE TOP (09:46)
--- NOTE | 2025-05-19 10:08 | ESPR_ITS ---
Documentation for date of: 05/19/25 Subjective Subjective Interval history: Pt is seen and examined no new complaints Exam Vital Signs Temp Pulse Resp BP Pulse Ox O2 Del Method O2 Flow Rate 98.1 F 80 18 109/78 97 Room Air 3 05/19/25 08:00 05/19/25 08:00 05/19/25 08:00 05/19/25 08:00 05/19/25 08:00 05/19/25 08:00 05/14/25 00:00 Narrative Exam heart s1 s2 chest CTA karlene Objective Labs 05/19/25 04:57 05/19/25 04:57 Labs: Laboratory Results - last 24 hr 05/19/25 04:57 WBC 5.9 RBC 2.50 L Hgb 7.7 L Hct 23.5 L MCV 94 MCH 30.8 MCHC 32.8 RDW Std Deviation 52.8 H Plt Count 70 L D Neut % (Auto) 52 Lymph % (Auto) 23 [place] % (Auto) 18 H Eos % (Auto) 6 Baso % (Auto) 1 Neut # (Auto) 3.0 Lymph # (Auto) 1.4 [place] # (Auto) 1.1 H Eos # (Auto) 0.4 Baso # (Auto) 0.0 Immature Gran # (Auto) 0.01 H Absolute Nucleated RBC 0.00 Immature Gran % 0 Nucleated RBC % 0 Sodium 137 Potassium 3.8 Chloride 98 Carbon Dioxide 30.9 Anion Gap 8 BUN 16 Creatinine 3.1 H D Estim Creat Clear Calc 32.8 L eGFR 25 L BUN/Creatinine Ratio 5 L Glucose 116 H Calculated Osmolality 276 Calcium 8.1 L Corrected Calcium 9.1 Phosphorus 3.9 Magnesium 1.6 Total Bilirubin 0.5 AST 39 H ALT 9 L Alkaline Phosphatase 54 Total Protein 5.3 L Albumin 2.8 L Globulin 2.5 Albumin/Globulin Ratio 1.1 L Misc Test Result Platelets confirmed ABG Interpretation ABG results: 05/08/25 18:50 ABG pH 7.27 L ABG pCO2 29 L ABG pO2 91 ABG HCO3 13 L ABG O2 Saturation 98 ABG Base Excess -13 L Assessment & Plan Assessment and plan (1) ANGIE (acute kidney injury): Status: Acute Assessment and plan: c/w supprtive care c/w dialysis as needed (2) Ascites: Status: Acute (3) Cirrhosis: Status: Acute (4) GI bleed: Status: Acute (5) Symptomatic anemia: Status: Acute
--- NOTE | 2025-05-19 15:09 | ESDS_ITS ---
<Statement entered by Sivan Mcdonough DO - 05/20/25 08:59> I, Sivan Mcdonough DO, attest that I was physically present for the felipe portions of the service and evaluated the patient with the resident and I reviewed and discussed the case with the resident and agree with the resident's findings and plans of care as documented above Planned Discharge Date 05/19/25 DS: Providers Provider Date of admission: 05/08/25 17:32 Primary care physician: Cj Lopez MD Admitting Provider: Mark Krause MD Attending Provider on Admission: Heron Bernard MD Consults: 05/08/25 16:52 Consult to Nephrology Routine Comment: ANGIE Consulting Provider: Darryn Duncan 05/08/25 17:21 Consult to Gastroenterology Routine Comment: upper GI bleed, decomp liver cirrhosis Consulting Provider: Ashley Figueroa 05/09/25 07:57 Referral Discharge Planning Routine Comment: [facility] dialysis 05/09/25 12:36 Consult to Urology Routine Comment: hawkins cath placement Consulting Provider: Ephraim Bone 05/11/25 09:55 Referral Physical Therapy Urgent Comment: Physician Instructions: Attending Provider on DC: Sivan Mcdonough DO Discharging Provider: Alvin Ding MD DS: Diagnosis Problem List Completed Was Problem List Reviewed/Reconciled?: Yes Hospital Course Hospital Course Hospital course: 44-year-old male with active alcohol use disorder with subsequent end-stage liver disease, type 2 diabetes mellitus, hypertension who presented to ED 05/08/2025 due to generalized complaint of malaise. Pt endorses active alcohol use history endorses drinking 1 quart of beer per day. Nephrology Dr Duncan consulted for ANGIE and GI Dr. Figueroa consulted for GI bleed. Patient started on hemodialysis for acute renal failure, continue to require hemodialysis during hospital stay. Patient also received paracentesis with several liters fluid removal. Patient received EGD which was negative for signs of bleeding, however did show Ary esophagitis. Patient worked with PT extensively during hospital stay, able to ambulate short distances with FWW. Patient cleared for discharge from nephrology and GI perspective. Patient medically stable and cleared for discharge. Discharge plan: You have been started on the following medications: -fluconazole 200mg daily for 3 weeks The following meds have been STOPPED: -eliquis Please continue with all other medications as previously prescribed. You have been referred to Dr. Duncan, [facility], for management of dialysis Please follow up with your primary doctor within 7-10 days Please seek referral to urology for management of hawkins catheter Please return to ED if you develop new or worsening symptoms. Diagnoses: #ESRD with new onset hemodialysis [Tuesdays?-Tuesday] #Decompensated liver cirrhosis #Paracentesis #Upper GI bleed ruled out #Normocytic anemia #Skin rash #Phimosis #Ary esophagitis #Electrolyte abnormalities Plan of care discussed with attending Dr. Mcdonough. Alvin Ding MD PGY?2 Status at Discharge Overall status at discharge: patient is progressing back to baseline Time Spent with Patient Time attestation: Total time spent providing and/or coordinating discharge services: Time spent: Greater than 30 minutes Home Health Home Health Referral Orders: 05/18/25 10:00 Home Health Referral Routine Reason For Exam: urinary retention Home-Bound The patient must either because of illness or injury, need the aid of supportive devices such as crutches, canes, wheelchairs, and walkers; the use of special transportation; or the assistance of another person in order to leave their place of residence; OR have a condition such that leaving his or her home is medically contraindicated. In addition, the patient also meets the following criteria: patient is normally unable to leave the home and leaving home requires considerable taxing effort. Addendum to Home Health Certification Practitioner's Certification: I certify that the patient has been under my care in the hospital and the care of attending physician (see below). We had a [id number] encounter on (see date below). My clinical findings indicate that the patient is home bound per the above criteria and the Home Health Services noted in these orders are medically necessary. The primary reason for the [id number] encounter is related to the fact that the patient requires home health services. Date Certifying [id number] Physician Encounter: 06/07/25 Physician's Name who will Assume Oversight for Services: Cj Lopez Physician's Phone No.who will Assume Oversight for Service: ADVERTISING PHOTOGRAPHER - Community Resources: No PT to Evaluate: Yes PT to evaluate and provide a treatmnet plan to increase patient's mobility and strength. Wound Care: No IV Therapy: No RN Safety Evaluation: Yes RN to evaluate and create a plan of care that will produce positive outcomes. Palliative Treatment: No Palliative treatment and evaluate the need for hospice. Home Health Aide - Personal Care: Yes Home Health Aide to assist with any ADL's. Exam Vital Signs Temp Pulse Resp BP Pulse Ox O2 Del Method O2 Flow Rate 98.0 F 76 17 126/84 95 Room Air 3 05/19/25 12:00 05/19/25 12:45 05/19/25 12:00 05/19/25 12:00 05/19/25 12:00 05/19/25 12:00 05/14/25 00:00 Narrative Exam General: no acute distress, resting in bed. HEENT: NC/AT Cardiovascular: Normal S1 and S2. Regular rate and rhythm. Respiratory: normal work of breathing Abdomen: abdominal distension, positive fluid wave, non tender to palpation, : Hawkins catheter in place. Skin: scratch campbell all over his anterior body with excoriations, Posterior of patient does not have any excoriations. dialysis cath in place on the Right chest Musculoskeletal: No gross injuries. Able to move all 4 extremities. Neuro: Alert and oriented x3. No focal neuro deficits Discharge Plan Plan Patient Disposition: Home w/HOME HEALTH Patient condition on transfer: Stable Care Plan Goals: You have been started on the following medications: -fluconazole 200mg daily for 3 weeks The following meds have been STOPPED: -eliquis Please continue with all other medications as previously prescribed. You have been referred to Dr. Duncan, [facility], for management of dialysis Please follow up with your primary doctor within 7-10 days Please seek referral to urology for management of hawkins catheter Please return to ED if you develop new or worsening symptoms. Prescriptions/Referrals Prescriptions/Med Rec: New fluconazole 100 mg Tablet 200 mg PO QDAY 21 Days Qty: 42 0RF Continued pantoprazole 40 mg tablet,delayed release (DR/EC) 40 mg PO BID 30 Days Qty: 60 2RF quetiapine 100 mg tablet 100 mg PO HS levothyroxine 100 mcg tablet 100 mcg PO 1XD Patient Comments: TAKE 1 TABLET BY MOUTH DAILY IN THE MORNING ON AN EMPTY STOMACH amlodipine 10 mg tablet 10 mg PO 1XD Patient Comments: TAKE 1 TABLET BY MOUTH DAILY ferrous sulfate [FeroSul] 325 mg (65 mg iron) tablet 325 mg PO 1XD Patient Comments: TAKE 1 TABLET BY MOUTH DAILY folic acid 1 mg tablet 1 mg PO 1XD losartan 100 mg tablet 100 mg PO 1XD Patient Comments: TAKE 1 TABLET BY MOUTH DAILY Discontinued apixaban 5 mg tablet 5 mg PO BID Qty: 60 0RF Referrals: Cj Lopez MD [Primary Care Provider] - Darryn Duncan MD [Physician] - Patient/Caregiver Discharge Instructions Discharge Activity: as per physical therapy Education Materials: Paracentesis, Addiction: Getting Help, Addiction: Your Tr eatment Options, Addiction Recovery Counseling, Acute Kidney Failure Dc, Discharge Instructions Caring ... Print Language: Burmese Stand Alone Forms: [place] Award Info., Patient Portal Info Letter Discharge Order Discharge Orders: Discharge (Routine); Ordered 05/19/25 Ordered By: Alvin Ding Quality Discharge Quality Measures VTE prophylaxis
--- NOTE | 2025-05-19 16:39 | PC.SS ---
SS spoke to medical team informed of 1644 transportation SS received call from [employer] set transportation for 1644 SS informed katie, pt mother of transportation around 1500; she stated she would be ready SS informed medical team of transportation around [id number] SS spoke with Donna Mccray, set up transportation and provided auth number [id number] SS met pt bedisde using all precautions; informed pt of discharge confirmed pt will need transportation
--- NOTE | 2025-05-20 17:05 | PC.CC ---
hh ref sent out, waiting for responses.
--- NOTE | 2025-05-21 07:21 | PC.CC ---
Addendum entered by Louise Tejeda RN 05/21/25 16:33: SOC 05/22 Original Note: Gaby DEMARCO accepted and booked, soc pending
== END 2025-05-19 16:48 | disposition home health service (06) | DRG 280 ==
LOC: SERX 16:29 → SERHOLD 17:47 → S3SX 05-09 00:08
PROVIDERS: Internal Medicine; Specialist; Student in an Organized Health Care Education/Training Program; Admitting Provider Student in an Organized Health Care Education/Training Program; Emergency Provider Emergency Medicine; PCP Family Medicine; Referring Provider Emergency Medicine; Visit Provider Internal Medicine
PROC: (CPT 43239; principal; 2025-05-09 19:00)
DX: K70.31 Alcoholic cirrhosis of liver with ascites (principal); K25.4 Chronic or unspecified gastric ulcer with hemorrhage; E11.22 Type 2 diabetes mellitus with diabetic chronic kidney disease; K72.10 Chronic hepatic failure without coma; F17.200 Nicotine dependence, unspecified, uncomplicated; N17.9 Acute kidney failure, unspecified; E11.649 Type 2 diabetes mellitus with hypoglycemia without coma; D64.9 Anemia, unspecified; J18.9 Pneumonia, unspecified organism; D62 Acute posthemorrhagic anemia; B86 Scabies; D68.9 Coagulation defect, unspecified; D69.6 Thrombocytopenia, unspecified; E83.39 Other disorders of phosphorus metabolism; E83.42 Hypomagnesemia; E83.51 Hypocalcemia; E87.70 Fluid overload, unspecified; F10.239 Alcohol dependence with withdrawal, unspecified; H10.9 Unspecified conjunctivitis; I12.0 Hypertensive chronic kidney disease with stage 5 chronic kidney disease or end stage renal disease; I85.11 Secondary esophageal varices with bleeding; N18.6 End stage renal disease; N39.0 Urinary tract infection, site not specified; T82.838A Hemorrhage due to vascular prosthetic devices, implants and grafts, initial encounter; B37.81 Candidal esophagitis; Y84.1 Kidney dialysis as the cause of abnormal reaction of the patient, or of later complication, without mention of misadventure at the time of the procedure; Z59.01 Sheltered homelessness; Z59.82 Transportation insecurity; N47.1 Phimosis; K29.70 Gastritis, unspecified, without bleeding; Z78.9 Other specified health status; Z79.899 Other long term (current) drug therapy; Z86.711 Personal history of pulmonary embolism; Z91.148 Patient's other noncompliance with medication regimen for other reason; Z99.2 Dependence on renal dialysis; E87.20 Acidosis, unspecified
CPT/HCPCS: 36415; 36430; 36600; 71045; 74176; 76770; 76937; 77001; 80053; 80061; 80069; 80074; 80307; 80320; 81001; 82042; 82140; 82150; 82306; 82436; 82803; 82945; 83605; 83615; 83735; 83970; 84100; 84133; 84145; 84156; 84157; 84300; 84550; 85014; 85018; 85025; 85610; 85730; 86580; 86850; 86870; 86900; 86901; 86921; 86922; 86923; 87086; 87811; 89051; 93005; 94640; 94664; 96365; 96366; 96367; 96375; 97162; 99285; A9270; C1729; C1750; C1894; J0456; J0613; J0696; J1171; J1642; J1643; J2250; J2354; J2405; J2470; J3010; J3475; J3490; J7050; P9016; P9047; Q5105; G0480

== ENCOUNTER 2025-05-23 06:35 | Emergency (ER) | payer MEDICAID, SELFPAY ==
[2025-05-23 06:40] VITALS: BP 107/65; PULSE 58; RESP 18; TEMP 36.6; O2SAT 96
[2025-05-23 07:06] VITALS: BMI 31.0
[2025-05-23 07:22] VITALS: BP 82/55; PULSE 113; RESP 20; TEMP 36.9; O2SAT 98
[2025-05-23 07:28] VITALS: PULSE 106
--- NOTE | 2025-05-23 07:28 | EKG_ITS ---
[facility] Test Date: 2025-05-23 Pat Name: JOSE COON Department: Room: - Gender: Male Clinic Administrator: : 1980 Requested By: Gunner Aguirre (EDD) Order Number: [id number] Reading MD: Gunner Aguirre (EDD) Measurements Intervals [place] Rate: 118 P: 193 IA: 222 QRS: 24 QRSD: 81 T: 24 QT: 343 QTc: 482 Interpretive Statements ECTOPIC ATRIAL TACHYCARDIA WITH FIRST DEGREE AV BLOCK LEFT ATRIAL ENLARGEMENT [-0.15mV P-WAVE IN V1/V2] POSSIBLE ANTERIOR MYOCARDIAL INFARCTION , PROBABLY OLD [30 ms Q WAVE IN V3/V4, OR R < 0.2 mV IN V4] Compared to ECG 05/08/2025 13:59:37 First degree AV block now present Atrial abnormality now present Myocardial infarct finding now present Sinus rhythm no longer present Sinus arrhythmia no longer present /store/S0/[id number]
--- NOTE | 2025-05-23 07:40 | PD.EDADULT ---
ED General RME/HPI General Chief complaint: General Adult/Misc Complain Stated complaint: LOW BP Time Seen by Provider: 05/23/25 07:31 Arrival date/time: 05/23/25 06:35 RME / HPI RME / HPI narrative: See MDM Related Data Home Medications ?Medication ?Instructions ?Recorded ?Confirmed amlodipine 10 mg tablet 10 mg PO 1XD 05/09/25 05/09/25 ferrous sulfate 325 mg (65 mg 325 mg PO 1XD 05/09/25 05/09/25 iron) tablet (FeroSul) folic acid 1 mg tablet 1 mg PO 1XD 05/09/25 05/09/25 levothyroxine 100 mcg tablet 100 mcg PO 1XD 05/09/25 05/09/25 losartan 100 mg tablet 100 mg PO 1XD 05/09/25 05/09/25 quetiapine 100 mg tablet 100 mg PO HS 05/09/25 05/09/25 Previous Rx's ?Medication ?Instructions ?Recorded pantoprazole 40 mg tablet,delayed 40 mg PO BID GI bleed 30 days #60 03/28/24 release tabs fluconazole 100 mg tablet 200 mg (2 x 100 mg) PO QDAY 3 05/15/25 weeks #42 tabs Allergies Allergy/AdvReac Type Severity Reaction Status Date / Time No Known Allergies Allergy Verified 05/04/24 17:15 Review of Systems Review of Systems Systems Reviewed: All systems reviewed, normal except as documented ED Exam Narrative Physical exam: Physical Exam GENERAL: NAD, AAOx3 HEENT: Moist mucosa. Eyes open, symmetrical, & clear, right sided dialysis catheter noted CARDIO: Heart RRR, no obvious murmurs PULM: No noted coughing/dyspnea, B/L crackles GI: Abdomen soft, distended, no pain on palpation. BSx4, hawkins catheter in place SKIN/MSK/EXT: Bilateral lower extremity edema +2 up to the knees, no pain on palpation. Pedal pulses present B/L NEURO: AAOx3, no focal neuro deficits, able to move all 4 extremities Course Quality Measures none Orders Category Date Time Status Audit Lead NOW Care 05/23/25 07:28 Completed EKG (ED ONLY) *Do not use* NOW Care 05/23/25 07:28 Completed Insert IV NOW Care 05/23/25 08:04 Completed EKG (ED Only) Stat Exams 05/23/25 07:28 Draft B-Type Natriuretic Peptide Stat Lab 05/23/25 07:55 Completed CBC Stat Lab 05/23/25 07:55 Completed Comprehensive Metabolic Panel Stat Lab 05/23/25 07:55 Completed Magnesium Stat Lab 05/23/25 07:55 Completed Partial Thromboplastin Time Stat Lab 05/23/25 07:55 Completed Prothrombin Time with INR Stat Lab 05/23/25 07:55 Completed Troponin I Stat Lab 05/23/25 07:55 Completed Sodium Chloride 0.9% 1000 ml [Ns] 1,000 ml Med 05/23/25 07:29 Discontinued IV 999 mls/hr Vital Signs Vital signs: Vital Signs Temperature 98 F 05/23/25 06:40 Pulse Rate 58 L 05/23/25 06:40 Respiratory Rate 18 05/23/25 06:40 Blood Pressure 107/65 05/23/25 06:40 Pulse Oximetry (%) 96 05/23/25 06:40 Oxygen Delivery Method Room Air 05/23/25 06:40 Discharge Plan Plan Patient Disposition: Left Against Medical Advice Prescriptions/Referrals Prescriptions/Med Rec: No Action pantoprazole 40 mg tablet,delayed release (DR/EC) 40 mg PO BID 30 Days Qty: 60 2RF quetiapine 100 mg tablet 100 mg PO HS levothyroxine 100 mcg tablet 100 mcg PO 1XD Patient Comments: TAKE 1 TABLET BY MOUTH DAILY IN THE MORNING ON AN EMPTY STOMACH amlodipine 10 mg tablet 10 mg PO 1XD Patient Comments: TAKE 1 TABLET BY MOUTH DAILY ferrous sulfate [FeroSul] 325 mg (65 mg iron) tablet 325 mg PO 1XD Patient Comments: TAKE 1 TABLET BY MOUTH DAILY folic acid 1 mg tablet 1 mg PO 1XD losartan 100 mg tablet 100 mg PO 1XD Patient Comments: TAKE 1 TABLET BY MOUTH DAILY fluconazole 100 mg Tablet 200 mg PO QDAY 21 Days Qty: 42 0RF Referrals: No Primary/Family,Physician [Primary Care Provider] - In 1 week Problem List Clinical Impression: Acute hypotension, Tachycardia, End stage renal failure on dialysis, History of alcohol abuse Patient/Caregiver Discharge Instructions Print Language: Bhutanese MDM Narrative MDM hospital course: 45 y/o M with PMHx of active alcohol use disorder with subsequent end-stage liver disease, type 2 diabetes mellitus, hypertension who presented to the ED from the dialysis center due to low BP. Patient into the HD center and was unable to initiate his session as his BP was in the low 80s systolic and was told to have his hemodialysis here in the ED. 0820: Labs were drawn, patient became uncooperative. The extent and concern for The patient has decided to sign out against medical advice (AMA) after being explained the risks & benefits of leaving before medical clearance/discharge. The patient had the opportunity to ask questions about their condition which were answered to their satisfaction; the patient is aware that they may return for further care at any time as needed. [email or web address]>>>>>>>>>>>>>>> I am adding an addendum to the MDM>> patient is a 45-year-old recently started on dialysis patient who went to dialysis today was found to be hypotensive and tachycardic and was sent here for evaluation. He arrived by ambulance. The resident saw the patient initially evaluated him we discussed the case with him back in the room patient is obviously hypotensive tachycardic as end-stage renal failure has a history of alcoholism and cirrhosis. Patient was upset that he was brought here did not want to be here further upset when we told him he is hypotensive tachycardic this is abnormal and he got mad because he says this is normal for him he feels fine and he does not want to stay here for further workup or testing. While we attempted to persuade him to stay in he still refused While he stated [facility] he did not want to hear what I have to say nor the resident he was informed that his heart rate was fast his blood pressure was low and that he was potentially critically ill and needed extensive workup and possible admission to the hospital. Nonetheless he still refused to listen to that or heed the advice we gave him. Patient called his mother to come pick him up. We also contacted her let her know we wanted to speak to her when she arrived but evidently the patient did not allow that and/or she came to the ER picked him up and took him home without further engaging us. He did get blood drawn which revealed a white count of 5.3 hemoglobin is 7.8 which is chronically anemic. PT/INR within normal limits electrolytes are 135 potassium 3.6 chloride 94 CO2 is 30.1 BUN is 24 creatinine is 4.2 troponin came back negative magnesium was low at 1.2. 's EKG revealed a sinus tach may be an ectopic atrial rhythm heart rate was in the 1 10-15 range no STEMI was seen. Unfortunately the cause of this patient's hypotension and tachycardia is unknown since he left AMA. Clinical Information Provided by patient and EMS Medical Records Reviewed [facility] Medication Administration(s) Medication Administration History Discontinued Medications Sodium Chloride (Ns) 1,000 mls @ 999 mls/hr IV .Q1H1M ONE Stop: 05/23/25 08:29 Last Admin: 05/23/25 07:55 Dose: Not Given Documented By: DB Non-Admin Reason: Cancelled by Provider Dispositon Disposition: other (AGAINST MEDICAL ADVICE) Disposition comments: Left AGAINST MEDICAL ADVICE
[2025-05-23 08:20] VITALS: BP 115/68; PULSE 116; RESP 18; TEMP 36.9; O2SAT 99
[2025-05-23 08:32] LABS: Alanine Aminotransferase 11 U/L (10-49); Albumin, Serum 2.9 gm/dL (3.5-5.0); Albumin/Globulin Ratio 0.9 (1.2-2.2); Alkaline Phosphatase 64 U/L (46-116); Anion Gap 11 (7-16); Aspartate Amino Transferase 34 U/L (0-34); BUN/Creatinine Ratio 6 Ratio (12-20); Bilirubin,Total 0.6 mg/dL (0.3-1.2); Blood Urea Nitrogen 24 mg/dL (9-23); Calcium 8.2 mg/dL (8.3-10.6); Calcium (Corrected) 9.1 mg/dL (8.5-10.1); Carbon Dioxide 30.1 mMol/L (20.0-31.0); Chloride 94 mMol/L (98-107); Creatinine (Component) 4.2 mg/dL (0.6-1.3); Estimated Creatinine Clearance 24.2 mL/min (>60); Globulin 3.1 gm/dL (2.3-3.5); Glucose 118 mg/dL (74-106); Magnesium 1.2 mg/dL (1.6-2.6); Osmolality,Calculated 275 (275-295); Potassium 3.6 mMol/L (3.4-5.1); Sodium 135 mMol/L (136-145); Total Protein 6.0 gm/dL (5.7-8.2); Troponin I < 0.020 ng/mL (0.0-0.045); eGFR 17 See Note
[2025-05-23 08:39] LABS: Basophils # (Auto) 0.0 Thou/mm3 (0.0-0.2); Basophils % (Auto) 1 % (0-2.5); Eosinophils # (Auto) 0.2 Thou/mm3 (0.0-0.5); Eosinophils % (Auto) 3 % (0-10); Hematocrit 23.5 % (41.0-53.0); Immature Granulocytes Auto 0.01 Thou/mm3 (0.00-0.00); Lymphocytes # (Auto) 1.3 Thou/mm3 (1.0-4.8); Lymphocytes % (Auto) 25 % (10-50); Mean Corpuscular HGB Conc 33.2 g/dl (31.0-37.0); Mean Corpuscular Hemoglobin 31.1 pg (25.0-35.0); Mean Corpuscular Volume 94 fL (80-100); Monocytes # (Auto) 0.7 Thou/mm3 (0.0-0.8); Monocytes % (Auto) 13 % (0-12); Neutrophils # (Auto) 3.1 Thou/mm3 (1.8-7.7); Neutrophils % (Auto) 58 % (37-80); Nucleated Red Blood Cell # 0.00 Thou/mm3 (0.00-0.00); Nucleated Red Blood Cell % 0 /100 WBC (0); Platelet Count 122 Thou/mm3 (140-440); RDW Standard Deviation 50.6 fL (35.1-43.9); Red Blood Count 2.51 Miln/mm3 (4.50-5.90); White Blood Count 5.3 Thou/mm3 (3.8-10.6)
[2025-05-23 08:41] LABS: Hemoglobin 7.8 g/dL (13.5-16.0)
[2025-05-23 09:01] LABS: B-Type Natriuretic Peptide 108 pg/mL (0-100)
[2025-05-23 09:09] LABS: INR 1.1 (0.9-1.3); Partial Thromboplastin Time 29.9 Seconds (22.0-36.0); Prothrombin Time 12.2 Seconds (9.0-12.2)
== END 2025-05-23 08:20 | disposition left against medical advice (07) ==
LOC: SERX 08:32
PROVIDERS: Nurse Practitioner Primary Care; Emergency Provider Student in an Organized Health Care Education/Training Program
DX: I95.9 Hypotension, unspecified (principal); N18.6 End stage renal disease; Z99.2 Dependence on renal dialysis; I44.0 Atrioventricular block, first degree; I25.2 Old myocardial infarction; Z53.29 Procedure and treatment not carried out because of patient's decision for other reasons
CPT/HCPCS: 36415; 80053; 80307; 81001; 83735; 83880; 84484; 85025; 85610; 85730; 93005; 99283

== ENCOUNTER 2025-06-04 10:42 | Emergency (ER) | payer MEDICAID, SELFPAY ==
[2025-06-04 10:44] VITALS: BP 101/70; PULSE 107; RESP 18; TEMP 37.2; O2SAT 95
--- NOTE | 2025-06-04 10:45 | PD.EDADULT ---
ED General RME/HPI General Stated complaint: DIALYSIS Time Seen by Provider: 06/04/25 10:50 Arrival date/time: 06/04/25 10:42 RME / HPI RME / HPI narrative: 45 year old male with history of end stage liver disease with alcohol use disorder, hypertension, diabetes, renal disease on HD T//Tue presents to the ED BIBA for an infusion today. Reports he was called today from this place and advised he needs a transfusion. No other complaints reported. Patient states he last drank alcohol 2 weeks ago. Patient has really a poor historian does not know the names of his doctors does not know why he is really here did not go to dialysis today. Related Data Home Medications ?Medication ?Instructions ?Recorded ?Confirmed amlodipine 10 mg tablet 10 mg PO 1XD 05/09/25 05/09/25 ferrous sulfate 325 mg (65 mg 325 mg PO 1XD 05/09/25 05/09/25 iron) tablet (FeroSul) folic acid 1 mg tablet 1 mg PO 1XD 05/09/25 05/09/25 levothyroxine 100 mcg tablet 100 mcg PO 1XD 05/09/25 05/09/25 losartan 100 mg tablet 100 mg PO 1XD 05/09/25 05/09/25 quetiapine 100 mg tablet 100 mg PO HS 05/09/25 05/09/25 Previous Rx's ?Medication ?Instructions ?Recorded pantoprazole 40 mg tablet,delayed 40 mg PO BID GI bleed 30 days #60 03/28/24 release tabs fluconazole 100 mg tablet 200 mg (2 x 100 mg) PO QDAY 3 05/15/25 weeks #42 tabs Allergies Allergy/AdvReac Type Severity Reaction Status Date / Time No Known Allergies Allergy Verified 06/04/25 10:52 Review of Systems Review of Systems Systems Reviewed: All systems reviewed, normal except as documented Past Medical History Past Medical History CARDIAC: Positive Cardiac Disorders, Hypercholesterolemia, Congestive Heart Failure, Edema and Hypertension RESPIRATORY: Positive Chronic Obstructive Pulmonary Disease (COPD), Asthma and Tobacco Use GASTROINTESTINAL: Positive Gastrointestinal Disorders, Cirrhosis, Gastrointestinal Bleed, Gastroesophageal Reflux Disease and Obesity GENITOURINARY: Positive Renal Disease and Dialysis MUSCULOSKELETAL: Positive Musculoskeletal Disorders ENDOCRINE: Positive Endocrine Disorders, Diabetes Mellitus Type 2 and Hypothyroidism HEMATOLOGIC: Positive Blood Disorders and Anemia PSYCHO/SOCIAL: Positive Psychiatric Problems, Schizophrenia, Recreational Drug Use, Bipolar Disorder and Depression OTHER HISTORY: Positive Blood Transfusions (THIS ADMISSION IN ED) Family History FAMILY HISTORY: Positive Family Psychiatric Problems, Family Cardiac Disorders and Family Cancer Social History SMOKING STATUS: Heavy (> 1 pack/day) SECOND HAND EXPOSURE: Yes SUBSTANCE USE: does not use ED Exam Narrative Physical exam: Physical Exam: General: The vital signs were reviewed. Patient is somewhat uncooperative does not know the name of his doctor states he is here to get some infusion but does not know what. He is reported to have kidney problems but does not know the name of his equipment operator/laborer. The patient is non-toxic, in no apparent distress and appears healthy with a patent airway, no respiratory distress and has no apparent circulatory problems. Head & Scalp: Normocephalic, atraumatic. Face: Appears normal and is without lesions, deformity. Ears: Left external pinna appears normal. Right external pinna appears normal. Eyes: The sclera is anicteric. No obvious photophobia. The Left and Right Orbit/Lid/Conjunctiva appears normal without swelling, discoloration or injection. Nose: The nose is without deformity, discharge or tenderness; Throat: Appears normal. The mucous membranes are pink and moist without exudates, redness or mass seen. The tongue appears normal. Neck: The neck is supple and no apparent mass or adenopathy. Chest: The chest wall is normal in size and symmetry and has no chest wall tenderness or crepitus. The patient displays normal ventilator effort without retractions, accessory muscle use and has adequate air movement bilaterally with no wheezes and no rales. Cardiovascular: Regular rate and rhythm; No murmurs, rubs, or gallops; Gastrointestinal: The abdomen appears full and distended with fluid Genitourinary: Back/Spine: Normal inspection Extremities/Musculoskeletal/lymphatic: The bilateral upper and lower extremities are warm. There is no evidence of arterial insufficiency. The patient spontaneously moves bilateral upper and lower extremities with no pain and no limitation of movement. There is no apparent, injury or trauma. Skin: The skin is warm, dry and intact. No rashes. No petechia. No purpura. No abnormal bruising. The color is appropriate with no cyanosis. Mental status/Psychiatric: Mental status is appropriate for age. The patient has no apparent delusions, visual hallucinations, no apparent audible hallucinations. The patient has no apparent suicidal thoughts/ideation and no apparent homicidal thoughts/ideation. Neurological: The patient is awake, alert, interactive, cordial, cooperative and is oriented to name and situation. The patient follows commands and answers historical question with no impairment. There is no visual disturbance apparent. The pupils are equal and reactive bilaterally with normal eye movements and no diplopia The bilateral upper and lower extremities have normal strength, normal range of motion and normal functioning. The gait, station and balance were not tested due to acuity. Course Quality Measures none Orders Category Date Time Status Bedside Blood Glucose NOW Care 06/04/25 10:55 Active EKG (ED ONLY) *Do not use* NOW Care 06/04/25 10:55 Completed EKG (ED Only) Stat Exams 06/04/25 10:55 Draft XR chest 1V portable Stat Exams 06/04/25 10:55 Completed Alcohol, Blood Medical Stat Lab 06/04/25 11:10 Completed Ammonia Stat Lab 06/04/25 11:10 Completed Antibody Identification Stat Lab 06/04/25 11:10 Completed B-Type Natriuretic Peptide Stat Lab 06/04/25 11:10 Completed Blood Culture (Lab) Stat Lab 06/04/25 11:10 Received CBC Stat Lab 06/04/25 11:39 Completed Comprehensive Metabolic Panel Stat Lab 06/04/25 11:10 Completed Drug Screen,Urine Stat Lab 06/04/25 14:04 Completed Lactate (Lactic Acid) Stat Lab 06/04/25 11:10 Completed Procalcitonin Stat Lab 06/04/25 11:10 Completed Prothrombin Time with INR Stat Lab 06/04/25 11:10 Completed Troponin I Stat Lab 06/04/25 11:10 Completed Type and Screen Stat Lab 06/04/25 11:10 Completed Urinalysis Stat Lab 06/04/25 14:04 Completed Venous Blood Gas Stat Lab 06/04/25 11:10 Completed Sod Polystyrene Sulfon Susp [Kayexalate Susp] Med 06/04/25 16:47 Discontinued 15 gm PO X1 ONE Vital Signs Vital signs: Vital Signs Temperature 99.0 F 06/04/25 10:44 Pulse Rate 107 H 06/04/25 10:44 Respiratory Rate 18 06/04/25 10:44 Blood Pressure 101/70 06/04/25 10:44 Pulse Oximetry (%) 95 06/04/25 10:44 Oxygen Delivery Method Room Air 06/04/25 10:44 Pulse ox is 95% on room air which is adequate. Discharge Plan Plan Patient Disposition: HOME (Self Care) Prescriptions/Referrals Prescriptions/Med Rec: No Action pantoprazole 40 mg tablet,delayed release (DR/EC) 40 mg PO BID 30 Days Qty: 60 2RF quetiapine 100 mg tablet 100 mg PO HS levothyroxine 100 mcg tablet 100 mcg PO 1XD Patient Comments: TAKE 1 TABLET BY MOUTH DAILY IN THE MORNING ON AN EMPTY STOMACH amlodipine 10 mg tablet 10 mg PO 1XD Patient Comments: TAKE 1 TABLET BY MOUTH DAILY ferrous sulfate [FeroSul] 325 mg (65 mg iron) tablet 325 mg PO 1XD Patient Comments: TAKE 1 TABLET BY MOUTH DAILY folic acid 1 mg tablet 1 mg PO 1XD losartan 100 mg tablet 100 mg PO 1XD Patient Comments: TAKE 1 TABLET BY MOUTH DAILY fluconazole 100 mg Tablet 200 mg PO QDAY 21 Days Qty: 42 0RF Referrals: Cj Lopez MD [Primary Care Provider] - In 1 week Problem List Clinical Impression: End stage renal failure on dialysis, Cirrhosis, Acute hyperkalemia, Chronic anemia Patient/Caregiver Discharge Instructions Additional Instructions: You have a chronic anemia but your hemoglobin here was 7.3. Therefore you do not need a transfusion at this time but note that hemoglobin tested at the dialysis center was low bit lower which prompted your visit here. Today your potassium was 5.4 which is slightly high and we gave you 1 dose of Kayexalate orally. I spoke with Dr. Duncan your kidney doctor and she wants you to call the dialysis people first thing in the morning tomorrow to get an appointment for dialysis tomorrow morning. If you are getting sicker or worse or fever or bleeding any significant way please return for reevaluation. Again you must call your dialysis center first thing in the morning so that they can do dialysis as soon as possible. Print Language: Marshallese Stand Alone Forms: [facility] Award Info., Patient Portal Info Letter MDM Narrative MDM hospital course: Patient returns to the hospital called EMS as he was unable to go to his dialysis today. Or did not have a ride and is unclear about his history of whether he even is on dialysis. Does not know the name of his equipment operator/laborer. States he came to the emergency room because he needs an infusion. I reviewed his charts referred to a visit where he came in where I put an addendum as he was being difficult refusing workup for hypotension and left AMA recently. Medical workup today reveals a white count of 4.3 hemoglobin is 7.3 he is chronically anemic and essentially unchanged. PT/INR 13.3 and 1.2 venous blood gas pH is 7.59 PaCO2 of 29 consistent with a respiratory alkalosis. Sodium 131 potassium 3.8 kart 94 CO2 25 creatinine 5.4 which is slightly elevated from baseline. Lactic acid is 1.3. Ammonia is negative procalcitonin is slightly elevated 0.83 urine is got a 45 white cells 31 squames of uncertain significance as it is highly contaminated urine drug screen came back negative I spoke with Dr. Duncan as she thought the patient actually went to dialysis today and they told [facility] because he might need a transfusion. Patient states he never went there and again has no clue of why he is here but states some lady told him he needed to come here. His medical workup has no acute finding other than a mild hyperkalemia. Patient was clearly instructed and on discharge instructions to call the dialysis center first thing in the morning so he can get his dialysis and not be any more delayed. He also knows return if getting worse in any way. Clinical Information Provided by patient and EMS Medical Records Reviewed [facility] I reviewed admission from 05/08/2025 through 05/19/2025 Meds/Rx Considered, not Ordered None Labs/Rad/Tests considered, not Ordered None Chronic Illness/Social Conditions which may negatively complicate care or outcome(s)-explain: ETOH/drugs/substance abuse EKG Interpretation EKG #1: Date/time of EK06/04/25 11:10 AM EKG interpretation: Sinus tachycardia, rate 102, low voltage, no STEMI. Lab Interpretation Labs: see narrative above Imaging Imaging interpretation: see narrative above Radiology reports / interpretation(s): Ordering Physician: John Marie MD Date of Service: 06/04/25 Procedure(s): XR chest 1V portable Accession Number(s): [id number] cc: John Marie MD; Pola Benitez MD~ Examination: AP chest single view TECHNIQUE: Portable sitting AP chest single view Date and time: June 04, 2025 at 11:00 AM INDICATIONS: Onset chest pain today. FINDINGS: No significant cardiac enlargement Poor inspiratory effort Bilateral subsegmental atelectasis. No lobar pneumonia. Right internal jugular dialysis catheter tips right atrium IMPRESSION: Poor inspiratory effort chest x-ray Dictated By: Ploa Benitez MD Signed By: <Electronically signed by Pola Benitez MD in OV> 06/04/25 1117 Medication Administration(s) none Medication Administration History Discontinued Medications Sodium Polystyrene Sulfonate (Sod Polystyrene Sulfon Susp 15 Gm/60 Ml Btl) 15 gm PO X1 ONE Stop: 06/04/25 16:48 Last Admin: 06/04/25 17:23 Dose: 15 gm Documented By: CG See above Consultations/Discussions re: Management Consult #1: Date/time: 06/04/25 4:47 pm Physician, specialty, service, details: I spoke with equipment operator/laborer Dr. Duncan as noted above. Diagnosis Most likely dx, and/or detailed dx discussion: End stage renal failure on dialysis Cirrhosis Acute hyperkalemia Chronic anemia Dispositon Disposition: Discharge Home
[2025-06-04 10:47] VITALS: PULSE 109; RESP 16; O2SAT 96; BMI 31.0
--- NOTE | 2025-06-04 10:55 | EKG_ITS ---
[facility] Test Date: 2025-06-04 Pat Name: JOSE COON Department: Room: - Gender: Male Social Sciences Professor: : 1980 Requested By: John Marie Order Number: [id number] Reading MD: John Marie Measurements Intervals [place] Rate: 102 P: 15 HI: 150 QRS: 21 QRSD: 90 T: 27 QT: 377 QTc: 492 Interpretive Statements SINUS TACHYCARDIA POSSIBLE ANTERIOR MYOCARDIAL INFARCTION , PROBABLY OLD [30 ms Q WAVE IN V3/V4, OR R < 0.2 mV IN V4] ABNORMAL RHYTHM ECG Compared to ECG 05/23/2025 07:32:24 First degree AV block no longer present Atrial abnormality no longer present Myocardial infarct finding still present /store/S0/[id number]
--- NOTE | 2025-06-04 10:55 | XR_ITS ---
Examination: AP chest single view TECHNIQUE: Portable sitting AP chest single view Date and time: June 04, 2025 at 11:00 AM INDICATIONS: Onset chest pain today. FINDINGS: No significant cardiac enlargement Poor inspiratory effort Bilateral subsegmental atelectasis. No lobar pneumonia. Right internal jugular dialysis catheter tips right atrium IMPRESSION: Poor inspiratory effort chest x-ray
[2025-06-04 11:21] LABS: Lactate (Lactic Acid) 1.3 mMol/L (0.4-2.0)
[2025-06-04 11:22] LABS: Base Excess, Venous 6 (-3-3); O2 Saturation, Venous 90 % (96-97); PCO2, Venous 29 mmHg (36-56); PO2, Venous 54 mmHg (15-58); pH, Venous 7.59 (7.33-7.66)
[2025-06-04 11:38] LABS: B-Type Natriuretic Peptide 70 pg/mL (0-100)
[2025-06-04 11:46] LABS: Ammonia < 10 uMol/L (11-32)
[2025-06-04 11:47] LABS: Alanine Aminotransferase < 7 U/L (10-49); Albumin, Serum 2.7 gm/dL (3.5-5.0); Albumin/Globulin Ratio 0.9 (1.2-2.2); Alcohol, Blood Medical < 3.0 mg/dL (0-10.0); Alkaline Phosphatase 68 U/L (46-116); Anion Gap 12 (7-16); Aspartate Amino Transferase 34 U/L (0-34); BUN/Creatinine Ratio 3 Ratio (12-20); Bilirubin,Total 0.9 mg/dL (0.3-1.2); Blood Urea Nitrogen 15 mg/dL (9-23); Calcium 8.2 mg/dL (8.3-10.6); Calcium (Corrected) 9.2 mg/dL (8.5-10.1); Carbon Dioxide 25.0 mMol/L (20.0-31.0); Chloride 94 mMol/L (98-107); Creatinine (Component) 5.4 mg/dL (0.6-1.3); Estimated Creatinine Clearance 18.9 mL/min (>60); Globulin 3.1 gm/dL (2.3-3.5); Glucose 53 mg/dL (74-106); Osmolality,Calculated 260 (275-295); Potassium 3.8 mMol/L (3.4-5.1); Procalcitonin 0.83 ng/ml (0.0-0.49); Sodium 131 mMol/L (136-145); Total Protein 5.8 gm/dL (5.7-8.2); Troponin I < 0.020 ng/mL (0.0-0.045); eGFR 13 See Note
[2025-06-04 11:50] LABS: Basophils # (Auto) 0.1 Thou/mm3 (0.0-0.2); Basophils % (Auto) 1 % (0-2.5); Eosinophils # (Auto) 0.2 Thou/mm3 (0.0-0.5); Eosinophils % (Auto) 5 % (0-10); Hematocrit 22.2 % (41.0-53.0); Immature Granulocytes Auto 0.02 Thou/mm3 (0.00-0.00); Lymphocytes # (Auto) 1.3 Thou/mm3 (1.0-4.8); Lymphocytes % (Auto) 31 % (10-50); Mean Corpuscular HGB Conc 32.9 g/dl (31.0-37.0); Mean Corpuscular Hemoglobin 30.4 pg (25.0-35.0); Mean Corpuscular Volume 93 fL (80-100); Monocytes # (Auto) 0.8 Thou/mm3 (0.0-0.8); Monocytes % (Auto) 19 % (0-12); Neutrophils # (Auto) 1.8 Thou/mm3 (1.8-7.7); Neutrophils % (Auto) 43 % (37-80); Nucleated Red Blood Cell # 0.00 Thou/mm3 (0.00-0.00); Nucleated Red Blood Cell % 0 /100 WBC (0); Platelet Count 171 Thou/mm3 (140-440); RDW Standard Deviation 46.7 fL (35.1-43.9); Red Blood Count 2.40 Miln/mm3 (4.50-5.90); White Blood Count 4.3 Thou/mm3 (3.8-10.6)
[2025-06-04 11:51] LABS: Hemoglobin 7.3 g/dL (13.5-16.0)
[2025-06-04 11:53] LABS: INR 1.2 (0.9-1.3); Prothrombin Time 13.3 Seconds (9.0-12.2)
[2025-06-04 13:15] VITALS: BP 112/81; PULSE 97; RESP 16; TEMP 36.4; O2SAT 99
[2025-06-04 14:37] LABS: Collection Type, Urine Catheter
[2025-06-04 14:46] LABS: Bacteria,Urine 1+; Bilirubin,Urine Negative (Negative); Blood,Urine Trace (Negative); Clarity,Urine Turbid (Clear/Hazy); Color,Urine Yellow (Lt Yel-Yel); Glucose, Urine Negative (Negative); Hyaline Casts,Urine < 1 /hpf (0-1); Ketones,Urine Trace (Negative); Leukocyte Esterase,Urine Positive (Negative); Nitrite,Urine Negative (Negative); PH,Urine 5.5 (5.0-7.0); Protein,Urine Trace (Neg - Trace); RBC,Urine 3 /hpf (0-3); Specific Gravity,Urine 1.018 (1.001-1.035); Squamous Epithelial Cell,Urine 31 /hpf (0-5); Urobilinogen,Urine Negative mg/dL (0.0-1.0); WBC,Urine 45 /hpf (0-5)
[2025-06-04 14:52] LABS: Amphetamine/Methamp Scrn,U Negative (Negative); Barbiturate Screen,Urine Negative (Negative); Benzodiazepines Screen,Urine Negative (Negative); Benzoylecgonine Screen, Ur Negative (Negative); Fentanyl Screen,Urine Negative (Negative); Opiate Screen,Urine Negative (Negative); THC Screen,Urine Negative (Negative)
[2025-06-04 14:54] VITALS: BP 112/71; PULSE 97; RESP 15; TEMP 37.1; O2SAT 95
[2025-06-04 16:43] VITALS: BP 106/84; PULSE 91; RESP 16; TEMP 36.8; O2SAT 97
[2025-06-04] MEDS: SOD POLYSTYRENE SULFON SUSP 15 GM/60 ML BTL PO (17:23)
[2025-06-04 17:41] VITALS: BP 114/70; PULSE 88; RESP 18; TEMP 36.1; O2SAT 99
--- NOTE | 2025-06-04 17:54 | PC.CC ---
Per request of the RN, ASW arranged transportation via [employer] for the pt to return home. Pt is waiting outside for his [employer] who will arrive in 10 min.
== END 2025-06-04 17:39 | disposition home or self-care (01) ==
PROVIDERS: Emergency Provider Emergency Medicine; PCP Family Medicine
DX: I12.0 Hypertensive chronic kidney disease with stage 5 chronic kidney disease or end stage renal disease (principal); N18.6 End stage renal disease; D63.1 Anemia in chronic kidney disease; E87.5 Hyperkalemia; K74.60 Unspecified cirrhosis of liver; R07.9 Chest pain, unspecified; R94.31 Abnormal electrocardiogram [ECG] [EKG]; I25.2 Old myocardial infarction
CPT/HCPCS: 36415; 71045; 80053; 80307; 80320; 81001; 82140; 82803; 83605; 83880; 84145; 84484; 85025; 85610; 86850; 86870; 86900; 86901; 87040; 93005; 99283; A9270; G0480

== ENCOUNTER 2025-06-14 15:45 | Inpatient (IN) | payer MEDICAID, SELFPAY ==
[2025-06-14] VITALS (18 sets, daily range): BP systolic 89–115; BP diastolic 55–75; PULSE 99–118; RESP 14–18; TEMP 36.5–36.8; O2SAT 95–100
--- NOTE | 2025-06-14 16:33 | XR_ITS ---
Examination: AP chest single view Technique one AP portable semiupright chest single view Date and time: June 14, 2025 1653 hours INDICATIONS: Vomiting nausea today. FINDINGS: Reduced inspiratory effort Bilateral subsegmental atelectasis at the lung bases Mild prominence left ventricle. Right internal jugular dialysis catheter tip satisfactory position. Mild vascular congestion. No lobar pneumonia or pulmonary edema IMPRESSION: Negative for aspiration pneumonia
--- NOTE | 2025-06-14 16:33 | EKG_ITS ---
[facility] Test Date: 2025-06-14 Pat Name: JOSE COON Department: Room: - Gender: Male Medical Device Sales: : 1980 Requested By: Tucker Rowe Order Number: [id number] Reading MD: Tucker Rowe Measurements Intervals [place] Rate: 83 P: 31 [place]: 154 QRS: 35 QRSD: 84 T: 22 QT: 375 QTc: 442 Interpretive Statements SINUS RHYTHM WITH SINUS ARRHYTHMIA LOW QRS VOLTAGE IN EXTREMITY LEADS [QRS DEFLECTION < 0.5 mV IN LIMB LEADS] POSSIBLE ANTERIOR MYOCARDIAL INFARCTION , PROBABLY OLD [30 ms Q WAVE IN V3/V4, OR R < 0.2 mV IN V4] Compared to ECG 06/04/2025 11:10:51 Low QRS voltage now present Sinus tachycardia no longer present Myocardial infarct finding still present /store/S0/[id number]/[id number]
--- NOTE | 2025-06-14 16:35 | PD.EDNV ---
Nausea/Vomit./Diarrhea-RME/HPI General Chief complaint: Nausea/Vomiting/Diarrhea Stated complaint: NAUSEA AND VOMITING Time Seen by Provider: 06/14/25 16:22 Arrival date/time: 06/14/25 15:45 RME / HPI RME / HPI Narrative: 45-year-old male patient with significant history of chronic alcoholism, liver cirrhosis, ESRD, bipolar disorder hypertension diabetes mellitus, was brought in by EMS for evaluation regarding vomiting. Patient has been having worsening vomiting for more than a week, cannot take anything down since last night. Patient also complained of worsening abdominal distention. Patient told me that he did not go to dialysis for more than a week, last dialysis was last week, cannot really tell me the last exact date. Patient denies any fever denies any cough denies any complaints. Told me that he is not drinking anymore. Related Data Home Medications ?Medication ?Instructions ?Recorded ?Confirmed amlodipine 10 mg tablet 10 mg PO 1XD 05/09/25 06/15/25 ferrous sulfate 325 mg (65 mg 325 mg PO 1XD 05/09/25 06/15/25 iron) tablet (FeroSul) folic acid 1 mg tablet 1 mg PO 1XD 05/09/25 06/15/25 levothyroxine 100 mcg tablet 100 mcg PO 1XD 05/09/25 06/15/25 losartan 100 mg tablet 100 mg PO 1XD 05/09/25 06/15/25 quetiapine 100 mg tablet 100 mg PO HS 05/09/25 06/15/25 Previous Rx's ?Medication ?Instructions ?Recorded pantoprazole 40 mg tablet,delayed 40 mg PO BID GI bleed 30 days #60 03/28/24 release tabs Allergies Allergy/AdvReac Type Severity Reaction Status Date / Time No Known Allergies Allergy Verified 06/04/25 10:52 Review of Systems Review of Systems Narrative Review of Systems: Review of system reviewed and within normal limits except mentioned in HPI ED Exam Narrative Physical exam: VITAL SIGNS: Reviewed. GENERAL APPEARANCE: Alert and interactive, follows commands, no acute distress, HEAD AND FACE: Non-traumatic. ENT: PERRL, pale conjunctiva, eyelid no trauma, Mucous membrane moist. NECK: Supple, nontender, no nuchal rigidity. CHEST: No tenderness, no crepitus, no paradoxical movement, no retractions. LUNGS: Clear, well ventilated, symmetric, no rales, no wheezing, no ronchi, no stridor, good breath sounds bilaterally. HEART: Regular rate, regular rhythm, no murmur, no gallops. ABDOMEN: Soft, positive bowel sounds, nondistended, no guarding, nontender, no rebound, no masses, RECTAL: Deferred. GENITAL: Deferred. NEUROLOGICAL: Gross motor function intact sensory function intact, Appropriate for age. MUSCULOSKELETAL: low back nontender, full range of motion. EXTREMITIES: Nontender, full range of motion. SKIN: Color pale, dry, no rash, no lacerations, no abrasions, no contusions. LYMPHATICS: Deferred. Course Quality Measures none Orders Category Date Time Status COVID-19 Screening Questionnaire NOW Care 06/14/25 22:01 Active Decision to Admit X1 Care 06/14/25 22:01 Completed Hemodialysis Urgent Care 06/14/25 19:15 Active Insert IV NOW Care 06/14/25 16:43 Active Transfuse,blood/blood products ONCE Care 06/14/25 16:34 Active Consult to Nephrology Stat Cons 06/14/25 18:[address] abdomen pelvis wo con Stat Exams 06/14/25 18:41 Completed XR chest 1V Stat Exams 06/14/25 16:33 Completed Alcohol, Blood Medical Stat Lab 06/15/25 00:49 Completed Antibody Identification Stat Lab 06/14/25 17:19 Results CBC Stat Lab 06/14/25 17:19 Completed Comprehensive Metabolic Panel Stat Lab 06/14/25 17:19 Completed Magnesium Stat Lab 06/14/25 17:19 Completed Partial Thromboplastin Time Stat Lab 06/14/25 17:19 Completed Prothrombin Time with INR Stat Lab 06/14/25 17:19 Completed Type and Screen Stat Lab 06/14/25 17:19 Results Urinalysis, C/S if Indicated Stat Lab 06/14/25 16:33 Ordered prbc [Red Blood Cells] Stat Lab 06/14/25 17:19 Results Albumin Human 25% Ivpb [Albuminar-25 Ivpb] Med 06/14/25 19:53 Active 25 gm in 100 ml IV PRN Epoetin Melchor-Epbx Inj [Retacrit Inj] Med 06/14/25 20:15 Discontinued 10,000 unit IV X1 ONE Heparin* 1000 UNITS/ML- 10 ML [Heparin 1000 UNITS/ML- Med 06/14/25 19:53 Active 10 ML] 3,500 unit INDWELLCAT X1 PRN Magnesium Sulfate 2 GM Ivpb [Magnesium Sulfate Ivpb] Med 06/14/25 18:42 Discontinued 2 gm in 50 ml IV X1 Ondansetron Inj [Zofran Inj] Med 06/14/25 16:33 Discontinued 4 mg IVP X1 ONE Pantoprazole Inj [Protonix Inj] Med 06/14/25 16:33 Discontinued 80 mg IVP X1 ONE EKG (RT) Stat RT 06/14/25 16:33 Draft Vital Signs Vital signs: Vital Signs Temperature 98.2 F 06/14/25 15:46 Pulse Rate 99 06/14/25 15:46 Respiratory Rate 16 06/14/25 15:46 Blood Pressure 107/71 06/14/25 15:46 Pulse Oximetry (%) 97 06/14/25 15:46 Oxygen Delivery Method Room Air 06/14/25 15:46 Nausea/Vomiting/Diarrhea MDM Narrative MDM Narrative:: Patient case was discussed with patient's plastic cutter, Dr. Duncan, who recommends admission for further evaluation. Patient underwent hemodialysis in the emergency room. I did a rectal exam, it tested negative for occult blood. Patient verbalized significant mild improvement of symptoms after hemodialysis. I personally reviewed and interpreted the x-ray of this patient. There is no acute abnormalities found, no infiltrates no pneumothorax no hemothorax normal chest x-ray. Review of other structures was without significant abnormal findings also. I additionally reviewed the radiologist report and agree with the interpretation. Patient hemoglobin today was noted to be 7.5, on his baseline. CT scan of the abdomen pelvis showed cirrhosis Massive ascites Suspicious for small gallstones No bowel obstruction Anasarca Case discussed with hospitalist, who admitted the patient for Patient data External records reviewed:: None Clinical information provided by:: patient Social determinants that could affect healthcare access:: none Patient has the following chronic illnesses:: Liver cirrhosis, ESRD, noncompliant with dialysis How is presenting disease/condition affected by chronic disease/condition?: exacerbated by Evaluation data The following diagnostics were reviewed and interpreted by me:: lab results and radiology exam(s) Lab and/or radiology exams considered but not ordered:: None Interpretation Summary: See results MDM Medications / Prescriptions Medications / Prescriptions considered but not ordered:: None Medication administrations:: Medication Administration History Acetaminophen (Acetaminophen 325 Mg Tablet) 650 mg PO Q6H PRN PRN Reason: Fever >100.3 or pain Stop: 07/15/25 00:58 Heparin Sodium (Porcine) (Heparin Sod Inj 1000 Unit/Ml Vial 10 Ml) 3,500 unit INDWELLCAT X1 PRN PRN Reason: DIALYSIS Stop: 06/28/25 19:52 Last Admin: 06/15/25 10:47 Dose: 3,500 unit Documented By: ED Co-signed By: CARMELA Albumin Human (Albuminar-25 Ivpb) 25 gm in 100 mls @ 100 mls/hr IV PRN PRN PRN Reason: DIALYSIS Last Infusion: 06/15/25 09:49 Dose: Infused Documented By: Admin: 06/15/25 09:49 Dose: 100 mls/hr Documented By: Infusion: 06/14/25 21:21 Dose: Infused Documented By: Admin: 06/14/25 20:21 Dose: 100 mls/hr Documented By: ED Ceftriaxone Sodium/Dextrose (Rocephin/D5w 1gm Iv Premix) 1 gm in 50 mls @ 100 mls/hr IV QDAY [facility] Stop: 06/22/25 01:15 Last Admin: 06/15/25 11:48 Dose: Not Given Documented By: [email or web address] Non-Admin Reason: pt received dose at 0400 Admin: 06/15/25 03:54 Dose: 100 mls/hr Documented By: Lorazepam (Lorazepam 0.5 Mg Tablet) 0.5 mg PO Q4HR PRN PRN Reason: CIWA Score 2-6 Stop: 06/20/25 01:03 Lorazepam (Lorazepam 0.5 Mg Tablet) 1 mg PO Q4HR PRN PRN Reason: CIWA SCORE 7-11 Stop: 06/20/25 01:03 Lorazepam (Lorazepam 0.5 Mg Tablet) 2 mg PO Q4HR PRN PRN Reason: CIWA SCORE 12-15 Stop: 06/20/25 01:03 Ondansetron HCl (Ondansetron Inj 2 Mg/Ml Inj 2 Ml) 4 mg IVP Q6H PRN; Protocol PRN Reason: NAUSEA OR VOMITING Stop: 07/15/25 00:58 Pantoprazole Sodium (Pantoprazole Inj 40 Mg Vial) 40 mg IVP QDAY [facility] Stop: 07/15/25 08:59 Last Admin: 06/15/25 11:51 Dose: 40 mg Documented By: [email or web address] Sennosides (Senna Tablet) 1 tab PO QDAY PRN; Protocol PRN Reason: constipation Stop: 07/15/25 00:58 Discontinued Medications Epoetin Melchor (Epoetin Melchor-Epbx Inj 10,000 Unit/Ml Vial (Non-Esrd)) 10,000 unit IV X1 ONE Stop: 06/14/25 20:16 Last Admin: 06/14/25 20:27 Dose: 10,000 unit Documented By: ED Magnesium Sulfate (Magnesium Sulfate Ivpb) 2 gm in 50 mls @ 25 mls/hr IV X1 ONE Stop: 06/14/25 20:41 Last Infusion: 06/14/25 20:58 Dose: Infused Documented By: Admin: 06/14/25 18:58 Dose: 25 mls/hr Documented By: EF Magnesium Sulfate (Magnesium Sulfate Ivpb) 4 gm in 50 mls @ 12.5 mls/hr IV X1 ONE Stop: 06/15/25 05:19 Last Admin: 06/15/25 03:55 Dose: 12.5 mls/hr Documented By: SA Albumin Human (Albuminar-25 Ivpb) 25 gm in 100 mls @ 100 mls/hr IV TID ANNE Stop: 06/18/25 06:44 Ondansetron HCl (Ondansetron Inj 2 Mg/Ml Inj 2 Ml) 4 mg IVP X1 ONE; Protocol Stop: 06/14/25 16:34 Last Admin: 06/14/25 17:32 Dose: 4 mg Documented By: EF Pantoprazole Sodium (Pantoprazole Inj 40 Mg Vial) 80 mg IVP X1 ONE Stop: 06/14/25 16:34 Last Admin: 06/14/25 17:32 Dose: 80 mg Documented By: EF Protonix IV, Zofran, ceftriaxone IV Consultations Consultation(s) initiated? (list below): Yes Consultation #1 (Physician, Specialty, Details): Patient's plastic cutter, Dr. Duncan thank you Diagnosis Nausea Differential Diagnosis: gastroenteritis, drug-induced nausea and vomiting and dehydration Most likely diagnosis given after review of the tests above:: ESRD, noncompliant with dialysis, liver cirrhosis, history of chronic alcohol abuse Admission Indicated Admission indicated?: indicated Admission Request Was there a request for admission?: Yes Admission Attestation Admission request attestation: Discussed case with [Dr. oSsa] from Hospitalist service regarding admission. Discussed patients ED course, exam findings, labs, and radiology results. The Hospitalist [agrees to accept the patient for admission. Disposition Plan Disposition Plan: Admit Discharge Plan Plan Patient Disposition: Admit Acute Care w/in Hospital Problem List Clinical Impression: Abdominal ascites, Cirrhosis of liver, ESRD (end stage renal disease) on dialysis
[2025-06-14] MEDS: ONDANSETRON INJ 2 MG/ML INJ 2 ML 4 MG IVP (17:32)
[2025-06-14 17:40] LABS: Basophils # (Auto) 0.0 Thou/mm3 (0.0-0.2); Basophils % (Auto) 0 % (0-2.5); Eosinophils # (Auto) 0.0 Thou/mm3 (0.0-0.5); Eosinophils % (Auto) 0 % (0-10); Hematocrit 22.9 % (41.0-53.0); Immature Granulocytes Auto 0.13 Thou/mm3 (0.00-0.00); Lymphocytes # (Auto) 1.3 Thou/mm3 (1.0-4.8); Lymphocytes % (Auto) 8 % (10-50); Mean Corpuscular HGB Conc 32.8 g/dl (31.0-37.0); Mean Corpuscular Hemoglobin 29.1 pg (25.0-35.0); Mean Corpuscular Volume 89 fL (80-100); Monocytes # (Auto) 0.8 Thou/mm3 (0.0-0.8); Monocytes % (Auto) 5 % (0-12); Neutrophils # (Auto) 14.0 Thou/mm3 (1.8-7.7); Neutrophils % (Auto) 86 % (37-80); Nucleated Red Blood Cell # 0.00 Thou/mm3 (0.00-0.00); Nucleated Red Blood Cell % 0 /100 WBC (0); Platelet Count 116 Thou/mm3 (140-440); RDW Standard Deviation 46.5 fL (35.1-43.9); Red Blood Count 2.58 Miln/mm3 (4.50-5.90); White Blood Count 16.3 Thou/mm3 (3.8-10.6)
[2025-06-14 17:59] LABS: Hemoglobin 7.5 g/dL (13.5-16.0)
[2025-06-14 18:00] LABS: Alanine Aminotransferase < 7 U/L (10-49); Albumin, Serum 2.7 gm/dL (3.5-5.0); Albumin/Globulin Ratio 0.8 (1.2-2.2); Alkaline Phosphatase 75 U/L (46-116); Anion Gap 16 (7-16); Aspartate Amino Transferase 21 U/L (0-34); BUN/Creatinine Ratio 5 Ratio (12-20); Bilirubin,Total 1.8 mg/dL (0.3-1.2); Blood Urea Nitrogen 40 mg/dL (9-23); Calcium 7.4 mg/dL (8.3-10.6); Calcium (Corrected) 8.4 mg/dL (8.5-10.1); Carbon Dioxide 25.3 mMol/L (20.0-31.0); Chloride 94 mMol/L (98-107); Creatinine (Component) 7.6 mg/dL (0.6-1.3); Estimated Creatinine Clearance 13.4 mL/min (>60); Globulin 3.6 gm/dL (2.3-3.5); Glucose 70 mg/dL (74-106); Magnesium 1.4 mg/dL (1.6-2.6); Osmolality,Calculated 277 (275-295); Potassium 3.5 mMol/L (3.4-5.1); Sodium 135 mMol/L (136-145); Total Protein 6.3 gm/dL (5.7-8.2); eGFR 8 See Note
[2025-06-14 18:11] LABS: INR 1.6 (0.9-1.3); Partial Thromboplastin Time 39.9 Seconds (22.0-36.0); Prothrombin Time 16.7 Seconds (9.0-12.2)
--- NOTE | 2025-06-14 18:41 | XR_ITS ---
Examination: CT abdomen and pelvis without contrast. Coronal 3-D reconstructions. Sagittal 2-D reconstructions. Date and time of exam:June 14, 2025 11:45 PM, comparison May 08, 2025 INDICATIONS: Nausea and vomiting today CTDI: vol (mGy): 15.9 DLP: (mGycm): 1194 Technique: Axial images of the abdomen have been obtained, 3 mm slice thickness Intravenous contrast material has not been administered. Low dose protocols were performed. One or more of the following dose reduction techniques were used; automated exposure control, adjustment of the mA and/or KV according to patient size, use of iterative reconstruction technique. Findings: Cirrhosis, massive ascites Spleen is nonenlarged Suspicious for small gallstones No pancreatic or adrenal mass Small kidneys no hydronephrosis Aorta normal size No bowel obstruction Anasarca No prostatomegaly No bladder mass IMPRESSION: Cirrhosis Massive ascites Suspicious for small gallstones No bowel obstruction Anasarca
[2025-06-14] MEDS: Magnesium Sulfate 2 GM Ivpb 2 GM/50 ML BAG IV (18:58)
[2025-06-14] MEDS: ALBUMIN HUMAN 25% IVPB 25 GM/100 ML BTL IV (20:21)
--- NOTE | 2025-06-14 20:25 | PD.NEPHCONS ---
History of Present Illness Data of Consult Consult date: 06/14/25 Primary Care Provider: Physician No Primary/Family Consult Narrative Reason for consult: ESRD, need for HD History of present illness: Mr. Prado is a 45-year-old male with a past medical history of alcoholic liver cirrhosis, alcohol abuse disorder-currently a drinker, ESRD probably from hepatorenal syndrome type II (on hemodialysis-inconsistent), Prediabetes, history of pulmonary embolism- hypertension, history of variceal bleed, history of psychiatric disorders, who presented to the emergency room from home complaining of generalized weakness, significant abdominal distention. Patient was evaluated in the emergency room, he was a poor historian, is noncompliant with medications and unaware of most of his medical history. Chart review done. Patient apparently has been missing dialysis treatments. His last session was in 05/30/2025. Has been very noncompliant with his dialysis treatments. In the ED patient was noted to be significantly fluid overloaded. Labs showed WBC 16.3, hemoglobin 7.5, platelets 116. Coagulation profile showing INR 1.6. Sodium 135, potassium 3.5, BUN 40, creatinine 7.6, GFR 8, calcium 8.4, magnesium 1.4, bilirubin 1.8, albumin 2.[address] showed massive ascites and anasarca. Chest x-ray showed no aspiration pneumonia. Renal consultation requested for need for dialysis. Patient currently seen on dialysis. cc:: cc: Review of Systems Review of Systems Narrative Review of Systems: CONSTITUTIONAL: Patient denies any fever, chills. Complaining of fatigue HEENT: Denies any visual disturbances or hearing problems. CARDIOVASCULAR: Patient denies any chest pain, shortness of breath. + swelling in the lower extremities. PULMONARY: Patient denies any shortness of breath, cough. GASTROINTESTINAL: Patient complaining of abdominal distention. GENITOURINARY: Patient denies any urinary symptoms of burning or frequency or hematuria, denies any form in the urine. SKIN: Denies any rash. MUSCULOSKELETAL: Denies any muscular skeletal problems of joint pains. NEUROLOGICAL: Denies any neurological problems of strokes, seizures or confusion. Denies any memory problems. PSYCHIATRIC: Patient seems to have anger and irritability issues Meds Home Medications and Allergies Home Medications ?Medication ?Instructions ?Recorded ?Confirmed ?Type amlodipine 10 mg tablet 10 mg PO 1XD 05/09/25 06/15/25 History ferrous sulfate 325 mg (65 mg 325 mg PO 1XD 05/09/25 06/15/25 History iron) tablet (FeroSul) folic acid 1 mg tablet 1 mg PO 1XD 05/09/25 06/15/25 History levothyroxine 100 mcg tablet 100 mcg PO 1XD 05/09/25 06/15/25 History losartan 100 mg tablet 100 mg PO 1XD 05/09/25 06/15/25 History quetiapine 100 mg tablet 100 mg PO HS 05/09/25 06/15/25 History Allergies Allergy/AdvReac Type Severity Reaction Status Date / Time No Known Allergies Allergy Verified 06/04/25 10:52 Exam Vital Signs Temp Pulse Resp BP Pulse Ox O2 Del Method 36.6 C 114 H 18 89/56 L 100 Room Air 06/14/25 19:35 06/14/25 20:15 06/14/25 19:35 06/14/25 20:15 06/14/25 19:35 06/14/25 18:54 Narrative Exam GENERAL APPEARANCE: Patient currently seen on dialysis. NECK: Neck supple, no JVD or bruit CARDIOVASCULAR: Heart regular, no murmurs LUNGS/CHEST: Fine rhonchi bilaterally ABDOMEN: Massive ascites noted EXTREMITIES: 1+ edema in the lower extremities SKIN: Skin exam normal without any rashes. Right IJ dialysis catheter MUSCULOSKELETAL: Musculoskeletal exam normal PSYCHIATRIC: Normal mood, affect LYMPHATICS: No lymphadenopathy noted NEUROLOGICAL : No neurological deficits Results Labs 06/15/25 07:52 06/15/25 06:10 Labs: Short CBC 06/14/25 Range/Units 17:19 WBC 16.3 H (3.8-10.6) Thou/mm3 Hgb 7.5 L (13.5-16.0) g/dL Hct 22.9 L (41.0-53.0) % Plt Count 116 L D (140-440) Thou/mm3 BMP 06/14/25 17:19 Sodium 135 L Potassium 3.5 Chloride 94 L Carbon Dioxide 25.3 BUN 40 H Creatinine 7.6 H* Glucose 70 L Calcium 7.4 L Liver Function 06/14/25 Range/Units 17:19 Total Bilirubin 1.8 H (0.3-1.2) mg/dL AST 21 (0-34) U/L ALT < 7 L (10-49) U/L Alkaline Phosphatase 75 (46-116) U/L Albumin 2.7 L (3.5-5.0) gm/dL Assessment & Plan Assessment and plan (1) ESRD (end stage renal disease) on dialysis: Status: Acute Assessment and plan: ESRD secondary to hepatorenal syndrome. No renal recovery. Emphasized compliance. Patient currently seen on dialysis. Tolerating dialysis without any problems. Hemodialysis for 3 hours, 2K, ultrafiltration 2-3 L, Epogen 6000, no heparin ordered. Plan of care discussed with the dialysis nurse. Please see dialysis flowsheet for further details. Next dialysis scheduled for tomorrow (2) Cirrhosis of liver: Status: Acute Assessment and plan: Alcoholic liver cirrhosis with all the sequelae including anemia, thrombocytopenia, ascites, encephalopathy, gastric varices (3) Abdominal ascites: Status: Acute Assessment and plan: Patient might need large-volume paracentesis Additional Assessment & Plan Additional Plan: Thank you Jaskaran for allowing me to participate in the care of Mr. Prado
[2025-06-14] MEDS: EPOETIN ALFA-EPBX INJ 10,000 UNIT/ML VIAL (NON-ESRD) 10000 UNIT IV (20:27)
[2025-06-15] VITALS (22 sets, daily range): BP systolic 92–120; BP diastolic 48–79; PULSE 71–102; RESP 16–99; TEMP 36.1–36.9; O2SAT 93–100; BMI 30.2
--- NOTE | 2025-06-15 01:06 | PD.RESHP ---
Documentation for date of: 06/15/25 HPI History of Present Illness Chief complaint: n/v History of present illness: Malcom Prado is 45 yr male with active alcohol use disorder and subsequent end-stage liver disease, type 2 diabetes mellitus, hypertension, ESRD on hemodialysis (T//Sat follows Dr. Duncan), Ary esophagitis, and phimosis presenting to ED due to generalized complaint of not feeling well. At bedside patient stated that he has had multiple episodes of vomiting in past few days. He is currently denying recent use of alcohol intake. Stated that his last hemodialysis session was about 2 weeks ago and is not able to stay on schedule due to issues with transportation. Access site through right catheter. He denies any hematemasis, blood in the stool. Unsure at this time if patient has been compliant with his medications. Vitals stable in ED. WBC 16, hemoglobin 7.5, MCV 89, platelets 116, prolonged PTT 16.7, elevated INR 1.6, sodium 135, potassium 3.5, BUN 40, creatinine 7.6, corrected calcium 8.4, magnesium 1.4. Bilirubin 1.8. Ablumin 2.7. CT A/P showed liver cirrhosis with massive ascites Patient was transfused [address] Duncan was consulted. Patient was admitted for HD and possible therapeutic paracentesis. PMH: as noted above PSH: Denies Family Hx: History hypertension in mother Social: Unemployed, used to drink 1 quart of beer a day for the past 20 years. States that he quit after last admission. Smokes 1 pack/day for past couple years, denies illicit drug use. Meds: med rec pending Allergies: NKDA Review of Systems Review of Systems Systems Reviewed: All systems reviewed, normal except as documented Exam Vital Signs Temp Pulse Resp BP Pulse Ox O2 Del Method 98.3 F 100 14 101/62 100 Room Air 06/14/25 23:40 06/14/25 23:40 06/14/25 23:40 06/14/25 23:40 06/14/25 23:40 06/14/25 18:54 Narrative Exam General: young male, No acute distress, cooperative HEENT: NCAT, No JVD noted. Mucosa dry. Pupils are equal and reactive to light bilaterally, scleral icterus Cardiovascular: Normal S1 and S2. Regular rate and rhythm. Respiratory: Lungs are clear to auscultation bilaterally. No wheezing or crackles heard. Abdomen: Soft, nontender, distended, positive fluid wave Skin: Warm to touch, dry, no rashes noted. Right IJ cath, no bleeding. Musculoskeletal: No gross injuries. Able to move all 4 extremities. +1 b/L LE edema Neuro: Alert and oriented x3. No focal neuro deficits. Psych: Normal affect and mood Results: Labs 06/15/25 07:52 06/15/25 06:10 Labs: Short CBC 06/14/25 Range/Units 17:19 WBC 16.3 H (3.8-10.6) Thou/mm3 Hgb 7.5 L (13.5-16.0) g/dL Hct 22.9 L (41.0-53.0) % Plt Count 116 L D (140-440) Thou/mm3 BMP 06/14/25 17:19 Sodium 135 L Potassium 3.5 Chloride 94 L Carbon Dioxide 25.3 BUN 40 H Creatinine 7.6 H* Glucose 70 L Calcium 7.4 L Liver Function 06/14/25 Range/Units 17:19 Total Bilirubin 1.8 H (0.3-1.2) mg/dL AST 21 (0-34) U/L ALT < 7 L (10-49) U/L Alkaline Phosphatase 75 (46-116) U/L Albumin 2.7 L (3.5-5.0) gm/dL Quality Measures Quality Measures VTE prophylaxis Medications Home Medications and Allergies Home Medications ?Medication ?Instructions ?Recorded ?Confirmed ?Type amlodipine 10 mg tablet 10 mg PO 1XD 05/09/25 06/15/25 History ferrous sulfate 325 mg (65 mg 325 mg PO 1XD 05/09/25 06/15/25 History iron) tablet (FeroSul) folic acid 1 mg tablet 1 mg PO 1XD 05/09/25 06/15/25 History levothyroxine 100 mcg tablet 100 mcg PO 1XD 05/09/25 06/15/25 History losartan 100 mg tablet 100 mg PO 1XD 05/09/25 06/15/25 History quetiapine 100 mg tablet 100 mg PO HS 05/09/25 06/15/25 History Allergies Allergy/AdvReac Type Severity Reaction Status Date / Time No Known Allergies Allergy Verified 06/04/25 10:52 Visit Medications Acetaminophen (Acetaminophen 325 Mg Tablet) 650 mg PO Q6H PRN PRN Reason: Fever >100.3 or pain Stop: 07/15/25 00:58 Heparin Sodium (Porcine) (Heparin Sod Inj 1000 Unit/Ml Vial 10 Ml) 3,500 unit INDWELLCAT X1 PRN PRN Reason: DIALYSIS Stop: 06/28/25 19:52 Albumin Human (Albuminar-25 Ivpb) 25 gm in 100 mls @ 100 mls/hr IV PRN PRN PRN Reason: DIALYSIS Last Infusion: 06/14/25 21:21 Dose: Infused Lorazepam (Lorazepam 0.5 Mg Tablet) 0.5 mg PO Q4HR PRN PRN Reason: CIWA Score 2-6 Stop: 06/20/25 01:03 Lorazepam (Lorazepam 0.5 Mg Tablet) 1 mg PO Q4HR PRN PRN Reason: CIWA SCORE 7-11 Stop: 06/20/25 01:03 Lorazepam (Lorazepam 0.5 Mg Tablet) 2 mg PO Q4HR PRN PRN Reason: CIWA SCORE 12-15 Stop: 06/20/25 01:03 Ondansetron HCl (Ondansetron Inj 2 Mg/Ml Inj 2 Ml) 4 mg IVP Q6H PRN; Protocol PRN Reason: NAUSEA OR VOMITING Stop: 07/15/25 00:58 Sennosides (Senna Tablet) 1 tab PO QDAY PRN; Protocol PRN Reason: constipation Stop: 07/15/25 00:58 Discontinued Medications Epoetin Melchor (Epoetin Melchor-Epbx Inj 10,000 Unit/Ml Vial (Non-Esrd)) 10,000 unit IV X1 ONE Stop: 06/14/25 20:16 Last Admin: 06/14/25 20:27 Dose: 10,000 unit Magnesium Sulfate (Magnesium Sulfate Ivpb) 2 gm in 50 mls @ 25 mls/hr IV X1 ONE Stop: 06/14/25 20:41 Last Infusion: 06/14/25 20:58 Dose: Infused Ondansetron HCl (Ondansetron Inj 2 Mg/Ml Inj 2 Ml) 4 mg IVP X1 ONE; Protocol Stop: 06/14/25 16:34 Last Admin: 06/14/25 17:32 Dose: 4 mg Pantoprazole Sodium (Pantoprazole Inj 40 Mg Vial) 80 mg IVP X1 ONE Stop: 06/14/25 16:34 Last Admin: 06/14/25 17:32 Dose: 80 mg Assessment & Plan Plan Malcom Prado is 45 yr male with active alcohol use disorder and subsequent end-stage liver disease, type 2 diabetes mellitus, hypertension, ESRD on hemodialysis (T//Tue follows Dr. Duncan), Ary esophagitis presenting to ED due to generalized complaint of not feeling well. Nephrology Dr. Duncan was consulted. Patient was admitted for HD and possible therapeutic paracentesis. #ESRD on HD (T//Tue) BUN 40, creatinine 7.6, GFR 8. Stated that his last hemodialysis session was about 2 weeks ago and is not able to stay on schedule due to issues with transportation. Access site through right IJ cath. - consulted nephrology Dr Duncan, appreciate recommendations -admit for HD -renally dose medications -renal diet #Decompensated liver cirrhosis #Alcohol use disorder Hb 7.5, MCV 89, platelets 116, prolonged PTT 16.7, elevated INR 1.6, bilirubin 1.8, albumin 2.7. He used to dirnk 1 quart of beer per day for the past 20 years. Paracentesis on last admission. Severely distended abdomen with fluid wave. Massive ascites noted on CT A/P. No abdominal pain, no fever. Less concern for SBP. MELD score 29 (27-32% 90 day mortality) Child alejandro class B (needs transplant eval) Maddrey 28 (no benefit from steroid tx) -daily weights -sodium restriction -holding spironolactone due to soft BP - Monitor ERIK's -CIWA protocol -IV ceftriaxone 1 g daily -possible theraputic paracentesis #Normocytic anemia Denies hematemasis or melena. Stool occult was negative. Hb 7.5 on admission. He was given 1 unit pRBC while in ED. Previous admission EGD negative for esophageal bleeding. - Will continue close monitor any signs of bleeding - Transfuse if hemoglobin less than 7 -IV pantoprazole 40mg daily -day team to consider GI consult -daily CBC -EPO for anemia #Electrolyte imbalances -replete as needed #History of Ary esophagitis Found on EGD from last admission. Completed 3 week course of fluconazole. -rapid HIV testing was negative Health maintenance: Dispo: med surg, HD, ascites FEN: renal DVT prophylaxis: SCDs CODE STATUS: Full code The patient's management plan was discussed with my attending physician Dr. Carrero. Lexy Weldon, PGY-2 Attending Provider Attestation/Addendum 45-year-old male patient with PMHx of ESRD on HD, end-stage liver disease, cirrhosis, type 2 diabetes, hypertension, candidal esophagitis came into ED for complaint of generalized weakness, nausea, vomiting, abdominal tenderness along with reporting having missed dialysis for about a week, patient reports having a few sips of alcohol on the day prior to admission, nephrology were consulted by ED who recommended starting hemodialysis and admitting patient, patient's labs were noted for leukocytosis of 16, Hgb 7.5, platelets 116, BUN 40, creatinine 7.6, patient was admitted for concern of SBP, therapeutic paracentesis. ESRD Patient missed multiple dialysis sessions. Patient had hemodialysis at the ED. Renally dose and avoid nephrotoxic medications. Nephrology consulted recs appreciated. ESLD Cirrhosis Concern for SBP Patient reports generalized abdominal pain prior to admission denies any fevers chills. Leukocytosis noted along with tenderness on abdominal exam. Patient started on ceftriaxone. US guided therapeutic paracentesis with cell count. Anemia of chronic disease Alcohol abuse Hypomagnesemia Patient reports having a few sips of alcohol on day prior to admission. Blood alcohol negative [facility] protocol. [place] patient regarding alcohol use prior to discharge. Replete magnesium as needed. Attending Provider Attestation/Addendum After examination of the patient and review of the clinical data I feel that this patient needs admission to the hospital for further treatment/evaluation. I Kassy Carrero MD, attest that I was physically present for felipe portions of evaluation, and examined patient, labs and imaging of patient were reviewed with the residents and a plan of care was discussed IM residents team, and I agree with the findings and plans documented above.
[2025-06-15 01:35] LABS: Alcohol, Blood Medical < 3.0 mg/dL (0-10.0)
[2025-06-15 01:37] LABS: HIV (1&2) Antibody Rapid Non-Reactive
--- NOTE | 2025-06-15 02:00 | PC.NURSE ---
vs taken. assisted pt with lucho care, brief change and reposition.
[2025-06-15] MEDS: cefTRIAXone/D5w 1gm IV premix 1 GM/50 ML BAG IV (03:54)
[2025-06-15] MEDS: Magnesium Sulfate 4 GM Ivpb 4 GM/50 ML BAG IV (03:55)
[2025-06-15 07:36] LABS: Albumin, Serum 2.6 gm/dL (3.5-5.0); Albumin/Globulin Ratio 1.0 (1.2-2.2); Alkaline Phosphatase 61 U/L (46-116); Anion Gap 14 (7-16); Aspartate Amino Transferase 18 U/L (0-34); BUN/Creatinine Ratio 4 Ratio (12-20); Bilirubin,Total 1.2 mg/dL (0.3-1.2); Blood Urea Nitrogen 19 mg/dL (9-23); Calcium 7.7 mg/dL (8.3-10.6); Calcium (Corrected) 8.8 mg/dL (8.5-10.1); Carbon Dioxide 24.4 mMol/L (20.0-31.0); Chloride 98 mMol/L (98-107); Creatinine (Component) 4.6 mg/dL (0.6-1.3); Estimated Creatinine Clearance 22.6 mL/min (>60); Globulin 2.5 gm/dL (2.3-3.5); Glucose 70 mg/dL (74-106); Magnesium 1.2 mg/dL (1.6-2.6); Osmolality,Calculated 272 (275-295); Phosphorous 6.6 mg/dL (2.4-5.1); Potassium 3.7 mMol/L (3.4-5.1); Sodium 136 mMol/L (136-145); Total Protein 5.1 gm/dL (5.7-8.2); eGFR 15 See Note
[2025-06-15 07:38] LABS: Alanine Aminotransferase < 7 U/L (10-49)
[2025-06-15 08:25] LABS: Basophils # (Auto) 0.0 Thou/mm3 (0.0-0.2); Basophils % (Auto) 0 % (0-2.5); Eosinophils # (Auto) 0.2 Thou/mm3 (0.0-0.5); Eosinophils % (Auto) 1 % (0-10); Hematocrit 22.4 % (41.0-53.0); Immature Granulocytes Auto 0.08 Thou/mm3 (0.00-0.00); Lymphocytes # (Auto) 1.6 Thou/mm3 (1.0-4.8); Lymphocytes % (Auto) 12 % (10-50); Mean Corpuscular HGB Conc 33.5 g/dl (31.0-37.0); Mean Corpuscular Hemoglobin 29.2 pg (25.0-35.0); Mean Corpuscular Volume 87 fL (80-100); Monocytes # (Auto) 0.9 Thou/mm3 (0.0-0.8); Monocytes % (Auto) 7 % (0-12); Neutrophils # (Auto) 10.1 Thou/mm3 (1.8-7.7); Neutrophils % (Auto) 79 % (37-80); Nucleated Red Blood Cell # 0.00 Thou/mm3 (0.00-0.00); Nucleated Red Blood Cell % 0 /100 WBC (0); RDW Standard Deviation 48.5 fL (35.1-43.9); Red Blood Count 2.57 Miln/mm3 (4.50-5.90); White Blood Count 12.8 Thou/mm3 (3.8-10.6)
[2025-06-15 08:29] LABS: Hemoglobin 7.5 g/dL (13.5-16.0); Platelet Count 66 Thou/mm3 (140-440)
--- NOTE | 2025-06-15 08:44 | ESPR_ITS ---
<Statement entered by Jaskaran Hargrove MD - 06/26/25 14:33> I reviewed above note and agree with findings and plans. I have also personally examined the patient with medicine team and went over assessment and plan with medical team including legal intern and resident physician. Documentation for date of: 06/15/25 Subjective Subjective Interval history: Malcom Prado is 45 yr male with active alcohol use disorder and subsequent end- stage liver disease, T2DM, ESRD on hemodialysis presented to ED due to generalized complaint of not feeling well. At bedside patient stated that he has had multiple episodes of vomiting in past few days. Stated that his last hemodialysis session was about 2 weeks ago and believes he has missed at least [address] A/P showed liver cirrhosis with massive ascites. Patient was transfused 1 unit RBC's due to HgB of 7.2. Nephrology Dr. Duncan was consulted. Patient was admitted for HD and possible therapeutic paracentesis. Exam Vital Signs Temp Pulse Resp BP Pulse Ox O2 Del Method O2 Flow Rate 97.2 F 94 20 95/53 L 95 Room Air 2 06/15/25 07:50 06/15/25 08:30 06/15/25 07:50 06/15/25 08:30 06/15/25 07:50 06/15/25 04:00 06/15/25 06:32 Narrative Exam General: young male, No acute distress, cooperative HEENT: NCAT, No JVD noted. Mucosa dry. Pupils are equal and reactive to light bilaterally Cardiovascular: Normal S1 and S2. Regular rate and rhythm. Respiratory: Pt denies wheezing, shortness of breath, or chest pain Abdomen: Soft, nontender, distended, positive fluid wave Skin: Warm to touch, dry, no rashes noted. Right IJ cath, no bleeding. Musculoskeletal: No gross injuries. Able to move all 4 extremities. +1 b/L LE edema Neuro: Alert and oriented x3. No focal neuro deficits. Psych: Normal affect and mood PMH: as noted above PSH: Denies Family Hx: History hypertension in mother Social: Unemployed, daily alcohol abuse for the past 20 years. Smokes 1 pack/day for past couple years, denies illicit drug use. Meds: med rec completed and stated below Allergies: NKDA Objective Objective Narrative Objective Narrative: Vital signs steady and stable. Physical exam shows pt is alert and oriented x4, bilateral rales noted on auscultation, regular rate and rhythm w/o murmur, with a distended nontender abdomen. Lower extremities appear swollen but unable to check for pitting edema due to prescence of compression stockings during dialysis session. Labs shown below and imaging results show clear CXR w/o evidence of pulm edema or pneumonia and Ct abdomen/pelvis showing massive ascites and evidence of liver cirrhosis. , Labs 06/15/25 07:52 06/15/25 06:10 Labs: Laboratory Results - last 24 hr 06/14/25 06/14/25 06/14/25 00:00 17:18 17:19 WBC 16.3 H RBC 2.58 L Hgb 7.5 L Hct 22.9 L MCV 89 MCH 29.1 MCHC 32.8 RDW Std Deviation 46.5 H Plt Count 116 L D Neut % (Auto) 86 H Lymph % (Auto) 8 L [place] % (Auto) 5 Eos % (Auto) 0 Baso % (Auto) 0 Neut # (Auto) 14.0 H Lymph # (Auto) 1.3 [place] # (Auto) 0.8 Eos # (Auto) 0.0 Baso # (Auto) 0.0 Immature Gran # (Auto) 0.13 H Absolute Nucleated RBC 0.00 Immature Gran % 1 H Nucleated RBC % 0 PT 16.7 H D INR 1.6 H APTT 39.9 H D Sodium 135 L Potassium 3.5 Chloride 94 L Carbon Dioxide 25.3 Anion Gap 16 BUN 40 H Creatinine 7.6 H* Estim Creat Clear Calc 13.4 L eGFR 8 L* BUN/Creatinine Ratio 5 L Glucose 70 L Calculated Osmolality 277 Calcium 7.4 L Corrected Calcium 8.4 L Phosphorus Magnesium 1.4 L Total Bilirubin 1.8 H AST 21 ALT < 7 L Alkaline Phosphatase 75 Total Protein 6.3 Albumin 2.7 L Globulin 3.6 H Albumin/Globulin Ratio 0.8 L Ethyl Alcohol < 3.0 HIV 1&2 Antibody Rapid Non-Reactive Blood Type O Negative Antibody Screen POSITIVE Antibody Identification Anti-D Crossmatch See Detail Blood Bank Wristband ID Yes 06/15/25 06/15/25 06:10 07:52 WBC 12.8 H RBC 2.57 L Hgb 7.5 L Hct 22.4 L MCV 87 MCH 29.2 MCHC 33.5 RDW Std Deviation 48.5 H Plt Count 66 L D Neut % (Auto) 79 Lymph % (Auto) 12 [place] % (Auto) 7 Eos % (Auto) 1 Baso % (Auto) 0 Neut # (Auto) 10.1 H Lymph # (Auto) 1.6 [place] # (Auto) 0.9 H Eos # (Auto) 0.2 Baso # (Auto) 0.0 Immature Gran # (Auto) 0.08 H Absolute Nucleated RBC 0.00 Immature Gran % 1 H Nucleated RBC % 0 PT INR APTT Sodium 136 Potassium 3.7 Chloride 98 Carbon Dioxide 24.4 Anion Gap 14 BUN 19 Creatinine 4.6 H* D Estim Creat Clear Calc 22.6 L eGFR 15 L BUN/Creatinine Ratio 4 L Glucose 70 L Calculated Osmolality 272 L Calcium 7.7 L Corrected Calcium 8.8 Phosphorus 6.6 H Magnesium 1.2 L Total Bilirubin 1.2 D AST 18 ALT < 7 L Alkaline Phosphatase 61 Total Protein 5.1 L Albumin 2.6 L Globulin 2.5 Albumin/Globulin Ratio 1.0 L Ethyl Alcohol HIV 1&2 Antibody Rapid Blood Type Antibody Screen Antibody Identification Crossmatch Blood Bank Wristband ID Quality Measures Quality Measures VTE prophylaxis Assessment & Plan Assessment Current Active Medications: Generic Name Dose Route Start Last Admin Trade Name Freq PRN Reason Stop Dose Admin Acetaminophen 650 mg 06/15/25 00:59 Acetaminophen 325 Mg Tablet PO 07/15/25 00:58 Q6H PRN Fever >100.3 or pain Heparin Sodium (Porcine) 3,500 unit 06/14/25 19:53 Heparin Sod Inj 1000 Unit/Ml Vial 10 Ml INDWELLCAT 06/28/25 19:52 X1 PRN DIALYSIS Albumin Human 25 gm in 100 mls @ 100 mls/hr 06/14/25 19:53 06/14/25 21:21 Albuminar-25 Ivpb IV Infused PRN PRN Infusion DIALYSIS Ceftriaxone Sodium/Dextrose 1 gm in 50 mls @ 100 mls/hr 06/15/25 01:16 06/15/25 03:54 Rocephin/D5w 1gm Iv Premix IV 06/22/25 01:15 100 mls/hr QDAY ANNE Administration Lorazepam 0.5 mg 06/15/25 01:04 Lorazepam 0.5 Mg Tablet PO 06/20/25 01:03 Q4HR PRN CIWA Score 2-6 Lorazepam 1 mg 06/15/25 01:04 Lorazepam 0.5 Mg Tablet PO 06/20/25 01:03 Q4HR PRN CIWA SCORE 7-11 Lorazepam 2 mg 06/15/25 01:04 Lorazepam 0.5 Mg Tablet PO 06/20/25 01:03 Q4HR PRN CIWA SCORE 12-15 Ondansetron HCl 4 mg 06/15/25 00:59 Ondansetron Inj 2 Mg/Ml Inj 2 Ml IVP 07/15/25 00:58 Q6H PRN NAUSEA OR VOMITING Protocol Pantoprazole Sodium 40 mg 06/15/25 09:00 Pantoprazole Inj 40 Mg Vial IVP 07/15/25 08:59 QDAY ANNE Sennosides 1 tab 06/15/25 00:59 Senna Tablet PO 07/15/25 00:58 QDAY PRN constipation Protocol Plan Malcom Prado is 45 yr male with active alcohol use disorder and subsequent end- stage liver disease, T2DM, ESRD on hemodialysis presented to ED due to generalized complaint of not feeling well. At bedside patient stated that he has had multiple episodes of vomiting in past few days. Stated that his last hemodialysis session was about 2 weeks ago and believes he has missed at least [address] A/P showed liver cirrhosis with massive ascites. Patient was transfused 1 unit RBC's due to HgB of 7.2. Nephrology Dr. Duncan was consulted. Patient was admitted for HD and possible therapeutic paracentesis. #ESRD on HD Pt states that he has missed a minimum of 3 sessions of dialysis. Last dialysis session was approximately 2 weeks prior. Access site through right IJ cath. - consulted nephrology Dr Duncan, recommendations pending -continue hemodialysis sessions -avoid nephrotoxic medications -renal diet #Decompensated liver cirrhosis and corresponding ascites #Alcohol use disorder Pt has history of chronic alcohol abuse for the past 20 years. Pt used to drink around 1 quart of alcohol daily for many years. Denies current binge drinking recently and states that his last drink was about 2 weeks prior. Paracentesis on last admission. Severely distended abdomen with fluid wave. Massive ascites noted on CT A/P along with evidence of liver cirrhosis. No abdominal pain, no fever. Less concern for SBP due to nontenderness of region and downtrending WBC count . -possible theraputic paracentesis #Hypomagnesemia Pt current Mg level of 1.2 - replete Mg until levels stabilize within normal threshold #Thiamine replacement - Given PMH of chronic alcohol abuse, consider replenishment of thiamine Plan was discussed with senior resident Dr. Elijah Lopez and attending physician Dr. Hargrove. -Pan CASON-IV (Medical Student)
[2025-06-15] MEDS: ALBUMIN HUMAN 25% IVPB 25 GM/100 ML BTL IV ×3 (09:49→18:32)
[2025-06-15 10:29] LABS: Slide Review Platelets confirmed
[2025-06-15] MEDS: HEPARIN SOD INJ 1000 UNIT/ML VIAL 10 ML 3500 UNIT INDWELLCAT (10:47)
--- NOTE | 2025-06-15 13:32 | PC.PT ---
Attempt to initiate PT evaluation at 0950 but patient is at dialysis. Re-attempt again at 1330. Patient is in the room. As per patient, he lives with his mother. He occasionally uses a walker to ambulate x limited community distance. Patient states he has been declining for the past month where he needed assistance with ADL's. Informed patient the purpose of PT evaluation but patient refused. Explained to the patient the secondary complications of prolonged immobility and to just try at least to sit or stand. But patient still refused. Will try again tomorrow.
--- NOTE | 2025-06-15 13:45 | PC.SS ---
Ishan Prado is 45-year-old male admitted to [facility] for Emergent Dialysis. SS conducted bedside contact with the patient to complete initial assessment and to discuss discharge planning. Role and reason explained. Patient confirmed demographic information. Patient identifies his mother Yanni Prado [phone] as his surrogate decision maker. Pt reports needing assistance at home sometimes and his mom helps him. Pt is aligned with [facility]. Unsure of and unsure of HD Days. Per pt he has nt gone to HD in 2 weeks due to not feeling well and not having transportation. Per pt his mother wants him to go to SNF, but pt is NOT agreeable. Pt has a wheelchair and walker at home for use. SS will follow up with pt mother on information not obtained by pt. DC plan pending.? DC plan: HH vs SNF DM: Mother
--- NOTE | 2025-06-15 13:56 | PD.RESCONSUL ---
HPI Data of Consult Requesting Physician: Kassy Carrero MD Admitting Provider: Kassy Carrero MD Attending Provider: Kassy Carrero MD Primary Care Provider: Physician No Primary/Family Consult Narrative cc:: cc: Kassy Carrero MD Exam Vital Signs Temp Pulse Resp BP Pulse Ox O2 Del Method O2 Flow Rate 96.9 F 91 17 112/72 99 Room Air 1 06/15/25 12:00 06/15/25 12:00 06/15/25 12:00 06/15/25 12:00 06/15/25 12:00 06/15/25 12:00 06/15/25 08:00 Results Labs 06/15/25 07:52 06/15/25 06:10 Labs: Short CBC 06/14/25 06/15/25 Range/Units 17:19 07:52 WBC 16.3 H 12.8 H (3.8-10.6) Thou/mm3 Hgb 7.5 L 7.5 L (13.5-16.0) g/dL Hct 22.9 L 22.4 L (41.0-53.0) % Plt Count 116 L D 66 L D (140-440) Thou/mm3 BMP 06/14/25 06/15/25 17:19 06:10 Sodium 135 L 136 Potassium 3.5 3.7 Chloride 94 L 98 Carbon Dioxide 25.3 24.4 BUN 40 H 19 Creatinine 7.6 H* 4.6 H* D Glucose 70 L 70 L Calcium 7.4 L 7.7 L Liver Function 06/14/25 06/15/25 Range/Units 17:19 06:10 Total Bilirubin 1.8 H 1.2 D (0.3-1.2) mg/dL AST 21 18 (0-34) U/L ALT < 7 L < 7 L (10-49) U/L Alkaline Phosphatase 75 61 (46-116) U/L Albumin 2.7 L 2.6 L (3.5-5.0) gm/dL Quality Measures Quality Measures none Medications Home Medications and Allergies Home Medications ?Medication ?Instructions ?Recorded ?Confirmed ?Type amlodipine 10 mg tablet 10 mg PO 1XD 05/09/25 06/15/25 History ferrous sulfate 325 mg (65 mg 325 mg PO 1XD 05/09/25 06/15/25 History iron) tablet (FeroSul) folic acid 1 mg tablet 1 mg PO 1XD 05/09/25 06/15/25 History levothyroxine 100 mcg tablet 100 mcg PO 1XD 05/09/25 06/15/25 History losartan 100 mg tablet 100 mg PO 1XD 05/09/25 06/15/25 History quetiapine 100 mg tablet 100 mg PO HS 05/09/25 06/15/25 History Allergies Allergy/AdvReac Type Severity Reaction Status Date / Time No Known Allergies Allergy Verified 06/04/25 10:52 Visit Medications Acetaminophen (Acetaminophen 325 Mg Tablet) 650 mg PO Q6H PRN PRN Reason: Fever >100.3 or pain Stop: 07/15/25 00:58 Heparin Sodium (Porcine) (Heparin Sod Inj 1000 Unit/Ml Vial 10 Ml) 3,500 unit INDWELLCAT X1 PRN PRN Reason: DIALYSIS Stop: 06/28/25 19:52 Last Admin: 06/15/25 10:47 Dose: 3,500 unit Albumin Human (Albuminar-25 Ivpb) 25 gm in 100 mls @ 100 mls/hr IV PRN PRN PRN Reason: DIALYSIS Last Infusion: 06/15/25 09:49 Dose: Infused Ceftriaxone Sodium/Dextrose (Rocephin/D5w 1gm Iv Premix) 1 gm in 50 mls @ 100 mls/hr IV QDAY ANNE Stop: 06/22/25 01:15 Last Admin: 06/15/25 11:48 Dose: Not Given Lorazepam (Lorazepam 0.5 Mg Tablet) 0.5 mg PO Q4HR PRN PRN Reason: CIWA Score 2-6 Stop: 06/20/25 01:03 Lorazepam (Lorazepam 0.5 Mg Tablet) 1 mg PO Q4HR PRN PRN Reason: CIWA SCORE 7-11 Stop: 06/20/25 01:03 Lorazepam (Lorazepam 0.5 Mg Tablet) 2 mg PO Q4HR PRN PRN Reason: CIWA SCORE 12-15 Stop: 06/20/25 01:03 Ondansetron HCl (Ondansetron Inj 2 Mg/Ml Inj 2 Ml) 4 mg IVP Q6H PRN; Protocol PRN Reason: NAUSEA OR VOMITING Stop: 07/15/25 00:58 Pantoprazole Sodium (Pantoprazole Inj 40 Mg Vial) 40 mg IVP QDAY ANNE Stop: 07/15/25 08:59 Last Admin: 06/15/25 11:51 Dose: 40 mg Sennosides (Senna Tablet) 1 tab PO QDAY PRN; Protocol PRN Reason: constipation Stop: 07/15/25 00:58 Discontinued Medications Epoetin Melchor (Epoetin Melchor-Epbx Inj 10,000 Unit/Ml Vial (Non-Esrd)) 10,000 unit IV X1 ONE Stop: 06/14/25 20:16 Last Admin: 06/14/25 20:27 Dose: 10,000 unit Magnesium Sulfate (Magnesium Sulfate Ivpb) 2 gm in 50 mls @ 25 mls/hr IV X1 ONE Stop: 06/14/25 20:41 Last Infusion: 06/14/25 20:58 Dose: Infused Magnesium Sulfate (Magnesium Sulfate Ivpb) 4 gm in 50 mls @ 12.5 mls/hr IV X1 ONE Stop: 06/15/25 05:19 Last Admin: 06/15/25 03:55 Dose: 12.5 mls/hr Albumin Human (Albuminar-25 Ivpb) 25 gm in 100 mls @ 100 mls/hr IV TID ANNE Stop: 06/18/25 06:44 Ondansetron HCl (Ondansetron Inj 2 Mg/Ml Inj 2 Ml) 4 mg IVP X1 ONE; Protocol Stop: 06/14/25 16:34 Last Admin: 06/14/25 17:32 Dose: 4 mg Pantoprazole Sodium (Pantoprazole Inj 40 Mg Vial) 80 mg IVP X1 ONE Stop: 06/14/25 16:34 Last Admin: 06/14/25 17:32 Dose: 80 mg
--- NOTE | 2025-06-15 15:11 | PC.SS ---
SS called [facility] and spoke to Henrietta in regards to pt. Pt is aligned with their clinic and pt does have transportation aligned that was set up by social services aide at [facility]. Pt chair time is //SAT at 11am. Henrietta confirmed pt has missed 2 weeks of HD. Per Henrietta they have communicated with pt and his mother Yanni Prado [phone], but ultimately pt is refusing to get treatment.
--- NOTE | 2025-06-15 15:55 | PC.SS ---
Addendum entered by Nilda Pascual 06/15/25 16:19: SS reattempted to meet with pt in regards for DC plan, pt still in with team for procedure. Original Note: 1520: SS spoke to pt mother Yanni Prado [phone] in regards to DC plan. Yanni expressed concern with pt returning home. Per Yanni pt is refusing HD treatment due to not feeling well. Yanni wishes for pt to go to short term rehab. SS explained with pt insurance auth will be required and at this time the pt has refused PT, which would not qualify him for SNF. Yanni requested for SS to speak to pt again and see if he will be willing to go for just a couple weeks. Yanni also inquired on IHSS. SS to send referral on behalf of pt. Yanni also requested Advanced Directive Paperwork. 1540: SS attempted to meet with pt at bedside but was having procedure done.
--- NOTE | 2025-06-15 16:28 | PD.NEPHPROG ---
Documentation for date of: 06/15/25 Subjective Subjective Interval history: Mr. Prado is a 45-year-old male with a past medical history of alcoholic liver cirrhosis, alcohol abuse disorder-currently a drinker, ESRD probably from hepatorenal syndrome type II (on hemodialysis-inconsistent), Prediabetes, history of pulmonary embolism- hypertension, history of variceal bleed, history of psychiatric disorders, who presented to the emergency room from home complaining of generalized weakness, significant abdominal distention. Patient was evaluated in the emergency room, he was a poor historian, is noncompliant with medications and unaware of most of his medical history. Chart review done. Patient apparently has been missing dialysis treatments. His last session was in 05/30/2025. Has been very noncompliant with his dialysis treatments. In the ED patient was noted to be significantly fluid overloaded. Labs showed WBC 16.3, hemoglobin 7.5, platelets 116. Coagulation profile showing INR 1.6. Sodium 135, potassium 3.5, BUN 40, creatinine 7.6, GFR 8, calcium 8.4, magnesium 1.4, bilirubin 1.8, albumin 2.[address] showed massive ascites and anasarca. Chest x-ray showed no aspiration pneumonia. Renal consultation requested for need for dialysis. Patient currently seen on dialysis. 06/15/2025 patient resting comfortably. Currently seen on his dialysis. Had a long conversation with the patient regarding emphasizing compliance with dialysis sessions. Hopefully will comply. Review of Systems Review of Systems Narrative Review of Systems: CONSTITUTIONAL: Patient denies any fever, chills. Complaining of fatigue HEENT: Denies any visual disturbances or hearing problems. CARDIOVASCULAR: Patient denies any chest pain, shortness of breath. + swelling in the lower extremities. PULMONARY: Patient denies any shortness of breath, cough. GASTROINTESTINAL: Patient complaining of abdominal distention. GENITOURINARY: Patient denies any urinary symptoms of burning or frequency or hematuria, denies any form in the urine. SKIN: Denies any rash. MUSCULOSKELETAL: Denies any muscular skeletal problems of joint pains. NEUROLOGICAL: Denies any neurological problems of strokes, seizures or confusion. Denies any memory problems. PSYCHIATRIC: Patient seems to have anger and irritability issues Exam Vital Signs Temp Pulse Resp BP Pulse Ox O2 Del Method O2 Flow Rate 36.1 C 91 18 100/56 L 97 Room Air 1 06/15/25 12:00 06/15/25 14:00 06/15/25 14:00 06/15/25 14:00 06/15/25 14:00 06/15/25 14:00 06/15/25 08:00 Narrative Exam GENERAL APPEARANCE: Patient currently seen on dialysis. NECK: Neck supple, no JVD or bruit CARDIOVASCULAR: Heart regular, no murmurs LUNGS/CHEST: Fine rhonchi bilaterally ABDOMEN: Massive ascites noted EXTREMITIES: 1+ edema in the lower extremities SKIN: Skin exam normal without any rashes. Right IJ dialysis catheter MUSCULOSKELETAL: Musculoskeletal exam normal PSYCHIATRIC: Normal mood, affect LYMPHATICS: No lymphadenopathy noted NEUROLOGICAL : No neurological deficits Objective Labs 06/15/25 07:52 06/15/25 06:10 Labs: Laboratory Results - last 24 hr 06/14/25 06/14/25 06/14/25 00:00 17:18 17:19 WBC 16.3 H RBC 2.58 L Hgb 7.5 L Hct 22.9 L MCV 89 MCH 29.1 MCHC 32.8 RDW Std Deviation 46.5 H Plt Count 116 L D Neut % (Auto) 86 H Lymph % (Auto) 8 L [place] % (Auto) 5 Eos % (Auto) 0 Baso % (Auto) 0 Neut # (Auto) 14.0 H Lymph # (Auto) 1.3 [place] # (Auto) 0.8 Eos # (Auto) 0.0 Baso # (Auto) 0.0 Immature Gran # (Auto) 0.13 H Absolute Nucleated RBC 0.00 Immature Gran % 1 H Nucleated RBC % 0 PT 16.7 H D INR 1.6 H APTT 39.9 H D Sodium 135 L Potassium 3.5 Chloride 94 L Carbon Dioxide 25.3 Anion Gap 16 BUN 40 H Creatinine 7.6 H* Estim Creat Clear Calc 13.4 L eGFR 8 L* BUN/Creatinine Ratio 5 L Glucose 70 L Calculated Osmolality 277 Calcium 7.4 L Corrected Calcium 8.4 L Phosphorus Magnesium 1.4 L Total Bilirubin 1.8 H AST 21 ALT < 7 L Alkaline Phosphatase 75 Total Protein 6.3 Albumin 2.7 L Globulin 3.6 H Albumin/Globulin Ratio 0.8 L Ethyl Alcohol < 3.0 HIV 1&2 Antibody Rapid Non-Reactive Misc Test Result Blood Type O Negative Antibody Screen POSITIVE Antibody Identification Anti-D Crossmatch See Detail Blood Bank Wristband ID Yes 06/15/25 06/15/25 06:10 07:52 WBC 12.8 H RBC 2.57 L Hgb 7.5 L Hct 22.4 L MCV 87 MCH 29.2 MCHC 33.5 RDW Std Deviation 48.5 H Plt Count 66 L D Neut % (Auto) 79 Lymph % (Auto) 12 [place] % (Auto) 7 Eos % (Auto) 1 Baso % (Auto) 0 Neut # (Auto) 10.1 H Lymph # (Auto) 1.6 [place] # (Auto) 0.9 H Eos # (Auto) 0.2 Baso # (Auto) 0.0 Immature Gran # (Auto) 0.08 H Absolute Nucleated RBC 0.00 Immature Gran % 1 H Nucleated RBC % 0 PT INR APTT Sodium 136 Potassium 3.7 Chloride 98 Carbon Dioxide 24.4 Anion Gap 14 BUN 19 Creatinine 4.6 H* D Estim Creat Clear Calc 22.6 L eGFR 15 L BUN/Creatinine Ratio 4 L Glucose 70 L Calculated Osmolality 272 L Calcium 7.7 L Corrected Calcium 8.8 Phosphorus 6.6 H Magnesium 1.2 L Total Bilirubin 1.2 D AST 18 ALT < 7 L Alkaline Phosphatase 61 Total Protein 5.1 L Albumin 2.6 L Globulin 2.5 Albumin/Globulin Ratio 1.0 L Ethyl Alcohol HIV 1&2 Antibody Rapid Misc Test Result Platelets confirmed Blood Type Antibody Screen Antibody Identification Crossmatch Blood Bank Wristband ID Assessment & Plan Assessment and plan (1) ESRD (end stage renal disease) on dialysis: Status: Acute Assessment and plan: ESRD secondary to hepatorenal syndrome. No renal recovery. Emphasized compliance. Patient currently seen on dialysis. Tolerating dialysis without any problems. Hemodialysis for 3 hours, 2K, ultrafiltration 2-3 L, Epogen 6000, no heparin ordered. Plan of care discussed with the dialysis nurse. Please see dialysis flowsheet for further details. Emphasized compliance with treatments (2) Cirrhosis of liver: Status: Acute Assessment and plan: Alcoholic liver cirrhosis with all the sequelae including anemia, thrombocytopenia, ascites, encephalopathy, gastric varices (3) Abdominal ascites: Status: Acute Assessment and plan: Patient might need large-volume paracentesis Additional Assessment & Plan Additional Plan: Thank you Jaskaran for allowing me to participate in the care of Mr. Prado
--- NOTE | 2025-06-15 17:08 | PD.RESPROC ---
PROCEDURES: Procedure Date / Time 06/15/25 1708 Procedure Narrative Procedure Narrative: Attending attestation: I was present for entire procedure. Patient Toller procedure well with no immediate complications. Minimal blood loss. Hemostasis was achieved with Surgicel and adequate time of manual pressure. Paracentesis Indication: Ascites Informed consent obtained: from patient Time out done, and the following verified: correct patient, side and site, procedure, patient position and implants and/or equipment Procedure: therapeutic paracentesis Location: RLQ Local anesthetic used: lidocaine 1% Amount of anesthesia used (mL): 12 Bedside ultrasound used: yes, Ascites confirmed and location marked Preparation: sterile prep and drape Amount of fluid obtained (mL): 7,000 Fluid: clear and sent to lab for analysis Size of needle used: 18 EBL(ml): 5 Post procedure exam: awake, alert, normal BP, normal HR and normal SpO2 Patient tolerated procedure: well and no complications Complications: none Procedure comment: I, Roger Lopez MD PGY-2 performed procedure paracentesis successfully with no acute complications under the direct supervision of my attending Dr. Aguilera
--- NOTE | 2025-06-15 19:00 | PC.NURSE ---
RECEIVED PATIENT ALERT AND ORIENTED X3.NO COMPLAINT AT THIS TIME.INSTRUCTED TO CALL WHEN NEEDED ASSISTANCE.
[2025-06-15 20:03] LABS: Peritoneal Fluid Appearance Clear; Peritoneal Fluid Color Yellow; Peritoneal Fluid Mononuclear 4 %; Peritoneal Fluid Polynuclear 96 %; Peritoneal Fluid WBC 28 /cmm; RBC,Peritoneal Fluid 43 /cmm
[2025-06-16] VITALS (10 sets, daily range): BP systolic 96–111; BP diastolic 59–71; PULSE 79–97; RESP 14–99; TEMP 35.6–36.6; O2SAT 92–95
--- NOTE | 2025-06-16 00:33 | ESDS_ITS ---
<Statement entered by Jaskaran Hargrove MD - 06/26/25 14:31> I reviewed above note and agree with findings and plans. I have also personally examined the patient with medicine team and went over assessment and plan with medical team including internal medicine physician and resident physician. Planned Discharge Date 06/15/25 DS: Providers Provider Date of admission: 06/15/25 00:56 Primary care physician: Physician No Primary/Family Admitting Provider: Kassy Carrero MD Attending Provider on Admission: Kassy Carrero MD Consults: 06/14/25 18:49 Consult to Nephrology Stat Comment: ESRD needing hemodialysis Consulting Provider: Darryn Duncan 06/15/25 03:58 Referral Physical Therapy Routine Comment: Physician Instructions: Attending Provider on DC: Jaskaran Hargrove MD Discharging Provider: Roger Lopez MD Anticipated date of discharge: 06/15/25 DS: Diagnosis Problem List Completed Was Problem List Reviewed/Reconciled?: Yes Hospital Course Hospital Course Hospital course: 45-year-old male with past medical history of alcoholic liver cirrhosis, alcohol abuse disorder, ESRD, diabetes, hypertension, history of esophageal varices who presented to the ER due to generalized weakness and abdominal distention. Patient was admitted emergent dialysis and possible diagnostic paracentesis. During hospital stay patients turn out was consulted and the patient had had hemodialysis session. Additionally patient also had therapeutic paracentesis with removal of approximately 7 L of fluids and was given approximately 50 g of albumin postprocedure. While maintaining stable vital signs. Patient at this time is medically stable for discharge. Recommended to follow- up with his primary care physician within 1 week of discharge. Patient is recommended to follow-up with his turn out and to remain compliant with his hemodialysis sessions. Patient also instructed to abstain from alcohol abuse. Patient also instructed should his symptoms recur or worsen patient is instructed to return to the ER. Problem list: #ESRD #Decompensated liver cirrhosis #Anasarca #Ascites status post paracentesis #Alcohol abuse disorder #Normocytic anemia Case discussed with my attending Dr. Beena Lopez MD PGY-2 Status at Discharge Functional status at discharge: independent ambulation Overall status at discharge: patient is back to baseline Time Spent with Patient Time attestation: Total time spent providing and/or coordinating discharge services: Time spent: Greater than 30 minutes Exam Vital Signs Temp Pulse Resp BP Pulse Ox O2 Del Method O2 Flow Rate 97.2 F 87 18 111/60 93 L Room Air 1 06/16/25 00:00 06/16/25 00:00 06/16/25 00:00 06/16/25 00:00 06/16/25 00:00 06/16/25 00:00 06/15/25 08:00 Narrative Exam Physical Exam GENERAL: NAD, AAOx3, HEENT: Moist mucosa. Eyes open, symmetrical, scleral icterus noted CARDIO: Heart RRR, no obvious murmurs PULM: No noted coughing/dyspnea CTA B/L, no R/W/R GI: Abdomen soft, nondistended, no pain on palpation. BSappreciated SKIN/MSK/EXT: No wounds/rashes/edema/amputations, no pain on palpation. Pedal pulses present B/L NEURO: AAOx3, no focal neuro deficits, able to move all 4 extremities Discharge Plan Plan Patient Disposition: HOME (Self Care) Care Plan Goals: Follow up with [facility] physician within 1 week of discharge Follow up with your [facility] [employer] with regards to continuing your Hemodialysis sessions Please take all your medications as prescribed Should your symptoms recur or worsen patient is instructed to return to the ED. Prescriptions/Referrals Prescriptions/Med Rec: Continued pantoprazole 40 mg tablet,delayed release (DR/EC) 40 mg PO BID 30 Days Qty: 60 2RF quetiapine 100 mg tablet 100 mg PO HS levothyroxine 100 mcg tablet 100 mcg PO 1XD Patient Comments: TAKE 1 TABLET BY MOUTH DAILY IN THE MORNING ON AN EMPTY STOMACH amlodipine 10 mg tablet 10 mg PO 1XD Patient Comments: TAKE 1 TABLET BY MOUTH DAILY ferrous sulfate [FeroSul] 325 mg (65 mg iron) tablet 325 mg PO 1XD Patient Comments: TAKE 1 TABLET BY MOUTH DAILY folic acid 1 mg tablet 1 mg PO 1XD losartan 100 mg tablet 100 mg PO 1XD Patient Comments: TAKE 1 TABLET BY MOUTH DAILY Referrals: No Primary/Family,Physician [Primary Care Provider] - Patient/Caregiver Discharge Instructions Print Language: Iranian Stand Alone Forms: [facility] Award Info., Patient Portal Info Letter Discharge Order Discharge Orders: Discharge (Routine); Ordered 06/15/25 Ordered By: Roger Lopez Quality Discharge Quality Measures VTE prophylaxis
[2025-06-16 05:54] LABS: Basophils # (Auto) 0.0 Thou/mm3 (0.0-0.2); Basophils % (Auto) 0 % (0-2.5); Eosinophils # (Auto) 0.1 Thou/mm3 (0.0-0.5); Eosinophils % (Auto) 2 % (0-10); Hematocrit 20.4 % (41.0-53.0); Immature Granulocytes Auto 0.04 Thou/mm3 (0.00-0.00); Lymphocytes # (Auto) 1.4 Thou/mm3 (1.0-4.8); Lymphocytes % (Auto) 20 % (10-50); Mean Corpuscular HGB Conc 33.8 g/dl (31.0-37.0); Mean Corpuscular Hemoglobin 30.0 pg (25.0-35.0); Mean Corpuscular Volume 89 fL (80-100); Monocytes # (Auto) 0.7 Thou/mm3 (0.0-0.8); Monocytes % (Auto) 10 % (0-12); Neutrophils # (Auto) 4.9 Thou/mm3 (1.8-7.7); Neutrophils % (Auto) 68 % (37-80); Nucleated Red Blood Cell # 0.00 Thou/mm3 (0.00-0.00); Nucleated Red Blood Cell % 0 /100 WBC (0); RDW Standard Deviation 50.5 fL (35.1-43.9); Red Blood Count 2.30 Miln/mm3 (4.50-5.90); White Blood Count 7.2 Thou/mm3 (3.8-10.6)
[2025-06-16 05:58] LABS: Platelet Count 49 Thou/mm3 (140-440)
[2025-06-16 05:59] LABS: Hemoglobin 6.9 g/dL (13.5-16.0)
[2025-06-16 06:28] LABS: Alanine Aminotransferase < 7 U/L (10-49); Albumin, Serum 2.4 gm/dL (3.5-5.0); Albumin/Globulin Ratio 1.1 (1.2-2.2); Alkaline Phosphatase 48 U/L (46-116); Anion Gap 11 (7-16); Aspartate Amino Transferase < 10 U/L (0-34); BUN/Creatinine Ratio 4 Ratio (12-20); Bilirubin,Total 0.9 mg/dL (0.3-1.2); Blood Urea Nitrogen 21 mg/dL (9-23); Calcium 7.3 mg/dL (8.3-10.6); Calcium (Corrected) 8.6 mg/dL (8.5-10.1); Carbon Dioxide 28.0 mMol/L (20.0-31.0); Chloride 98 mMol/L (98-107); Creatinine (Component) 5.4 mg/dL (0.6-1.3); Estimated Creatinine Clearance 19.2 mL/min (>60); Globulin 2.1 gm/dL (2.3-3.5); Glucose 168 mg/dL (74-106); Osmolality,Calculated 280 (275-295); Potassium 3.2 mMol/L (3.4-5.1); Sodium 137 mMol/L (136-145); Total Protein 4.5 gm/dL (5.7-8.2); eGFR 13 See Note
[2025-06-16 07:39] LABS: Slide Review Platelets confirmed
[2025-06-16 08:29] LABS: Magnesium 1.7 mg/dL (1.6-2.6); Phosphorous 5.5 mg/dL (2.4-5.1)
[2025-06-16] MEDS: cefTRIAXone/D5w 1gm IV premix 1 GM/50 ML BAG IV (08:32)
--- NOTE | 2025-06-16 09:17 | ESPR_ITS ---
Documentation for date of: 06/16/25 Subjective Subjective Interval history: Mr. Prado is a 45-year-old male with a past medical history of alcoholic liver cirrhosis, alcohol abuse disorder-currently a drinker, ESRD probably from hepatorenal syndrome type II (on hemodialysis-inconsistent), Prediabetes, history of pulmonary embolism- hypertension, history of variceal bleed, history of psychiatric disorders, who presented to the emergency room from home complaining of generalized weakness, significant abdominal distention. Patient was evaluated in the emergency room, he was a poor historian, is noncompliant with medications and unaware of most of his medical history. Chart review done. Patient apparently has been missing dialysis treatments. His last session was in 05/30/2025. Has been very noncompliant with his dialysis treatments. In the ED patient was noted to be significantly fluid overloaded. Labs showed WBC 16.3, hemoglobin 7.5, platelets 116. Coagulation profile showing INR 1.6. Sodium 135, potassium 3.5, BUN 40, creatinine 7.6, GFR 8, calcium 8.4, magnesium 1.4, bilirubin 1.8, albumin 2.[address] showed massive ascites and anasarca. Chest x-ray showed no aspiration pneumonia. Renal consultation requested for need for dialysis. Patient currently seen on dialysis. 06/16/2025 patient resting comfortably. Patient received dialysis yesterday and is feeling better. Currently receiving blood transfusion. Had a long conversation with the patient regarding emphasizing compliance with dialysis sessions. Hopefully will comply. Review of Systems Review of Systems Narrative Review of Systems: CONSTITUTIONAL: Patient denies any fever, chills. Complaining of fatigue HEENT: Denies any visual disturbances or hearing problems. CARDIOVASCULAR: Patient denies any chest pain, shortness of breath. + swelling in the lower extremities. PULMONARY: Patient denies any shortness of breath, cough. GASTROINTESTINAL: Patient complaining of abdominal distention. GENITOURINARY: Patient denies any urinary symptoms of burning or frequency or hematuria, denies any form in the urine. SKIN: Denies any rash. MUSCULOSKELETAL: Denies any muscular skeletal problems of joint pains. NEUROLOGICAL: Denies any neurological problems of strokes, seizures or confusion. Denies any memory problems. PSYCHIATRIC: Patient seems to have anger and irritability issues Exam Vital Signs Temp Pulse Resp BP Pulse Ox O2 Del Method O2 Flow Rate 36.6 C 87 18 97/63 92 L Room Air 1 06/16/25 13:18 06/16/25 13:18 06/16/25 13:18 06/16/25 13:18 06/16/25 12:00 06/16/25 12:00 06/15/25 08:00 Narrative Exam GENERAL APPEARANCE: Patient currently seen in medical floor. NECK: Neck supple, no JVD or bruit CARDIOVASCULAR: Heart regular, no murmurs LUNGS/CHEST: Fine rhonchi bilaterally ABDOMEN: Massive ascites noted EXTREMITIES: 1+ edema in the lower extremities SKIN: Skin exam normal without any rashes. Right IJ dialysis catheter MUSCULOSKELETAL: Musculoskeletal exam normal PSYCHIATRIC: Normal mood, affect LYMPHATICS: No lymphadenopathy noted NEUROLOGICAL : No neurological deficits Objective Labs 06/16/25 16:02 06/16/25 04:41 Labs: Laboratory Results - last 24 hr 06/14/25 06/15/25 06/16/25 17:19 16:45 04:41 WBC 7.2 D RBC 2.30 L Hgb 6.9 L* Hct 20.4 L* MCV 89 MCH 30.0 MCHC 33.8 RDW Std Deviation 50.5 H Plt Count 49 L D Neut % (Auto) 68 Lymph % (Auto) 20 [place] % (Auto) 10 Eos % (Auto) 2 Baso % (Auto) 0 Neut # (Auto) 4.9 Lymph # (Auto) 1.4 [place] # (Auto) 0.7 Eos # (Auto) 0.1 Baso # (Auto) 0.0 Immature Gran # (Auto) 0.04 H Absolute Nucleated RBC 0.00 Immature Gran % 1 H Nucleated RBC % 0 Sodium 137 Potassium 3.2 L D Chloride 98 Carbon Dioxide 28.0 Anion Gap 11 BUN 21 Creatinine 5.4 H* D Estim Creat Clear Calc 19.2 L eGFR 13 L* BUN/Creatinine Ratio 4 L Glucose 168 H D Calculated Osmolality 280 Calcium 7.3 L Corrected Calcium 8.6 Phosphorus Magnesium Total Bilirubin 0.9 AST < 10 ALT < 7 L Alkaline Phosphatase 48 D Total Protein 4.5 L Albumin 2.4 L Globulin 2.1 L Albumin/Globulin Ratio 1.1 L Peritoneal Color Yellow Peritoneal Appearance Clear Peritoneal WBC 28 Peritoneal RBC 43 [place] Polynucl WBCs 96 [place] Mononucl WBCs 4 Misc Test Result Platelets confirmed Blood Type O Negative Antibody Screen POSITIVE Antibody Identification Anti-D Crossmatch See Detail Blood Bank Wristband ID Yes 06/16/25 04:51 WBC RBC Hgb Hct MCV MCH MCHC RDW Std Deviation Plt Count Neut % (Auto) Lymph % (Auto) [place] % (Auto) Eos % (Auto) Baso % (Auto) Neut # (Auto) Lymph # (Auto) [place] # (Auto) Eos # (Auto) Baso # (Auto) Immature Gran # (Auto) Absolute Nucleated RBC Immature Gran % Nucleated RBC % Sodium Potassium Chloride Carbon Dioxide Anion Gap BUN Creatinine Estim Creat Clear Calc eGFR BUN/Creatinine Ratio Glucose Calculated Osmolality Calcium Corrected Calcium Phosphorus 5.5 H Magnesium 1.7 Total Bilirubin AST ALT Alkaline Phosphatase Total Protein Albumin Globulin Albumin/Globulin Ratio Peritoneal Color Peritoneal Appearance Peritoneal WBC Peritoneal RBC [place] Polynucl WBCs [place] Mononucl WBCs Misc Test Result Blood Type Antibody Screen Antibody Identification Crossmatch Blood Bank Wristband ID Assessment & Plan Assessment and plan (1) ESRD (end stage renal disease) on dialysis: Status: Acute Assessment and plan: ESRD secondary to hepatorenal syndrome. No renal recovery. Emphasized compliance. Did receive dialysis yesterday Emphasized compliance with treatments Noted anemia-blood transfusion was ordered if patient stays will get dialysis tomorrow (2) Cirrhosis of liver: Status: Acute Assessment and plan: Alcoholic liver cirrhosis with all the sequelae including anemia, thrombocytopenia, ascites, encephalopathy, gastric varices (3) Abdominal ascites: Status: Acute Assessment and plan: s/p large-volume paracentesis Additional Assessment & Plan Additional Plan: Thank you Jaskaran for allowing me to participate in the care of Mr. Prado
--- NOTE | 2025-06-16 11:08 | PC.SS ---
SS submitted IHSS referral per pt mother request
--- NOTE | 2025-06-16 11:35 | PC.SS ---
Addendum entered by Nilda Pascual 06/16/25 11:55: SS spoke to pt mother, Yanni in regards to DC plan. IHSS referral submitted and Advanced Directive paperwork added to DC papers for her. Original Note: SS spoke to pt at bedside in regards to SNF placement. Pt DOES NOT want to DC to SNF and wishes to return home.
--- NOTE | 2025-06-16 14:48 | PC.SS ---
Addendum entered by Nilda Pascual 06/16/25 16:05: [facility] called and changed ETA to 1830, [facility] aware Addendum entered by Nilda Pascual 06/16/25 15:53: SS spoke to Lani at [facility] and set ETA for 1700. SS called Yanni, pt vero and MARILYN to update on time. Packet on chart at nurses station. Original Note: SS set up transport via [id number], pending ETA
[2025-06-16 16:23] LABS: Hematocrit 26.1 % (41.0-53.0)
[2025-06-16 17:00] LABS: Hemoglobin 8.7 g/dL (13.5-16.0)
--- NOTE | 2025-06-16 18:13 | PD.RESDS ---
Planned Discharge Date 06/16/25 DS: Providers Provider Date of admission: 06/15/25 00:56 Primary care physician: Physician No Primary/Family Admitting Provider: Kassy Carrero MD Attending Provider on Admission: Hudson Aguilera MD Consults: 06/14/25 18:49 Consult to Nephrology Stat Comment: ESRD needing hemodialysis Consulting Provider: Darryn Duncan 06/15/25 03:58 Referral Physical Therapy Routine Comment: Physician Instructions: Attending Provider on DC: Mark Krause MD Discharging Provider: Lenader Parrish DO Anticipated date of discharge: 06/16/25 DS: Diagnosis Problem List Completed Was Problem List Reviewed/Reconciled?: Yes Hospital Course Hospital Course Hospital course: 45-year-old male with past medical history of alcoholic liver cirrhosis, alcohol abuse disorder, ESRD, diabetes, hypertension, history of esophageal varices who presented to the ER due to generalized weakness and abdominal distention. Patient was admitted emergent dialysis and possible diagnostic paracentesis. During hospital stay patients bank accountant was consulted and the patient had had hemodialysis session. Additionally patient also had therapeutic paracentesis with removal of approximately 7 L of fluids and was given approximately 50 g of albumin postprocedure. While maintaining stable vital signs. 06/16/25: Pt was not able to get home yesterday upon discharge due to issue with transportation. Pt's morning Hgb 6.9, 1pRBC transfused. Post transfusion h/h 8.7/26.1. Pt denied lightheadedness or weakness. VS stable at time of discharge. Patient at this time is medically stable for discharge. Recommended to follow-up with his primary care physician within 1 week of discharge. Patient is recommended to follow-up with his bank accountant and to remain compliant with his hemodialysis sessions. Patient also instructed to abstain from alcohol abuse. Patient also instructed should his symptoms recur or worsen patient is instructed to return to the ER. Problem list: #ESRD #Decompensated liver cirrhosis #Anasarca #Ascites status post paracentesis #Alcohol abuse disorder #Normocytic anemia Discharge plan: Follow up with [facility] within 1 week of discharge Follow up with your Electrical Service Technician with regards to continuing your Hemodialysis sessions Please take all your medications as prescribed Should your symptoms recur or worsen patient is instructed to return to the ED. Case discussed with my senior resident Dr. Urena Case discussed with my attending Dr. Nelida Parrish DO PGY 1 Time Spent with Patient Time attestation: Total time spent providing and/or coordinating discharge services: Time spent: Greater than 30 minutes Exam Vital Signs Temp Pulse Resp BP Pulse Ox O2 Del Method O2 Flow Rate 97.1 F 79 18 106/71 94 L Room Air 1 06/16/25 16:00 06/16/25 16:00 06/16/25 16:00 06/16/25 16:00 06/16/25 16:00 06/16/25 16:00 06/15/25 08:00 Narrative Exam GENERAL: NAD, AAOx3, HEENT: Moist mucosa. Eyes open, symmetrical, scleral icterus noted CARDIO: Heart RRR, no obvious murmurs PULM: No noted coughing/dyspnea CTA B/L, no R/W/R GI: Abdomen soft, nondistended, no pain on palpation. BSappreciated SKIN/MSK/EXT: No wounds/rashes/edema/amputations, no pain on palpation. Pedal pulses present B/L NEURO: AAOx3, no focal neuro deficits, able to move all 4 extremities Discharge Plan Plan Patient Disposition: HOME (Self Care) Patient condition on transfer: Stable Care Plan Goals: [facility] week [facility] discharge Follow up with your Electrical Service Technician with regards to continuing your Hemodialysis sessions Please take all your medications as prescribed Should your symptoms recur or worsen patient is instructed to return to the ED. Prescriptions/Referrals Prescriptions/Med Rec: Continued pantoprazole 40 mg tablet,delayed release (DR/EC) 40 mg PO BID 30 Days Qty: 60 2RF quetiapine 100 mg tablet 100 mg PO HS levothyroxine 100 mcg tablet 100 mcg PO 1XD Patient Comments: TAKE 1 TABLET BY MOUTH DAILY IN THE MORNING ON AN EMPTY STOMACH amlodipine 10 mg tablet 10 mg PO 1XD Patient Comments: TAKE 1 TABLET BY MOUTH DAILY ferrous sulfate [FeroSul] 325 mg (65 mg iron) tablet 325 mg PO 1XD Patient Comments: TAKE 1 TABLET BY MOUTH DAILY folic acid 1 mg tablet 1 mg PO 1XD losartan 100 mg tablet 100 mg PO 1XD Patient Comments: TAKE 1 TABLET BY MOUTH DAILY Referrals: No Primary/Family,Physician [Primary Care Provider] - Patient/Caregiver Discharge Instructions Print Language: Frisian Stand Alone Forms: Henrietta Galloway Info., Patient Portal Info Letter Discharge Order Discharge Orders: Discharge (Routine); Ordered 06/16/25 Ordered By: Rei Urena Quality Discharge Quality Measures none MD Attestestation MD Attestation I have examined the patient, reviewed labs and imaging findings, discussed the case with the resident(s), and reviewed entered orders. I agree with the plan of care as outlined in this note. Time Spent: [address] Nelida MD
[2025-06-17 06:51] LABS: Hepatitis A Antibody IgM Non Reactive (Non React); Hepatitis B Core Antibody IgM Non Reactive (Non React); Hepatitis B Surface Ab NonReact(Not Immune) (Immune); Hepatitis B Surface Antigen Non Reactive (Non React); Hepatitis C Antibody Non Reactive (Non React)
--- NOTE | 2025-06-19 15:16 | PC.CM ---
Patient was discharged on 06/16. I got paperwork from [facility] today stating patient is opened to them. I called Ad[facility] and I let her know patient discharged on 06/16. I faxed over the paperwork from this visit and she will reach out to patients PCP for new orders.
== END 2025-06-16 17:20 | disposition home or self-care (01) | DRG 280 ==
LOC: SERX 17:26 → SERHOLD 06-15 01:24 → S3NX 06-15 03:29
PROVIDERS: Internal Medicine; Nurse Practitioner Family; Student in an Organized Health Care Education/Training Program; Admitting Provider Student in an Organized Health Care Education/Training Program; Emergency Provider Family Medicine; Visit Provider Internal Medicine Critical Care Medicine
DX: K70.31 Alcoholic cirrhosis of liver with ascites (principal); F10.10 Alcohol abuse, uncomplicated; I12.0 Hypertensive chronic kidney disease with stage 5 chronic kidney disease or end stage renal disease; D63.1 Anemia in chronic kidney disease; E11.22 Type 2 diabetes mellitus with diabetic chronic kidney disease; E83.42 Hypomagnesemia; F17.210 Nicotine dependence, cigarettes, uncomplicated; I86.4 Gastric varices; K72.10 Chronic hepatic failure without coma; K76.7 Hepatorenal syndrome; F31.9 Bipolar disorder, unspecified; E87.70 Fluid overload, unspecified; N18.6 End stage renal disease; Z91.158 Patient's noncompliance with renal dialysis for other reason; Z99.2 Dependence on renal dialysis; Z86.711 Personal history of pulmonary embolism; B37.81 Candidal esophagitis; D69.6 Thrombocytopenia, unspecified; G93.40 Encephalopathy, unspecified; D72.829 Elevated white blood cell count, unspecified; N47.1 Phimosis
CPT/HCPCS: 36415; 36430; 71045; 74176; 80053; 80074; 80320; 81001; 83735; 84100; 85014; 85018; 85025; 85610; 85730; 86703; 86706; 86850; 86870; 86900; 86901; 86921; 86922; 87081; 89051; 90935; 93005; 94762; 96365; 96366; 96375; 96376; 99284; J0696; J1643; J2405; J2470; J3475; P9016; P9047; Q5106; A9270; G0257; G0480